=== PATIENT | female | born 1970 | race Caucasian/White ===

== ENCOUNTER 2022-10-06 16:50 | Emergency (ER) | payer SELFPAY ==
[2022-10-06 16:50] VITALS: BP 122/83; PULSE 100; RESP 18; TEMP 36.6; O2SAT 98
[2022-10-06 17:49] LABS: Basophils Absolute Auto 0.2 K/mm3 (0.0-0.1); Basophils Percent Auto 1.4 % (0.2-1.2); Eosinophils Absolute Auto 0.1 K/mm3 (0-0.3); Eosinophils Percent Auto 0.8 % (0-4.4); Hematocrit 47.9 % (37.0-47.0); Hemoglobin 15.9 g/dL (12.0-15.0); Immature Granulocyte Absolute 0.05 K/mm3 (0.00-0.031); Immature Granulocyte Percent A 0.5 % (0-0.5); Lymphocytes Absolute Auto 2.29 K/mm3 (0.9-3.2); Lymphocytes Percent Auto 21.4 % (18.3-44.2); Mean Corpuscular HGB Conc 33.2 g/dl (32-36); Mean Corpuscular Hemoglobin 29.2 pg (26-34); Mean Corpuscular Volume 88.1 fl (80-100); Mean Platelet Volume 9.3 fl (7.4-10.4); Monocytes Absolute Auto 0.7 K/mm3 (0.1-0.6); Monocytes Percent Auto 6.4 % (2.6-8.5); Neutrophils Absolute Auto 7.4 K/mm3 (1.3-6.7); Neutrophils Percent Auto 69.5 % (45.5-73.1); Platelet Count Result 503 k/mm3 (150-375); Red Blood Count 5.44 M/mm3 (4.2-5.4); White Blood Count 10.7 K/mm3 (4.5-10.0)
[2022-10-06 17:54] LABS: Alanine Aminotransferase 81 U/L (6-35); Albumin Level 4.6 g/dL (3.5-5.1); Alkaline Phosphatase 89 U/L (38-126); Anion Gap 10 mmol/L (8-16); Aspartate Amino Transferase 63 U/L (14-36); Bilirubin,Total 0.6 mg/dL (0.2-1.3); Blood Urea Nitrogen 24 mg/dL (7-17); Calcium 9.7 mg/dL (8.4-10.2); Carbon Dioxide 23 mmol/L (22-30); Chloride 105 mmol/L (98-107); Estimated CRCL calculation 67 ml/min; Estimated Glomerular Filt Rate 58; Glucose 107 mg/dL (65-110); Lipase 36 U/L (23-300); Potassium 4.3 mmol/L (3.4-5.0); Sodium 138 mmol/L (137-145)
[2022-10-06 18:14] LABS: Add Urine Microscopic? NO; Appearance Urine Clear (Clear); Bilirubin Urine Negative (Negative); Blood Urine Negative (Negative); Color Urine Light Yellow (Yellow); Glucose Urine UA Negative (Negative); Ketones Urine Negative (Negative); Leukocyte Esterase Ur Negative LEU/UL (Negative); Nitrate Urine Negative (Negative); Protein Urine Negative (Negative); Urobilinogen Urine 0.2 mg/dL (<2.0)
--- NOTE | 2022-10-06 19:46 | PC.NURSE ---
194-family states they will take pt to another hospital due to extended wait. LWBS-Triaged
== END 2022-10-06 19:46 | disposition left against medical advice (07) ==
PROVIDERS: Emergency Provider Emergency Medicine; PCP Family Medicine
DX: R63.0 Anorexia (principal)
CPT/HCPCS: 36415; 80053; 81003; 83690; 85025; 99199

== ENCOUNTER 2023-09-16 09:22 | Emergency (ER) | payer OTHER, MEDICARE, MEDICAID, SELFPAY ==
[2023-09-16 09:25] VITALS: BP 184/107; PULSE 91; RESP 12; TEMP 36.2; O2SAT 99
--- NOTE | 2023-09-16 09:49 | ED.WOUNDLAC ---
HPI - Wound/Laceration General Chief Complaint: Wound/Laceration <Tuyet Zamora PA-C - Last Filed: 09/16/23 14:36> Stated Complaint: Wounds, Derm Sent Patient to ED <MARIA G Phillips Last Filed: 09/16/23 14:36> Time Seen by Provider: 09/16/23 09:25 <MARIA G Phillips Last Filed: 09/16/23 14:36> Source: patient <MARIA G Phillips Last Filed: 09/16/23 14:36> Mode of arrival: ambulatory <MARIA G Phillips Last Filed: 09/16/23 14:36> Limitations: no limitations <MARIA G Phillips Last Filed: 09/16/23 14:36> History of Present Illness HPI narrative: This is a 52 year old female that presents to the ER for a rash present over the last several months. Reports she has been seeing a blade sharpener for this. Reports she had a biopsy a week ago. She was told to come to the ER today because she was experiencing some systemic symptoms. Reports the rash is itchy and painful. On her feet, groin and head. Denies fevers, erythema, edema, or abnormal drainage. <Tuyet Zamora PA-C - Last Filed: 09/16/23 14:36> Related Data Home Medications: Home Medications Medication Instructions Recorded Confirmed albuterol 90 mcg/actuation aerosol mcg inhalation 09/16/23 inhaler amlodipine 5 mg tablet 5 mg PO DAILY 09/16/23 budesonide-formoterol HFA 160 1 inh inhalation ONCE 09/16/23 mcg-4.5 mcg/actuation aerosol inhaler (Symbicort) fluoxetine 20 mg capsule 20 mg PO DAILY 09/16/23 losartan 100 1 tablet PO DAILY 09/16/23 mg-hydrochlorothiazide 25 mg tablet <MARIA G Phillips Last Filed: 09/16/23 14:36> Allergies/Adverse Reactions: Allergies Allergy/AdvReac Type Severity Reaction Status Date / Time adhesive Allergy Unknown Unknown Verified 09/16/23 09:51 latex Allergy Unknown Rash Verified 09/16/23 09:51 acetaminophen [From Tylenol] Allergy Hives Verified 09/16/23 10:07 adhesive tape AdvReac Mild RASH Verified 09/16/23 09:51 <Tuyet Zamora PA-C - Last Filed: 09/16/23 14:36> Review of Systems Review of Systems: CONSTITUTIONAL: Denies fever SKIN: Reports rash and itching. <Tuyet Zamora PA-C - Last Filed: 09/16/23 14:36> All systems reviewed & are unremarkable except as noted in HPI and below <Tuyet Zamora PA-C - Last Filed: 09/16/23 14:36> PMFSH Past Medical History Medical History: Medical History (Updated 09/16/23 @ 14:32 by Tuyet Zamora PA-C) Anemia Anxiety Arthritis Bronchitis COPD (chronic obstructive pulmonary disease) Crohn disease Depression Emphysema of lung GERD (gastroesophageal reflux disease) IBS (irritable bowel syndrome) Liver disease Neurofibromatosis 2 Peripheral neuropathy Pneumonia Skull fracture Sleep apnea <Tuyet Zamora PA-C - Last Filed: 09/16/23 14:36> Surgical History Surgical History: Surgical History (Updated 10/30/19 @ 14:50 by Tarik Nolasco) H/O bilateral cataract extraction H/O gastric bypass H/O: hysterectomy Hx of appendectomy Hx of cholecystectomy Hx of tonsillectomy <Tuyet Zamora PA-C - Last Filed: 09/16/23 14:36> Family History Family History: Family History (Updated 01/18/19 @ 11:23 by DOCTOR UNKNOWN) Grandparent Family history of lung cancer Other Family history of malignant neoplasm <Tuyet Zamora PA-C - Last Filed: 09/16/23 14:36> Social History Social History: Social History Smoking status: Never smoker Smoking end date: 10/17/11 Alcohol intake: current Gender identity (if verbalized by the patient): Female <Tuyet Zamora PA-C - Last Filed: 09/16/23 14:36> Exam Narrative: GENERAL: Well-appearing, well-nourished, and in no acute distress. HEAD: Normocephalic, atraumatic. EYES: EOMI. ENT: Nares clear, no rhinorrhea or epistaxis. Mucous membranes moist. Oropharynx without tonsillar hypertrophy exudate or other lesions. Bilateral TMs pearly
[2023-09-16 09:52] LABS: Basophils Absolute Auto 0.1 K/mm3 (0.0-0.1); Basophils Percent Auto 1.7 % (0.2-1.2); Eosinophils Absolute Auto 0.4 K/mm3 (0-0.3); Eosinophils Percent Auto 5.1 % (0-4.4); Hematocrit 44.2 % (37.0-47.0); Hemoglobin 14.4 g/dL (12.0-15.0); Immature Granulocyte Absolute 0.03 K/mm3 (0.00-0.031); Immature Granulocyte Percent A 0.4 % (0-0.5); Lymphocytes Absolute Auto 2.17 K/mm3 (0.9-3.2); Mean Corpuscular HGB Conc 32.6 g/dl (32-36); Mean Corpuscular Hemoglobin 30.2 pg (26-34); Mean Corpuscular Volume 92.7 fl (80-100); Mean Platelet Volume 9.5 fl (7.4-10.4); Monocytes Absolute Auto 0.7 K/mm3 (0.1-0.6); Monocytes Percent Auto 8.5 % (2.6-8.5); Neutrophils Absolute Auto 4.9 K/mm3 (1.3-6.7); Neutrophils Percent Auto 58.3 % (45.5-73.1); Platelet Count Result 392 k/mm3 (150-375); Red Blood Count 4.77 M/mm3 (4.2-5.4); Red Cell Distribution Width 13.7 % (11.5-14.5); White Blood Count 8.4 K/mm3 (4.5-10.0)
[2023-09-16] MEDS: ONDANSETRON INJ 4 MG/2 ML VIAL IV PUSH (10:02)
[2023-09-16] MEDS: SODIUM CHLORIDE 0.9% IV 500 ML 999 ML IV CONT (10:02)
[2023-09-16 10:03] LABS: Lactic Acid Reflex 2.4 mmol/L (0.7-2.0)
[2023-09-16 10:04] LABS: Alanine Aminotransferase 95 U/L (6-35); Albumin Level 4.2 g/dL (3.5-5.1); Alkaline Phosphatase 95 U/L (38-126); Anion Gap 9 mmol/L (8-16); Aspartate Amino Transferase 81 U/L (14-36); Bilirubin,Total 0.7 mg/dL (0.2-1.3); Blood Urea Nitrogen 12 mg/dL (7-17); CRP 0.7 mg/dL (<1.0); Calcium 9.2 mg/dL (8.4-10.2); Carbon Dioxide 23 mmol/L (22-30); Chloride 105 mmol/L (98-107); Estimated Glomerular Filt Rate > 60; Glucose 206 mg/dL (65-110); Potassium 3.8 mmol/L (3.4-5.0); Sodium 137 mmol/L (137-145)
[2023-09-16 10:33] LABS: Erythrocyte Sedimentation Rate 25 mm/hr (0-20)
[2023-09-16] MEDS: SODIUM CHLORIDE 0.9% IV 1,000 ML 999 ML IV CONT (10:55)
[2023-09-16 11:05] LABS: Influenza A QL RT-PCR Negative (Negative); Influenza B QL RT-PCR Negative (Negative); SARS-CoV-2 RNA PCR Negative (Negative)
[2023-09-16 12:49] LABS: Lactic Acid Reflex 1.1 mmol/L (0.7-2.0)
[2023-09-16 12:50] LABS: Reflex Lactic Acid Yes or No Add Lactic
[2023-09-16 15:04] VITALS: BP 130/76; PULSE 88; RESP 16; O2SAT 98
== END 2023-09-16 15:05 | disposition home or self-care (01) ==
PROVIDERS: Emergency Provider Physician Assistant; PCP Family Medicine
DX: B35.9 Dermatophytosis, unspecified (principal); Z20.822 Contact with and (suspected) exposure to COVID-19; J43.9 Emphysema, unspecified; K50.90 Crohn's disease, unspecified, without complications; K21.9 Gastro-esophageal reflux disease without esophagitis; K76.9 Liver disease, unspecified; G62.9 Polyneuropathy, unspecified; G47.30 Sleep apnea, unspecified; Q85.02 Neurofibromatosis, type 2; Z98.84 Bariatric surgery status; Z86.2 Personal history of diseases of the blood and blood-forming organs and certain disorders involving the immune mechanism; Z87.891 Personal history of nicotine dependence; Z98.42 Cataract extraction status, left eye; Z98.41 Cataract extraction status, right eye; Z90.710 Acquired absence of both cervix and uterus; Z90.49 Acquired absence of other specified parts of digestive tract
CPT/HCPCS: 36415; 80053; 83605; 85025; 85652; 86140; 87636; 96361; 96374; 99284; J2405; J7030; J7040

== ENCOUNTER 2024-03-30 15:46 | Inpatient (IN) | payer MEDICARE, OTHER, MEDICAID, SELFPAY ==
[2024-03-30] VITALS (9 sets, daily range): BP systolic 115–162; BP diastolic 87–102; PULSE 98–109; RESP 16–27; TEMP 36.4; O2SAT 91–99
--- NOTE | ~2024-03-30 | XR_ITS ---
EXAMINATION: XR chest 2V 03/30/2024 16:13 INDICATION: Chest pain and shortness of breath PROCEDURE: 2 view chest COMPARISON: No prior studies for comparison. FINDINGS: The lungs are clear. There are calcified granulomas of the left midlung. The cardiomediasti nal silhouette is within normal limits. There are no pleural effusions. There is no pneumothorax rey spected. IMPRESSION: 1: NO ACUTE CARDIOPULMONARY DISEASE. Reviewed, dictated and finalized at location B.
--- NOTE | ~2024-03-30 | XR_ITS ---
EXAMINATION: XR chest 2V DATE: 04/06/2024 09:24 INDICATION: Hypoxia. TECHNIQUE: PA and lateral views of the chest were obtained. COMPARISON: Chest radiograph and CT dated 03/30/2024 FINDINGS: Calcified nodules in the left midlung zone consistent with old granulomatous disease. New opacities a t the posterior left lower lung zone which include a small pleural effusion with blunting of the post erior sulcus. The subtle opacities in the right upper lung zone have resolved. The cardiomediastinal silhouette is normal. Post cystectomy clips noted right upper quadrant. IMPRESSION: 1. Small left pleural effusion with new opacities in the posterior left lower lobe which could repres ent pneumonia or atelectasis. Reviewed, dictated and finalized at location A. IMPRESSION: 1. Small left pleural effusion with new opacities in the posterior left lower l obe which could represent pneumonia or atelectasis.
--- NOTE | ~2024-03-30 | CT_ITS ---
CTA chest PE protocol Ordering provider: Danette Jalloh MD History: 53 years Female with . pe . Comparison: None. Technique: CT angiogram chest was performed following timed intravenous injection of contrast. Thin s lice axial images and reformatted coronal images were obtained. Three dimensional reformatted images of the chest were also obtained using a [employer] workstation. Radiation reduction technique utilized. DLP 1450.4mGy0. Findings: PULMONARY ARTERIES: No pulmonary embolus. VISUALIZED THORACIC INLET: Normal. MEDIASTINUM: Aorta/coronary arteries: Normal aorta.. Heart/other: The heart is not enlarged. Lymph nodes: No mediastinal or hilar adenopathy. LUNGS: Multiple groundglass appearing areas involving the right upper and middle lobe and left lower lobe an d lingula. No pulmonary nodules or masses. No infiltrates or effusions. No pneumothorax. VISUALIZED UPPER ABDOMEN: the visualized upper abdomen is normal. MUSCULOSKELETAL: Soft tissues: The superficial soft tissues are normal. Bones: Normal spine except for Small sclerotic lesions in T10 and T11. IMPRESSION: 1. No definite pulmonary embolism. 2. Multiple patchy groundglass appearing areas suggestive of pneumonia. Atypical viral infection pierce uld be considered. Reviewed, dictated and finalized at location A. IMPRESSION: 1. No definite pulmonary embolism. 2. Multiple patchy groundglass appearing areas suggestive of pneumonia. Atypic al viral infection should be considered.
--- NOTE | 2024-03-30 15:47 | ECG_ITS ---
Test Date: 2024-03-30 15:50:10 Measurements Intervals [place] Rate: 107 P: 63 [place]: 129 QRS: 51 QRSD: 91 T: 56 QT: 346 QTc: 463 Interpretive Statements SINUS TACHYCARDIA ABNORMAL RHYTHM ECG No previous ECG available for comparison Electronically Signed On 03-31-2024 15:53:28 CDT by Miguel A Martinez M.D.
[2024-03-30 16:21] LABS: Hematocrit 45.9 % (37.0-47.0); Hemoglobin 15.6 g/dL (12.0-15.0); Immature Platelet Fraction Pct 2.2 % (0.9-11.2); Mean Corpuscular Hemoglobin 30.6 pg (26-34); Mean Corpuscular Volume 90.2 fl (80-100); Mean Platelet Volume 9.6 fl (7.4-10.4); Platelet Count Result 426 k/mm3 (150-375); Red Blood Count 5.09 M/mm3 (4.2-5.4); Red Cell Distribution Width 13.8 % (11.5-14.5); White Blood Count 11.7 K/mm3 (4.5-10.0)
[2024-03-30 16:28] LABS: INR 1.2; Partial Thromboplastin Time 28.7 Seconds (22.3-36.8); Prothrombin Time 15.2 Seconds (11.1-14.7)
[2024-03-30 16:37] LABS: Troponin I < 0.012 ng/mL (0.000-0.034)
[2024-03-30 16:47] LABS: Band Neutrophils Percent 1 % (0-6); Eosinophils Absolute Manual 0.58 K/mm3 (0.02-0.50); Eosinophils Percent Manual 5 % (0-4); Lymphocytes Absolute Manual 2.34 K/mm3 (1.1-4.5); Monocytes Absolute Manual 0.46 K/mm3 (0.1-0.90); Monocytes Percent Manual 4 % (3-9); Neutrophils Percent Manual 70 % (46-73); Total Cells Counted 100
[2024-03-30 16:48] LABS: Platelet Estimate Increased (Adequate); Schistocytes None Seen
--- NOTE | 2024-03-30 17:11 | ED.SOB ---
HPI - SOB/Dyspnea General Chief Complaint: Shortness of Breath/Dyspnea Stated Complaint: shortness of breath, cp Time Seen by Provider: 03/30/24 16:53 History of Present Illness HPI Narrative: Patient is a 53-year-old female with history of asthma, HTN here with multiple symptoms including shortness of breath, diffuse body aches, lower back pain, subjective fever, sore throat. She notes that symptoms have been present and progressively worsening over the last 3 weeks. She has had an increased use of her inhaler, stating that she uses 1 inhaler a week over the last 3 weeks. She notes that her primary care doctor so she does not currently follow with any primary care doctor. She notes that she was a mid to [facility] about 3 months ago for acute hypoxic respiratory failure. She does not use any home oxygen. She does not have any sick contacts. She denies any prior cardiac history. She has tried multiple [id number] medications without any relief of her symptoms. Related Data Home Medications Medication Instructions Recorded Confirmed albuterol 90 mcg/actuation aerosol mcg inhalation 09/16/23 inhaler amlodipine 5 mg tablet 5 mg PO DAILY 09/16/23 budesonide-formoterol HFA 160 1 inh inhalation ONCE 09/16/23 mcg-4.5 mcg/actuation aerosol inhaler (Symbicort) fluoxetine 20 mg capsule 20 mg PO DAILY 09/16/23 losartan 100 1 tablet PO DAILY 09/16/23 mg-hydrochlorothiazide 25 mg tablet Allergies Allergy/AdvReac Type Severity Reaction Status Date / Time adhesive Allergy Unknown Unknown Verified 09/16/23 09:51 latex Allergy Unknown Rash Verified 09/16/23 09:51 acetaminophen [From Tylenol] Allergy Hives Verified 09/16/23 10:07 adhesive tape AdvReac Mild RASH Verified 09/16/23 09:51 Review of Systems Review of Systems: All systems reviewed & are unremarkable except as noted in HPI and below PMFSH Past Medical History Medical History (Updated 03/30/24 @ 21:53 by Danette Jalloh MD) Anemia Anxiety Arthritis Bronchitis COPD (chronic obstructive pulmonary disease) Crohn disease Depression Emphysema of lung GERD (gastroesophageal reflux disease) IBS (irritable bowel syndrome) Liver disease Neurofibromatosis 2 Peripheral neuropathy Pneumonia Skull fracture Sleep apnea Surgical History Surgical History (Updated 10/30/19 @ 14:50 by Tarik Nolasco) H/O bilateral cataract extraction H/O gastric bypass H/O: hysterectomy Hx of appendectomy Hx of cholecystectomy Hx of tonsillectomy Family History Family History (Updated 01/18/19 @ 11:23 by DOCTOR UNKNOWN) Grandparent Family history of lung cancer Other Family history of malignant neoplasm Social History Social History Smoking status: Never smoker Smoking end date: 10/17/11 Alcohol intake: current Gender identity (if verbalized by the patient): Female Exam Narrative: GENERAL: Well-appearing, well-nourished, and in no acute distress. HEAD: Normocephalic, atraumatic. EYES: PERRLA and EOMI. ENT: Nares clear. Mucous membranes moist. NECK: Supple. CHEST: Loud diffuse inspiratory and expiratory wheeze present HEART: Tachycardic. Normal peripheral pulses. ABDOMEN: Soft, epigastric abdominal tenderness without rebound or guarding, nondistended. EXTREMITIES: Normal range of motion. No edema. SKIN: Warm, dry, no rash. NEURO: No focal deficits. Alert and oriented x3. PSYCH: Normal mood and affect. Course Course Emergency Course: Chart review performed, patient here for shortness of breath x3 weeks, triage nursing note states she was recently diagnosed with bronchitis and respiratory heart failure. She is tachycardic, tachypneic, afebrile, not hypoxic. Last ED visit was in September of 2023 for laceration. Given patient's tachycardia, PERC criteria applied cannot rule out PE/DVT. Will do screening D-dimer. BNP also added to triage protocol. Chest x-ray negative i
[2024-03-30 18:12] LABS: D Dimer 1.07 ug/mL (<0.48)
[2024-03-30] MEDS: IPRATROPIUM BR 0.02% INH SOLN 0.5 MG/2.5 ML VIAL 1.5 MG INHALATION (18:26)
[2024-03-30] MEDS: ALBUTEROL SULFATE NEB 2.5 MG/3 ML INH 15 MG INHALATION (18:26)
[2024-03-30] MEDS: methylPREDNISolone SOD SUCC 125 MG VIAL IV PUSH (18:29)
[2024-03-30 18:58] LABS: Monoscreen Negative (Negative); Negative Monotest Control Negative (Negative); Positive Monotest Control Positive (Positive)
[2024-03-30] MEDS: MORPHINE SULFATE (*CRX) 4 MG/ML INJ IV PUSH ×2 (19:09→21:46)
[2024-03-30] MEDS: ONDANSETRON INJ 4 MG/2 ML VIAL IV PUSH (19:09)
[2024-03-30 19:11] LABS: NT Pro B Type Natriuretic Pept 95 pg/mL (19.9-100)
[2024-03-30 19:14] LABS: Strep Group A RT-PCR NOT DETECTED (Negative)
[2024-03-30 19:26] LABS: Influenza A QL RT-PCR Negative (Negative); Influenza B QL RT-PCR Negative (Negative); RSV RNA, RT-PCR Negative (Negative); SARS-CoV-2 RNA PCR Negative (Negative)
[2024-03-30 20:00] LABS: Alanine Aminotransferase 31 U/L (6-35); Albumin Level 4.4 g/dL (3.5-5.1); Alkaline Phosphatase 87 U/L (38-126); Anion Gap 9 mmol/L (4-12); Aspartate Amino Transferase 42 U/L (14-36); Bilirubin,Total 1.1 mg/dL (0.2-1.3); Blood Urea Nitrogen 11 mg/dL (7-17); Calcium 9.9 mg/dL (8.4-10.2); Carbon Dioxide 22 mmol/L (22-30); Chloride 106 mmol/L (98-107); Estimated CRCL calculation 102 ml/min; Estimated Glomerular Filt Rate > 60; Glucose 121 mg/dL (65-110); Lipase 33 U/L (23-300); Potassium 4.5 mmol/L (3.4-5.0); Sodium 137 mmol/L (137-145)
[2024-03-30 20:27] LABS: Appearance Urine Clear (Clear); Bacteria Urine 1+ /hpf; Bilirubin Urine 1+ (Negative); Blood Urine Negative (Negative); Color Urine Dark Yellow (Yellow); Glucose Urine UA Negative (Negative); Ketones Urine 1+ mg/dL (Negative); Leukocyte Esterase Ur Trace LEU/UL (Negative); Nitrate Urine Negative (Negative); Non Pathogenic Casts 0-2; Protein Urine Trace mg/dL (Negative); Specific Grav Ur 1.027 (1.001-1.035); Squamous Epithelial Cell Urine Few /hpf (Few); pH Urine 6.5 (5.0-9.0)
[2024-03-30 20:32] LABS: Add Urine Microscopic? YES
--- NOTE | 2024-03-30 20:45 | PC.NURSE ---
Pt placed on nasal canula in CT due to low o2 saturations.
[2024-03-30] MEDS: AZITHROMYCIN 500 MG/NS 250 ML 500 MG/250 ML BAG 250 MG IVPB (22:55)
--- NOTE | 2024-03-30 23:51 | PM.IMHP ---
H&P: HPI History of Present Illness Date/Time: 03/30/24 21:30 Chief Complaint: Shortness of breath. Narrative: This is a pleasant 53-year-old female with asthma, chronic rhinosinusitis, common variable immunodeficiency, hypertension, sleep apnea, neurofibromatosis 2, Crohn's disease, and history of hemolytic anemia who presented to the emergency department for evaluation of shortness of breath. The patient provides the following history. The patient her went to [place] a couple of weeks ago and returned home last Tuesday. While there it sounds as though they picked up an upper respiratory infection. The patient reports chills, sweats, fever up to 102? F, cough productive of thick brown/green/yellow mucus, progressive dyspnea on lesser and lesser exertion, and post-tussive emesis. It is to the point where she can barely walk 15 ft without her oxygen dropping into the 70s or 80s. She has been using her nebulizer treatments every 2 hours without longstanding benefit. She was given a 5 day course of prednisone 20 mg by her primary care provider and she finished those a couple of days ago and her wheezing seems to be getting worse. She is also been taking ibuprofen, cough suppressants, and cold and flu medication without much benefit. She has some chest tightness with the shortness of breath. No syncope, near syncope, hemoptysis, palpitations, abdominal pain, diarrhea, or calf pain. In the ED: She was afebrile on arrival. SpO2 has been in the lower 90s on 2 L nasal cannula. Labs were significant for WBC count of 11.7 with 5% eosinophiles, hemoglobin 15.6, D-dimer 1.07, proBNP 95, troponin less than 0.012. She tested negative for influenza, RSV, COVID, strep, and mono. Chest CTA was negative for PE but did note multifocal patchy ground-glass opacities suggestive of pneumonia. She received an hour long nebulizer treatment, 125 mg methylprednisolone, 500 mg azithromycin, and 1 g ceftriaxone and she is being admitted in this setting for further treatment. Review of Systems Review of Systems: 12 systems were reviewed and are negative except for as per HPI. [facility] Past Medical History Medical History (Updated 03/31/24 @ 00:46 by Christal Romero PA-C) Anemia Anxiety Arthritis Asthma Common variable immunodeficiency Crohn disease Depression Emphysema of lung Former smoker Gastroesophageal reflux disease Hemolytic anemia Hypertension Irritable bowel syndrome MRSA colonization Neurofibromatosis 2 Obstructive sleep apnea Does not use CPAP. Peripheral neuropathy Pneumonia Surgical History Surgical History (Updated 03/31/24 @ 00:36 by Christal Romero PA-C) History of appendectomy History of cholecystectomy History of hysterectomy History of laparoscopic adjustable gastric banding History of sinus surgery History of tonsillectomy Family History Family History Grandparent Family history of lung cancer Other Family history of malignant neoplasm Social History Social History (Updated 03/31/24 @ 00:37 by Christal Romero PA-C) Social History: Surrogate medical decision maker: Orlando Dimas, spouse. Code status: Full code. Smoking packs per day: 1 Smoking cigarettes per day: 20.0 Years smoked: 20 Smoking pack-years: 20.00 Smoking status: Former smoker Tobacco type: cigarettes Smoking end date: 10/17/11 Alcohol intake: current Alcohol use details: Social alcohol use in moderation. Substance use: never Do You Feel Safe in your Home?: Yes Lack of Transportation: No Lack of Food: Never True Current Housing: I Have Housing Concerned About Future Housing: No Difficulty Paying Gas/Electric Bills: No Difficulty Paying for Meds: No Currently Unemployed: No Education: High School Diploma/GED Difficulty w/ Childcare or Family Care: No Additional living arrangements comments: Lives with spouse in [place]. Ge
[2024-03-30] MEDS: guaiFENesin 12 HR 600 MG TABCR 1200 MG PO (23:57)
[2024-03-31] VITALS (19 sets, daily range): BP systolic 115–142; BP diastolic 61–83; PULSE 73–101; RESP 16–24; TEMP 36.4–36.7; O2SAT 92–100
[2024-03-31 00:52] LABS: Troponin I < 0.012 ng/mL (0.000-0.034)
[2024-03-31] MEDS: ALPRAZolam (*CRX) 0.5 MG TABLET PO ×3 (02:15→20:37)
[2024-03-31] MEDS: diphenhydrAMINE HCl CAP 25 MG CAPSULE 100 MG PO ×3 (02:15→20:37)
[2024-03-31] MEDS: IPRATROPIUM 0.5 MG/ALBUTEROL SULFATE 2.5 MG AMPUL.NEB 3 ML INHALATION ×5 (04:16→20:52)
[2024-03-31] MEDS: methylPREDNISolone SOD SUCC 125 MG VIAL 60 MG IV PUSH ×3 (05:19→17:37)
[2024-03-31 06:56] LABS: Hematocrit 45.4 % (37.0-47.0); Hemoglobin 14.4 g/dL (12.0-15.0); Mean Corpuscular HGB Conc 31.7 g/dl (32-36); Mean Corpuscular Hemoglobin 30.1 pg (26-34); Mean Corpuscular Volume 94.8 fl (80-100); Mean Platelet Volume 9.9 fl (7.4-10.4); Platelet Count Result 408 k/mm3 (150-375); Red Blood Count 4.79 M/mm3 (4.2-5.4); Red Cell Distribution Width 13.8 % (11.5-14.5); White Blood Count 8.2 K/mm3 (4.5-10.0)
[2024-03-31 07:05] LABS: Anion Gap 6 mmol/L (4-12); Blood Urea Nitrogen 16 mg/dL (7-17); Calcium 9.2 mg/dL (8.4-10.2); Carbon Dioxide 27 mmol/L (22-30); Chloride 105 mmol/L (98-107); Estimated CRCL calculation 78 ml/min; Estimated Glomerular Filt Rate > 60; Glucose 166 mg/dL (65-110); Magnesium 2.3 mg/dL (1.6-2.3); Potassium 4.5 mmol/L (3.4-5.0); Sodium 138 mmol/L (137-145)
[2024-03-31] MEDS: FLUTICASONE/SALMETEROL 115-21 MCG INHALER 1 PUFF 2 PUFF INHALATION ×2 (08:10→20:52)
[2024-03-31] MEDS: amLODIPine BESYLATE 5 MG TABLET PO (08:45)
[2024-03-31] MEDS: LOSARTAN POTASSIUM 100 MG TABLET PO (08:45)
[2024-03-31] MEDS: hydroCHLOROthiazide 25 MG TABLET PO (08:45)
[2024-03-31] MEDS: FLUoxetine HCL 20 MG CAPSULE PO (08:46)
[2024-03-31] MEDS: DOCUSATE SODIUM 100 MG CAPSULE PO ×2 (08:46→17:38)
[2024-03-31] MEDS: ENOXAPARIN 40 MG/0.4 ML SYRINGE SUB-Q (08:46)
[2024-03-31] MEDS: guaiFENesin 12 HR 600 MG TABCR 1200 MG PO ×2 (08:46→20:37)
[2024-03-31 10:17] LABS: MRSA (PCR) DETECTED (NOT DETECTE)
[2024-03-31] MEDS: DOXYCYCLINE HYCLATE 100 MG TABLET PO ×2 (10:42→20:37)
[2024-03-31] MEDS: IBUPROFEN 600 MG TABLET PO (10:42)
--- NOTE | 2024-03-31 13:18 | PM.IMPN ---
Progress Note: A&P Assessment and Plan (1) Acute hypoxic respiratory failure: Code(s): J96.01 - Acute respiratory failure with hypoxia Status: Acute Assessment and Plan: Chest x-ray was negative Chest CTA was negative for PE but did show multiple patchy areas of ground-glass opacities. Patient started on Rocephin and azithromycin She is MRSA positive and was also started on doxycycline Respiratory panel was negative for influenza a and B, RSV, COVID, mono screen, strep Urine strep and urine Legionella are pending Blood and urine cultures were obtained and are pending Continue DuoNebs Continue Solu-Medrol Will get pulmonology on board considering she does not follow with a honing machine operator production and she is re-establishing a PCP. (2) Multifocal pneumonia: Code(s): J18.9 - Pneumonia, unspecified organism Status: Acute Assessment and Plan: See above (3) Asthma exacerbation: Qualifiers: Asthma persistence: unspecified Asthma severity: unspecified severity Qualified Code(s): J45.901 - Unspecified asthma with (acute) exacerbation Code(s): J45.901 - Unspecified asthma with (acute) exacerbation Status: Acute Assessment and Plan: See above (4) Hypertension: Code(s): I10 - Essential (primary) hypertension Status: Acute Assessment and Plan: Pressure ranging 138/82 148/92 Continue amlodipine and hydrochlorothiazide (5) Anxiety: Code(s): F41.9 - Anxiety disorder, unspecified Status: Acute Assessment and Plan: Continue Xanax Time Spent With Patient Time with patient: Greater than 35 minutes Subjective Date/time seen: 03/31/24 13:18 Interval history: This is a 53 year old female who presented to the hospital on 03/30/2024 with complaints of shortness of breath. Workup in the hospital included chest x-ray which was negative. Chest CTA was negative for PE, showed multiple patchy ground-glass appearing pneumonia. Labs today showed a white blood cell count 11.7, INR 1.2, D-dimer 1.07, troponin negative x2, AST 42. UA was obtained which shown 1+ urine ketones, 1+ urine bili, trace leukocytes, 3-5 urine RBCs, 6-10 urine wbc's, 1+ urine bacteria. Respiratory panel was negative for influenza a and B, RSV, COVID. Acute phase strep was negative. Sabine screen was negative. Urine strep and urine Legionella are pending. Blood and urine cultures obtained and are pending. Patient was given 125 mg of IV push Solu-Medrol, DuoNeb, pain med, Zofran, and started on Rocephin and azithromycin while in the ED. On examination today patient is alert and oriented x3, lying in bed. Patient denies any fever, chills, nausea, vomiting, diarrhea, abdominal pain, chest pain. Patient endorses shortness of breath, cough, and wheezing. Labs today showed white blood cell count of 8.2 otherwise unremarkable. She is MRSA positive. She was started doxycycline as well. Patient states that she does not have a honing machine operator production currently and her PCP had recently and is trying to get re-established with a primary care doctor. Review of Systems Review of Systems: 12 systems were reviewed and are negative except for as per HPI. Constitutional: Constitutional: Reports as per HPI and Reports no additional constitutional complaints Eyes: Eyes: Reports as per HPI and Reports no additional eye complaints ENT: Reports system reviewed and no additional complaints, except as documented and Reports as per HPI Cardiovascular: Cardiovascular: Reports as per HPI and Reports no additional cardiovascular complaints Respiratory: Respiratory: Reports as per HPI and Reports no additional respiratory complaints Gastrointestinal: Gastrointestinal: Reports as per HPI and Reports no additional gastrointestinal complaints Genitourinary: Genitourinary: Reports no additional female genitourinary complaints and Reports as per HPI Musculoskeletal: Musculoskeletal:
[2024-03-31] MEDS: AZITHROMYCIN 500 MG/NS 250 ML 500 MG/250 ML BAG 250 MG IVPB (20:37)
[2024-03-31] MEDS: INSULIN ASPART (*BKC) 100 UNITS/ML 6 UNITS SUB-Q (22:05)
[2024-03-31 22:13] LABS: Glucose Point of Care 375 mg/dl (65-105)
[2024-04-01] VITALS (18 sets, daily range): BP systolic 112–119; BP diastolic 60–68; PULSE 78–95; RESP 16–18; TEMP 36.3–36.6; O2SAT 94–100
[2024-04-01] MEDS: IPRATROPIUM 0.5 MG/ALBUTEROL SULFATE 2.5 MG AMPUL.NEB 3 ML INHALATION ×6 (00:29→21:35)
[2024-04-01] MEDS: methylPREDNISolone SOD SUCC 125 MG VIAL 60 MG IV PUSH ×4 (00:59→17:06)
[2024-04-01] MEDS: diphenhydrAMINE HCl CAP 25 MG CAPSULE 100 MG PO ×2 (05:52→13:09)
[2024-04-01] MEDS: ALPRAZolam (*CRX) 0.5 MG TABLET PO ×3 (05:53→21:20)
[2024-04-01] MEDS: FLUTICASONE/SALMETEROL 115-21 MCG INHALER 1 PUFF 2 PUFF INHALATION ×2 (07:19→21:35)
[2024-04-01] MEDS: INSULIN ASPART (*BKC) 100 UNITS/ML SUB-Q ×3 (08:27→21:28)
[2024-04-01] MEDS: FLUoxetine HCL 20 MG CAPSULE PO (08:28)
[2024-04-01] MEDS: DOCUSATE SODIUM 100 MG CAPSULE PO ×2 (08:29→17:06)
[2024-04-01] MEDS: DOXYCYCLINE HYCLATE 100 MG TABLET PO ×2 (08:29→21:20)
[2024-04-01] MEDS: hydroCHLOROthiazide 25 MG TABLET PO (08:29)
[2024-04-01] MEDS: LOSARTAN POTASSIUM 100 MG TABLET PO (08:29)
[2024-04-01] MEDS: IBUPROFEN 600 MG TABLET PO (08:29)
[2024-04-01] MEDS: guaiFENesin 12 HR 600 MG TABCR 1200 MG PO ×2 (08:29→21:20)
[2024-04-01] MEDS: amLODIPine BESYLATE 5 MG TABLET PO (08:30)
[2024-04-01] MEDS: ENOXAPARIN 40 MG/0.4 ML SYRINGE SUB-Q (08:33)
[2024-04-01 09:35] LABS: Glucose Point of Care 271 mg/dl (65-105)
--- NOTE | 2024-04-01 10:55 | P.PNIM_ITS ---
Progress Note: A&P Assessment and Plan (1) Acute hypoxic respiratory failure: Code(s): J96.01 - Acute respiratory failure with hypoxia Status: Acute Assessment and Plan: 03/31/24: * Chest x-ray was negative * Chest CTA was negative for PE but did show multiple patchy areas of ground- glass opacities. * Patient started on Rocephin and azithromycin * She is MRSA positive and was also started on doxycycline * Respiratory panel was negative for influenza a and B, RSV, COVID, mono screen, strep * Urine strep and urine Legionella are pending * Blood and urine cultures were obtained and are pending * Continue DuoNebs * Continue Solu-Medrol * Will get pulmonology on board considering she does not follow with a senior systems engineer and she is re-establishing a PCP. 04/01/24: * Urine culture was negative * Blood culture showing no growth today on preliminary read * Sputum culture obtained * Pulmonology to see patient today * Urine strep, urine Legionella, mycoplasma all pending * Will start Flonase, singular and Claritin today. * Continue Guaifenesin (2) Multifocal pneumonia: Code(s): J18.9 - Pneumonia, unspecified organism Status: Acute Assessment and Plan: * See above (3) Asthma exacerbation: Qualifiers: Asthma persistence: unspecified Asthma severity: unspecified severity Qualified Code(s): J45.901 - Unspecified asthma with (acute) exacerbation Code(s): J45.901 - Unspecified asthma with (acute) exacerbation Status: Acute Assessment and Plan: * See above (4) Hypertension: Code(s): I10 - Essential (primary) hypertension Status: Acute Assessment and Plan: 03/31/24: * Pressure ranging 138/82 148/92 * Continue amlodipine and hydrochlorothiazide 04/01/24: * Continue with current treatment plan (5) Anxiety: Code(s): F41.9 - Anxiety disorder, unspecified Status: Acute Assessment and Plan: 03/31/24: * Continue Xanax 04/01/24: * Continue with current treatment plan Time Spent With Patient Time with patient: 25 - 35 minutes Subjective Date/time seen: 04/01/24 10:55 Interval history: 03/31/24: This is a 53 year old female who presented to the hospital on 03/30/2024 with complaints of shortness of breath. Workup in the hospital included chest x-ray which was negative. Chest CTA was negative for PE, showed multiple patchy ground-glass appearing pneumonia. Labs today showed a white blood cell count 11.7, INR 1.2, D-dimer 1.07, troponin negative x2, AST 42. UA was obtained which shown 1+ urine ketones, 1+ urine bili, trace leukocytes, 3-5 urine RBCs, 6-10 urine wbc's, 1+ urine bacteria. Respiratory panel was negative for influenza a and B, RSV, COVID. Acute phase strep was negative. [place] screen was negative. Urine strep and urine Legionella are pending. Blood and urine cultures obtained and are pending. Patient was given 125 mg of IV push Solu- Medrol, DuoNeb, pain med, Zofran, and started on Rocephin and azithromycin while in the ED. On examination today patient is alert and oriented x3, lying in bed. Patient denies any fever, chills, nausea, vomiting, diarrhea, abdominal pain, chest pain. Patient endorses shortness of breath, cough, and wheezing. Labs today showed white blood cell count of 8.2 otherwise unremarkable. She is MRSA positive. She was started doxycycline as well. Patient states that she does not have a senior systems engineer currently and her PCP had recently and is trying to get re-established with a primary care doctor. 04/01/24: Patient remains on
--- NOTE | 2024-04-01 10:55 | PM.IMPN ---
Progress Note: A&P Assessment and Plan (1) Acute hypoxic respiratory failure: Code(s): J96.01 - Acute respiratory failure with hypoxia Status: Acute Assessment and Plan: 03/31/24: Chest x-ray was negative Chest CTA was negative for PE but did show multiple patchy areas of ground-glass opacities. Patient started on Rocephin and azithromycin She is MRSA positive and was also started on doxycycline Respiratory panel was negative for influenza a and B, RSV, COVID, mono screen, strep Urine strep and urine Legionella are pending Blood and urine cultures were obtained and are pending Continue DuoNebs Continue Solu-Medrol Will get pulmonology on board considering she does not follow with a manager of financial reporting and she is re-establishing a PCP. 04/01/24: Urine culture was negative Blood culture showing no growth today on preliminary read Sputum culture obtained Pulmonology to see patient today Urine strep, urine Legionella, mycoplasma all pending Will start Flonase, singular and Claritin today. Continue Guaifenesin (2) Multifocal pneumonia: Code(s): J18.9 - Pneumonia, unspecified organism Status: Acute Assessment and Plan: See above (3) Asthma exacerbation: Qualifiers: Asthma persistence: unspecified Asthma severity: unspecified severity Qualified Code(s): J45.901 - Unspecified asthma with (acute) exacerbation Code(s): J45.901 - Unspecified asthma with (acute) exacerbation Status: Acute Assessment and Plan: See above (4) Hypertension: Code(s): I10 - Essential (primary) hypertension Status: Acute Assessment and Plan: 03/31/24: Pressure ranging 138/82 148/92 Continue amlodipine and hydrochlorothiazide 04/01/24: Continue with current treatment plan (5) Anxiety: Code(s): F41.9 - Anxiety disorder, unspecified Status: Acute Assessment and Plan: 03/31/24: Continue Xanax 04/01/24: Continue with current treatment plan Time Spent With Patient Time with patient: 25 - 35 minutes Subjective Date/time seen: 04/01/24 10:55 Interval history: 03/31/24: This is a 53 year old female who presented to the hospital on 03/30/2024 with complaints of shortness of breath. Workup in the hospital included chest x-ray which was negative. Chest CTA was negative for PE, showed multiple patchy ground-glass appearing pneumonia. Labs today showed a white blood cell count 11.7, INR 1.2, D-dimer 1.07, troponin negative x2, AST 42. UA was obtained which shown 1+ urine ketones, 1+ urine bili, trace leukocytes, 3-5 urine RBCs, 6-10 urine wbc's, 1+ urine bacteria. Respiratory panel was negative for influenza a and B, RSV, COVID. Acute phase strep was negative. [place] screen was negative. Urine strep and urine Legionella are pending. Blood and urine cultures obtained and are pending. Patient was given 125 mg of IV push Solu-Medrol, DuoNeb, pain med, Zofran, and started on Rocephin and azithromycin while in the ED. On examination today patient is alert and oriented x3, lying in bed. Patient denies any fever, chills, nausea, vomiting, diarrhea, abdominal pain, chest pain. Patient endorses shortness of breath, cough, and wheezing. Labs today showed white blood cell count of 8.2 otherwise unremarkable. She is MRSA positive. She was started doxycycline as well. Patient states that she does not have a manager of financial reporting currently and her PCP had recently and is trying to get re-established with a primary care doctor. 04/01/24: Patient remains on 2L NC and reports that she is still wheezing and chest still feeling tight. Labs today reveal white blood cell count 19.4, blood glucose 310-313. Will check a hemoglobin A1c. Pulmonology consulted and will see today. Patient states that she takes Benadryl for her allergies??? I told her that she needs to be on an allergy regimen and that benadryl is not for seasonal allergies. She then stated that
[2024-04-01 11:21] LABS: Basophils Percent Auto 0.1 % (0.2-1.2); Hematocrit 41.4 % (37.0-47.0); Hemoglobin 13.5 g/dL (12.0-15.0); Immature Granulocyte Absolute 0.17 K/mm3 (0.00-0.031); Immature Granulocyte Percent A 0.9 % (0-0.5); Lymphocytes Absolute Auto 1.15 K/mm3 (0.9-3.2); Lymphocytes Percent Auto 5.9 % (18.3-44.2); Mean Corpuscular HGB Conc 32.6 g/dl (32-36); Mean Corpuscular Hemoglobin 30.5 pg (26-34); Mean Corpuscular Volume 93.5 fl (80-100); Mean Platelet Volume 9.6 fl (7.4-10.4); Monocytes Absolute Auto 1.1 K/mm3 (0.1-0.6); Monocytes Percent Auto 5.6 % (2.6-8.5); Neutrophils Percent Auto 87.5 % (45.5-73.1); Platelet Count Result 399 k/mm3 (150-375); Red Blood Count 4.43 M/mm3 (4.2-5.4); Red Cell Distribution Width 13.8 % (11.5-14.5); White Blood Count 19.4 K/mm3 (4.5-10.0)
[2024-04-01 11:32] LABS: Alanine Aminotransferase 32 U/L (6-35); Albumin Level 3.7 g/dL (3.5-5.1); Alkaline Phosphatase 134 U/L (38-126); Anion Gap 6 mmol/L (4-12); Aspartate Amino Transferase 21 U/L (14-36); Bilirubin,Total 0.4 mg/dL (0.2-1.3); Blood Urea Nitrogen 19 mg/dL (7-17); Calcium 9.4 mg/dL (8.4-10.2); Carbon Dioxide 26 mmol/L (22-30); Chloride 105 mmol/L (98-107); Estimated CRCL calculation 89 ml/min; Estimated Glomerular Filt Rate > 60; Glucose 313 mg/dL (65-110); Potassium 4.1 mmol/L (3.4-5.0); Sodium 137 mmol/L (137-145)
[2024-04-01 11:43] LABS: Glucose Point of Care 310 mg/dl (65-105)
--- NOTE | 2024-04-01 15:32 | PM.CNPUL ---
Assessment and Plan Assessment and plan (1) Asthma exacerbation: Qualifiers: Asthma persistence: unspecified Asthma severity: unspecified severity Qualified Code(s): J45.901 - Unspecified asthma with (acute) exacerbation Code(s): J45.901 - Unspecified asthma with (acute) exacerbation Status: Acute Assessment and Plan: She has a hx of eosinophilic asthma for decades, complicated by rhinitis and sinus involvement, on immunotherapy; has been having increased symptoms for 3 weeks, She has ground-glass opacities on chest CT suggestive of pneumonia She had an elevated white count of 11.7 with 5% eosinophils, total of 580 eosinophils, now on immunotherapy but no treatment ofr hte last 3 months due to being sick; was at [facility] 3 months ago with the same presentation. She sees an ENT-stunt performer, so her options have been explored. Will check peak flows, adjust medications; for now continue IV Solu-Medrol, empiric antibiotics oxygen and DVT prophylaxis. (2) Acute hypoxic respiratory failure: Code(s): J96.01 - Acute respiratory failure with hypoxia Status: Acute Assessment and Plan: Does not use O2 at home; not common to have asthma causing hypoxemia so I suspect there is underlying COPD as well. Saturation is now 94% to 96% on 2 L so oxygen can be weaned. She was a smoker although she quit 20 years ago. Needs PFTs, 6 Minute Walk. She has not seen a top closer in years, can follow up in the office here for asthma management along with her ENT-stunt performer at [facility]. She may have a pneumonia driving her asthma symptoms. She is now on coverage for atypical infections with urine antigens and serum antibodies for Mycoplasma pending. (3) Rhinitis: Qualifiers: Rhinitis type: unspecified Qualified Code(s): J31.0 - Chronic rhinitis Code(s): J31.0 - Chronic rhinitis Status: Acute Assessment and Plan: Agree with plan including Flonase, Singulair, Claritin. Avoid Benadryl at home which is not a good medication for her allergies, rhinitis, asthma. She has not told her stunt performer that she uses this 2 pills TID. (4) Multifocal pneumonia: Code(s): J18.9 - Pneumonia, unspecified organism Status: Acute Assessment and Plan: CTA shows multifocal ground glass opacities which may represent pneumonia. She is on ceftriaxone and doxycycline. Urine antigens pending. History of Present Illness History of Present Illness Consult date: 04/01/24 Requesting physician: Lluvia Delgadillo APRN Chief complaint: asthma exacerbation, pneumonia Narrative: referred by Lesvia Delgadillo APRN, pt was seen April 01 @ 16:45 Room 310 NEW: Jeniffer Dimas is a 53-year-old female with a history of asthma and COPD, recurrent rhinosinusitis, IgG deficiency, obstructive sleep apnea not on treatment. 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 She was managed by top closer Dr. Leti Ellis over 15 years ago, then mainly by her primary care doctor, Dr Kelly, who recently . The patient has had 3 weeks of increasing cold symptoms including nasal congestion, drainage, increasing shortness of breath. Her had symptoms initially. They went to [place] about 3 weeks ago, she returned a week ago with no relief, deteriorated, presented to ER with complaints of diffuse body aches, lower back pain, subjective fever, and a sore throat. She has used her rescue inhaler more often, went through an inhaler a week over the last 3 weeks. She was treated at [facility] about 3 months ago for acute hypoxic respiratory failure. CXR was negative, CTA showed areas of ground-glass opacities, her MRSA nasal swab is positive. Her swabs for influenza
[2024-04-01 16:52] LABS: Glucose Point of Care 452 mg/dl (65-105)
[2024-04-01] MEDS: INSULIN ASPART (*BKC) 100 UNITS/ML 16 UNITS SUB-Q (17:09)
[2024-04-01 19:17] LABS: Hemoglobin A1C 5.9 % (<5.7)
[2024-04-01] MEDS: MONTELUKAST SODIUM 10 MG TABLET PO (21:20)
[2024-04-01] MEDS: AZITHROMYCIN 500 MG/NS 250 ML 500 MG/250 ML BAG 250 MG IVPB (21:21)
[2024-04-01] MEDS: INSULIN GLARGINE (*BKC) 100 UNITS/ML 12 UNITS SUB-Q (21:25)
[2024-04-01 21:31] LABS: Glucose Point of Care 328 mg/dl (65-105)
[2024-04-02] VITALS (18 sets, daily range): BP systolic 111–116; BP diastolic 72–76; PULSE 66–96; RESP 16–18; TEMP 36.4–36.7; O2SAT 95–99
[2024-04-02] MEDS: IPRATROPIUM 0.5 MG/ALBUTEROL SULFATE 2.5 MG AMPUL.NEB 3 ML INHALATION ×6 (00:10→23:10)
[2024-04-02] MEDS: methylPREDNISolone SOD SUCC 125 MG VIAL 60 MG IV PUSH ×4 (00:49→17:29)
[2024-04-02] MEDS: ALPRAZolam (*CRX) 0.5 MG TABLET PO ×3 (05:44→21:15)
[2024-04-02 06:17] LABS: Basophils Percent Auto 0.1 % (0.2-1.2); Hematocrit 42.8 % (37.0-47.0); Hemoglobin 13.6 g/dL (12.0-15.0); Immature Granulocyte Absolute 0.21 K/mm3 (0.00-0.031); Immature Granulocyte Percent A 1.1 % (0-0.5); Lymphocytes Absolute Auto 1.19 K/mm3 (0.9-3.2); Lymphocytes Percent Auto 6.3 % (18.3-44.2); Mean Corpuscular HGB Conc 31.8 g/dl (32-36); Mean Corpuscular Hemoglobin 30.4 pg (26-34); Mean Corpuscular Volume 95.7 fl (80-100); Mean Platelet Volume 9.6 fl (7.4-10.4); Monocytes Absolute Auto 0.8 K/mm3 (0.1-0.6); Neutrophils Absolute Auto 16.6 K/mm3 (1.3-6.7); Neutrophils Percent Auto 88.5 % (45.5-73.1); Platelet Count Result 428 k/mm3 (150-375); Red Blood Count 4.47 M/mm3 (4.2-5.4); Red Cell Distribution Width 13.9 % (11.5-14.5); White Blood Count 18.8 K/mm3 (4.5-10.0)
[2024-04-02 06:31] LABS: Alanine Aminotransferase 28 U/L (6-35); Albumin Level 3.8 g/dL (3.5-5.1); Alkaline Phosphatase 169 U/L (38-126); Anion Gap 10 mmol/L (4-12); Aspartate Amino Transferase 16 U/L (14-36); Bilirubin,Total 0.4 mg/dL (0.2-1.3); Blood Urea Nitrogen 16 mg/dL (7-17); Calcium 9.3 mg/dL (8.4-10.2); Carbon Dioxide 23 mmol/L (22-30); Chloride 103 mmol/L (98-107); Estimated CRCL calculation 89 ml/min; Estimated Glomerular Filt Rate > 60; Glucose 412 mg/dL (65-110); Sodium 136 mmol/L (137-145)
[2024-04-02] MEDS: FLUTICASONE/SALMETEROL 115-21 MCG INHALER 1 PUFF 2 PUFF INHALATION ×2 (07:22→19:39)
[2024-04-02 08:00] LABS: Glucose Point of Care 375 mg/dl (65-105)
[2024-04-02] MEDS: DOCUSATE SODIUM 100 MG CAPSULE PO ×2 (08:22→17:29)
[2024-04-02] MEDS: amLODIPine BESYLATE 5 MG TABLET PO (08:22)
[2024-04-02] MEDS: guaiFENesin 12 HR 600 MG TABCR 1200 MG PO ×2 (08:22→21:15)
[2024-04-02] MEDS: LOSARTAN POTASSIUM 100 MG TABLET PO (08:22)
[2024-04-02] MEDS: DOXYCYCLINE HYCLATE 100 MG TABLET PO ×2 (08:22→21:14)
[2024-04-02] MEDS: FLUoxetine HCL 20 MG CAPSULE PO (08:22)
[2024-04-02] MEDS: ENOXAPARIN 40 MG/0.4 ML SYRINGE SUB-Q (08:23)
[2024-04-02] MEDS: hydroCHLOROthiazide 25 MG TABLET PO (08:23)
[2024-04-02] MEDS: INSULIN ASPART (*BKC) 100 UNITS/ML SUB-Q ×2 (08:24→17:29)
--- NOTE | 2024-04-02 09:26 | PM.PNPUL ---
Progress Note: A&P Assessment and Plan (1) Asthma exacerbation: Qualifiers: Asthma persistence: unspecified Asthma severity: unspecified severity Qualified Code(s): J45.901 - Unspecified asthma with (acute) exacerbation Code(s): J45.901 - Unspecified asthma with (acute) exacerbation Status: Acute Assessment and Plan: This 53-year-old female has a history of asthma with frequent exacerbations necessitating hospitalizations and/or treatment with steroids over the past 20 years. A review of her previous medical records indicates elevated eosinophil levels and a history of chronic rhinosinusitis, which, combined with her rtqnboapp-lo-cajorqd asthma, suggests eosinophilic asthma. She also has an elevated IgE level and was previously considered for biological treatment. Currently, the patient is being treated with IV steroids and antibiotics for possible pneumonia, as well as short-acting bronchodilators. Her clinical status appears to be improving, although she continues to experience mostly expiratory wheezing. Plan: Continue the current regimen of IV Solu-Medrol, nebulized short-acting bronchodilators, antibiotics, and DVT prophylaxis. We will continue to monitor the patient closely. . (2) Multifocal pneumonia: Code(s): J18.9 - Pneumonia, unspecified organism Status: Acute (3) Acute hypoxic respiratory failure: Code(s): J96.01 - Acute respiratory failure with hypoxia Status: Acute (4) Obstructive sleep apnea: Code(s): G47.33 - Obstructive sleep apnea (adult) (pediatric) Status: Acute (5) Hypertension: Code(s): I10 - Essential (primary) hypertension Status: Acute (6) Anxiety: Code(s): F41.9 - Anxiety disorder, unspecified Status: Acute Subjective Date/time seen: 04/02/24 09:26 Interval history: This 53-year-old female, with a history of asthma spanning over 20 years and frequent exacerbations necessitating hospital admissions and steroid treatments, presented with increasing shortness of breath, cough, wheezing, and chest tightness. She has been diagnosed with an asthma exacerbation, most likely related to a recent viral infection, as chest CT revealed bilateral patchy ground-glass opacities. The patient is currently being treated with nebulized short-acting bronchodilators, IV steroids, and antibiotics. Over the past 24 hours, there has been some improvement in her shortness of breath. She continues to experience cough and chest congestion but has no fever, chills, or hemoptysis. 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 Exam Const: Other: GENERAL APPEARANCE: Well developed, well nourished, alert and cooperative, and appears to be in no acute distress while on supplemental oxygen SKIN: Inspection of the skin reveals no rashes, ulcerations or petechiae. HEENT: Sclerae anicteric and conjunctivae pink and moist. Extraocular movements were intact and pupils were equal, round, and reactive to light. The oral mucosa, hard and soft palate, tongue and posterior pharynx were normal. NECK: Supple. There was no thyroid enlargement, and no tenderness, or masses were felt. CHEST: Normal AP diameter and normal contour without any kyphoscoliosis. LUNGS: Scattered expiratory wheezing bilaterally CARDIAC: There was a regular rate and rhythm without any murmurs, gallops, rubs. ABDOMEN: Soft and nontender with normal bowel sounds. There was no organomegaly. LYMPH NODES: No lymphadenopathy was appreciated in the neck. EXTREMITIES: No cyanosis, clubbing or edema. NEUROLOGIC: Alert and oriented x 3. Normal affect. Objective Data Vital Signs Vital Signs: Vital Signs - 24 hr 04/01/24 12:44 04/01/24 14:00 04/01/24 12:51 Te
[2024-04-02 11:32] LABS: Glucose Point of Care 408 mg/dl (65-105)
[2024-04-02] MEDS: INSULIN ASPART (*BKC) 100 UNITS/ML 16 UNITS SUB-Q (12:20)
[2024-04-02] MEDS: LORATADINE/PSEUDOEPHEDRINE (*CRX) 10/240 MG TABLET ER 24 HR 1 TAB PO (12:24)
[2024-04-02] MEDS: INSULIN HUMAN NPH (*BKC) 100 UNITS/ML 10 UNITS SUB-Q (13:10)
--- NOTE | 2024-04-02 15:19 | P.PNIM_ITS ---
Progress Note: A&P Assessment and Plan (1) Acute hypoxic respiratory failure: Code(s): J96.01 - Acute respiratory failure with hypoxia Status: Acute Assessment and Plan: 03/31/24: * Chest x-ray was negative * Chest CTA was negative for PE but did show multiple patchy areas of ground- glass opacities. * Patient started on Rocephin and azithromycin * She is MRSA positive and was also started on doxycycline * Respiratory panel was negative for influenza a and B, RSV, COVID, mono screen, strep * Urine strep and urine Legionella are pending * Blood and urine cultures were obtained and are pending * Continue DuoNebs * Continue Solu-Medrol * Will get pulmonology on board considering she does not follow with a associate professor of theatre and she is re-establishing a PCP. 04/01/24: * Urine culture was negative * Blood culture showing no growth today on preliminary read * Sputum culture obtained * Pulmonology to see patient today * Urine strep, urine Legionella, mycoplasma all pending * Will start Flonase, singular and Claritin today. * Continue Guaifenesin 04/02/24: * Blood culture still showing no growth * Sputum culture was rejected * Pulmonology on board * Continue with current treatment plan (2) Multifocal pneumonia: Code(s): J18.9 - Pneumonia, unspecified organism Status: Acute Assessment and Plan: * See above (3) Asthma exacerbation: Qualifiers: Asthma persistence: unspecified Asthma severity: unspecified severity Qualified Code(s): J45.901 - Unspecified asthma with (acute) exacerbation Code(s): J45.901 - Unspecified asthma with (acute) exacerbation Status: Acute Assessment and Plan: * See above (4) Hypertension: Code(s): I10 - Essential (primary) hypertension Status: Acute Assessment and Plan: 03/31/24: * Pressure ranging 138/82 148/92 * Continue amlodipine and hydrochlorothiazide 04/01/24: * Continue with current treatment plan (5) Anxiety: Code(s): F41.9 - Anxiety disorder, unspecified Status: Acute Assessment and Plan: 03/31/24: * Continue Xanax 04/01/24: * Continue with current treatment plan (6) Hyperglycemia: Code(s): R73.9 - Hyperglycemia, unspecified Status: Acute Assessment and Plan: 04/02/24: * Hyperglycemia likely due to IV steroid use * Blood glucose 408-412 * Hemoglobin A1c was 5.9 * Patient not on any home medication and falls in the prediabetic phase * Gave one time dose of 16 units SSI * NPH 10 units x1 dose * Lantus increased to 25 units today Time Spent With Patient Time with patient: Greater than 35 minutes Subjective Date/time seen: 04/02/24 15:19 Interval history: 03/31/24: This is a 53 year old female who presented to the hospital on 03/30/2024 with complaints of shortness of breath. Workup in the hospital included chest x-ray which was negative. Chest CTA was negative for PE, showed multiple patchy ground-glass appearing pneumonia. Labs today showed a white blood cell count 11.7, INR 1.2, D-dimer 1.07, troponin negative x2, AST 42. UA was obtained which shown 1+ urine ketones, 1+ urine bili, trace leukocytes, 3-5 urine RBCs, 6-10 urine wbc's, 1+ urine bacteria. Respiratory panel was negative for influenza a and B, RSV, COVID. Acute phase strep was negative. [place] screen was negative. Urine strep and urine Legionella are pending. Blood and urine cultures obtained and are pending. Patient was given 125 mg of IV push Solu- Medrol, DuoNeb, pain med, Zofran, and started on Rocephin
--- NOTE | 2024-04-02 15:19 | PM.IMPN ---
Progress Note: A&P Assessment and Plan (1) Acute hypoxic respiratory failure: Code(s): J96.01 - Acute respiratory failure with hypoxia Status: Acute Assessment and Plan: 03/31/24: Chest x-ray was negative Chest CTA was negative for PE but did show multiple patchy areas of ground-glass opacities. Patient started on Rocephin and azithromycin She is MRSA positive and was also started on doxycycline Respiratory panel was negative for influenza a and B, RSV, COVID, mono screen, strep Urine strep and urine Legionella are pending Blood and urine cultures were obtained and are pending Continue DuoNebs Continue Solu-Medrol Will get pulmonology on board considering she does not follow with a quartz mounter and she is re-establishing a PCP. 04/01/24: Urine culture was negative Blood culture showing no growth today on preliminary read Sputum culture obtained Pulmonology to see patient today Urine strep, urine Legionella, mycoplasma all pending Will start Flonase, singular and Claritin today. Continue Guaifenesin 04/02/24: Blood culture still showing no growth Sputum culture was rejected Pulmonology on board Continue with current treatment plan (2) Multifocal pneumonia: Code(s): J18.9 - Pneumonia, unspecified organism Status: Acute Assessment and Plan: See above (3) Asthma exacerbation: Qualifiers: Asthma persistence: unspecified Asthma severity: unspecified severity Qualified Code(s): J45.901 - Unspecified asthma with (acute) exacerbation Code(s): J45.901 - Unspecified asthma with (acute) exacerbation Status: Acute Assessment and Plan: See above (4) Hypertension: Code(s): I10 - Essential (primary) hypertension Status: Acute Assessment and Plan: 03/31/24: Pressure ranging 138/82 148/92 Continue amlodipine and hydrochlorothiazide 04/01/24: Continue with current treatment plan (5) Anxiety: Code(s): F41.9 - Anxiety disorder, unspecified Status: Acute Assessment and Plan: 03/31/24: Continue Xanax 04/01/24: Continue with current treatment plan (6) Hyperglycemia: Code(s): R73.9 - Hyperglycemia, unspecified Status: Acute Assessment and Plan: 04/02/24: Hyperglycemia likely due to IV steroid use Blood glucose 408-412 Hemoglobin A1c was 5.9 Patient not on any home medication and falls in the prediabetic phase Gave one time dose of 16 units SSI NPH 10 units x1 dose Lantus increased to 25 units today Time Spent With Patient Time with patient: Greater than 35 minutes Subjective Date/time seen: 04/02/24 15:19 Interval history: 03/31/24: This is a 53 year old female who presented to the hospital on 03/30/2024 with complaints of shortness of breath. Workup in the hospital included chest x-ray which was negative. Chest CTA was negative for PE, showed multiple patchy ground-glass appearing pneumonia. Labs today showed a white blood cell count 11.7, INR 1.2, D-dimer 1.07, troponin negative x2, AST 42. UA was obtained which shown 1+ urine ketones, 1+ urine bili, trace leukocytes, 3-5 urine RBCs, 6-10 urine wbc's, 1+ urine bacteria. Respiratory panel was negative for influenza a and B, RSV, COVID. Acute phase strep was negative. [place] screen was negative. Urine strep and urine Legionella are pending. Blood and urine cultures obtained and are pending. Patient was given 125 mg of IV push Solu-Medrol, DuoNeb, pain med, Zofran, and started on Rocephin and azithromycin while in the ED. On examination today patient is alert and oriented x3, lying in bed. Patient denies any fever, chills, nausea, vomiting, diarrhea, abdominal pain, chest pain. Patient endorses shortness of breath, cough, and wheezing. Labs today showed white blood cell count of 8.2 otherwise unremarkable. She is MRSA positive. She was started doxycycline as well. Patient states that she does not have a quartz mounter c
[2024-04-02 16:19] LABS: Glucose Point of Care 276 mg/dl (65-105)
[2024-04-02 20:27] LABS: Glucose Point of Care 463 mg/dl (65-105)
[2024-04-02] MEDS: INSULIN GLARGINE (*BKC) 100 UNITS/ML 25 UNITS SUB-Q (21:13)
[2024-04-02] MEDS: MONTELUKAST SODIUM 10 MG TABLET PO (21:15)
[2024-04-02] MEDS: INSULIN ASPART (*BKC) 100 UNITS/ML 12 UNITS SUB-Q (21:15)
[2024-04-02] MEDS: AZITHROMYCIN 500 MG/NS 250 ML 500 MG/250 ML BAG 250 MG IVPB (21:16)
[2024-04-02 23:05] LABS: Glucose Point of Care 479 mg/dl (65-105)
[2024-04-03] VITALS (15 sets, daily range): BP systolic 118–136; BP diastolic 64–75; PULSE 68–90; RESP 16–20; TEMP 35.8–36.4; O2SAT 93–98
[2024-04-03] MEDS: INSULIN ASPART (*BKC) 100 UNITS/ML 10 UNITS SUB-Q (00:34)
[2024-04-03 02:10] LABS: Glucose Point of Care 283 mg/dl (65-105)
[2024-04-03] MEDS: IPRATROPIUM 0.5 MG/ALBUTEROL SULFATE 2.5 MG AMPUL.NEB 3 ML INHALATION ×5 (03:30→20:32)
[2024-04-03] MEDS: methylPREDNISolone SOD SUCC 125 MG VIAL 60 MG IV PUSH ×2 (05:20→17:16)
[2024-04-03] MEDS: ALPRAZolam (*CRX) 0.5 MG TABLET PO ×3 (05:20→21:22)
[2024-04-03 06:38] LABS: Basophils Percent Auto 0.1 % (0.2-1.2); Hematocrit 42.5 % (37.0-47.0); Hemoglobin 13.8 g/dL (12.0-15.0); Immature Granulocyte Absolute 0.19 K/mm3 (0.00-0.031); Lymphocytes Absolute Auto 3.45 K/mm3 (0.9-3.2); Lymphocytes Percent Auto 18.3 % (18.3-44.2); Mean Corpuscular HGB Conc 32.5 g/dl (32-36); Mean Corpuscular Hemoglobin 30.3 pg (26-34); Mean Corpuscular Volume 93.4 fl (80-100); Mean Platelet Volume 9.4 fl (7.4-10.4); Monocytes Absolute Auto 2.1 K/mm3 (0.1-0.6); Neutrophils Absolute Auto 13.2 K/mm3 (1.3-6.7); Neutrophils Percent Auto 69.6 % (45.5-73.1); Platelet Count Result 463 k/mm3 (150-375); Red Blood Count 4.55 M/mm3 (4.2-5.4); Red Cell Distribution Width 13.9 % (11.5-14.5); White Blood Count 18.9 K/mm3 (4.5-10.0)
[2024-04-03 06:57] LABS: Alanine Aminotransferase 26 U/L (6-35); Albumin Level 3.6 g/dL (3.5-5.1); Alkaline Phosphatase 123 U/L (38-126); Anion Gap 5 mmol/L (4-12); Aspartate Amino Transferase 19 U/L (14-36); Bilirubin,Total 0.4 mg/dL (0.2-1.3); Blood Urea Nitrogen 22 mg/dL (7-17); Calcium 9.2 mg/dL (8.4-10.2); Carbon Dioxide 31 mmol/L (22-30); Chloride 101 mmol/L (98-107); Estimated CRCL calculation 89 ml/min; Estimated Glomerular Filt Rate > 60; Glucose 156 mg/dL (65-110); Potassium 3.6 mmol/L (3.4-5.0); Sodium 137 mmol/L (137-145)
[2024-04-03] MEDS: FLUTICASONE/SALMETEROL 115-21 MCG INHALER 1 PUFF 2 PUFF INHALATION ×2 (07:10→20:32)
[2024-04-03 07:52] LABS: Glucose Point of Care 219 mg/dl (65-105)
[2024-04-03] MEDS: DOCUSATE SODIUM 100 MG CAPSULE PO ×2 (08:34→17:17)
[2024-04-03] MEDS: DOXYCYCLINE HYCLATE 100 MG TABLET PO ×2 (08:34→20:33)
[2024-04-03] MEDS: ENOXAPARIN 40 MG/0.4 ML SYRINGE SUB-Q (08:34)
[2024-04-03] MEDS: amLODIPine BESYLATE 5 MG TABLET PO (08:35)
[2024-04-03] MEDS: guaiFENesin 12 HR 600 MG TABCR 1200 MG PO ×2 (08:35→20:33)
[2024-04-03] MEDS: LORATADINE/PSEUDOEPHEDRINE (*CRX) 10/240 MG TABLET ER 24 HR 1 TAB PO (08:35)
[2024-04-03] MEDS: hydroCHLOROthiazide 25 MG TABLET PO (08:35)
[2024-04-03] MEDS: FLUoxetine HCL 20 MG CAPSULE PO (08:35)
[2024-04-03] MEDS: LOSARTAN POTASSIUM 100 MG TABLET PO (08:35)
[2024-04-03] MEDS: INSULIN ASPART (*BKC) 100 UNITS/ML SUB-Q ×4 (08:36→21:21)
--- NOTE | 2024-04-03 08:47 | PM.PNPUL ---
Progress Note: A&P Assessment and Plan (1) Asthma exacerbation: Qualifiers: Asthma persistence: unspecified Asthma severity: unspecified severity Qualified Code(s): J45.901 - Unspecified asthma with (acute) exacerbation Code(s): J45.901 - Unspecified asthma with (acute) exacerbation Status: Acute Assessment and Plan: This 53-year-old female has a history of asthma with frequent exacerbations necessitating hospitalizations and/or treatment with steroids over the past 20 years. A review of her previous medical records indicates elevated eosinophil levels and a history of chronic rhinosinusitis, which, combined with her ayqhutlut-zn-xtzxviq asthma, suggests eosinophilic asthma. She also has an elevated IgE level and was previously considered for biological treatment. Currently, the patient is being treated with IV steroids and antibiotics for possible pneumonia, as well as short-acting bronchodilators. She had multiple ground-glass opacities in both lungs on chest CT Her clinical status appears to be improving, although she continues to experience mostly expiratory wheezing. On physical exam today the expiratory wheezing is slightly less than before probably related to endobronchial secretion retention. She has no expiratory wheezing. Plan: IV steroids were decreased to Solu-Medrol 60 mg twice daily. Continue with remaining antibiotics and short-acting bronchodilators and DVT prophylaxis. Out of bed to chair. 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 She continues to have some chest tightness cough with sputum production. She is afebrile. Patient stated that she had for surgeries for sinus problems. She is followed by ear nose and throat services at [facility]. Review of Systems Review of Systems: All systems reviewed & are unremarkable except as noted in HPI and below (HPI and below) Exam Const: Other: GENERAL APPEARANCE: Well developed, well nourished, alert and cooperative, and appears to be in no acute distress while on supplemental oxygen SKIN: Inspection of the skin reveals no rashes, ulcerations or petechiae. HEENT: Sclerae anicteric and conjunctivae pink and moist. Extraocular movements were intact and pupils were equal, round, and reactive to light. The oral mucosa, hard and soft palate, tongue and posterior pharynx were normal. NECK: Supple. There was no thyroid enlargement, and no tenderness, or masses were felt. CHEST: Normal AP diameter and normal contour without any kyphoscoliosis. LUNGS: Scattered expiratory wheezing bilaterally as before CARDIAC: There was a regular rate and rhythm without any murmurs, gallops, rubs. ABDOMEN: Soft and nontender with normal bowel sounds. There was no organomegaly. LYMPH NODES: No lymphadenopathy was appreciated in the neck. EXTREMITIES: No cyanosis, clubbing or edema. NEUROLOGIC: Alert and oriented x 3. Normal affect. Objective Data Vital Signs Vital Signs: Vital Signs - 24 hr 04/02/24 12:14 04/02/24 12:09 04/02/24 15:22 Temperature Pulse Rate 92 89 67 Respiratory Rate 16 16 Blood Pressure Pulse Oximetry Oxygen Delivery Oxygen Flow Rate Fraction of Inspired Oxygen 04/02/24 15:27 04/02/24 19:39 04/02/24 19:41 Temperature Pulse Rate 66 74 Respiratory Rate Blood Pressure Pulse Oximetry 96 Oxygen Delivery
[2024-04-03 11:28] LABS: Glucose Point of Care 290 mg/dl (65-105)
--- NOTE | 2024-04-03 14:56 | P.PNIM_ITS ---
Progress Note: A&P Assessment and Plan (1) Acute hypoxic respiratory failure: Code(s): J96.01 - Acute respiratory failure with hypoxia Status: Acute Assessment and Plan: 03/31/24: * Chest x-ray was negative * Chest CTA was negative for PE but did show multiple patchy areas of ground- glass opacities. * Patient started on Rocephin and azithromycin * She is MRSA positive and was also started on doxycycline * Respiratory panel was negative for influenza a and B, RSV, COVID, mono screen, strep * Urine strep and urine Legionella are pending * Blood and urine cultures were obtained and are pending * Continue DuoNebs * Continue Solu-Medrol * Will get pulmonology on board considering she does not follow with a net lead developer and she is re-establishing a PCP. 04/01/24: * Urine culture was negative * Blood culture showing no growth today on preliminary read * Sputum culture obtained * Pulmonology to see patient today * Urine strep, urine Legionella, mycoplasma all pending * Will start Flonase, singular and Claritin today. * Continue Guaifenesin 04/02/24: * Blood culture still showing no growth * Sputum culture was rejected * Pulmonology on board * Continue with current treatment plan 04/03/24: * blood cultures are still showing no growth on preliminary read * pulmonology following and has started to deescalate the Solu-Medrol * patient has less wheezing and SOB today. * continue DuoNebs * continue Flonase, Singulair, Claritin, guaifenesin * Started oral antibiotics Doxycycline and Augmentin (2) Multifocal pneumonia: Code(s): J18.9 - Pneumonia, unspecified organism Status: Acute Assessment and Plan: * See above (3) Asthma exacerbation: Qualifiers: Asthma persistence: unspecified Asthma severity: unspecified severity Qualified Code(s): J45.901 - Unspecified asthma with (acute) exacerbation Code(s): J45.901 - Unspecified asthma with (acute) exacerbation Status: Acute Assessment and Plan: * See above (4) Hypertension: Code(s): I10 - Essential (primary) hypertension Status: Acute Assessment and Plan: 03/31/24: * Pressure ranging 138/82 148/92 * Continue amlodipine and hydrochlorothiazide 04/01/24: * Continue with current treatment plan (5) Anxiety: Code(s): F41.9 - Anxiety disorder, unspecified Status: Acute Assessment and Plan: 03/31/24: * Continue Xanax 04/01/24: * Continue with current treatment plan (6) Hyperglycemia: Code(s): R73.9 - Hyperglycemia, unspecified Status: Acute Assessment and Plan: 04/02/24: * Hyperglycemia likely due to IV steroid use * Blood glucose 408-412 * Hemoglobin A1c was 5.9 * Patient not on any home medication and falls in the prediabetic phase * Gave one time dose of 16 units SSI * NPH 10 units x1 dose * Lantus increased to 25 units today 04/03/24: * blood sugar ranging 156-290 * now that her Solu-Medrol is being decreased we will go ahead and decrease her Lantus to 15 units tonight and switch to a low-dose sliding scale * continue to trend Time Spent With Patient Time with patient: 15 - 25 minutes Subjective Date/time seen: 04/03/24 14:56 Interval history: 03/31/24: This is a 53 year old female who presented to the hospital on 03/30/2024 with complaints of shortness of breath. Workup in the hospital included chest x-ray which was negative. Chest CTA was negative for PE, showed multiple patchy ground-glass appearing pneumonia.
--- NOTE | 2024-04-03 14:56 | PM.IMPN ---
Progress Note: A&P Assessment and Plan (1) Acute hypoxic respiratory failure: Code(s): J96.01 - Acute respiratory failure with hypoxia Status: Acute Assessment and Plan: 03/31/24: Chest x-ray was negative Chest CTA was negative for PE but did show multiple patchy areas of ground-glass opacities. 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 04/01/24: Urine culture was negative Blood culture showing no growth today on preliminary read Sputum culture obtained Pulmonology to see patient today Urine strep, urine Legionella, mycoplasma all pending Will start Flonase, singular and Claritin today. Continue Guaifenesin 04/02/24: Blood culture still showing no growth Sputum culture was rejected Pulmonology on board Continue with current treatment plan 04/03/24: blood cultures are still showing no growth on preliminary read pulmonology following and has started to deescalate the Solu-Medrol patient has less wheezing and SOB today. continue DuoNebs continue Flonase, Singulair, Claritin, guaifenesin Started oral antibiotics Doxycycline and Augmentin (2) Multifocal pneumonia: Code(s): J18.9 - Pneumonia, unspecified organism Status: Acute Assessment and Plan: See above (3) Asthma exacerbation: Qualifiers: Asthma persistence: unspecified Asthma severity: unspecified severity Qualified Code(s): J45.901 - Unspecified asthma with (acute) exacerbation Code(s): J45.901 - Unspecified asthma with (acute) exacerbation Status: Acute Assessment and Plan: See above (4) Hypertension: Code(s): I10 - Essential (primary) hypertension Status: Acute Assessment and Plan: 03/31/24: Pressure ranging 138/82 148/92 Continue amlodipine and hydrochlorothiazide 04/01/24: Continue with current treatment plan (5) Anxiety: Code(s): F41.9 - Anxiety disorder, unspecified Status: Acute Assessment and Plan: 03/31/24: Continue Xanax 04/01/24: Continue with current treatment plan (6) Hyperglycemia: Code(s): R73.9 - Hyperglycemia, unspecified Status: Acute Assessment and Plan: 04/02/24: Hyperglycemia likely due to IV steroid use Blood glucose 408-412 Hemoglobin A1c was 5.9 Patient not on any home medication and falls in the prediabetic phase Gave one time dose of 16 units SSI NPH 10 units x1 dose Lantus increased to 25 units today 04/03/24: blood sugar ranging 156-290 now that her Solu-Medrol is being decreased we will go ahead and decrease her Lantus to 15 units tonight and switch to a low-dose sliding scale continue to trend Time Spent With Patient Time with patient: 15 - 25 minutes Subjective Date/time seen: 04/03/24 14:56 Interval history: 03/31/24: This is a 53 year old female who presented to the hospital on 03/30/2024 with complaints of shortness of breath. Workup in the hospital included chest x-ray which was negative. Chest CTA was negative for PE, showed multiple patchy ground-glass appearing pneumonia. Labs today showed a white blood cell count 11.7, INR 1.2, D-dimer 1.07, troponin negative x2, AST 42. UA was obtained which shown 1+ urine ketones, 1+ urine bili, trace leukocytes, 3-5 urine RBCs, 6-10 urine wbc's, 1+ urine bacteria. Respiratory panel was negative for influenza a and B, RSV, COVID. Acute phase strep was negative. [place] screen was negative. Urine strep and urine Legionella are pending. Blood and urine cultures obtained and are pending. Patient was given 125 mg
[2024-04-03 16:25] LABS: Glucose Point of Care 218 mg/dl (65-105)
[2024-04-03] MEDS: oxyCODONE HCL (*CRX) 5 MG TAB IR PO ×2 (17:20→23:00)
[2024-04-03 19:28] LABS: Pneumococcal Antigen Urine NOT DETECTED
[2024-04-03] MEDS: IBUPROFEN 600 MG TABLET PO (20:32)
[2024-04-03] MEDS: AMOXICILLIN/CLAVULANATE K 875-125 MG TAB 1 TABLET PO (20:33)
[2024-04-03] MEDS: MONTELUKAST SODIUM 10 MG TABLET PO (20:33)
[2024-04-03 20:59] LABS: Glucose Point of Care 420 mg/dl (65-105)
[2024-04-03] MEDS: INSULIN GLARGINE (*BKC) 100 UNITS/ML 15 UNITS SUB-Q (21:22)
[2024-04-03] MEDS: INSULIN ASPART (*BKC) 100 UNITS/ML 8 UNITS SUB-Q (22:25)
[2024-04-04] VITALS (21 sets, daily range): BP systolic 101–119; BP diastolic 51–70; PULSE 75–103; RESP 16–20; TEMP 35.7–36.7; O2SAT 91–97
--- NOTE | 2024-04-04 | ECHO_ITS ---
Patient Info Name: Jeniffer Dimas Age: 53 years : 1970 Gender: Female Ht: 66 in Wt: 213 lbs BSA: 2.16 m2 HR: 91 bpm BP: 117 / 70 mmHg Heart Rhythm: Sinus Rhythm Technical Quality: Poor Exam Date: 04/04/2024 3:39 PM Exam Location: Echo Lab Patient Status: Inpatient Admit Date: 03/30/2024 Staff Ordering Physician: Michael Turner APRN Pulling Machine Operator: Farhat Cooper RDCS Attending Provider: Lluvia Delgadillo APRN Referring Physician: Johnny ESQUEDA; Exam Type: CA echo doppler color flow Study Info Indications R06.00 - Dyspnea, unspecified Complete two-dimensional, color flow and Doppler transthoracic echocardiogram is performed. Reason for Poor Study: poor patient cooperation Summary 1. Complete two-dimensional, color flow and Doppler transthoracic echocardiogram is performed. 2. Left ventricular chamber dimension is normal. 3. Left ventricular systolic function is normal, estimated at 60-65%. 4. There is mildly increased left ventricular wall thickness. 5. The left ventricular diastolic function is grade I diastolic dysfunction. 6. Left atrial chamber dimension is mildly enlarged. 7. There is mild mitral valve regurgitation. 8. There is mild tricuspid valve regurgitation. 9. No pulmonary hypertension, estimated pulmonary arterial systolic pressure is 24 mmHg. Left Ventricle Left ventricular chamber dimension is normal. Left ventricular systolic function is normal, estimated at 60-65%. There is mildly increased left ventricular wall thickness. The left ventricular diastolic function is grade I diastolic dysfunction. Right Ventricle Right ventricular chamber dimension is normal. Right ventricular systolic function is normal. Left Atria Left atrial chamber dimension is mildly enlarged. Right Atria Right atrial chamber dimension is normal. Atrial Septum Intact interatrial septum visualized by color flow imaging. Aortic Valve The aortic valve is trileaflet. There is mild aortic valve sclerosis. There is no aortic valve stenosis. There is trace aortic valve regurgitation. Pulmonic Valve The pulmonic valve is normal. There is no pulmonic valve stenosis. There is trace pulmonic regurgitation. Mitral Valve The mitral valve has normal leaflets. There is no mitral valve stenosis. There is mild mitral valve regurgitation. Tricuspid Valve The tricuspid valve leaflets are normal. There is no significant tricuspid valve stenosis. There is mild tricuspid valve regurgitation. No pulmonary hypertension, estimated pulmonary arterial systolic pressure is 24 mmHg. Pericardium/Pleural The pericardium appears normal. There is no pericardial effusion. Inferior Vena Cava Normal inferior vena cava with >50% collapse upon inspiration consistent with normal right atrial pressure, 10 mmHg. Aorta The aortic root size at the sinus of Valsalva is normal. Left Ventricular Outflow Tract Name Value Normal LVOT 2D LVOT Diameter 1.9 cm LVOT Doppler LVOT Peak Gradient 5 mmHg LVOT Mean Gradient 2 mmHg LVOT VTI 18 cm LVOT VTI/AV VTI Ratio 0.8 LVOT S
[2024-04-04] MEDS: IPRATROPIUM 0.5 MG/ALBUTEROL SULFATE 2.5 MG AMPUL.NEB 3 ML INHALATION ×6 (00:05→23:02)
[2024-04-04] MEDS: oxyCODONE HCL (*CRX) 5 MG TAB IR PO ×5 (03:05→21:25)
[2024-04-04 05:37] LABS: Glucose Point of Care 212 mg/dl (65-105)
[2024-04-04 06:19] LABS: Basophils Absolute Auto 0.1 K/mm3 (0.0-0.1); Basophils Percent Auto 0.3 % (0.2-1.2); Eosinophils Percent Auto 0.1 % (0-4.4); Hematocrit 45.7 % (37.0-47.0); Hemoglobin 14.9 g/dL (12.0-15.0); Immature Granulocyte Absolute 0.17 K/mm3 (0.00-0.031); Immature Granulocyte Percent A 1.1 % (0-0.5); Lymphocytes Absolute Auto 2.41 K/mm3 (0.9-3.2); Lymphocytes Percent Auto 15.8 % (18.3-44.2); Mean Corpuscular HGB Conc 32.6 g/dl (32-36); Mean Corpuscular Hemoglobin 30.4 pg (26-34); Mean Corpuscular Volume 93.3 fl (80-100); Mean Platelet Volume 9.2 fl (7.4-10.4); Monocytes Absolute Auto 1.3 K/mm3 (0.1-0.6); Monocytes Percent Auto 8.8 % (2.6-8.5); Neutrophils Absolute Auto 11.2 K/mm3 (1.3-6.7); Neutrophils Percent Auto 73.9 % (45.5-73.1); Platelet Count Result 475 k/mm3 (150-375); Red Cell Distribution Width 13.7 % (11.5-14.5); White Blood Count 15.2 K/mm3 (4.5-10.0)
[2024-04-04] MEDS: methylPREDNISolone SOD SUCC 125 MG VIAL 60 MG IV PUSH ×2 (06:24→16:59)
[2024-04-04] MEDS: ALPRAZolam (*CRX) 0.5 MG TABLET PO ×3 (06:24→21:09)
[2024-04-04 06:29] LABS: Alanine Aminotransferase 30 U/L (6-35); Albumin Level 3.7 g/dL (3.5-5.1); Alkaline Phosphatase 120 U/L (38-126); Anion Gap 4 mmol/L (4-12); Aspartate Amino Transferase 20 U/L (14-36); Bilirubin,Total 0.3 mg/dL (0.2-1.3); Blood Urea Nitrogen 24 mg/dL (7-17); Calcium 9.2 mg/dL (8.4-10.2); Carbon Dioxide 32 mmol/L (22-30); Chloride 99 mmol/L (98-107); Estimated CRCL calculation 78 ml/min; Estimated Glomerular Filt Rate > 60; Glucose 226 mg/dL (65-110); Sodium 135 mmol/L (137-145)
[2024-04-04] MEDS: FLUTICASONE/SALMETEROL 115-21 MCG INHALER 1 PUFF 2 PUFF INHALATION ×2 (07:11→20:10)
[2024-04-04 08:04] LABS: Glucose Point of Care 226 mg/dl (65-105)
--- NOTE | 2024-04-04 08:24 | PM.PNPUL ---
Progress Note: A&P Assessment and Plan (1) Asthma exacerbation: Qualifiers: Asthma persistence: unspecified Asthma severity: unspecified severity Qualified Code(s): J45.901 - Unspecified asthma with (acute) exacerbation Code(s): J45.901 - Unspecified asthma with (acute) exacerbation Status: Acute Assessment and Plan: This 53-year-old female has a history of asthma with frequent exacerbations necessitating hospitalizations and/or treatment with steroids over the past 20 years. A review of her previous medical records indicates elevated eosinophil levels and a history of chronic rhinosinusitis, which, combined with her [id number] asthma, suggests eosinophilic asthma. She also has an elevated IgE level and was previously considered for biological treatment. Currently, the patient is being treated with IV steroids and antibiotics for possible pneumonia, as well as short-acting bronchodilators. She had multiple ground-glass opacities in both lungs on chest CT Her clinical status appears to be improving, although she continues to experience mostly expiratory wheezing. On physical exam today the expiratory wheezing is slightly less than before probably related to endobronchial secretion retention. She has no inspiratory wheezing. Plan: Continue with current Solu-Medrol dose; anticipate discharge home in 1-2 days. Encourage ambulation in room. 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 She still has a cough and chest congestion. Less shortness of breath less chest tightness. No new respiratory symptoms. she still on supplemental oxygen at 1 liter/minute Exam Const: Other: GENERAL APPEARANCE: Well developed, well nourished, alert and cooperative, and appears to be in no acute distress while on supplemental oxygen SKIN: Inspection of the skin reveals no rashes, ulcerations or petechiae. HEENT: Sclerae anicteric and conjunctivae pink and moist. Extraocular movements were intact and pupils were equal, round, and reactive to light. The oral mucosa, hard and soft palate, tongue and posterior pharynx were normal. NECK: Supple. There was no thyroid enlargement, and no tenderness, or masses were felt. CHEST: Normal AP diameter and normal contour without any kyphoscoliosis. LUNGS: Scattered expiratory wheezing bilaterally as before CARDIAC: There was a regular rate and rhythm without any murmurs, gallops, rubs. ABDOMEN: Soft and nontender with normal bowel sounds. There was no organomegaly. LYMPH NODES: No lymphadenopathy was appreciated in the neck. EXTREMITIES: No cyanosis, clubbing or edema. NEUROLOGIC: Alert and oriented x 3. Normal affect. Objective Data Vital Signs Vital Signs: Vital Signs - 24 hr 04/03/24 11:21 04/03/24 11:29 04/03/24 11:54 Temperature 35.8 C L Pulse Rate 79 81 84 Respiratory Rate 20 20 18 Blood Pressure 118/72 Pulse Oximetry 96 Oxygen Delivery Oxygen Flow Rate 04/03/24 15:56 04/03/24 16:08 04/03/24 20:32 Temperature Pulse Rate 80 82 87 Respiratory Rate 20 20 20 Blood Pressure Pulse Oximetry Oxygen Delivery Oxygen Flow Rate 04/03/24 20:35 04/03/24 20:41 04/03/24 21:00 Temperature 35.9 C L Pulse Rate 87 83 90 Respiratory Rate 20 18 Blood Pressure 136/75 Pulse Oximetry 93 93 Oxygen Delivery Nasal Cannula Oxygen Flow Rate
[2024-04-04] MEDS: INSULIN ASPART (*BKC) 100 UNITS/ML SUB-Q ×4 (09:07→21:14)
[2024-04-04] MEDS: hydroCHLOROthiazide 25 MG TABLET PO (09:09)
[2024-04-04] MEDS: guaiFENesin 12 HR 600 MG TABCR 1200 MG PO ×2 (09:10→21:09)
[2024-04-04] MEDS: FLUoxetine HCL 20 MG CAPSULE PO (09:10)
[2024-04-04] MEDS: AMOXICILLIN/CLAVULANATE K 875-125 MG TAB 1 TABLET PO ×2 (09:10→21:09)
[2024-04-04] MEDS: LORATADINE/PSEUDOEPHEDRINE (*CRX) 10/240 MG TABLET ER 24 HR 1 TAB PO (09:10)
[2024-04-04] MEDS: DOCUSATE SODIUM 100 MG CAPSULE PO ×2 (09:10→16:55)
[2024-04-04] MEDS: LOSARTAN POTASSIUM 100 MG TABLET PO (09:10)
[2024-04-04] MEDS: amLODIPine BESYLATE 5 MG TABLET PO (09:11)
[2024-04-04] MEDS: ENOXAPARIN 40 MG/0.4 ML SYRINGE SUB-Q (09:11)
[2024-04-04] MEDS: DOXYCYCLINE HYCLATE 100 MG TABLET PO ×2 (09:11→21:09)
[2024-04-04 11:42] LABS: Glucose Point of Care 387 mg/dl (65-105)
--- NOTE | 2024-04-04 14:08 | P.PNIM_ITS ---
Progress Note: A&P Assessment and Plan (1) Acute hypoxic respiratory failure: Code(s): J96.01 - Acute respiratory failure with hypoxia Status: Acute Assessment and Plan: 03/31/24: * Chest x-ray was negative * Chest CTA was negative for PE but did show multiple patchy areas of ground- glass opacities. * Patient started on Rocephin and azithromycin * She is MRSA positive and was also started on doxycycline * Respiratory panel was negative for influenza a and B, RSV, COVID, mono screen, strep * Urine strep and urine Legionella are pending * Blood and urine cultures were obtained and are pending * Continue DuoNebs * Continue Solu-Medrol * Will get pulmonology on board considering she does not follow with a mold tooler and she is re-establishing a PCP. 04/01/24: * Urine culture was negative * Blood culture showing no growth today on preliminary read * Sputum culture obtained * Pulmonology to see patient today * Urine strep, urine Legionella, mycoplasma all pending * Will start Flonase, singular and Claritin today. * Continue Guaifenesin 04/02/24: * Blood culture still showing no growth * Sputum culture was rejected * Pulmonology on board * Continue with current treatment plan 04/03/24: * blood cultures are still showing no growth on preliminary read * pulmonology following and has started to deescalate the Solu-Medrol * patient has less wheezing and SOB today. * continue DuoNebs * continue Flonase, Singulair, Claritin, guaifenesin * Started oral antibiotics Doxycycline and Augmentin 04/04/24: Wheezing worse after weaning to room air and walk to bathroom/back Return of chest tightness as well Last Echocardiogram 2018, ordered echo Continue oral meds as above IV Magnesium ordered x1 ApneaLink ordered for nocturnal oxygen needs eval 6 min walk test on day of anticipated discharge (04/06?) (2) Multifocal pneumonia: Code(s): J18.9 - Pneumonia, unspecified organism Status: Acute Assessment and Plan: * See above (3) Asthma exacerbation: Qualifiers: Asthma persistence: unspecified Asthma severity: unspecified severity Qualified Code(s): J45.901 - Unspecified asthma with (acute) exacerbation Code(s): J45.901 - Unspecified asthma with (acute) exacerbation Status: Acute Assessment and Plan: * See above (4) Hypertension: Code(s): I10 - Essential (primary) hypertension Status: Acute Assessment and Plan: 03/31/24: * Pressure ranging 138/82 148/92 * Continue amlodipine and hydrochlorothiazide 04/01/24: * Continue with current treatment plan (5) Anxiety: Code(s): F41.9 - Anxiety disorder, unspecified Status: Acute Assessment and Plan: 03/31/24: * Continue Xanax 04/01/24: * Continue with current treatment plan (6) Hyperglycemia: Code(s): R73.9 - Hyperglycemia, unspecified Status: Acute Assessment and Plan: 04/02/24: * Hyperglycemia likely due to IV steroid use * Blood glucose 408-412 * Hemoglobin A1c was 5.9 * Patient not on any home medication and falls in the prediabetic phase * Gave one time dose of 16 units SSI * NPH 10 units x1 dose * Lantus increased to 25 units today 04/03/24: * blood sugar ranging 156-290 * now that her Solu-Medrol is being decreased we will go ahead and decrease her Lantus to 15 units tonight and switch to a low-dose sliding scale * continue to trend 04/04/24: Blood sugar elevated with steroid use Time Sp
--- NOTE | 2024-04-04 14:08 | PM.IMPN ---
Progress Note: A&P Assessment and Plan (1) Acute hypoxic respiratory failure: Code(s): J96.01 - Acute respiratory failure with hypoxia Status: Acute Assessment and Plan: 03/31/24: Chest x-ray was negative Chest CTA was negative for PE but did show multiple patchy areas of ground-glass opacities. Patient started on Rocephin and azithromycin She is MRSA positive and was also started on doxycycline Respiratory panel was negative for influenza a and B, RSV, COVID, mono screen, strep Urine strep and urine Legionella are pending Blood and urine cultures were obtained and are pending Continue DuoNebs Continue Solu-Medrol Will get pulmonology on board considering she does not follow with a technical sales support manager and she is re-establishing a PCP. 04/01/24: Urine culture was negative Blood culture showing no growth today on preliminary read Sputum culture obtained Pulmonology to see patient today Urine strep, urine Legionella, mycoplasma all pending Will start Flonase, singular and Claritin today. Continue Guaifenesin 04/02/24: Blood culture still showing no growth Sputum culture was rejected Pulmonology on board Continue with current treatment plan 04/03/24: blood cultures are still showing no growth on preliminary read pulmonology following and has started to deescalate the Solu-Medrol patient has less wheezing and SOB today. continue DuoNebs continue Flonase, Singulair, Claritin, guaifenesin Started oral antibiotics Doxycycline and Augmentin 04/04/24: Wheezing worse after weaning to room air and walk to bathroom/back Return of chest tightness as well Last Echocardiogram 2018, ordered echo Continue oral meds as above IV Magnesium ordered x1 ApneaLink ordered for nocturnal oxygen needs eval 6 min walk test on day of anticipated discharge (04/06?) (2) Multifocal pneumonia: Code(s): J18.9 - Pneumonia, unspecified organism Status: Acute Assessment and Plan: See above (3) Asthma exacerbation: Qualifiers: Asthma persistence: unspecified Asthma severity: unspecified severity Qualified Code(s): J45.901 - Unspecified asthma with (acute) exacerbation Code(s): J45.901 - Unspecified asthma with (acute) exacerbation Status: Acute Assessment and Plan: See above (4) Hypertension: Code(s): I10 - Essential (primary) hypertension Status: Acute Assessment and Plan: 03/31/24: Pressure ranging 138/82 148/92 Continue amlodipine and hydrochlorothiazide 04/01/24: Continue with current treatment plan (5) Anxiety: Code(s): F41.9 - Anxiety disorder, unspecified Status: Acute Assessment and Plan: 03/31/24: Continue Xanax 04/01/24: Continue with current treatment plan (6) Hyperglycemia: Code(s): R73.9 - Hyperglycemia, unspecified Status: Acute Assessment and Plan: 04/02/24: Hyperglycemia likely due to IV steroid use Blood glucose 408-412 Hemoglobin A1c was 5.9 Patient not on any home medication and falls in the prediabetic phase Gave one time dose of 16 units SSI NPH 10 units x1 dose Lantus increased to 25 units today 04/03/24: blood sugar ranging 156-290 now that her Solu-Medrol is being decreased we will go ahead and decrease her Lantus to 15 units tonight and switch to a low-dose sliding scale continue to trend 04/04/24: Blood sugar elevated with steroid use Time Spent With Patient Time with patient: Greater than 35 minutes Subjective Date/time seen: 04/04/24 14:08 Interval history: Patient reports that earlier she was feeling better but when she was weaned to room air walked to the bathroom and came back to her bed she had return of chest tightness and difficulty breathing. Patient was beginning to feel better after re-application by nasal cannula. Patient reports that at home a she had previously measured her oxygen level as low as 78% on room air and f
[2024-04-04] MEDS: MAGNESIUM SULF 2 GM/WATER 50ML 2 GM/50 ML BAG IVPB (15:28)
[2024-04-04 16:43] LABS: Glucose Point of Care 212 mg/dl (65-105)
[2024-04-04 20:00] LABS: Glucose Point of Care 424 mg/dl (65-105)
[2024-04-04 20:23] LABS: Legionella pneumophila Ag Ur NOT DETECTED
[2024-04-04] MEDS: MONTELUKAST SODIUM 10 MG TABLET PO (21:09)
[2024-04-04] MEDS: INSULIN GLARGINE (*BKC) 100 UNITS/ML 15 UNITS SUB-Q (21:10)
[2024-04-04] MEDS: traZODone HCL 50 MG TABLET 100 MG PO (21:25)
[2024-04-04 23:14] LABS: Glucose Point of Care 429 mg/dl (65-105)
[2024-04-05] VITALS (20 sets, daily range): BP systolic 105–118; BP diastolic 52–66; PULSE 75–114; RESP 16–22; TEMP 36.1–36.7; O2SAT 87–96
[2024-04-05] MEDS: IPRATROPIUM 0.5 MG/ALBUTEROL SULFATE 2.5 MG AMPUL.NEB 3 ML INHALATION ×5 (04:36→19:47)
[2024-04-05] MEDS: ALPRAZolam (*CRX) 0.5 MG TABLET PO ×3 (05:44→23:36)
[2024-04-05] MEDS: methylPREDNISolone SOD SUCC 125 MG VIAL 60 MG IV PUSH (05:45)
[2024-04-05 07:13] LABS: Basophils Absolute Auto 0.1 K/mm3 (0.0-0.1); Basophils Percent Auto 0.3 % (0.2-1.2); Eosinophils Percent Auto 0.2 % (0-4.4); Hematocrit 45.4 % (37.0-47.0); Hemoglobin 14.6 g/dL (12.0-15.0); Immature Granulocyte Absolute 0.24 K/mm3 (0.00-0.031); Immature Granulocyte Percent A 1.3 % (0-0.5); Lymphocytes Absolute Auto 4.14 K/mm3 (0.9-3.2); Lymphocytes Percent Auto 22.2 % (18.3-44.2); Mean Corpuscular HGB Conc 32.2 g/dl (32-36); Mean Corpuscular Hemoglobin 30.1 pg (26-34); Mean Corpuscular Volume 93.6 fl (80-100); Mean Platelet Volume 9.2 fl (7.4-10.4); Monocytes Absolute Auto 1.3 K/mm3 (0.1-0.6); Monocytes Percent Auto 6.9 % (2.6-8.5); Neutrophils Absolute Auto 12.9 K/mm3 (1.3-6.7); Neutrophils Percent Auto 69.1 % (45.5-73.1); Platelet Count Result 483 k/mm3 (150-375); Red Blood Count 4.85 M/mm3 (4.2-5.4); Red Cell Distribution Width 13.6 % (11.5-14.5); White Blood Count 18.6 K/mm3 (4.5-10.0)
[2024-04-05] MEDS: FLUTICASONE/SALMETEROL 115-21 MCG INHALER 1 PUFF 2 PUFF INHALATION ×2 (07:26→17:59)
[2024-04-05 07:36] LABS: Alanine Aminotransferase 26 U/L (6-35); Albumin Level 3.7 g/dL (3.5-5.1); Alkaline Phosphatase 119 U/L (38-126); Anion Gap 6 mmol/L (4-12); Aspartate Amino Transferase 18 U/L (14-36); Bilirubin,Total 0.4 mg/dL (0.2-1.3); Blood Urea Nitrogen 26 mg/dL (7-17); Calcium 8.8 mg/dL (8.4-10.2); Carbon Dioxide 29 mmol/L (22-30); Chloride 98 mmol/L (98-107); Estimated CRCL calculation 84 ml/min; Estimated Glomerular Filt Rate > 60; Glucose 212 mg/dL (65-110); Potassium 4.1 mmol/L (3.4-5.0); Sodium 133 mmol/L (137-145)
[2024-04-05 07:39] LABS: Glucose Point of Care 270 mg/dl (65-105)
--- NOTE | 2024-04-05 08:01 | PM.PNPUL ---
Progress Note: A&P Assessment and Plan (1) Asthma exacerbation: Qualifiers: Asthma persistence: unspecified Asthma severity: unspecified severity Qualified Code(s): J45.901 - Unspecified asthma with (acute) exacerbation Code(s): J45.901 - Unspecified asthma with (acute) exacerbation Status: Acute Assessment and Plan: This 53-year-old female has a history of asthma with frequent exacerbations necessitating hospitalizations and/or treatment with steroids over the past 20 years. A review of her previous medical records indicates elevated eosinophil levels and a history of chronic rhinosinusitis, which, combined with her fpnttbrql-lt-swgfuec asthma, suggests eosinophilic asthma. She also has an elevated IgE level and was previously considered for biological treatment. Currently, the patient is being treated with IV steroids and antibiotics for possible pneumonia, as well as short-acting bronchodilators. She had multiple ground-glass opacities in both lungs on chest CT Her clinical status appears to be improving, although she continues to experience mostly expiratory wheezing. On physical exam today the expiratory wheezing is slightly less than before probably related to endobronchial secretion retention. She has no inspiratory wheezing. Plan: Switch patient to oral steroids. Home likely in a.m. 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 Less cough and chest congestion. Review of Systems Review of Systems: All systems reviewed & are unremarkable except as noted in HPI and below Exam Const: Other: GENERAL APPEARANCE: Well developed, well nourished, alert and cooperative, and appears to be in no acute distress while on supplemental oxygen SKIN: Inspection of the skin reveals no rashes, ulcerations or petechiae. HEENT: Sclerae anicteric and conjunctivae pink and moist. Extraocular movements were intact and pupils were equal, round, and reactive to light. The oral mucosa, hard and soft palate, tongue and posterior pharynx were normal. NECK: Supple. There was no thyroid enlargement, and no tenderness, or masses were felt. CHEST: Normal AP diameter and normal contour without any kyphoscoliosis. LUNGS: Scattered expiratory wheezing bilaterally as before CARDIAC: There was a regular rate and rhythm without any murmurs, gallops, rubs. ABDOMEN: Soft and nontender with normal bowel sounds. There was no organomegaly. LYMPH NODES: No lymphadenopathy was appreciated in the neck. EXTREMITIES: No cyanosis, clubbing or edema. NEUROLOGIC: Alert and oriented x 3. Normal affect. Objective Data Vital Signs Vital Signs: Vital Signs - 24 hr 04/04/24 12:00 04/04/24 12:41 04/04/24 12:53 Temperature 36.7 C Pulse Rate 96 94 94 Respiratory Rate 16 20 20 Blood Pressure 117/70 Pulse Oximetry 92 Oxygen Delivery Oxygen Flow Rate 04/04/24 13:00 04/04/24 15:15 04/04/24 15:24 Temperature Pulse Rate 100 89 92 Respiratory Rate 20 20 Blood Pressure Pulse Oximetry 94 Oxygen Delivery Nasal Cannula Oxygen Flow Rate 1 04/04/24 16:00 04/04/24 20:00 04/04/24 20:11 Temperature 36.2 C L 36.2 C L Pulse Rate 88 93 98 Respiratory Rate 16 20 20 Blood Pressure 101/53 L 119/60 Pulse Oximetry 95 95 Oxygen Delivery Oxygen Flow Rate 04/04/24 20:14 04/04/24 20:20 04/04/24 23:03 Temperature
--- NOTE | 2024-04-05 08:22 | P.PNIM_ITS ---
Progress Note: A&P Assessment and Plan (1) Acute hypoxic respiratory failure: Code(s): J96.01 - Acute respiratory failure with hypoxia Status: Acute Assessment and Plan: 03/31/24: * Chest x-ray was negative * Chest CTA was negative for PE but did show multiple patchy areas of ground- glass opacities. * Patient started on Rocephin and azithromycin * She is MRSA positive and was also started on doxycycline * Respiratory panel was negative for influenza a and B, RSV, COVID, mono screen, strep * Urine strep and urine Legionella are pending * Blood and urine cultures were obtained and are pending * Continue DuoNebs * Continue Solu-Medrol * Will get pulmonology on board considering she does not follow with a colon and rectal surgeon and she is re-establishing a PCP. 04/01/24: * Urine culture was negative * Blood culture showing no growth today on preliminary read * Sputum culture obtained * Pulmonology to see patient today * Urine strep, urine Legionella, mycoplasma all pending * Will start Flonase, singular and Claritin today. * Continue Guaifenesin 04/02/24: * Blood culture still showing no growth * Sputum culture was rejected * Pulmonology on board * Continue with current treatment plan 04/03/24: * blood cultures are still showing no growth on preliminary read * pulmonology following and has started to deescalate the Solu-Medrol * patient has less wheezing and SOB today. * continue DuoNebs * continue Flonase, Singulair, Claritin, guaifenesin * Started oral antibiotics Doxycycline and Augmentin 04/04/24: Wheezing worse after weaning to room air and walk to bathroom/back Return of chest tightness as well Last Echocardiogram 2018, ordered echo Continue oral meds as above IV Magnesium ordered x1 ApneaLink ordered for nocturnal oxygen needs eval 6 min walk test on day of anticipated discharge (04/06?) 04/05/24: apnea link done on room air last night no need for supplemental oxygen at rest /sleep wheezing resolved after IV magnesium yesterday steroids transitioned to oral and will start tapering will plan to discharge tomorrow (2) Multifocal pneumonia: Code(s): J18.9 - Pneumonia, unspecified organism Status: Acute Assessment and Plan: * See above 04/05: wheezing resolved, pneumococcal antigen negative, Legionella negative, MRSA nares positive x-ray distribution atypical, continue doxycycline and stop Augmentin (3) Asthma exacerbation: Qualifiers: Asthma persistence: unspecified Asthma severity: unspecified severity Qualified Code(s): J45.901 - Unspecified asthma with (acute) exacerbation Code(s): J45.901 - Unspecified asthma with (acute) exacerbation Status: Acute Assessment and Plan: * See above 04/05: IV magnesium made the most improvement in her wheezing (4) Hypertension: Code(s): I10 - Essential (primary) hypertension Status: Acute Assessment and Plan: 03/31/24: * Pressure ranging 138/82 148/92 * Continue amlodipine and hydrochlorothiazide 04/01/24: * Continue with current treatment plan (5) Anxiety: Code(s): F41.9 - Anxiety disorder, unspecified Status: Acute Assessment and Plan: 03/31/24: * Continue Xanax 04/01/24: * Continue with current treatment plan (6) Hyperglycemia: Code(s): R73.9 - Hyperglycemia, unspecified Status: Acute Assessment and Plan: 04/02/24: * Hyperglycemia likely due to IV steroid use * Blood glucose [phone] *
--- NOTE | 2024-04-05 08:22 | PM.IMPN ---
Progress Note: A&P Assessment and Plan (1) Acute hypoxic respiratory failure: Code(s): J96.01 - Acute respiratory failure with hypoxia Status: Acute Assessment and Plan: 03/31/24: Chest x-ray was negative Chest CTA was negative for PE but did show multiple patchy areas of ground-glass opacities. Patient started on Rocephin and azithromycin She is MRSA positive and was also started on doxycycline Respiratory panel was negative for influenza a and B, RSV, COVID, mono screen, strep Urine strep and urine Legionella are pending Blood and urine cultures were obtained and are pending Continue DuoNebs Continue Solu-Medrol Will get pulmonology on board considering she does not follow with a household appliances service technician and she is re-establishing a PCP. 04/01/24: Urine culture was negative Blood culture showing no growth today on preliminary read Sputum culture obtained Pulmonology to see patient today Urine strep, urine Legionella, mycoplasma all pending Will start Flonase, singular and Claritin today. Continue Guaifenesin 04/02/24: Blood culture still showing no growth Sputum culture was rejected Pulmonology on board Continue with current treatment plan 04/03/24: blood cultures are still showing no growth on preliminary read pulmonology following and has started to deescalate the Solu-Medrol patient has less wheezing and SOB today. continue DuoNebs continue Flonase, Singulair, Claritin, guaifenesin Started oral antibiotics Doxycycline and Augmentin 04/04/24: Wheezing worse after weaning to room air and walk to bathroom/back Return of chest tightness as well Last Echocardiogram 2018, ordered echo Continue oral meds as above IV Magnesium ordered x1 ApneaLink ordered for nocturnal oxygen needs eval 6 min walk test on day of anticipated discharge (04/06?) 04/05/24: apnea link done on room air last night no need for supplemental oxygen at rest /sleep wheezing resolved after IV magnesium yesterday steroids transitioned to oral and will start tapering will plan to discharge tomorrow (2) Multifocal pneumonia: Code(s): J18.9 - Pneumonia, unspecified organism Status: Acute Assessment and Plan: See above 04/05: wheezing resolved, pneumococcal antigen negative, Legionella negative, MRSA nares positive x-ray distribution atypical, continue doxycycline and stop Augmentin (3) Asthma exacerbation: Qualifiers: Asthma persistence: unspecified Asthma severity: unspecified severity Qualified Code(s): J45.901 - Unspecified asthma with (acute) exacerbation Code(s): J45.901 - Unspecified asthma with (acute) exacerbation Status: Acute Assessment and Plan: See above 04/05: IV magnesium made the most improvement in her wheezing (4) Hypertension: Code(s): I10 - Essential (primary) hypertension Status: Acute Assessment and Plan: 03/31/24: Pressure ranging 138/82 148/92 Continue amlodipine and hydrochlorothiazide 04/01/24: Continue with current treatment plan (5) Anxiety: Code(s): F41.9 - Anxiety disorder, unspecified Status: Acute Assessment and Plan: 03/31/24: Continue Xanax 04/01/24: Continue with current treatment plan (6) Hyperglycemia: Code(s): R73.9 - Hyperglycemia, unspecified Status: Acute Assessment and Plan: 04/02/24: Hyperglycemia likely due to IV steroid use Blood glucose [phone] Hemoglobin A1c was 5.9 Patient not on any home medication and falls in the prediabetic phase Gave one time dose of 16 units SSI NPH 10 units x1 dose Lantus increased to 25 units today 04/03/24: blood sugar ranging 156-290 now that her Solu-Medrol is being decreased we will go ahead and decrease her Lantus to 15 units tonight and switch to a low-dose sliding scale continue to trend 04/04/24: Blood sugar elevated with steroid use 04/05/24: Steroids being deescalated Time Sp
[2024-04-05] MEDS: INSULIN ASPART (*BKC) 100 UNITS/ML SUB-Q ×4 (08:59→20:38)
[2024-04-05] MEDS: ENOXAPARIN 40 MG/0.4 ML SYRINGE SUB-Q (09:01)
[2024-04-05] MEDS: DOXYCYCLINE HYCLATE 100 MG TABLET PO ×2 (09:03→20:36)
[2024-04-05] MEDS: predniSONE 20 MG TABLET 60 MG PO (09:03)
[2024-04-05] MEDS: FLUoxetine HCL 20 MG CAPSULE PO (09:03)
[2024-04-05] MEDS: guaiFENesin 12 HR 600 MG TABCR 1200 MG PO ×2 (09:03→20:36)
[2024-04-05] MEDS: hydroCHLOROthiazide 25 MG TABLET PO (09:03)
[2024-04-05] MEDS: LORATADINE/PSEUDOEPHEDRINE (*CRX) 10/240 MG TABLET ER 24 HR 1 TAB PO (09:04)
[2024-04-05] MEDS: LOSARTAN POTASSIUM 100 MG TABLET PO (09:04)
[2024-04-05] MEDS: AMOXICILLIN/CLAVULANATE K 875-125 MG TAB 1 TABLET PO (09:04)
[2024-04-05] MEDS: DOCUSATE SODIUM 100 MG CAPSULE PO ×2 (09:04→17:18)
[2024-04-05] MEDS: amLODIPine BESYLATE 5 MG TABLET PO (09:04)
[2024-04-05] MEDS: oxyCODONE HCL (*CRX) 5 MG TAB IR PO (11:55)
[2024-04-05 11:56] LABS: Glucose Point of Care 391 mg/dl (65-105)
--- NOTE | 2024-04-05 15:35 | HOMEO2EVAL ---
Evaluation was performed at [facility] Home Oxygen Evaluation RC: Home Oxygen (O2) Evaluation Start: 04/05/24 14:18 Freq: ONCE Status: Active Protocol: RPE Activity Type Activity Date Activity User E-sign Co-sign Detail Recorded Client Recorded Date Recorded By Document 04/05/24 15:00 JARAD [email or web address] 04/05/24 15:35 JARAD Document 04/05/24 15:05 JARAD [email or web address] 04/05/24 15:35 JARAD Document 04/05/24 15:06 JARAD [email or web address] 04/05/24 15:35 JARAD Document 04/05/24 15:07 JARAD [email or web address] 04/05/24 15:35 JARAD Document 04/05/24 15:15 JARAD [email or web address] 04/05/24 15:35 JARAD 04/05/24 04/05/24 04/05/24 15:00 15:05 15:06 Home O2 Evaluation [Oxygen] -Test Phase Resting Exercise Exercise -Oxygen Delivery Room Air Room Air Nasal Cannula -Oxygen Flow Rate (L/min) 1 [Pulse Oximetry] -Pulse Oximetry (90-100 %) 93 87 L 87 L [Pulse Rate] -Pulse Rate (60-100 beats/min) 98 110 H 110 H [Comments] -Home Oxygen Evaluation Comments [Charges] -Evaluation Charges O2 Evaluation by Pulmonary 04/05/24 04/05/24 15:07 15:15 Home O2 Evaluation [Oxygen] -Test Phase Exercise Resting -Oxygen Delivery Nasal Cannula Room Air -Oxygen Flow Rate (L/min) 2 [Pulse Oximetry] -Pulse Oximetry (90-100 %) 92 94 [Pulse Rate] -Pulse Rate (60-100 beats/min) 113 H 99 [Comments] -Home Oxygen Evaluation Comments Pt requires 2 liters home O2 with activity [Charges] -Evaluation Charges
--- NOTE | 2024-04-05 16:05 | PCRCNOTE ---
Home O2 eval done, 2l with activity, [facility] is DME, tank in room for transport home. RN aware.
[2024-04-05 16:33] LABS: Glucose Point of Care 388 mg/dl (65-105)
[2024-04-05] MEDS: MONTELUKAST SODIUM 10 MG TABLET PO (20:36)
[2024-04-05] MEDS: INSULIN GLARGINE (*BKC) 100 UNITS/ML 15 UNITS SUB-Q (20:37)
[2024-04-05 23:30] LABS: Glucose Point of Care 392 mg/dl (65-105)
[2024-04-06] MEDS: IPRATROPIUM 0.5 MG/ALBUTEROL SULFATE 2.5 MG AMPUL.NEB 3 ML INHALATION ×2 (00:31→07:46)
[2024-04-06 00:32] VITALS: PULSE 96; RESP 18
[2024-04-06 00:40] VITALS: PULSE 100; RESP 18
[2024-04-06] MEDS: ALPRAZolam (*CRX) 0.5 MG TABLET PO (05:37)
[2024-04-06 06:25] VITALS: BP 113/70; PULSE 84; RESP 18; TEMP 36.6; O2SAT 97
[2024-04-06 06:33] LABS: Basophils Absolute Auto 0.1 K/mm3 (0.0-0.1); Basophils Percent Auto 0.3 % (0.2-1.2); Eosinophils Absolute Auto 0.1 K/mm3 (0-0.3); Eosinophils Percent Auto 0.4 % (0-4.4); Hematocrit 43.2 % (37.0-47.0); Hemoglobin 14.3 g/dL (12.0-15.0); Immature Granulocyte Absolute 0.39 K/mm3 (0.00-0.031); Immature Granulocyte Percent A 1.9 % (0-0.5); Lymphocytes Absolute Auto 5.71 K/mm3 (0.9-3.2); Mean Corpuscular HGB Conc 33.1 g/dl (32-36); Mean Corpuscular Hemoglobin 30.4 pg (26-34); Mean Corpuscular Volume 91.7 fl (80-100); Mean Platelet Volume 9.2 fl (7.4-10.4); Monocytes Absolute Auto 1.6 K/mm3 (0.1-0.6); Neutrophils Absolute Auto 12.5 K/mm3 (1.3-6.7); Neutrophils Percent Auto 61.4 % (45.5-73.1); Platelet Count Result 438 k/mm3 (150-375); Red Blood Count 4.71 M/mm3 (4.2-5.4); Red Cell Distribution Width 13.5 % (11.5-14.5); White Blood Count 20.4 K/mm3 (4.5-10.0)
[2024-04-06 06:39] LABS: Alanine Aminotransferase 26 U/L (6-35); Albumin Level 3.4 g/dL (3.5-5.1); Alkaline Phosphatase 103 U/L (38-126); Anion Gap 4 mmol/L (4-12); Aspartate Amino Transferase 21 U/L (14-36); Bilirubin,Total 0.5 mg/dL (0.2-1.3); Blood Urea Nitrogen 28 mg/dL (7-17); Calcium 8.9 mg/dL (8.4-10.2); Carbon Dioxide 30 mmol/L (22-30); Chloride 100 mmol/L (98-107); Estimated CRCL calculation 96 ml/min; Estimated Glomerular Filt Rate > 60; Glucose 138 mg/dL (65-110); Potassium 3.6 mmol/L (3.4-5.0); Sodium 134 mmol/L (137-145)
[2024-04-06 07:27] LABS: Glucose Point of Care 203 mg/dl (65-105)
[2024-04-06 07:46] VITALS: PULSE 85; RESP 16; O2SAT 96
[2024-04-06] MEDS: FLUTICASONE/SALMETEROL 115-21 MCG INHALER 1 PUFF 2 PUFF INHALATION (07:46)
[2024-04-06 07:56] VITALS: PULSE 81; RESP 16
--- NOTE | 2024-04-06 08:20 | PM.PNPUL ---
Progress Note: A&P Assessment and Plan (1) Asthma exacerbation: Qualifiers: Asthma persistence: unspecified Asthma severity: unspecified severity Qualified Code(s): J45.901 - Unspecified asthma with (acute) exacerbation Code(s): J45.901 - Unspecified asthma with (acute) exacerbation Status: Acute Assessment and Plan: This 53-year-old female has a long-standing history of asthma with frequent exacerbations requiring hospitalizations and/or steroid treatments over the past 20 years. A review of her medical records reveals elevated eosinophil levels and chronic rhinosinusitis, which, along with her wxmcatavg-hh-mxviydx asthma, suggest a diagnosis of eosinophilic asthma. She also had elevated IgE levels and was previously considered for biological treatment. The patient has completed treatment with IV steroids, nebulized bronchodilators, and other medications for an asthma exacerbation. Additionally, she was treated with doxycycline for atypical pneumonia, as her chest CT showed bilateral ground-glass opacities. Her respiratory status has improved significantly; she no longer exhibits wheezing on physical exam and is currently on room air. Plan: Discharge the patient home. Optimize her regimen for dnctfekqc-cg-aweldys asthma: Continue Symbicort inhaler. Continue rescue albuterol inhaler and nebulized albuterol for p.r.n. use. Discharge on an oral prednisone taper: 40 mg daily for 4 days, 30 mg daily for 4 days, 20 mg daily for 4 days, 15 mg daily for 4 days, 10 mg daily for 4 days, 5 mg daily for 4 days, then stop. Add Singulair 10 mg q.h.s. Add Spiriva 1.25 inhaler, 2 puffs daily. Continue with doxycycline 100 mg twice daily for another 3-4 days. The patient has been seen at the [facility] at [facility] for several years. She will contact the clinic to schedule an appointment in approximately 3-4 weeks. Given her llxleasff-df-noygcfz asthma, she remains a candidate for biological treatment. Please contact me with any questions. 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 No cough or wheezing. Currently on room air. Willing to go home Exam Const: Other: GENERAL APPEARANCE: Well developed, well nourished, alert and cooperative, and appears to be in no acute distress while on supplemental oxygen SKIN: Inspection of the skin reveals no rashes, ulcerations or petechiae. HEENT: Sclerae anicteric and conjunctivae pink and moist. Extraocular movements were intact and pupils were equal, round, and reactive to light. The oral mucosa, hard and soft palate, tongue and posterior pharynx were normal. NECK: Supple. There was no thyroid enlargement, and no tenderness, or masses were felt. CHEST: Normal AP diameter and normal contour without any kyphoscoliosis. LUNGS: Clear lungs no wheezing today CARDIAC: There was a regular rate and rhythm without any murmurs, gallops, rubs. ABDOMEN: Soft and nontender with normal bowel sounds. There was no organomegaly. LYMPH NODES: No lymphadenopathy was appreciated in the neck. EXTREMITIES: No cyanosis, clubbing or edema. NEUROLOGIC: Alert and oriented x 3. Normal affect. Objective Data Vital Signs Vital Signs: Vital Signs - 24 hr 04/05/24 12:00 04/05/24 12:08 04/05/24 12:14 Temperature 36.6 C Pulse Rate 92 80 81 Respiratory Rate 16 18 18 Blood Pressure 118/60 P
[2024-04-06] MEDS: INSULIN ASPART (*BKC) 100 UNITS/ML SUB-Q (08:38)
[2024-04-06] MEDS: hydroCHLOROthiazide 25 MG TABLET PO (08:39)
[2024-04-06] MEDS: FLUoxetine HCL 20 MG CAPSULE PO (08:39)
[2024-04-06] MEDS: amLODIPine BESYLATE 5 MG TABLET PO (08:39)
[2024-04-06] MEDS: predniSONE 20 MG TABLET 40 MG PO (08:39)
[2024-04-06] MEDS: LOSARTAN POTASSIUM 100 MG TABLET PO (08:39)
[2024-04-06] MEDS: DOXYCYCLINE HYCLATE 100 MG TABLET PO (08:39)
[2024-04-06] MEDS: guaiFENesin 12 HR 600 MG TABCR 1200 MG PO (08:39)
[2024-04-06] MEDS: DOCUSATE SODIUM 100 MG CAPSULE PO (08:39)
[2024-04-06] MEDS: LORATADINE/PSEUDOEPHEDRINE (*CRX) 10/240 MG TABLET ER 24 HR 1 TAB PO (08:39)
[2024-04-06] MEDS: ENOXAPARIN 40 MG/0.4 ML SYRINGE SUB-Q (08:40)
--- NOTE | 2024-04-06 08:45 | PM.DS ---
DS: Admitting Diagnosis Discharge Date 04/06/2024 Admitting Diagnosis acute hypoxic respiratory failure, asthma exacerbation, multifocal pneumonia, HTN, anxiety DS: Discharge Diagnosis Discharge Diagnosis (1) Acute hypoxic respiratory failure: Code(s): J96.01 - Acute respiratory failure with hypoxia Status: Acute (2) Multifocal pneumonia: Code(s): J18.9 - Pneumonia, unspecified organism Status: Acute (3) Asthma exacerbation: Qualifiers: Asthma persistence: unspecified Asthma severity: unspecified severity Qualified Code(s): J45.901 - Unspecified asthma with (acute) exacerbation Code(s): J45.901 - Unspecified asthma with (acute) exacerbation Status: Acute (4) Hypertension: Code(s): I10 - Essential (primary) hypertension Status: Acute (5) Anxiety: Code(s): F41.9 - Anxiety disorder, unspecified Status: Acute (6) Hyperglycemia: Code(s): R73.9 - Hyperglycemia, unspecified Status: Acute (7) MRSA nasal colonization: Code(s): Z22.322 - Carrier or suspected carrier of Methicillin resistant Staphylococcus aureus Status: Acute (8) Common variable immunodeficiency: Code(s): D83.9 - Common variable immunodeficiency, unspecified Status: Acute (9) Rhinitis: Qualifiers: Rhinitis type: unspecified Qualified Code(s): J31.0 - Chronic rhinitis Code(s): J31.0 - Chronic rhinitis Status: Acute (10) Pulmonary edema: Code(s): J81.1 - Chronic pulmonary edema Status: Acute (11) Diastolic dysfunction: Code(s): I51.89 - Other ill-defined heart diseases Status: Acute DS: Summary Hospital Course Hospital Course: This is a 53 year old female patient with history of severe asthma who presents with hypoxia requiring oxygen, wheezing despite steroids and nebs, concern for recurrent pneumonia with positive MRSA nares swab. Patient treated but not improving. Pulmonology consulted but patient still wheezing/hypoxic. Negative for PE by CTA, ground-glass infiltrates present. Patient treated for typical and atypical pneumonia. Blood sugars highly elevated due to high dose steroid use. Treated with insulin and patient will continue long steroid taper at home so insulin and testing supplies prescribed. Patient finally received relief after IV magnesium was given. One dose and her wheezing was gone. She remained hypoxic with activity and Pulmonology believes there is underlying COPD. Echocardiogram completed which indicated diastolic dysfunction so Lasix was also started. Patient underwent ApneaLink which showed minimal desaturation at night time and essentially no snoring or apnea events. Six minute walk test completed and patient needs 2 liters/minute with activity. Home oxygen arranged. Follow up with Pulmonology and initiation of care with new PCP are set up upon discharge. Medications prescribed as recommended by Pulmonology including prolonged steroid taper. Time spent discussing smoking cessation with patient: 3 to 10 minutes Status at Discharge Cognitive/behavioral status at discharge: awake, alert, oriented and pleasant Functional status at discharge: independent ambulation Overall status at discharge: patient is progressing back to baseline Time Spent with Patient Time attestation: Total time spent providing and/or coordinating discharge services: 60 minutes Time spent: Greater than 30 minutes Exam Narrative: GENERAL: Awake alert oriented, uncomfortable appearing HEAD: Normocephalic, atraumatic. ENT:? Mucous membranes moist. CHEST: Lungs mostly clear to auscultation with periodic scattered crackle that clears with cough, no wheezes HEART: Regular rate and rhythm. ? Normal peripheral pulses. ABDOMEN: Soft, nontender, nondistended. EXTREMITIES: Normal range of motion. No peripheral edema. SKIN: Warm dry normal color NEURO: Alert and oriented x3. PSYCH: Normal mo
[2024-04-06 11:29] LABS: Glucose Point of Care 200 mg/dl (65-105)
[2024-04-06] MEDS: FUROSEMIDE 20 MG TABLET PO (11:58)
[2024-04-08 22:43] LABS: Mycoplasma IgM Antibody Titer 474 U/mL
== END 2024-04-06 12:15 | disposition home or self-care (01) | DRG 193 ==
LOC: ANHED 21:53 → ANH3MEDSUR 22:52
PROVIDERS: Emergency Medicine; Nurse Practitioner Acute Care; Physician Assistant; Admitting Provider Internal Medicine; Emergency Provider Student in an Organized Health Care Education/Training Program; Visit Provider Nurse Practitioner
DX: J18.9 Pneumonia, unspecified organism (principal); J96.01 Acute respiratory failure with hypoxia; K50.90 Crohn's disease, unspecified, without complications; D83.9 Common variable immunodeficiency, unspecified; D58.9 Hereditary hemolytic anemia, unspecified; J45.901 Unspecified asthma with (acute) exacerbation; I10 Essential (primary) hypertension; J31.0 Chronic rhinitis; K21.9 Gastro-esophageal reflux disease without esophagitis; R73.9 Hyperglycemia, unspecified; Q85.02 Neurofibromatosis, type 2; G62.9 Polyneuropathy, unspecified; G47.30 Sleep apnea, unspecified; F41.9 Anxiety disorder, unspecified; Z20.822 Contact with and (suspected) exposure to COVID-19; F32.A Depression, unspecified; Z98.84 Bariatric surgery status; Z22.322 Carrier or suspected carrier of Methicillin resistant Staphylococcus aureus
CPT/HCPCS: 36415; 71046; 71275; 80048; 80053; 81001; 82948; 83036; 83690; 83735; 83880; 84484; 85025; 85027; 85055; 85380; 85610; 85730; 86308; 86738; 87040; 87070; 87086; 87088; 87205; 87449; 87637; 87641; 87651; 87899; 93005; 93306; 94618; 94640; 94762; 96374; 96375; 96376; 99285; A9270; J0456; J0696; J1650; J1815; J2270; J2405; J2919; J3475; J7512; Q9967

== ENCOUNTER 2024-10-08 17:03 | Emergency (ER) | payer OTHER, MEDICAID, SELFPAY ==
[2024-10-08] VITALS (7 sets, daily range): BP systolic 121–138; BP diastolic 74–92; PULSE 74–100; RESP 16–20; TEMP 36.2–36.6; O2SAT 96–99
--- NOTE | ~2024-10-08 | XR_ITS ---
EXAMINATION: XR chest 2V Exam Date/Time: 10/08/2024 18:05 JAILER/TRAINING OFFICER HISTORY: CP Comparison: 04/06/2024. RESULT: Lines, tubes, and devices: Cholecystectomy clips. Lungs and pleura: Clear. Left midlung calcified granulomas. Cardiomediastinal silhouette: Stable. Other: No acute osseous or upper abdominal finding. IMPRESSION: No acute cardiopulmonary process. Reviewed, dictated and finalized at location K. ER/TRAINING OFFICER
--- NOTE | ~2024-10-08 | XR_ITS ---
EXAM: XR elbow LT min 3V DATE: 10/08/2024 18:23 HISTORY: L elbow pain, possible injury . COMPARISON: None available. FINDINGS: Normal mineralization. No fracture or dislocation. No lytic or blastic lesion. Mild degene rative change. No erosion or periosteal change. Soft tissues within normal limits. IMPRESSION: No acute osseous finding in the left elbow. Reviewed, dictated and finalized at location K. OPERER
--- NOTE | ~2024-10-08 | US_ITS ---
EXAMINATION: US venous doppler [facility] DATE: 10/08/2024 18:15 INDICATION: painful, swollen LLE . TECHNIQUE: Grayscale images without and with compression and Doppler images of the left lower extremi ty veins were obtained. COMPARISON: None FINDINGS: The left common femoral vein, profunda (deep) femoral vein, femoral vein, popliteal vein, peroneal v ein, posterior tibial veins, gastrocnemius vein, and greater saphenous vein are patent. IMPRESSION: Patent left lower extremity veins. No evidence of deep venous thrombosis. Reviewed, dictated and finalized at location K. PLUGGER
--- NOTE | 2024-10-08 17:09 | ECG_ITS ---
Test Date: 2024-10-08 17:20:38 Measurements Intervals [place] Rate: 99 P: 59 MS: 116 QRS: 46 QRSD: 102 T: 76 QT: 355 QTc: 456 Interpretive Statements SINUS RHYTHM WITH SHORT MS INTERVAL Compared to ECG 03/30/2024 15:50:10 Short MS interval now present Sinus tachycardia no longer present Electronically Signed On 10-09-2024 15:01:41 [employer] by Margarette Robertson M.D.
--- NOTE | 2024-10-08 17:15 | ED.CHESTPAIN ---
HPI - Chest Pain General Chief Complaint: Chest Pain <Michellealok Vo ICT BUSINESS DEVELOPMENT MANAGER - Last Filed: 10/08/24 17:18> Stated Complaint: CP <Michellealok Vo ICT BUSINESS DEVELOPMENT MANAGER - Last Filed: 10/08/24 17:18> Time Seen by Provider: 10/08/24 17:10 <Michellealok Vo ICT BUSINESS DEVELOPMENT MANAGER - Last Filed: 10/08/24 17:18> Focused HPI: Patient is a 53-year-old female who presents to the ER with complaints of chest pain this started 2-3 days ago. She also endorses shortness of breath. Patient rates her chest pain is 10 of 10. She reports pain radiates to her shoulder. Patient endorses history of CHF and COPD. She denies any recent fevers. Patient also endorses left lower extremity pain and she is unsure what precipitated it. She endorses redness and swelling to that left lower extremity. Patient also endorses left elbow deformity and pain. She is unsure when the symptoms started or what caused the symptoms. Patient denies any recent fevers, abdominal pain, back pain, one-sided weakness/tingling/numbness. GENERAL: Well-appearing, well-nourished, and in no acute distress. HEAD: Normocephalic, atraumatic. CHEST: Clear to auscultation. ?No respiratory distress. HEART: Regular rate and rhythm.? NEURO: ?Alert and oriented x3. Patient screened in triage and initial orders placed.? ?Additional care and disposition to be based upon?diagnostic testing and treatment. <Michelle Vo ICT BUSINESS DEVELOPMENT MANAGER - Last Filed: 10/08/24 17:18> Focused HPI: Patient is a 53-year-old female who presents to the ER with complaints of chest pain this started 2-3 days ago. She also endorses shortness of breath. Patient rates her chest pain is 10 of 10. She reports pain radiates to her shoulder. Patient endorses history of CHF and COPD. She denies any recent fevers. Patient also endorses left lower extremity pain and she is unsure what precipitated it. She endorses redness and swelling to that left lower extremity. Patient also endorses left elbow deformity and pain. She is unsure when the symptoms started or what caused the symptoms. Patient denies any recent fevers, abdominal pain, back pain, one-sided weakness/tingling/numbness. GENERAL: Well-appearing, well-nourished, and in no acute distress. HEAD: Normocephalic, atraumatic. CHEST: Clear to auscultation. ?No respiratory distress. HEART: Regular rate and rhythm.? NEURO: ?Alert and oriented x3. Patient screened in triage and initial orders placed.? ?Additional care and disposition to be based upon?diagnostic testing and treatment. Agree with triage assessment. <Crsy Manzanares MD - Last Filed: 10/08/24 22:26> Related Data Home Medications: Home Medications ?Medication ?Instructions ?Recorded ?Confirmed ?Last Taken ?Type amlodipine 5 mg tablet 5 mg PO DAILY 09/16/23 03/31/24 Unknown History fluoxetine 20 mg capsule 20 mg PO DAILY 09/16/23 03/31/24 Unknown History alprazolam 0.5 mg tablet (Xanax) 0.5 mg PO Q8H 03/31/24 03/31/24 Unknown History docusate sodium 100 mg capsule 100 mg PO BID 03/31/24 03/31/24 Unknown History (Colace) semaglutide 2 mg/dose (8 mg/3 mL) 2 mg subcut WEEKLY 03/31/24 03/31/24 Unknown History subcutaneous pen injector (Ozempic) <Michelle Vo, ICT BUSINESS DEVELOPMENT MANAGER - Last Filed: 10/08/24 17:18> Allergies/Adverse Reactions: Allergies Allergy/AdvReac Type Severity Reaction Status Date / Time adhesive Allergy Unknown Unknown Verified 10/08/24 17:13 latex Allergy Unknown Rash Verified 10/08/24 17:13 acetaminophen (From Tylenol) Allergy Hives Verified 10/08/24 17:13 morphine AdvReac Intermediate hives Verified 10/08/24 17:13 adhesive tape AdvReac Mild RASH Verified 10/08/24 17:13 <Michelle Vo, ICT BUSINESS DEVELOPMENT MANAGER - Last Filed: 10/08/24 17:18> Review of Systems Review of Systems: All systems are reviewed and are negative unless stated otherwise in the HPI. 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 Asthma Anemia Anxiety Depression Arthritis Crohn disease Pneumonia Emphysema of lung Peripheral neuropathy Neurofibromatosis 2 <Michelle Vo ICT BUSINESS DEVELOPMENT MANAGER - Last Filed: 10/08/24 17:18> Surgical History Surgical History: Surgical History History of laparoscopic adjustable gastric banding History of sinus surgery History of hysterectomy History of cholecystectomy History of appendectomy History of tonsillectomy <Michelle Vo APRN - Last Filed: 10/08/24 17:18> Family History Family History: Family History Grandparent Family history of lung cancer Other Family history of malignant neoplasm <Michelle Vo ICT BUSINESS DEVELOPMENT MANAGER - Last Filed: 10/08/24 17:18> Social History Social History: Social History Social History: Surrogate medical decision maker: Orlando Dimas, spouse. Code status: Full code. Smoking packs per day: 1 Smoking cigarettes per day: 20.0 Years smoked: 20 Smoking pack-years: 20.00 Smoking status: Former smoker Tobacco type: cigarettes Smoking end date: 10/17/11 Alcohol intake: current Alcohol use details: Social alcohol use in moderation. Substance use: never Do You Feel Safe in your Home?: Yes Lack of Transportation: No Lack of Food: Never True Current Housing: I Have Housing Concerned About Future Housing: No Difficulty Paying Gas/Electric Bills: No Difficulty Paying for Meds: No Currently Unemployed: No Education: High School Diploma/GED Difficulty w/ Childcare or Family Care: No Additional living arrangements comments: Lives with spouse in [place]. Gender identity (if verbalized by the patient): Female Spiritual care concerns: No <Michelle Vo APRN - Last Filed: 10/08/24 17:18> Exam Narrative: General: Alert, awake, afebrile, in no acute distress. HEENT: PERRL, no rhinorrhea, no post nasal drip, oropharynx clear. Neck: Trachea midline, no JVD, no lymphadenopathy. Cardiovascular: Regular rate and rhythm, no murmurs, rubs or gallops, no peripheral edema. Respiratory:Diffuse bilateral wheezing, no tachypnea, no respiratory distress. Abdomen: Soft, nontender, nondistended, no rebound, no guarding, no peritoneal signs. Musculoskeletal: No joint swelling or deformity, normal muscle tone. Skin: No rashes or petechia, no signs of infection. Psychiatric: Alert and oriented, normal behavior and judgment for situation. Neurological: Alert and oriented to person, place, and time. Follows all commands. No focal deficits, speech is clear and fluent. <Crys Manzanares MD - Last Filed: 10/08/24 22:26> Course Vital Signs Vital signs: Vital Signs Temperature 97.2 F L 10/08/24 17:04 Pulse Rate 100 10/08/24 17:04 Respiratory Rate 20 10/08/24 17:04 Blood Pressure 121/92 H 10/08/24 17:04 Pulse Oximetry 96 10/08/24 17:04 Oxygen Delivery Room Air 10/08/24 17:04 Temperature 97.6 F 10/08/24 19:32 Pulse Rate 79 10/08/24 21:01 Respiratory Rate 19 10/08/24 21:01 Blood Pressure 138/88 10/08/24 19:32 Pulse Oximetry 96 10/08/24 19:32 Oxygen Delivery Room Air 10/08/24 17:04 <Michelle Vo APRN - Last Filed: 10/08/24 17:18> Vital Signs Temperature 97.2 F L 10/08/24 17:04 Pulse Rate 100 10/08/24 17:04 Respiratory Rate 20 10/08/24 17:04 Blood Pressure 121/92 H 10/08/24 17:04 Pulse Oximetry 96 10/08/24 17:04 Oxygen Delivery Room Air 10/08/24 17:04 Temperature 97.6 F 10/08/24 19:32 Pulse Rate 79 10/08/24 21:01 Respiratory Rate 19 10/08/24 21:01 Blood Pressure 138/88 10/08/24 19:32 Pulse Oximetry 96 10/08/24 19:32 Oxygen Delivery Room Air 10/08/24 17:04 <Crys Manzanares MD - Last Filed: 10/08/24 22:26> MDM - Chest Pain MDM Narrative Medical decision making narrative: The patient was evaluated by myself in the emergency department. History is obtained from patient who is an independent historian and physical exam was performed. External medical records were reviewed at this time. IV was established and pertinent tests were ordered. Patient was administered a DuoNeb breathing treatment and 125 mg of IM Solu-Medrol. EKG was obtained which revealed sinus rhythm at a rate of 99 beats per minute. No ST changes, T wave inversions or evidence of acute ischemia. EKG was independently interpreted by me and is currently pending official cardiology read. Laboratory results obtained revealing no acute process. Two sets of troponins were obtained and noted to be negative. Viral swabs negative for COVID/RSV/influenza. Imaging studies obtained included left elbow x-ray, chest x-ray and venous Doppler of the left lower extremity which was independently interpreted by me revealing no acute process, which is pending final radiology interpretation. Differential diagnosis considerations include acute viral syndrome, infectious process such as pneumonia, asthma exacerbation, dehydration, electrolyte derangements, and acute coronary syndrome. Patient has low heart score of 2. Comorbidities impacting this visit include history of asthma. I have evaluated and discussed social determinants of health with the patient that could potentially impact subsequent diagnosis and treatment plans. On repeat assessment of the patient, reevaluation revealed that the patient is doing well and is in no acute distress. Repeat auscultation revealed improvement of the patient's bilateral wheezing after 1 hour breathing treatment. Patient symptoms have improved since she arrived to our emergency department. Repeat vital signs were all reviewed and noted to be stable. Differential diagnosis and treatment plan were discussed with the patient at bedside. Patient agrees with discussion and after shared medical decision making agrees with discharge. All questions were answered to the patient's satisfaction. Patient will follow up with her PCP in 3-5 days. She was provided a script for Medrol Dosepak and instructed to take as prescribed. Patient was provided with strict return precautions and instructed to return to the emergency department if any new or worsening symptoms develop. The patient was discharged in stable condition. <Crys Manzanares MD - Last Filed: 10/08/24 22:26> Lab Data Result diagrams: 10/08/24 17:28 10/08/24 17:28 <Michelle Katherin Vo, ICT BUSINESS DEVELOPMENT MANAGER - Last Filed: 10/08/24 17:18> Labs: Lab Results 10/08/24 10/08/24 10/08/24 Range/Units 17:28 17:28 20:27 WBC 8.4 (4.5-10.0) K/mm3 RBC 5.42 H (4.2-5.4) M/mm3 Hgb 16.8 H (12.0-15.0) g/dL Hct 48.9 H (37.0-47.0) % MCV 90.2 (80-100) fl MCH 31.0 (26-34) pg MCHC 34.4 (32-36) g/dl RDW 12.7 (11.5-14.5) % Plt Count 381 H (150-375) k/mm3 MPV 9.6 (7.4-10.4) fl Immature Gran % (Auto) 0.2 (0-0.5) % Neut % (Auto) 48.4 (45.5-73.1) % Lymph % (Auto) 32.6 (18.3-44.2) % Noble % (Auto) 8.4 (2.6-8.5) % Eos % (Auto) 8.6 H (0-4.4) % Baso % (Auto) 1.8 H (0.2-1.2) % Lymph # (Auto) 2.74 (0.9-3.2) K/mm3 Noble # (Auto) 0.7 H (0.1-0.6) K/mm3 Eos # (Auto) 0.7 H (0-0.3) K/mm3 Baso # (Auto) 0.2 H (0.0-0.1) K/mm3 Abs Immat Gran (auto) 0.02 (0.00-0.031) K/mm3 Absolute Neuts (auto) 4.1 (1.3-6.7) K/mm3 Absolute Nucleated RBC 0.000 (0.0-0.012) K/mm3 Nucleated RBC % 0.0 (0.0-0.2) % PT 14.0 (11.1-14.7) Seconds INR 1.1 APTT 37.1 H (22.3-36.8) Seconds Sodium 137 (137-145) mmol/L Potassium 3.8 (3.4-5.0) mmol/L Chloride 107 (98-107) mmol/L Carbon Dioxide 24 (22-30) mmol/L Anion Gap 6 (4-12) mmol/L BUN 12 D (7-17) mg/dL Creatinine 0.70 (0.7-1.0) mg/dL Estim Creat Clear Calc 91 ml/min Estimated GFR > 60 (59 - ) Glucose 167 H (65-110) mg/dL Calcium 9.6 (8.4-10.2) mg/dL Magnesium 1.8 (1.6-2.3) mg/dL Total Bilirubin 0.5 (0.2-1.3) mg/dL AST 26 (14-36) U/L ALT 27 (6-35) U/L Alkaline Phosphatase 71 (38-126) U/L Troponin I < 0.012 < 0.012 < 0.012 (0.000-0.034) ng/mL Total Protein 8.0 (6.3-8.2) g/dL Albumin 4.2 (3.5-5.1) g/dL Lipase 86 (23-300) U/L Influenza A (RT-PCR) Negative (Negative) Influenza B (RT-PCR) Negative (Negative) RSV (RT-PCR) Negative (Negative) SARS-CoV-2 RNA (RT-PCR) Negative (Negative) <Michelle Vo, ICT BUSINESS DEVELOPMENT MANAGER - Last Filed: 10/08/24 17:18> Lab Results 10/08/24 10/08/24 10/08/24 Range/Units 17:28 17:28 20:27 WBC 8.4 (4.5-10.0) K/mm3 RBC 5.42 H (4.2-5.4) M/mm3 Hgb 16.8 H (12.0-15.0) g/dL Hct 48.9 H (37.0-47.0) % MCV 90.2 (80-100) fl MCH 31.0 (26-34) pg MCHC 34.4 (32-36) g/dl RDW 12.7 (11.5-14.5) % Plt Count 381 H (150-375) k/mm3 MPV 9.6 (7.4-10.4) fl Immature Gran % (Auto) 0.2 (0-0.5) % Neut % (Auto) 48.4 (45.5-73.1) % Lymph % (Auto) 32.6 (18.3-44.2) % Noble % (Auto) 8.4 (2.6-8.5) % Eos % (Auto) 8.6 H (0-4.4) % Baso % (Auto) 1.8 H (0.2-1.2) % Lymph # (Auto) 2.74 (0.9-3.2) K/mm3 Noble # (Auto) 0.7 H (0.1-0.6) K/mm3 Eos # (Auto) 0.7 H (0-0.3) K/mm3 Baso # (Auto) 0.2 H (0.0-0.1) K/mm3 Abs Immat Gran (auto) 0.02 (0.00-0.031) K/mm3 Absolute Neuts (auto) 4.1 (1.3-6.7) K/mm3 Absolute Nucleated RBC 0.000 (0.0-0.012) K/mm3 Nucleated RBC % 0.0 (0.0-0.2) % PT 14.0 (11.1-14.7) Seconds INR 1.1 APTT 37.1 H (22.3-36.8) Seconds Sodium 137 (137-145) mmol/L Potassium 3.8 (3.4-5.0) mmol/L Chloride 107 (98-107) mmol/L Carbon Dioxide 24 (22-30) mmol/L Anion Gap 6 (4-12) mmol/L BUN 12 D (7-17) mg/dL Creatinine 0.70 (0.7-1.0) mg/dL Estim Creat Clear Calc 91 ml/min Estimated GFR > 60 (59 - ) Glucose 167 H (65-110) mg/dL Calcium 9.6 (8.4-10.2) mg/dL Magnesium 1.8 (1.6-2.3) mg/dL Total Bilirubin 0.5 (0.2-1.3) mg/dL AST 26 (14-36) U/L ALT 27 (6-35) U/L Alkaline Phosphatase 71 (38-126) U/L Troponin I < 0.012 < 0.012 < 0.012 (0.000-0.034) ng/mL Total Protein 8.0 (6.3-8.2) g/dL Albumin 4.2 (3.5-5.1) g/dL Lipase 86 (23-300) U/L Influenza A (RT-PCR) Negative (Negative) Influenza B (RT-PCR) Negative (Negative) RSV (RT-PCR) Negative (Negative) SARS-CoV-2 RNA (RT-PCR) Negative (Negative) <Crys Manzanares MD - Last Filed: 10/08/24 22:26> Discharge Plan Discharge Clinical Impression: Chest pain, Shortness of breath Asthma exacerbation Qualifiers: Asthma severity: unspecified severity Asthma persistence: unspecified Qualified Code(s): J45.901 - Unspecified asthma with (acute) exacerbation <Michelle Vo APRN - Last Filed: 10/08/24 17:18> Patient Disposition: Home, Self-Care <Michlele Vo APRN - Last Filed: 10/08/24 17:18> Condition: Improved <Michelle Vo APRN - Last Filed: 10/08/24 17:18> Instructions: Antibiotic Form, Chest Pain (ED), Bronchospasm (ED) <Michelle Vo APRN - Last Filed: 10/08/24 17:18> Additional Instructions: Please follow-up with the primary care provider that was provided to you today within the next 3-5 days. Take the prescribed steroids as instructed and return to the ED if any new or worsening symptoms develop. <Michelle Vo APRN - Last Filed: 10/08/24 17:18> Patient Language: Malay <Michelle Vo APRN - Last Filed: 10/08/24 17:18> Prescriptions: New methylprednisolone [Medrol (Merlin)] 4 mg tablets,dose pack See Rx Instructions .ROUTE .COMPLEX Qty: 21 0RF Rx Instructions: for 6 days No Action amlodipine 5 mg Tablet 5 mg PO DAILY fluoxetine 20 mg Capsule 20 mg PO DAILY alprazolam [Xanax] 0.5 mg Tablet 0.5 mg PO Q8H docusate sodium [Colace] 100 mg Capsule 100 mg PO BID Ozempic 2 mg/dose (8 mg/3 mL) Pen Injector 2 mg SUBCUT WEEKLY Rx Instructions: TAKES EVERY TUESDAY EVENING Claritin-D 24 Hour 10-240 mg Tablet Extended Release 24 Hr 1 tablet PO QAM Qty: 30 0RF montelukast [Singulair] 10 mg Tablet 10 mg PO HS Qty: 30 0RF guaifenesin [Mucus Relief ER] 600 mg Tablet Extended Release 12hr 1,200 mg PO Q12HR Qty: 60 0RF ipratropium-albuterol 0.5 mg-3 mg(2.5 mg base)/3 mL Solution For Nebulization 3 ml inhalation Q4HRT Qty: 120 0RF trazodone 50 mg Tablet 50 mg PO HS PRN (Reason: Insomnia) Qty: 30 0RF Spiriva Respimat 1.25 mcg/actuation mist 2 puff inhalation DAILY Qty: 4 2RF albuterol sulfate 90 mcg/actuation HFA aerosol inhaler 3 inh inhalation Q4H PRN (Reason: shortness of breath or wheezing) Qty: 6.7 2RF Rx Instructions: until breathing returns to target peak flow/parameters doxycycline hyclate 100 mg capsule 100 mg PO Q12H Qty: 10 0RF prednisone 10 mg tablet See Taper PO DIRECTED Qty: 44 0RF Taper: Prednisone Taper from 60 mg;12 days 40 mg DAILY for 3 Days and 0 Hour 30 mg DAILY for 4 Days and 0 Hour 20 mg DAILY for 4 Days and 0 Hour 15 mg DAILY for 4 Days and 0 Hour 10 mg DAILY for 4 Days and 0 Hour 5 mg DAILY for 4 Days and 0 Hour Rx Instructions: see taper instructions budesonide-formoterol [Symbicort] 160-4.5 mcg/actuation Hfa Aerosol Inhaler 2 inh INHALATION BID Qty: 10.2 2RF (DME) blood-glucose meter [OneTouch Verio Flex meter] Misc Qty: 1 0RF Rx Instructions: May substitute to in-stock meter and/or covered by insurance. Use As Directed (DME) OneTouch Verio test strips Strip Qty: 1 0RF Rx Instructions: May substitute to in-stock and/or covered by insurance strips. Use As Directed (DME) pen needle, diabetic [BD Ultra-Fine Candice Pen Needle] 32 gauge x 5/32 needle Qty: 1 0RF Rx Instructions: May substitute to meet patient needs. Use As Directed (DME) lancets [OneTouch Delica Plus Lancet] 30 gauge misc Qty: 1 0RF Rx Instructions: May substitute to in-stock and/or covered by insurance lancets. Use As Directed insulin glargine [Lantus Solostar U-100 Insulin] 100 unit/mL (3 mL) insulin pen 15 unit subcut QAM Qty: 3 0RF insulin aspart U-100 [Novolog FlexPen U-100 Insulin] 100 unit/mL (3 mL) insulin pen 1 sliding scale dose subcut USEASDIRECTD Qty: 15 0RF Rx Instructions: 200-250=4units 251-300=5units 301-350=6units 351-400=8units >400=10units and call MD No correction dose at Bedtime losartan 100 mg Tablet 100 mg PO DAILY Qty: 0 0RF furosemide 40 mg tablet 40 mg PO DAILY Qty: 30 0RF potassium chloride 20 mEq tablet,ER particles/crystals 20 meq PO DAILY Qty: 30 0RF <Michelle Vo APRN - Last Filed: 10/08/24 17:18> Follow-up/Referrals: Derrick Moffett DO [Physician] - 3 Days UNKNOWN,DOCTOR [Primary Care Provider] - <Michelle Vo APRN - Last Filed: 10/08/24 17:18> Time of Disposition: 22:17 <Michelle Vo APRN - Last Filed: 10/08/24 17:18> 22:17 <Crys Manzanares MD - Last Filed: 10/08/24 22:26>
[2024-10-08 17:41] LABS: Basophils Absolute Auto 0.2 K/mm3 (0.0-0.1); Basophils Percent Auto 1.8 % (0.2-1.2); Eosinophils Absolute Auto 0.7 K/mm3 (0-0.3); Eosinophils Percent Auto 8.6 % (0-4.4); Hematocrit 48.9 % (37.0-47.0); Hemoglobin 16.8 g/dL (12.0-15.0); Immature Granulocyte Absolute 0.02 K/mm3 (0.00-0.031); Immature Granulocyte Percent A 0.2 % (0-0.5); Lymphocytes Absolute Auto 2.74 K/mm3 (0.9-3.2); Lymphocytes Percent Auto 32.6 % (18.3-44.2); Mean Corpuscular HGB Conc 34.4 g/dl (32-36); Mean Corpuscular Volume 90.2 fl (80-100); Mean Platelet Volume 9.6 fl (7.4-10.4); Monocytes Absolute Auto 0.7 K/mm3 (0.1-0.6); Monocytes Percent Auto 8.4 % (2.6-8.5); Neutrophils Absolute Auto 4.1 K/mm3 (1.3-6.7); Neutrophils Percent Auto 48.4 % (45.5-73.1); Platelet Count Result 381 k/mm3 (150-375); Red Blood Count 5.42 M/mm3 (4.2-5.4); Red Cell Distribution Width 12.7 % (11.5-14.5); White Blood Count 8.4 K/mm3 (4.5-10.0)
[2024-10-08 17:59] LABS: Alanine Aminotransferase 27 U/L (6-35); Albumin Level 4.2 g/dL (3.5-5.1); Alkaline Phosphatase 71 U/L (38-126); Anion Gap 6 mmol/L (4-12); Aspartate Amino Transferase 26 U/L (14-36); Bilirubin,Total 0.5 mg/dL (0.2-1.3); Blood Urea Nitrogen 12 mg/dL (7-17); Calcium 9.6 mg/dL (8.4-10.2); Carbon Dioxide 24 mmol/L (22-30); Chloride 107 mmol/L (98-107); Estimated CRCL calculation 91 ml/min; Estimated Glomerular Filt Rate > 60; Glucose 167 mg/dL (65-110); Lipase 86 U/L (23-300); Potassium 3.8 mmol/L (3.4-5.0); Sodium 137 mmol/L (137-145)
[2024-10-08 18:01] LABS: Magnesium 1.8 mg/dL (1.6-2.3)
[2024-10-08 18:08] LABS: INR 1.1
[2024-10-08 18:09] LABS: Partial Thromboplastin Time 37.1 Seconds (22.3-36.8)
[2024-10-08 18:10] LABS: Troponin I < 0.012 ng/mL (0.000-0.034)
[2024-10-08 18:14] LABS: Troponin I < 0.012 ng/mL (0.000-0.034)
[2024-10-08] MEDS: IPRATROPIUM 0.5 MG/ALBUTEROL SULFATE 2.5 MG AMPUL.NEB 3 ML INHALATION (18:26)
[2024-10-08 18:57] LABS: Influenza A QL RT-PCR Negative (Negative); Influenza B QL RT-PCR Negative (Negative); RSV RNA, RT-PCR Negative (Negative); SARS-CoV-2 RNA PCR Negative (Negative)
[2024-10-08] MEDS: ASPIRIN 81 MG CHEWABLE TABLET 324 MG PO (20:50)
[2024-10-08] MEDS: predniSONE 20 MG TABLET 60 MG PO (20:50)
[2024-10-08] MEDS: methylPREDNISolone SOD SUCC 125 MG VIAL IM (20:54)
[2024-10-08 20:55] LABS: Troponin I < 0.012 ng/mL (0.000-0.034)
[2024-10-08] MEDS: ALBUTEROL SULFATE NEB 2.5 MG/3 ML INH 10 MG INHALATION (21:00)
[2024-10-08] MEDS: IPRATROPIUM BR 0.02% INH SOLN 0.5 MG/2.5 ML VIAL 1.5 MG INHALATION (21:01)
[2024-10-08] MEDS: KETOROLAC 15 MG/ML VIAL (*BKC) IM (22:27)
== END 2024-10-08 23:13 | disposition home or self-care (01) ==
PROVIDERS: Registered Nurse; Emergency Provider Emergency Medicine
DX: R07.9 Chest pain, unspecified (principal); R06.02 Shortness of breath; I10 Essential (primary) hypertension; G47.33 Obstructive sleep apnea (adult) (pediatric); K21.9 Gastro-esophageal reflux disease without esophagitis; F41.8 Other specified anxiety disorders; K50.90 Crohn's disease, unspecified, without complications; Z87.891 Personal history of nicotine dependence; Z20.822 Contact with and (suspected) exposure to COVID-19
CPT/HCPCS: 36415; 71046; 73080; 80053; 83690; 83735; 84484; 85025; 85610; 85730; 87637; 93005; 93971; 94640; 96372; 99284; A9270; J1885; J2919; J7512

== ENCOUNTER 2024-11-25 17:01 | Emergency (ER) | payer MEDICARE, OTHER, MEDICAID, SELFPAY ==
[2024-11-25] VITALS (7 sets, daily range): BP systolic 166; BP diastolic 103; PULSE 100–113; RESP 18–26; TEMP 36.2; O2SAT 90–99
--- NOTE | ~2024-11-25 | CT_ITS ---
CLINICAL INDICATION: Urinary frequency and pain x1 week. Epigastric abdominal pain and urinary retent ion COMPARISON: . TECHNIQUE: Multiple contiguous axial images of the abdomen and pelvis were performed following the ad ministration of with 100 mL Omnipaque-350 intravenous contrast The dose-length product (DLP) was 1179.45 mGy-cm. Automated exposure control and iterative reconstruction technique were employed. FINDINGS/OBSERVATIONS: Visualized lower thorax: The bilateral lung bases are clear. The heart is of normal size, without pericardial effusion. Liver: The liver enhances homogeneously without enlargement measuring 17 cm in longitudinal dimension. Gallbladder and biliary system: The gallbladder is surgically absent. Pancreas: The pancreas enhances homogeneously without ductal dilatation. Spleen: The spleen enhances homogeneously and is not enlarged measuring 8 cm in longitudinal dimension. Kidneys: The bilateral kidneys enhance symmetrically without hydronephrosis or renal calculi. Adrenal glands: Unremarkable. Gastrointestinal tract: Trace fecal stasis. Appendix: Surgically absent. Vasculature: Unremarkable. No aneurysmal dilatation or significant stenosis. Lymph nodes: Prominent pericardial lymph node. Multiple enlarged lymph nodes within the joshua hepatis. No pathologically enlarged or morphologically suspicious lymph nodes within the retroperitoneum or at the root of the mesentery. Pelvic structures: The bladder is decompressed, and demonstrates thickened kimball with trace surrounding inflammatory nelson nge. The uterus is surgically absent. Body wall and musculoskeletal: Small fat-containing umbilical and infraumbilical hernia. No significant degenerative disease within the lower thoracic or lumbosacral spine. Small bone islands at the level of T10 and T11. IMPRESSION: No acute intra-abdominal pathology, as detailed above. Reviewed, dictated and finalized at location A. ORK OPERATIONS ANALYST
--- NOTE | ~2024-11-25 | XR_ITS ---
CHEST RADIOGRAPH CLINICAL HISTORY: sob, HX OF ASTHMA . COMPARISON: None available TECHNIQUE: Single portable view of the chest. FINDINGS The cardiomediastinal silhouette is unremarkable. Significant peribronchial thickening is identified, consistent with patient's history. The lungs are otherwise clear. IMPRESSION: Peribronchial thickening without focal infiltrate or effusion. Reviewed, dictated and finalized at location A. AL FUND SALES AGENT
--- OUTSIDE RECORDS SUMMARY | 2024-11-25 17:03 | XMS_ITS | CONTINUITY OF CARE DOCUMENT ---
Author Name douglas cole Address Unknown Organization [facility] Address [address] [place] [address] Phone [phone] Care Team Providers Care Lieutenant Governor Name Role Phone Xiomara LAGUERRE, Ru Unavailable [phone] Ru Solano MD Unavailable [phone] PROBLEMS Condition Status Date Provider Notes Cardiology examination active Ru Solano MD C O P D active Ru Solano MD Hyperlipidemia active Ru Solano MD Hypertension active Ru Solano MD Chest pain-type to be determined active Pa Solano MD CHF, acute, systolic active Ru Eason ENCOUNTERS Date Type Provider Location Encounter Diag nosis 4 - 5 In-person encounter Office Visit Ru Solano MD [facility] [facility] Cardiology examinationC O P DHyperlipidemiaHypertensionChest pain-type to be determinedCHF, acute, systolic VITAL SIGNS Date Observation Value Provider Body Mass Index (Ratio) 33.83 kg/m2 Ming Solano MD blood pressure, diastolic 110 mm[Hg] Carmel nkLogic blood pressure, systolic 151 mm[Hg] Elizabeth kLogic blood pressure, cuff size regular Ja rret blood pressure, diastolic 110 mm[Hg] Ja rret blood pressure, systolic 151 mm[Hg] Jar ret pulse rate 90 /min Monty y oxygen saturation, oximetry 95 % [facility] height E&M 67 [in_i] [facility] y respiratory rate E&M 16 /min [facility] weight E&M 216 [lb_av] Monty y ALLERGIES Allergy Name Onset Date Reaction Criticality Status LATEX Low Criticality active HISTORY OF MEDICATION USE Medication Status Instructions Dates Provider Indications Com ments losartan 100 mg tablet active TAKE 1 TABLET BY MOUTH EVERY DAY 4 Ru Solano MD albuterol sulfate 90 mcg/actuation HFA aerosol inhaler active INHALE 2 PUFFS BY MOUTH EVERY 6 HOURS NEEDED DIRECTED FOR SHORTNESS OF BREATH [facility] alprazolam 1 mg tablet active Take as needed [facility] amlodipine 5 mg tablet completed TAKE 1 TABLET BY MOUTH EVERY DAY - 4 Ru Solano MD fluoxetine 20 mg capsule active Take 1 capsule by mouth once a day Monty nifedipine 30 mg tablet extended release 24hr active TAKE 1 TABLET BY MOUTH EVERY DAY [facility] prednisone 20 mg tablet active Take 1 tablet by mouth once a day Symbicort 160-4.5 mcg/actuation HFA aerosol inhaler active Inhale 2 puff using inhaler twice a day Ozempic 0.25 mg or 0.5 mg (2 mg/3 mL) pen injector active INJECT 0.25MG UNDER THE SKIN EVERY WEEK FOR 4 WEEKS, THEN INCREASE TO 0.5MG UNDER THE SKIN EVERY WEEK Monty SOCIAL HISTORY Date Observation Value Provider Surgical History of - Tonsillectomy Surgical History of - Tonsillectomy Ru Solano MD cigarette use yes Monty ay smoking status Current some day smoker Blair hernandez INSURANCE PROVIDERS Payer name Policy type / Coverage type [place] [employer] PPO HMO [id number] ADVANCE DIRECTIVES Name Date DISCUSSED - NO DECISION MADE TREATMENT PLAN Date Name Performer Cardiology:PFTs Ru Solano MD Cardiology:Recently in hospital with respiratory failure. N eeds stress, can't walk on treadmill so will schedule regadenoson. Ru Solano MD Date Name DLCO - 04060 FRC - 63046 FVC - 18614 Stress Regadenoson Complete Echo HISTORY OF PROCEDURES Procedure Date Procedure Name Provider Procedure Notes S tatus EKG Ru Solano MD complete d
--- NOTE | 2024-11-25 17:04 | ECG_ITS ---
Test Date: 2024-11-25 17:08:52 Measurements Intervals [place] Rate: 112 P: 57 NC: 120 QRS: 29 QRSD: 88 T: 52 QT: 322 QTc: 440 Interpretive Statements SINUS TACHYCARDIA POSSIBLE LEFT ATRIAL ENLARGEMENT BASELINE ARTIFACT- II, III, AVL, AVF, V1-V3 ABNORMAL ECG Compared to ECG 10/08/2024 17:20:38 HEART RATE HAS INCREASED Electronically Signed On 11-25-2024 19:55:14 [employer] FI[employer] CASER by Tip Batista D.O.
--- OUTSIDE RECORDS SUMMARY | 2024-11-25 17:04 | XMS_ITS | Patient Health Summary ---
Author Organization [facility] Address [address] [place] [address] Care Team Providers Care Manufacturing Software Engineer Name Role Phone Navid Kelly MD Primary Care Provider [phone] [facility],non-owned Affiliates and Associated Physician Practices is amultiple site organization consisting of ambulatory clinics and hospital sitesin [place], [place], [place] and [place]. This disclosure is being madepursuant to the Care Everywhere program and may not contain all information available regarding this patient. Last updated 18.[facility] [employer] Allergies * Adhesive Sensitivity(Rash) -Medium Criticality * Latex(Itching) * Pollen Extract(Shortness of Breath) -High Criticality * Acetaminophen(Dizziness),Inactive Medications * Be aware that medications may not be up to date on this document. Alwaysverify current medications with the patient. * VENTOLIN HFA 108 (90 BASE) MCG/ACT inhaler(Started 12/06/2017) Inhale 2 (two) puffs by mouth as needed * diphenhydrAMINE (BENADRYL) 25 MG tablet Take 2 (two) tablets by mouth 2 times daily * albuterol (PROVENTIL;VENTOLIN) (2.5 MG/3ML) 0.083% nebulizer solution(Started 04/10/2018) Inhale 2.5 (two and one-half) mg by mouth as needed * albuterol-ipratropium (DUO-NEB) 0.5-2.5 (3) MG/3ML nebulizer solution(Started 11/10/2018) 3 mL as needed * SYMBICORT 160-4.5 MCG/ACT inhaler(Started 12/28/2018) INL 2 PFS PO Q 12 H * metFORMIN (GLUCOPHAGE) 500 MG tablet Take 1 (one) tablet by mouth 2 times daily with morning and evening meal * ibuprofen (Motrin) 400 MG tablet(Started 05/31/2022) Take 1 (one) tablet by mouth every 6 hours as needed for Pain 1 refill by 05/31/2023 * losartan-hydroCHLOROthiazide (Hyzaar) 100-12.5 MG tablet(Started 05/02/2022) Take 1 (one) tablet by mouth once daily * allergy injection Per [facility] Otolaryngology protocol * prazosin (Minipress) 2 MG capsule Take 1 (one) capsule by mouth once daily * FLUoxetine (PROzac) 20 MG capsule Take 1 (one) capsule by mouth once daily * SYRINGE-NEEDLE, DISP, 3 ML 25G X 5/8 3 ML MISC(Started 09/29/2022) Dispense 30 syringes for 1 month supply 2 refills by 09/29/2023 * ALPRAZolam (Xanax) 1 MG tablet(Started 10/13/2022) Take 1 (one) tablet by mouth 3 times daily as needed * clomiPRAMINE (Anafranil) 25 MG capsule(Started 09/15/2022) Take 1 (one) capsule by mouth 2 times daily * pantoprazole EC (Protonix) 40 MG tablet(Started 10/30/2022) Take 1 (one) tablet by mouth as directed * BD Eclipse Syringe 25G X 1 3 ML MISC(Started 10/01/2022) Use 1 (one) Each as directed * SYRINGE/NEEDLE, DISP, 1 ML (BD Eclipse Syringe) 25G X 5/8 1 ML MISC Use 1 Each as directed * amLODIPine (Norvasc) 5 MG tablet(Started 01/31/2023) Take 1 (one) tablet by mouth once daily * benzonatate (Tessalon) 200 MG capsule(Started 01/02/2023) Take 1 (one) capsule by mouth 3 times daily as needed * nystatin (Mycostatin) 347718 UNIT/ML suspension(Started 01/02/2023) Take 5 mL by mouth 4 times daily * predniSONE (Deltasone) 20 MG tablet(Started 03/07/2023) Take 2 (two) tablets by mouth as needed * EPINEPHrine (Epipen) 0.3 MG/0.3ML auto-injector pen(Started 05/31/2024) Inject 0.3 mL into muscle as needed for Anaphylaxis Active Problems Problem Noted Date Diagnosed Date Bronchospasm 07/13/2019 Hemolytic anemia 07/13/2019 Non-seasonal allergic rhinitis due to pollen Gastroesophageal reflux disease 09/21/2017 Mild intermittent asthma without complication Adaptive colitis 02/02/2017 Airway hyperreactivity 02/02/2017 Anxiety 02/02/2017 Arthritis 02/02/2017 HCV (hepatitis C virus) 02/02/2017 Morbid obesity 09/15/2016 Chronic pansinusitis 12/03/2015 Nasal polyps 12/03/2015 Schwannoma of spinal cord Conductive hearing loss of r ight ear with unrestricted hearing of left ear Bilateral low back pain with sciatica Resolved Problems Problem Noted Date Diagnosed Date Resolved Date Colitis 07/13/2019 07/28/2022 Disease of liver 07/13/2019 07/28/2022 History of colonic polyps 07/13/2019 Post-op pain 07/05/2017 07/28/2022 Post-operative nausea and vomiting 07/05/2017 07/28/2022 Immunizations * INFLUENZA VACCINE, TRIV. (AFLURIA, FLUZONE TRIVALENT; 6MO+) (IIV3)(Given 07/30/2015) * FLU VACCINE QUAD IIV4 SPLIT 0.25 ML IM(Given 08/31/2016) * INFLUENZA VACCINE(Given 08/03/2018, 10/10/2015, 07/30/2015, 10/31/2013) Social History Tobacco Use Types Packs/Day Years Used Date Smoking Tobacco: Some Days Cigarettes 0.3 39.1 Started: 1985 Smokeless Tobacco: Never Tobacco Cessation:Ready to Q uit: Not Asked; Counseling Given: Not Answered Comments:1 pack cigarettes per week (05/19/22) Alcohol Use Standard Drinks/Week Comments Yes 0 (1 standard drink = 0.6 oz pur e alcohol) Rare Sex and Gender Information Value Date Recorded Sex Assigned at Not on file Gender Identity Not on file Sexual Orientation Not on file Last Filed Vital Signs Vital Sign Reading Time Taken Comments Blood Pressure 146/122 11/30/2023 2:29 PM PLATFORM BEATER Pulse 96 11/30/2023 2:29 PM PLATFORM BEATER Temperature 37 C (98.6 F) 05/31/2022 3:39 PM CDT Respiratory Rate 10 06/09/2022 2:35 PM CDT Oxygen Saturation 95% 05/31/2022 4:00 PM CDT Inhaled Oxygen Concentration 21% 05/31/2022 2 :55 PM CDT Weight 103.9 kg (229 lb) 11/30/2023 2:29 PM PLATFORM BEATER Height 167.6 cm (5' 6 ) 11/30/2023 2:29 PM PLATFORM BEATER Body Mass Index 36.96 11/30/2023 2:29 PM PLATFORM BEATER Procedures * LA NASAL ENDOSCOPY,DX(Performed 11/30/2023) Performed for Nasal polyps, Chronic pansinusitis * LA REMOVE CERUMEN IMPACTED W INSTR RT EAR(Performed 11/03/2022) Performed for Acute foreign body of right ear, initial encounter * LA NASAL ENDOSCOPY,DX(Performed 11/03/2022) Performed for Chronic pansinusitis, Nasal polyps * LA NASAL ENDOSCOPY,DX(Performed 07/28/2022) Performed for Non-seasonal allergic rhinitis due to pollen, Nasal polyps, Chronic pansinusitis * LA ENDO NASAL SINUS BX POLYP DEBRID DEBRA(Performed 06/09/2022) Performed for Nasal polyps, Chronic pansinusitis * PATHOLOGY TISSUE(Performed 05/31/2022) Performed for Chronic pansinusitis, Nasal polyps * CULTURE FUNGUS OTHER+FUNGUS SMEAR(Performed 05/31/2022) Performed for Chronic pansinusitis * CULTURE ANAEROBE(Performed 05/31/2022) Performed for Chronic pansinusitis * CULTURE WOUND+GRAM STAIN(Performed 05/31/2022) Performed for Chronic pansinusitis * ENDOSCOPIC SINUS WITH NAVIGATION(Performed 05/31/2022) Performed for Chronic pansinusitis, Nasal polyps * ENDOTRACHEAL TUBE NOTE(Performed 05/31/2022) * GLUCOSE - POINT OF CARE(Performed 05/31/2022) * HCG URINE QUAL POCT NOTIFICATION(Performed 05/31/2022) Performed for Pre-op evaluation * BASIC METABOLIC PANEL (CALCIUM TOTAL)(Performed 05/19/2022) Performed for Pre-op evaluation * CT SINUS WO CONTRAST(Performed 04/14/2022) Performed for Chronic pansinusitis * LA ENDO NASAL SINUS BX POLYP DEBRID DEBRA(Performed 01/13/2022) Performed for Other chronic sinusitis, Nasal crusting * CULTURE RESPIRATORY+GRAM STAIN (STL)(Performed 01/13/2022) Performed for Other chronic sinusitis * MRI IAC WWO CONTRAST(Performed 07/13/2019) Performed for Schwannoma * CREATININE BLOOD - POCT (IP) [facility](Performed 07/13/2019) Performed for Schwannoma * MRI IAC WWO CONTRAST(Performed 04/28/2018) Performed for Anxiety, Schwannoma of spinal cord (HCC) * CREATININE BLOOD - POCT (IP) [facility](Performed 04/28/2018) Performed for Schwannoma of spinal cord (HCC) * CT TEMPORAL BONES WO CONTRAST(Performed 04/28/2018) Performed for Schwannoma of spinal cord (HCC) * MRI BRAIN WWO CONTRAST(Performed 02/14/2018) Performed for Schwannoma of spinal cord (HCC), Conductive hearing loss of right ear with unrestricted hearing of left ear, Bilateral low back pain with left- sided sciatica, unspecified chronicity * AUDIOLOGY/TYMPANOMETRY ORDER(Performed 02/14/2018) * LAB MISC TEST(Performed 02/01/2018) Performed for Schwannoma of spinal cord (HCC) * CULTURE AEROBIC(Performed 12/14/2017) * IMAGING/RADIOLOGY/XRAY RESULTS ORDER(Performed 11/24/2017) * IMAGING/RADIOLOGY/XRAY RESULTS ORDER(Performed 10/13/2017) * PATHOLOGY/GENETICS HISTORICAL-ONBASE(Performed 12/25/2015) * XR CHEST 2VW PNEUMONIA PROTCL(Performed 12/01/2015) * CYTOLOGY PAP PASSENGER REPRESENTATIVE(Performed 03/29/1996) Results * LA NASAL ENDOSCOPY,DX (11/30/2023 3:12 PM PLATFORM BEATER) Narrative Harrison Phelan MD - 11/30/2023 3:12 PM PLATFORM BEATER Harrison Phelan MD 11/30/2023 3:12 PM Procedure: Rigid Nasal Endoscopy Anesthesia: Bilateral Nasal Cavities sprayed with lidocaine and Neosynephrine Detail: Rigid nasal endoscopy performed bilaterally. Septum was essentially midline. On the right she has 1 small crust at the inferior middle meatus. Maxillary sinus is widely open with good appearance. Ethmoid has a good overall appearance with only some mild superior edema. No blu polyposis. On the left there is only a crust on the head of the middle turbinate. Middle meatus is widely open and has some very mild superior ethmoid/frontal sinus outflow tract edema but otherwise looks very good. Patient tolerated well. Harrison Phelan MD PROCEDURE/MINOR ALMA GICAL ORDERABLES * LA REMOVE CERUMEN IMPACTED W INSTR RT EAR (11/03/2022 2:54 PM PLATFORM BEATER) Harrison Ba MD - 11/03/2022 2:54 PM PLATFORM BEATER Harrison Phelan MD 11/03/2022 2:55 PM Procedure: Microscopic Ear Exam Details: Informed consent was obtained. The patient was placed in the supine position. The operative microscope used to visualize right ear canal. Hair removed from TM. A normaltympanic membrane was then appreciated. The patient tolerated the procedure without complication. Harrison Phelan MD PROCEDURE/MINOR ALMA GICAL ORDERABLES * LA NASAL ENDOSCOPY,DX (11/03/2022 2:49 PM PLATFORM BEATER) Harrison Ba MD - 11/03/2022 2:49 PM PLATFORM BEATER Harrison Phelan MD 11/03/2022 2:50 PM Procedure: Rigid Nasal Endoscopy Anesthesia: Bilateral Nasal Cavities sprayed with lidocaine and Neosynephrine Detail: Rigid nasal endoscopy performed bilaterally. Septum was essentially midline. On the right there is a moderate amount of crusting in the middle meatus and I removed it. Overall all her sinuses are open there is not significant edema. On the left the maxillary and ethmoid sinuses have excellent appearance. 1 small crust on the middle turbinate. The frontal outflow tract was open on the left. Harrison Phelan MD PROCEDURE/MINOR ALMA GICAL ORDERABLES * LA NASAL ENDOSCOPY,DX (07/28/2022 1:49 PM CDT) Harrison Ba MD - 07/28/2022 1:49 PM CDT Harrison Phelan MD 07/28/2022 1:50 PM Procedure: Rigid Nasal Endoscopy Anesthesia: Bilateral Nasal Cavities sprayed with lidocaine and Neosynephrine Detail: Rigid nasal endoscopy performed bilaterally. Septum was essentially midline. On the right there is a small amount of crusting on the posterior wall of the maxillary sinus but overall all her sinuses are opening there is not significant edema. On the left the maxillary and ethmoid sinuses have excellent appearance. 1 small crust at the anterior aspect of the maxillary opening. There are some scar bands and narrowing around the frontal outflow tract but I was easily able to pass a suction into this area. Harrison Phelan MD PROCEDURE/MINOR ALMA GICAL ORDERABLES * LA ENDO NASAL SINUS BX POLYP DEBRID DEBRA (06/09/2022 3:48 PM CDT) Narrative Harrison Phelan MD - 06/09/2022 3:48 PM CDT Harrison Phelan MD 06/09/2022 3:49 PM Procedure: Nasal Endoscopy With Debridement Anesthesia: Bilateral Nasal Cavity sprayed with Lidocaine and Phenylephrine Detail: Rigid nasal endoscopy was performed in bilateral nasal cavity. Removed crusting and thick secretions with suctions, both curved and straight. On both sides there was a large crust filling the anterior aspect of the middle meatus and I used a curved suction to remove this. I was then able to visualize into the maxillary and ethmoid sinuses. Dissection was continued posteriorly and I passed suctions into her bilateral frontal sinuses as well as cleaned out her sphenoid. Patient tolerated reasonably well. Harrison Phelan MD PROCEDURE/MINOR ALMA GICAL ORDERABLES * PATHOLOGY TISSUE (05/31/2022 2:16 PM CDT) Case Report Surgical Pathology Report Case: [id number] Authorizing Provider: Harrison Phelan MD Collected: 05/31/2022 02:16 PM Ordering Location: [facility] OP Received: 05/31/2022 02:59 PM Pathologist: Diane Miner MD Specimen: Sinus, sinus contents 06/02/2022 4:50 PM CDT [facility] Final Diagnosis Paranasal sinus, contents, excision (A): - Chronic sinusitis 06/02/2022 4:50 PM CDT [facility] Microscopic Description and Comment The sinus mucosa has abundant plasma cells and lymphocytes, with occasional neutrophils and with 11 eosinophils per high power field. Basement membrane is thickened. 06/02/2022 4:50 PM CDT [facility] Clinical History 06/02/2022 4:50 PM CDT [facility] PATHOLOGY LAB Gross Description The requisition and specimen label(s) are identified with the patient's name, Jeniffer Dimas. Received in formalin, specimen A , is 5.1 x 3.9 x 0.9 cm aggregate of red-venegas soft tissue with blood clot. Fashion Show Director specimen is submitted in cassette A1. AU. 06/02/2022 4:50 PM CDT [facility] PATHOLOGY LAB Disclaimer The performance characteristics of all immunohistochemical and indirect immunofluorescence stains (if any) cited in this report were determined by the Histopathology Laboratory of [facility]. Some of these tests were developed by our own laboratory and have not been cleared or approved by the US Food and Drug Administration. The FDA does not require this test to go through premarket FDA review. These tests are used for clinical purposes. They should not be regarded as investigational or for research. This laboratory is certified under the Clinical Laboratory Improvement Amendments (CLIA) as qualified to perform high complexity clinical laboratory testing. This case has been personally reviewed and interpreted by the attending (teaching) pathologist. 06/02/2022 4:50 PM CDT [facility] PATHOLOGY LAB Embedded Images 06/02/2022 4:50 PM CDT [facility] PATHOLOGY LAB Resection without Tumor SINUS / Unknown 05/31/2022 2:16 PM CDT 05/31/2022 2:59 PM CDT Comment:Pre-op diagnosis: CHRONIC PANSINUSITIS NASAL POLYPS Harrison Phelan MD LAB - PATHOLOGY/CYT OLOGY ORDERABLES [facility] PATHOLOGY LAB [address] [phone] * CULTURE FUNGUS OTHER+FUNGUS SMEAR (05/31/2022 1:48 PM CDT) Culture No fungus isolated YISSEL 06/28/2022 8:58 AM CDT [facility]CRO[facility] Fungus Stain No yeast or hyphae seen 06/28/2022 8:58 AM CDT [facility] Microbiology SPECIMEN FROM WOUND / Unknown Collection / Unknown 05/31/2022 1:48 PM CDT 05/31/2022 1:52 PM CDT Harrison Phelan MD LAB - MICROBIOLOGY ORDERABLES [facility] [address] [place] [address], [facility] [phone] * (ABNORMAL) CULTURE WOUND+GRAM STAIN (05/31/2022 1:48 PM CDT) Culture Heavy Staphylococcus aureus(A) YISSEL 06/02/2022 9:36 PM CDT [facility] Comment:Staphylococcus aureu s methicillin-susceptible (MSSA) detected by penicillin binding protein immunoassay. Gram Stain Heavy Gram-positive cocci 06/02/2022 9:36 PM CDT [facility] Gram Stain Moderate Polymorphonuclear cells 06/02/2022 9:36 PM CDT [facility] Microbiology SPECIMEN FROM WOUND / Unknown Collection / Unknown 05/31/2022 1:48 PM CDT 05/31/2022 1:52 PM CDT Narrative Organism Antibiotic Method Susceptibility Staphylococcus aureus Clindamycin YISSEL 0.25 ug/mL: Resistant Staphylococcus aureus Doxycycline YISSEL <=0.5 ug/mL: Susceptible Staphylococcus aureus Gentamicin YISSEL <=0.5 ug/mL: Susceptible Staphylococcus aureus Inducible Clindamy torrey Resistance YISSEL POS ug/mL: Pos Staphylococcus aureus Linezolid YISSEL 2 ug/mL: Susceptible Staphylococcus aureus Oxacillin YISSEL 0.5 ug/mL: Susceptible Staphylococcus aureus Tetracycline YISSEL <=1 ug/mL: Susceptible Staphylococcus aureus Trimethoprim-sulfa methoxa zole YISSEL <=10 ug/mL: Susceptible Staphylococcus aureus Vancomycin YISSEL <=0.5 ug/mL: Susceptible Comment: This isolate is presumed to be resistant to clindamycin on the basis of detection of inducible clindamycin resistance. Staphylococcus sensitivity to oxacillin predicts susceptibility for nafcillin, ampicillin/sulbactam, amoxicillin/clavulanate, piperacillin/tazobactam, all cephalosporins (except ceftazidime, ceftazidime/avibactam, ceftolozane/tazobactam), and all carbapenems. Harrison Phelan MD LAB - MICROBIOLOGY ORDERABLES [facility] [address] [place] [address], [facility] [phone] * CULTURE ANAEROBE (05/31/2022 1:48 PM CDT) Culture No anaerobic organisms isolated YISSEL 06/06/2022 11:23 AM CDT [facility] Microbiology SPECIMEN FROM WOUND / Unknown Collection / Unknown 05/31/2022 1:48 PM CDT 05/31/2022 1:52 PM CDT Harrison Phelan MD LAB - MICROBIOLOGY ORDERABLES [facility] [address] [place] [address], [facility] [phone] * ETT LINE PERFORMABLE (05/31/2022 1:02 PM CDT) Narrative Joan Orr Anes Asst - 05/31/2022 1:02 PM CDT Joan Orr Anes Asst 05/31/2022 1:04 PM Endotracheal Tube Placement: Patient Location: OR. Intubation Event Date/Time: 05/31/2022 12:59 PM Procedure: intubation ([id number]). Procedure Section: Sedation: under general anesthesia. Indications for Airway Management: anesthesia Procedure pretreatments used? No Induction: standard IV Patient Position: sniffing Mask Ventilation: easy. Blade Type: Video Blade Size: 3 Laryngoscopy View: grade 1 (full cords) Intubation Adjuncts: stylet Tube: endotracheal tube Placement: oral Tube type: cuff - inflated Tube Size (MM): 7 Depth of Insertion (CM): 23 Measured From: lips Cuff Inflated With: air Number of Attempts: 1. Placement Verified By: direct visualization, bilateral breath sounds, chest auscultation and CO2 monitor Tube secured with: adhesive tape. Dentition unchanged? Yes Difficult Airway? No. Procedure Start Time: 05/31/2022 12:59 PM. Staff Section Anesthesia Provider: Joan Orr Anes Asst, Performed the procedure Teresa Temple MD GENERAL ANESTHESIA O RDERABLES * (ABNORMAL) GLUCOSE - POINT OF CARE (05/31/2022 11:45 AM CDT) Glucose WB/POC 135(H) 70 - 115 mg/dL 05/31/2022 11:50 AM CDT [facility] Specimen Type Cap Fingerstick 2021 11:50 AM CDT [facility] Blood BLOOD SPECIMEN / Unknown 05/31/2022 11:45 AM CDT 05/31/2022 11:50 AM CDT Harrison Phelan MD LAB - POINT OF CARE ORDERABLES Performing Organization Address City/[facility]/ZIP Co de Phone Number [address] [address], [facility] [phone] * HCG URINE QUAL POCT NOTIFICATION (05/31/2022 11:09 AM CDT) Comment Notification Label Only - See Separate Report 05/31/2022 12:32 PM CDT [facility] Urine URINE / Unknown 05/31/2022 1 1:09 AM CDT 05/31/2022 11:09 AM CDT Alice Garcia APRN-COLLEGE SPORTS ASSISTANT LAB - URI NALYSIS ORDERABLES [address] [address], [facility] [phone] * (ABNORMAL) BASIC METABOLIC PANEL (CALCIUM TOTAL) (05/19/2022 9:58 AM CDT) BUN 11 7 - 26 mg/dL 05/19/2022 10:37 AM [facility] Creatinine 0.85 0.56 - 0.96 mg/dL 05/19/2022 10:37 AM [facility] Sodium 136 136 - 145 mmol/L 05/19/2022 10:37 AM [facility] Potassium 3.9 3.5 - 4.5 mmol/L 05/19/2022 10:37 AM [facility] Chloride 99 98 - 107 mmol/L 05/19/2022 10:37 AM [facility] CO2 27 22 - 29 mmol/L 05/19/2022 10:37 AM [facility] Glucose 129(H) 70 - 115 mg/dL 05/19/2022 10:37 AM [facility] Calcium 10.5(H) 8.4 - 10.2 mg/dL 05/19/2022 10:37 AM CDT [facility] Anion Gap 14 8 - 18 05/19/2022 10:37 AM CDT [facility] BUN/Creatinine Ratio 13 7 - 23 05/19/2022 10:37 AM CDT [facility] Osmolality Calculated 283 270 - 300 mOsm/kg 05/19/2022 10:37 AM CDT [facility] eGFR by CKD-EPI 83(L) >=90 mL/min/1.7 3 m2 05/19/2022 10:37 AM CDT [facility] Blood BLOOD SPECIMEN / Unknown Lab Venipuncture / Unknown 05/19/2022 9:58 AM CDT 05/19/2022 10:13 AM CDT Alice Loyd Radha PARI MUTUAL TICKET CHECKER-COLLEGE SPORTS ASSISTANT LAB - [place] ORDERABLES Performing Organization Address City/State/[place] Co de Phone Number [facility] [address] [place] [id number], [facility] [phone] * CT SINUS WO CONTRAST (04/14/2022 12:09 PM CDT) Anatomical Region Laterality Modality Head Computed Tomogra phy 04/15/2022 5:48 AM CDT Impressions 04/15/2022 6:03 AM CDT IMPRESSION: 1. Chronic postoperative and inflammatory sinonasal changes as detailed above. This report was electronically signed by MENDEZ SUNG on 04/15/2022 6:03 AM . Narrative 04/15/2022 6:[address] SINUS WO CONTRAST DATE: 04/14/2022 12:09 PM EXAMINATION: Computed tomography (CT) of the maxillofacial bones, orbits, and paranasal sinuses without contrast HISTORY: J32.4: Chronic pansinusitis. Chronic rhinosinusitis, nasal polyposis, and allergic rhinitis: s/p FESS on 12/2015. TECHNIQUE: CT of the maxillofacial bones, orbits, and paranasal sinuses was performed without contrast according to standard protocol. COMPARISON: No prior study is available for comparison at the time of this dictation. Correlation with the CT of the temporal bones from 07/13/2019 FINDINGS: Post-Surgical Findings: There are postoperative findings of bilateral maxillary antrostomies, ethmoidectomies, frontal sinusotomies, sphenoid sinusotomies, and likely reduction turbinectomies. Sinus Chambers: Significant mucosal thickening in the maxillary sinuses. Mild mucosal thickening in the frontal sinuses superiorly with partial opacification inferiorly, left more than right. Near complete opacification of the left sphenoid sinus. Moderate mucosal thickening of the right sphenoid sinus. Partial opacification of the remaining ethmoid air cells. Periosteal thickening of the kimball of the paranasal sinuses compatible with chronicity. Nasal Cavities: Visualized nasal cavities are patent. Minimal mucosal thickening surrounding the inferior nasal turbinates. Developmental Anomalies: Opacified left Simba cell is noted. Ostiomeatal Complex: N/A. Status sinonasal surgery. Other: Other than right cataract extraction, the orbits appear normal. The visualized portions of the temporomandibular joints appear grossly unremarkable. No acute facial bone fractures are identified. The visualized mastoid air cells are grossly clear. No soft tissue abnormality is identified. Procedure Note Mendez Sung MD - 04/15/2022 CT SINUS WO CONTRAST DATE: 04/14/2022 12:09 PM EXAMINATION: Computed tomography (CT) of the maxillofacial bones,orbits, and paranasal sinuses without contrast HISTORY: J32.4: Chronic pansinusitis. Chronic rhinosinusitis, nasal polyposis, and allergic rhinitis: s/p FESS on 12/2015. TECHNIQUE: CT of the maxillofacial bones, orbits, and paranasal sinuses was performed without contrast according to standard protocol. COMPARISON: No prior study is available for comparison at the time ofthis dictation. Correlation with the CT of the temporal bones from 07/13/2019 FINDINGS: Post-Surgical Findings: There are postoperative findings of bilateral maxillary antrostomies, ethmoidectomies, frontal sinusotomies, sphenoid sinusotomies, and likely reduction turbinectomies. Sinus Chambers: Significant mucosal thickening in the maxillarysinuses. Mild mucosal thickening in the frontal sinuses superiorly with partial opacification inferiorly, left more than right. Near complete opacification of the left sphenoid sinus. Moderate mucosal thickening of the right sphenoid sinus. Partial opacification of the remaining ethmoid air cells. Periosteal thickening of the kimball of the paranasal sinuses compatible with chronicity. Nasal Cavities: Visualized nasal cavities are patent. Minimal mucosal thickening surrounding the inferior nasal turbinates. Developmental Anomalies: Opacified left Simba cell is noted. Ostiomeatal Complex: N/A. Status sinonasal surgery. Other: Other than right cataract extraction, the orbits appear normal. The visualized portions of the temporomandibular joints appear grossly unremarkable. No acute facial bone fractures are identified. The visualized mastoid air cells are grossly clear. No soft tissueabnormality is identified. IMPRESSION: 1. Chronic postoperative and inflammatory sinonasal changes as detailed above. This report was electronically signed by MENDEZ SUNG on04/15/2022 6:03 AM . Harrison Phelan MD CT ORDERABLES * LA ENDO NASAL SINUS BX POLYP DEBRID DEBRA (01/13/2022 5:24 PM CDT) Narrative Harrison Phelan MD - 01/13/2022 5:24 PM CDT Libra Szymanski MD 01/14/2022 10:37 AM Procedure: Rigid Nasal Endoscopy with Debridement Anesthesia: Bilateral Nasal Cavities sprayed with lidocaine and Neosynephrine Detail: Rigid nasal endoscopy performed bilaterally. Bilateral nasal cavity showed significant crusting, which was partially removed with suction today, and mucopurulent drainage. Culture obtained. Dr. Phelan was present for the entire procedure. Harrison Phelan MD PROCEDURE/MINOR ALMA GICAL ORDERABLES * (ABNORMAL) CULTURE RESPIRATORY+GRAM STAIN (STL) (01/13/2022 2:04 PM CDT) Culture Heavy Staphylococcus aureus methicillin-resista nt (MRSA)(A) YISSEL 01/15/2022 9:07 AM CDT [facility]CROBIOLOG[facility] Comment:Staphylococcus aureu s methicillin-resistant (MRSA) detected by penicillin binding protein immunoassay. Contact precautions required. Conventional antibiotic susceptibility testing to follow. Gram Stain No polymorphonuclear cells 01/15/2022 9:[address] [facility]CRO[facility] Gram Stain Light Gram-positive cocci 01/15/2022 9:07 AM T [facility]CROBIOLOG[facility] Microbiology SINUS / Unknown Collection / Unknown 01/13/2022 2:04 PM CDT 01/13/2022 4:51 PM CDT Narrative [facility]CRO[facility] - 01/15/2022 9:07 AM CDT Methicillin-resistant Staphylococci (MRSA) are resistant to all currently available beta-lactam antibiotics with the exception of the newer cephalosporins with anti-MRSA activity. Contact precautions required. Organism Antibiotic Method Susceptibility Staphylococcus aureus methicillin-resistant (MRSA) Clindamycin YISSEL 0.25 ug/mL: Susceptible Staphylococcus aureus methicillin-resistant (MRSA) Doxycycline YISSEL <=0.5 ug/mL: Susceptible Staphylococcus aureus methicillin-resistant (MRSA) Gentamicin YISSEL <=0.5 ug/mL: Susceptible Staphylococcus aureus methicillin-resistant (MRSA) Inducible Clindamycin Resistance YISSEL NEG ug/mL: Neg Staphylococcus aureus methicillin-resistant (MRSA) Linezolid YISSEL 2 ug/mL: Susceptible Staphylococcus aureus methicillin-resistant (MRSA) Oxacillin YISSEL >=4 ug/mL: Resistant Staphylococcus aureus methicillin-resistant (MRSA) Tetracycline YISSEL <=1 ug/mL: Susceptible Staphylococcus aureus methicillin-resistant (MRSA) Trimethoprim-sulfamethoxa zole YISSEL <=10 ug/mL: Susceptible Staphylococcus aureus methicillin-resistant (MRSA) Vancomycin YISSEL 1 ug/mL: Susceptible Harrison Phelan MD LAB - MICROBIOLOGY ORDERABLES [facility] [address] [place] [address], [facility] [phone] * MRI IAC WWO CONTRAST (07/13/2019 1:51 PM CDT) Only the most recent of2 resultswithin the time period is included. Anatomical Region Laterality Modality Head Magnetic Resonan ce 07/13/2019 2:38 PM CDT Impressions 07/13/2019 2:47 PM CDT IMPRESSION: No enhancing lesion in the internal auditory canals or cerebellopontine angles bilaterally. No significant change since the prior study. This report was electronically signed by MEHNAZ SETHI on 07/13/2019 2:47 PM . 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 This included detailed coronal and axial imaging through the intracranial course of cranial nerves five through eight. COMPARISON: Multiple prior studies, most recent MRI brain with IAC protocol from 04/28/2018. FINDINGS: The cerebellopontine angles and internal auditory canals appear normal. No enhancing lesions are identified along the course of the cranial nerve 7/8 complexes. The signal within the bony labyrinth appears normal on both sides. The left mastoid air cells appear clear. Trace patchy opacification is seen in the right mastoid air cells. Mild generalized paranasal sinus disease is partially imaged. There are mild chronic microvascular ischemic changes in the included supratentorial brain parenchyma. Procedure Note Mehnaz Sethi MD - 07/13/2019 EXAMINATION: Magnetic resonance imaging (MRI) of the brain without and with contrast HISTORY: Nf2 vs Schwannomatosis TECHNIQUE: MRI of the brain was performed prior to and following the uneventful administration of 10 ml Gadavist intravenous gadolinium contrast according to a dedicated internal auditory canal (IAC)protocol. This included detailed coronal and axial imaging through theintracranial course of cranial nerves five through eight. COMPARISON: Multiple prior studies, most recent MRI brain with IAC protocol from 04/28/2018. FINDINGS: The cerebellopontine angles and internal auditory canals appear normal.No enhancing lesions are identified along the course of the cranial nerve7/8 complexes. The signal within the bony labyrinth appears normal on both sides. The left mastoid air cells appear clear. Trace patchyopacification is seen in the right mastoid air cells. Mild generalized paranasal sinus disease is partially imaged. There are mild chronic microvascular ischemic changes in the included supratentorial brain parenchyma. IMPRESSION: No enhancing lesion in the internal auditory canals or cerebellopontine angles bilaterally. No significant change since the prior study. This report was electronically signed by MEHNAZ SETHI on 07/13/2019 2:47PM . Paras Jacome MD MR ORDERABLES * CREATININE BLOOD - POCT () [facility] (07/13/2019 1:05 PM CDT) Only the most recent of2 resultswithin the time period is included. Creatinine POCT 0.76 0.3 - 1.3 mg/dL [facility] POCT TESTING eGFR POCT 60 60 ml/min [facility] POCT TESTING Blood BLOOD SPECIMEN / Unknown 07/13/2019 1:05 PM CDT Paras Jacome MD LAB - POINT OF MO RE ORDERABLES [facility] POCT TESTING [address] [phone] * CT TEMPORAL BONES WO CONTRAST (04/28/2018 11:53 AM CDT) Anatomical Region Laterality Modality Head Computed Tomogra phy 04/28/2018 12:3 9 PM CDT Impressions 04/28/2018 12:57 PM CDT IMPRESSION: 1. No definite abnormality seen in both temporal bones. 2. Pansinusitis with postoperative changes as described above. This report was electronically signed by ROMMEL LONGORIA on 04/28/2018 12:57 PM . Narrative 04/28/2018 12:57 PM CDT EXAMINATION: CT temporal bones without contrast HISTORY: TECHNIQUE: CT temporal bones was performed according to the standard protocol . FINDINGS: No prior study is available for comparison. Mucosal thickening is seen in the right maxillary sinus. Post surgical changes seen in the medial wall of both maxillary sinuses. Minimal mucosal thickening seen in the left maxillary sinus. Complete opacification of the left sphenoid sinus with mucosal thickening of the right is noted. bilateral ethmoidectomies are noted. The cerebellopontine angles are normal, without evidence of extra-axial masses or bony erosions. The external auditory canals are also normal. The ossicles are normal bilaterally. No fluid seen in the middle ear bilaterally or in the mastoid air cells. The inner ear structures appear normal bilaterally with normal facial nerves. The visualized portions of the orbits appear normal. Procedure Note Rommel Webster MD - 04/28/2018 EXAMINATION: CT temporal bones without contrast HISTORY: TECHNIQUE: CT temporal bones was performed according to the standard protocol . FINDINGS: No prior study is available for comparison. Mucosal thickening is seen in the right maxillary sinus. Post surgical changes seen in the medial wall of both maxillary sinuses. Minimalmucosal thickening seen in the left maxillary sinus. Complete opacification ofthe left sphenoid sinus with mucosal thickening of the right is noted. bilateral ethmoidectomies are noted. The cerebellopontine angles are normal, without evidence of extra-axial masses or bony erosions. The external auditory canals are also normal.The ossicles are normal bilaterally. No fluid seen in the middle ear bilaterally or in the mastoid air cells. The inner ear structures appear normal bilaterally with normal facial nerves. The visualized portions of the orbits appear normal. IMPRESSION: 1. No definite abnormality seen in both temporal bones. 2. Pansinusitis with postoperative changes as described above. This report was electronically signed by ROMMEL LONGORIA on04/28/2018 12:57 PM . Paras Jacome MD CT ORDERABLES * MRI BRAIN WWO CONTRAST (02/14/2018 7:30 PM CDT) Anatomical Region Laterality Modality Head Magnetic Resonan ce 02/15/2018 10:3 5 AM CDT Impressions 02/15/2018 3:36 PM CDT IMPRESSION: 1. No acute intracranial process or mass lesion identified. This report was approved by Adrián Delarosa M.D. on 02/15/2018 11:36 AM . IDr. ROMMEL have personally reviewed and interpreted this examination/study. This report was electronically signed by ROMMEL LONGORIA on 02/15/2018 3:36 PM . Narrative 02/15/2018 3:36 PM CDT EXAMINATION: Magnetic resonance imaging (MRI) of the brain without and with contrast HISTORY: History of schwannoma of the spinal cord presenting with hearing loss bilaterally. 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 TECHNIQUE: MRI of the brain was performed prior to and following the uneventful administration of 19 mm of MultiHance intravenous gadolinium contrast according to a tumor protocol. FINDINGS: Comparison is made with a MR brain from 01/29/2004. No evidence of acute or chronic hemorrhage is identified. No evidence of acute cerebral infarction is seen. The ventricles are of normal size, shape, and morphology. No mass effect or midline shift is seen. Periventricular white matter FLAIR hyperintensities likely represent sequelae of chronic small vessel ischemic disease. No enhancing lesions are identified. The corpus callosum and sella appear normal. The posterior fossa, brainstem, and craniocervical junction appear normal. There is diffuse paranasal sinus mucosal thickening with opacification of the left sphenoid sinus. Otherwise, the visualized portions of the orbits, paranasal sinuses, and mastoids appear normal. Normal flow voids are demonstrated in the carotid arteries and basilar artery. The calvarium and visualized cervical spine appear normal. Procedure Note Rommel Webster MD - 02/15/2018 EXAMINATION: Magnetic resonance imaging (MRI) of the brain without and with contrast HISTORY: History of schwannoma of the spinal cord presenting withhearing loss bilaterally. 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 TECHNIQUE: MRI of the brain was performed prior to and following the uneventful administration of 19 mm of MultiHance intravenous gadolinium contrast according to a tumor protocol. FINDINGS: Comparison is made with a MR brain from 01/29/2004. No evidence of acute or chronic hemorrhage is identified. No evidence of acute cerebral infarction is seen. The ventricles are of normal size, shape, and morphology. No mass effect or midline shift is seen. Periventricular white matter FLAIR hyperintensities likely represent sequelae of chronic small vessel ischemic disease. No enhancing lesions are identified. The corpus callosum and sella appear normal. Theposterior fossa, brainstem, and craniocervical junction appear normal. There is diffuse paranasal sinus mucosal thickening with opacificationof the left sphenoid sinus. Otherwise, the visualized portions of theorbits, paranasal sinuses, and mastoids appear normal. Normal flow voids are demonstrated in the carotid arteries and basilar artery. The calvariumand visualized cervical spine appear normal. IMPRESSION: 1. No acute intracranial process or mass lesion identified. This report was approved by Adrián Delarosa M.D. on 02/15/2018 11:36 AM . IDr. ROMMEL have personally reviewed and interpreted this examination/study. This report was electronically signed by ROMMEL LONGORIA on 02/15/2018 3:36 PM . Michael Recinos MD MR ORDERABLES * AUDIOLOGY/TYMPANOMETRY ORDER (02/14/2018 1:42 PM CDT) Narrative 02/14/2018 1:42 PM CDT Ordered by an unspecified provider. Scanned Document AUDIOLOGY SERVICES O RDERABLES * LAB MISC TEST (02/01/2018 12:03 PM CDT) Test Name NF2/Schwanno matosis testing to [facility] 02/16/2018 7:33 PM CDT [facility] Test Result See Scanned Report 02/16/2018 7:33 PM CDT [facility] Blood BLOOD SPECIMEN / Unknown Lab Venipuncture / Unknown 02/01/2018 12:03 PM CDT 02/01/2018 12:18 PM CDT Dianna Angel MD LAB SEND OUT Performing Organization Address City/State/[place] Co de Phone Number [facility] [place] [address] * (ABNORMAL) CULTURE AEROBIC (12/14/2017 1:08 PM PLATFORM BEATER) Culture Aerobic STREPTOCOCCUS PNEUMONIAE(A) [facility] Comment:Moderate Growth Stre ptococcus Pneumoniae Culture Aerobic PSEUDOMONAS AERUGINOSA(A) [facility] Comment:Moderate Growth Pseu domonas Aeruginosa Culture Aerobic STAPHYLOCOCCUS EPIDERMIDIS() [facility] Comment:Light Growth Staphyl ococcus Epidermidis Gram Stain Moderate Gram Positive cocci [facility] Comment:Only 1 swab Fluid specimen (specimen) 12/14/2017 1:08 PM PLATFORM BEATER 12/15/2017 1:30 PM PLATFORM BEATER Narrative [facility] - 12/17/2017 8:41 AM PLATFORM BEATER Right nasal cavity Specimen Type->Body Fluid Resulting Lab: [facility] MICROBIOLOG[facility] [address] [place] [address] PH: [phone] Organism Antibiotic Method Susceptibility Streptococcus pneumoniae Penicillin-meningitis SUSCEPT IBILITY 1: Resistant Streptococcus pneumoniae Penicillin SUSCEPTIBILITY 1: Sensitive Streptococcus pneumoniae Ceftriaxone-meningitis SUSCEP TIBILITY 0.5: Sensitive Streptococcus pneumoniae Ceftriaxone-nonmeningitis THOMAS CEPTIBILITY 0.5: Sensitive Streptococcus pneumoniae Erythromycin SUSCEPTIBILITY 4: Resistant Streptococcus pneumoniae Levofloxacin SUSCEPTIBILITY 0.5: Sensitive Streptococcus pneumoniae Trimethoprim-rey lfamethoxa zole SUSCEPTIBILITY 160: Resistant Streptococcus pneumoniae Vancomycin SUSCEPTIBILITY 0.5: Sensitive Pseudomonas aeruginosa Amikacin SUSCEPTIBILITY 4: Sensitive Pseudomonas aeruginosa Cefepime SUSCEPTIBILITY 2: Sensitive Pseudomonas aeruginosa Ceftazidime SUSCEPTIBILITY 4: Sensitive Pseudomonas aeruginosa Ciprofloxacin SUSCEPTIBILITY <=0.25: Sensitive Pseudomonas aeruginosa Gentamicin SUSCEPTIBILITY <=1: Sensitive Pseudomonas aeruginosa Imipenem SUSCEPTIBILITY 2: Sensitive Pseudomonas aeruginosa Piperacillin-tazobactam SUSCEPT IBILITY 8: Sensitive Pseudomonas aeruginosa Tobramycin SUSCEPTIBILITY <=1: Sensitive Harrison Phelan MD LAB - MICROBIOLOGY ORDERABLES Performing Organization Address [facility]/[place] Co de Phone Number [facility] [address] [phone] * IMAGING/RADIOLOGY/XRAY RESULTS ORDER (11/24/2017) Only the most recent of2 resultswithin the time period is included. Anatomical Region Laterality Modality Other Dev Strange Jr., MD IMAGING * PATHOLOGY/GENETICS HISTORICAL-ONBASE (12/25/2015) 12/25/2015 Narrative [facility] - 12/29/2015 3:51 PM CDT Historical Provider LAB - CHEMISTRY O RDERABLES Performing Organization Address [facility]/[place] Co de Phone Number [facility] [address] * XR CHEST 2VW PNEUMONIA PROTCL (12/01/2015 5:08 PM PLATFORM BEATER) Anatomical Region Laterality Modality Other Impressions 12/02/2015 9:03 AM PLATFORM BEATER Impression: No acute pulmonary process. Dictated by Joshua Yoo MD I, Dr. KLAUDIA TRAMMELL M.D. have personally reviewed and interpreted this examination/study. This report was electronically signed by KLAUDIA TRAMMELL M.D. on 12/02/2015 9:03 AM . Narrative 12/02/2015 9:03 AM PLATFORM BEATER Exam: XR CHEST PA AND LATERAL PNEU PROTOCOL Date: 12/01/2015 5:08 PM History: Productive cough with intermittent fevers Comparison: 02/14/2010 Findings: There is no consolidation, pleural effusion, or pneumothorax. A calcified granuloma is seen in the left midlung field. The cardiomediastinal silhouette is normal. The visible bony thorax is intact. Procedure Note Klaudia Trammell MD - 01/14/2018 Exam: XR CHEST PA AND LATERAL PNEU PROTOCOL Date: 12/01/2015 5:08 PM History: Productive cough with intermittent fevers Comparison: 02/14/2010 Findings: There is no consolidation, pleural effusion, or pneumothorax. A calcifiedgranuloma is seen in the left midlung field. The cardiomediastinalsilhouette is normal. The visible bony thorax is intact. IMPRESSION Impression: No acute pulmonary process. Dictated by Joshua Yoo MD I, Dr. KLAUDIA TRAMMELL M.D. have personally reviewed and interpreted thisexamination/study. This report was electronically signed by KLAUDIA TRAMMELL M.D. on 12/02/20159:03 AM . Justin Goodson MD DIAGNOSTIC IMAGING O RDERABLES * CYTOLOGY PAP PASSENGER REPRESENTATIVE (03/29/1996 9:50 AM CDT) Result CASE NUMBER [id number] Comment: ORDERING PHYSICIAN [facility]ARTINE[facility] SPECIMEN TYPE PAP Smear Date 04/02/1996 Physician Rico Procedure Pap Cervical/Endocervical Specimen Adequacy Satisfactory for Evaluation Categorization Epithelial Cell Abnormality Atypical sq. cells of undetermined significance (ASCUS) Pathologist Kai Vanegas M.D. MISCELLANEOUS SAMPLES / Unknown 03/29/1996 9:50 AM CDT 03/30/1996 9:51 AM CDT Historical Provider LAB - PATHOLOGY/C YTOLOGY ORDERABLES Care Teams Manufacturing Software Engineer Relationship Specialty Start Date End Date Navid Kelly MD [address] [place] [address] [address] [place] [id number] PCP - General Family Medicine 12/07/17
--- OUTSIDE RECORDS SUMMARY | 2024-11-25 17:04 | XMS_ITS | Encounter Summary ---
Author Organization [facility] Address [address] [place] [address] Care Team Providers Care Cull Grader Name Role Phone Navid Kelly MD Primary Care Provider [phone] Encounter Details Date Type Department Care Team (Late st Contact Info) Description 07/20/2000 Outpatient Historical HIS [facility] Best Olivas MD [address] [place] [address] [phone] Social History Tobacco Use Types Packs/Day Years Used Date Smoking Tobacco: Never Assessed Comments Unknown Sex and Gender Information Value Date Recorded Sex Assigned at Not on file Legal Sex Female 5:41 AM MANAGER DEVELOPMENTAL Gender Identity Not on file Sexual Orientation Not on file documented as of this encounter Plan of Treatment Not on file documented as of this encounter Visit Diagnoses Not on filedocumented in this encounter Care Teams Cull Grader Relationship Specialty Start Date End Date Navid Kelly MD PCP - General Family Practice 06/30/17 documented as of this encounter
--- OUTSIDE RECORDS SUMMARY | 2024-11-25 17:04 | XMS_ITS | Encounter Summary ---
Author Organization [employer] Address [address] [place] [address] Care Team Providers Care Oil Dispenser Name Role Phone Navid Kelly MD Primary Care Provider [phone] Encounter Details Date Type Department Care Team (Late st Contact Info) Description 07/19/2000 Outpatient Historical HIS [facility] Best Olivas MD [address] [place] [address] [phone] Social History Tobacco Use Types Packs/Day Years Used Date Smoking Tobacco: Never Assessed Comments Unknown Sex and Gender Information Value Date Recorded Sex Assigned at Not on file Legal Sex Female 5:41 AM CORE SHAPER TOP Gender Identity Not on file Sexual Orientation Not on file documented as of this encounter Plan of Treatment Not on file documented as of this encounter Visit Diagnoses Not on filedocumented in this encounter Care Teams Oil Dispenser Relationship Specialty Start Date End Date Navid Kelly MD PCP - General Family Practice 06/30/17 documented as of this encounter
--- OUTSIDE RECORDS SUMMARY | 2024-11-25 17:04 | XMS_ITS | Encounter Summary ---
Author Organization [facility] Address [address] [place] [address] Care Team Providers Care Doggy Daycare Activities Director Name Role Phone Navid Kelly MD Primary Care Provider [phone] Encounter Details Date Type Department Care Team (Late st Contact Info) Description 11/26/2008 Outpatient Historical HIS [facility], Authorized P NO ADDRESS ON FILE Jasper Garza MD [address] [place] [id number] Social History Tobacco Use Types Packs/Day Years Used Date Smoking Tobacco: Never Assessed Comments Unknown Sex and Gender Information Value Date Recorded Sex Assigned at Not on file Legal Sex Female 5:41 AM CIRCUIT BREAKER SUPERVISOR Gender Identity Not on file Sexual Orientation Not on file documented as of this encounter Plan of Treatment Not on file documented as of this encounter Visit Diagnoses Not on filedocumented in this encounter Care Teams Doggy Daycare Activities Director Relationship Specialty Start Date End Date Navid Kelly MD PCP - General Family Practice 06/30/17 documented as of this encounter
--- OUTSIDE RECORDS SUMMARY | 2024-11-25 17:04 | XMS_ITS | Encounter Summary ---
Author Organization [facility] Address [address] [place] [address] Care Team Providers Care Batter Scaler Name Role Phone None, Provider Primary Care Provider Unavaila ble Encounter Details Date Type Department Care Team (Latest Contact Info) Description 11/25/2024 Travel Social History Tobacco Use Types Packs/Day Years Used Date Smoking Tobacco: Some Days Cigarettes Smokeless Tobacco: Never Comments Unknown Sex and Gender Information Value Date Recorded Sex Assigned at Not on file Legal Sex Female 5:56 PM CDT Gender Identity Not on file Sexual Orientation Not on file documented as of this encounter Plan of Treatment Not on file documented as of this encounter Visit Diagnoses Not on filedocumented in this encounter Additional Health Concerns Infection Onset Date Last Indicated Resolved Time 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
--- OUTSIDE RECORDS SUMMARY | 2024-11-25 17:04 | XMS_ITS | Encounter Summary ---
Author Organization [facility] Address [address] [place] [address] Care Team Providers Care L Tacker Name Role Phone Navid Kelly MD Primary Care Provider [phone] Encounter Details Date Type Department Care Team (Late st Contact Info) Description 07/21/2000 Outpatient Historical [facility] Best Olivas MD [address] [place] [address] [phone] Social History Tobacco Use Types Packs/Day Years Used Date Smoking Tobacco: Never Assessed Comments Unknown Sex and Gender Information Value Date Recorded Sex Assigned at Not on file Legal Sex Female 5:41 AM MOTOR TEACHER Gender Identity Not on file Sexual Orientation Not on file documented as of this encounter Plan of Treatment Not on file documented as of this encounter Visit Diagnoses Not on filedocumented in this encounter Care Teams L Tacker Relationship Specialty Start Date End Date Navid Kelly MD PCP - General Family Practice 06/30/17 documented as of this encounter
--- OUTSIDE RECORDS SUMMARY | 2024-11-25 17:04 | XMS_ITS | Continuity of Care Document ---
Author Organization [facility]. If a dditional information is needed, contact Health Information Management at [phone] [place] [address] Phone Care Team Providers Care Human Resources Consultant Name Role Phone Unavailable Unavailable Unavailable Unavailable Unavailable Unavailable Unavailable Unavailable Unavailable Unavailable Unavailable Unavailable Unavailable Unavailable Unavailable Unavailable Unavailable Unavailable Unavailable Unavailable Unavailable Unavailable Unavailable Unavailable Unavailable Unavailable Unavailable Unavailable Unavailable Unavailable Unavailable Unavailable Unavailable Unavailable Unavailable Unavailable Unavailable Unavailable Unavailable Unavailable Unavailable Unavailable Unavailable Unavailable Unavailable Unavailable Unavailable Unavailable Unavailable Unavailable Unavailable Note Silvio Mercado MD-25-Sep-2024 [facility] [place] [place]ospital[place] Discharge SummaryREPORT#:[id number] REPORT STATUS: SignedDATE:09/25/24 TIME: 1728PATIENT: KALYN CALVO UNIT #: [id number]#: [id number] [address] 53 : 70 SEX: F ATTEND: Jess Anguiano MDADM AUTHOR: Jess Anguiano MDRep SRV REP SRV TM: 1728* ALL edits or amendments must be made on the electronic/computer document *General InformationDate of admission:Observation Start Date: 09/24/24Date of admission: 09/24/24Discharge date: 09/25/24Admission diagnosis:Chest painDischarge diagnosis:Chest pain /ME ruled outUTITobacco abuseAsthmaHospital course:Patient is a 53-year-old female with past medical history of congestive heartfailure, hypertension, type 2 diabetes who presents to the ED complaining ofchest pain intermittently over the past 3 weeks. Patient also states that sheis having bilateral flank pain with dysuria. States her urine is foul smelling. Denies fever, chills.Patient with 1st troponin which is elevated to 68. EKG shows no ischemicchanges. 2nd troponin did down trend however will admit patient due to heartscore of 5 with initial elevated troponin. Patient also with urinary tractinfection concerning for pyelo as she has bilateral CVA tenderness. Labsotherwise grossly normal. Will treat with antibiotics. Patient to be admittedto the hospitalist for observation. (ed note copied for continuity of care )Further hospital courseCardiac enzymes came back normal. Stress test has been ordered. Patient hasalso abnormal urinalysis suggesting urinary tract infection. Patient has acomplaining of flank pain and foul-smelling urine. White blood cell count cameback normal. Renal ultrasound did not show any evidence of pyelonephritis.Patient received IV Rocephin. Clinically patient is feeling better now. Stresstest came back normal. Patient now will be discharged to home with a oralantibiotics. Patient has been given reassurance and informed about normalstress test. Follow-up primary care provider in 1-2 weeks advised.Med RecMed RecDischarge meds:Stop taking the following medications:CEFPODOXIME (VANTIN) 200 MG TAB 200 MILLIGRAM Oral EVERY 12 HOURS Qty = 20Continue taking these medications:[IPRATR-ALBUTEROL 0.5-3 MG/3 ML] 3 MILLILITER NEBULIZATION EVERY 6 HOURS NEEDED as needed for DYSPNEA Days = 30ALBUTEROL (PROVENTIL HFA) 6.7 GM INHALER 1 PUFF INHALATION EVERY 6 HOURS NEEDED as needed for DYSPNEA Days = 30NAPROXEN (NAPROSYN) 500 MG TAB 500 MILLIGRAM Oral TWICE DAILY Qty = 20methocarbamoL (ROBAXIN) 750 MG TAB 750 MILLIGRAM Oral EVERY 4 HOURS Qty = 20Start taking the following new medications:ATORVASTATIN (LIPITOR) 10 MG TAB 10 MILLIGRAM Oral AT BEDTIME Qty = 30 Refills = 1ACETAMINOPHEN (TYLENOL) 325 MG TAB 650 MILLIGRAM Oral EVERY 6 HOURS NEEDED as needed for Pain Scale 1-3 (Use 1st) Qty = 30 No RefillsAMOXICILLIN/CLAV K (AUGMENTIN 875 MG/125 MG) 875 MG-125 MG TAB 875 MILLIGRAM Oral EVERY 12 HOURS Days = 10 Qty = 20 No RefillsObjectiveResultsFindings/Data:Laboratory Tests: 09/25 09/25 09/25 09/25 09/25 1604 1052 0621 7 7 Chemistry POC Glucose (70 - 110 MG/DL) 98 113 H 110 Magnesium (1.8 - 2.4 MG/DL) 2.0 Troponin I High Sens (5 - 54 ng/L) 42 TSH (0.44 - 4.47 uIU/mL) 4.46 09/256 2138 1749 Chemistry POC Glucose (70 - 110 MG/DL) 104 Troponin I High Sens (5 - 54 ng/L) 53 Coagulation PT (9.9 - 13.3 SECONDS) 12.4 INR (0.89 - 1.19) 1.10 APTT (26.2 - 37.2 SECONDS) 30.7Radiology data:Recent Impressions:COMPUTERIZED TOMOGRAPHY - CT ABDPEL W/O Cont 09/24 2009 Report Impression - Status: SIGNED Entered: 09/24/2024 2138Impression:No acute process within the abdomen or pelvis.ULTRASOUND - US Renal Jah 09/25 112 Report Impression - Status: SIGNED Entered: 09/25/2024 1235IMPRESSION:Normal sonographic appearance of the kidneys.Impression By: PERRY - CHACORTA TOBIAS MDFree Text Obj NotesFree Text Obj Notes:Physical ExamGeneral appearance:, alert, awake, oriented, not in respiratory distressHead/Eyes: atraumatic, clear cornea, normal conjunctiva/scleraNeck: full range of motion, non-tender, normal thyroidCardiovascular: normal capillary refill, normal heart sounds, regular raterhythmAbdomen: non-tender, normal bowel sounds, soft. Mild lower back tendernessExtremities: moves all, normal capillary refill, normal range of motionMusculoskeletal: normal inspection, painless range of motion, straight leg raisenegNeuro/FITNESS AND WELLNESS DIRECTOR: alert, oriented X 3, CNII-XII intactSkin: dry, intact, normal colorPsychiatry: normal affect, normal judgment/insight, normal moodDischarge InstructionsPCPDischarge to: Home/Self CareAdditional Discharge Routines: PCP Follow-Up, Add. instructionsDiet: CardiacActivity: As ToleratedNotify PCP of these S/S: Chest Pain, Increased redness, Moderate/large bleeding,Numbness, Shortness of breath, Temp. 101 or greaterAdditional instructions:please complete 10 days of oral antibiotic . Your stress test is normal . smoking cessation counselingFollow-up AppointmentsPCP follow-up: PCP: No Primary or Family Physician PCP follow up timeframe: In 1-2 weeks Special instructions:call pcp office for appointmentQuality: DischargeAdvanced Care Plan 65 or OlderDiscussed with: patient at 2346RPT #: [id number] OF REPORT Jerardo Callaway MD-24-Sep-2024 [facility] [place] [place] History PhysicalREPORT#:[id number] REPORT STATUS: SignedDATE:09/24/24 TIME: 1945PATIENT: KALYN CALVO UNIT #: [id number]#: [id number] [address] : 70 SEX: F ATTEND: Nilton Kurtz MDADM AUTHOR: Nilton Kurtz MDRep SRV REP SRV TM: 1945* ALL edits or amendments must be made on the electronic/computer document *History of Present IllnessHPIChief complaint:CHest painPCP:PCP: No Primary or Family PhysicianHPI:Kalyn Hargrove is a 53 year female presented with a several-day history ofepisodic left-sided chest pain without radiation or shortness of breath. Shealso denied fever, chills, cough, PND, orthopnea, nausea, vomiting, abdominalpain or hemoptysis.HistoryPast medical history:Reports: Asthma.Additional medical history:asthmaPast surgical history:Denies: Abdominal surgery, Appendectomy, Bariatric procedure, CABG, Carotidendarterectomy, Cholecystectomy, , Dialysis shunt/AV fistula, Heartvalve procedure, Hernia repair, Hysterectomy, Pacemaker, Spine surgery,Splenectomy, Tonsillectomy, Transplant recipient, Vascular procedure, , Amputation, Anesthesia complications, Bilateral tubal ligation,Bladder surgery, Breast biopsy/procedure, Carpal tunnel release, Cranialprocedure, D C, Eye surgery, Feeding tube, Hip procedure, ICD, Indwelling IVcatheter, Knee procedure, Lithotripsy, Lung surgery, Nephrectomy, PCI,Thyroidectomy, Tracheotomy, AIRPORT REPRESENTATIVE shunt.Family history:Reports: Heart disease, Hypertension.Alcohol use: Denies EtOH useDrug use: Denies recreational drugsSmoking status for patients 13 years old or older: Current every day smokerDate last smoked: 09/24/24Packs per day: 0.5Years smoked: 35Pack years: 18Other social history: Local residentMedication/Allergy-Vaccine HxMedications:Home Medications: Medication Dose/Rte/Freq Days Qty Entered Last Max Daily Dose Reviewed NAPROXEN (NAPROSYN) 500 MG PO BID 20 08/14/21 09/24/24 Strength: 500 MG TAB 0020 2312 methocarbamoL (ROBAXIN) 750 MG PO Q4HR 20 08/14/21 09/24/24 Strength: 750 MG TAB 0020 2312 CEFPODOXIME (VANTIN) 200 MG PO Q12HR 20 09/24/24 09/24/24 Strength: 200 MG TAB 1917 2312 [IPRATR-ALBUTEROL 0.5-3 3 ML NEB 30 06/26/14 09/24/24 MG/3 ML] Q6H PRN PRN 1051 2312 Strength: DYSPNEA ALBUTEROL 1 PUFF INH 30 06/26/14 09/24/24 (PROVENTIL HFA) Q6H PRN PRN 1051 2312 Strength: 6.7 GM INHALER DYSPNEACurrent Hospital Medications:Anti-Infective Agents Sig/Jonathan Start time Last Medication Dose Route Stop Time Status Admin Ceftriaxone Sodium 1 GM Q24H 09/25 1800 AC (ROCEPHIN) IV 10/01 175 Sodium Chloride 20 ML (Sodium Chloride) Ceftriaxone Sodium 1 GM DAILY 09/24 2013 CAN (ROCEPHIN) IV Ceftriaxone Sodium 1 GM X1ED ONE 09/24 190 DC 09/24 (ROCEPHIN) IV 09/24 1911 194 Sodium Chloride 20 ML (Sodium Chloride)Antihistamine Drugs Sig/Jonathan Start time Last Medication Dose Route Stop Time Status Admin Diphenhydramine HCl 25 MG X1ED ONE 09/24 185 DC 09/24 (diphenhydrAMINE HCL) IV 09/24 1853 1915Autonomic Drugs Sig/Jonathan Start time Last Medication Dose Route Stop Time Status Admin Methocarbamol 750 MG Q4HR 09/24 2200 AC 09/24 (methocarbamoL) PO 2158 Nicotine 14 MG DAILY 09/24 2013 AC (NICODERM) TransdermlBlood Formation,Coagulation Sig/Jonathan Start time Last Medication Dose Route Stop Time Status Admin Heparin Sodium 5,000 UNITS Q8HR 09/24 2200 AC 09/24 (Porcine) SUBQ 2158 (HEPARIN)Cardiovascular Drugs Sig/Jonathan Start time Last Medication Dose Route Stop Time Status Admin Atorvastatin Calcium 10 MG BEDTIME 09/24 2100 AC 09/24 (LIPITOR) PO 2157 Nitroglycerin 0.4 MG Q5M PRN PRN 09/24 1955 AC (NITROSTAT) SLCentral Nervous System Agents Sig/Jonathan Start time Last Medication Dose Route Stop Time Status Admin Naproxen 500 MG BID 09/24 2000 AC 09/24 (NAPROXEN) PO 2156 Acetaminophen 650 MG Q6H PRN PRN 09/24 1955 AC (TylenoL) PO Temazepam 15 MG BEDTIME PRN PRN 09/24 1955 AC (TEMAZEPAM) PO Hydromorphone HCl 1 MG X1ED ONE 09/24 1906 DC 09/24 (HYDROmorphone) IV 09/24 190 1940 Morphine Sulfate 4 MG X1ED ONE 09/24 181 DC 09/24 (MORPHINE SULFATE) IV 09/24 1816 1826 Ketorolac 15 MG X1ED ONE 09/24 1457 DC 09/24 Tromethamine IV 09/24 1458 1508 (TORADOL INJ 30MG/ML VIAL) Aspirin 324 MG X1ED ONE 09/24 1424 DC 09/24 (ASPIRIN) PO 09/24 1425 1456Diagnostic Agents Sig/Jonathan Start time Last Medication Dose Route Stop Time Status Admin Perflutren Lipid 1.1 MG PRN PRN 09/24 1957 AC Microsphere IV 09/25 1957 (Definity)Electrolytic, Caloric, And Sisi Sig/Jonathan Start time Last Medication Dose Route Stop Time Status Admin Dextrose 15 GRAM ASDIR PRN 09/24 1954 CKD (Glutose-15) PO Dextrose/Water 25 ML PRN PRN 09/24 1954 CKD (D-50-W JET 50 ML) IVGastrointestinal Drugs Sig/Jonathan Start time Last Medication Dose Route Stop Time Status Admin Ondansetron HCl 4 MG Q6H PRN PRN 09/24 1955 AC (ZOFRAN) IV Famotidine 20 MG X1ED ONE 09/24 1852 DC 09/24 (PEPCID) IV 09/24 1854 1914 Sodium Chloride 10 ML (SODIUM CHLORIDE 0.9%) Ondansetron HCl 4 MG X1ED ONE 09/24 1757 DC 09/24 (ZOFRAN) IV 09/24 1758 1802Hormones And Synthetic Substit Sig/Jonathan Start time Last Medication Dose Route Stop Time Status Admin Insulin Human Regular See Dose AC HS 09/24 2100 AC (Humulin R) Insts (1) SUBQ Glucagon 1 MG ASDIR PRN 09/24 1954 AC (GLUCAGON) IM Sterile Water 1 ML (WATER)Other Sig/Jonathan Start time Last Medication Dose Route Stop Time Status Admin Non-Formulary 1 EACH .[CEFPODOXIME (VA] 09/24 2100 CAN Medication MISC (Continue from Home (NF))Dose Instructions:(1)Insulin Human Regular (Humulin R): Glucose-100/30Allergies:Coded Allergies:morphine (Mild, RASH-RAISED 09/24/24)Ambulatory status: IndependentReview of SystemsConstitutional:Denies: chills, fatigue, fever, generalized weakness, lethargy, malaise, recentwt loss, other.Skin:Denies: abrasion, bruising, contusion, diaphoresis, ecchymosis, itching,laceration, rash, swelling, other.Allergy/Immun:Denies: allergic reaction, anaphylaxis, hives, itching, rhinorrhea, sneezing,other.Eyes:Denies: redness, discharge, visual loss/blurred, itching, diplopia, eye pain,photophobia, swelling, other.ENT:Denies: ear drainage, ear ringing, earache, hearing loss, mouth pain, nasalcongestion, nose bleeding, sinus problem, sore throat, throat pain, throatswelling, tongue pain, tongue swelling, toothache, voice change, other.Respiratory:Denies: JOHNSON (dyspnea on exertion), hemoptysis, non productive cough, paroxnocturnal dyspnea, pleurisy, pleuritic pain, pneumonia, productive cough (sputum), SOB, wheezing, other.Cardiovascular:chest pain. Denies: JOHNSON (dyspnea on exertion), edema, orthopnea, palpitations,parox nocturnal dyspnea, other.GI:Denies: abdominal pain, anorexia, constipation, diarrhea, dysphagia, GERD,hematemesis, hematochezia, hiatal hernia, melena, nausea, rectal pain, vomiting,other.:Denies: dysuria, flank pain, frequency, hematuria, nocturia, pelvic pain,, previous pregnancies, urgency, urinary retention, vaginal bleeding,vaginal discharge, other.Musculoskeletal:Denies: arthritis, extremity pain, extremity swelling, joint pain, jointswelling, lumbar pain, myalgias, neck pain, thoracic pain, other.Heme:Denies: adenopathy, bleeding, bruising, petechiae, other.Endocrine:Denies: cold intolerance, heat intolerance, polydipsia, polyphagia, polyuria,weight gain, weight loss, other.Neuro:Denies: bladder dysfunction, bowel dysfunction, change in LOC, confusion,dizziness, focal weakness, gait problem, headache, lightheaded, numbness,seizure, slurred speech, spinning sensation, syncope, unable to speak, visionchange, weakness, other.ObjectiveGeneralVS/I O:Vital Signs: Date Time Temp Pulse Resp B/P B/P Pulse O2 O2 Flow FiO2 Mean Ox Delivery Rate 09/24 2255 98.8 96 17 140/107 118.0 92 Room air 09/24 1946 98.2 09/24 1930 84 33 143/92 111 95 09/24 1801 86 20 126/70 93 95 09/24 1757 86 09/24 1753 20 09/24 1750 99 09/24 1748 130/84 103 09/24 1443 97.9 102 121/77 92.1 94 09/24 1443 97.9 102 121/77 92.1 94 09/24 1415 1824 hour I O ending at 0700: 09/25 0700 09/24 1900 Intake Total Output Total Balance Patient 100 kg Weight Weight Stated/Reported Measurement MethodPATIENT WEIGHT:Weight (lb):Weight (oz):Weight (kg): 100.000Temperature maximum: 98Medications:Active Meds + DC'd Last 24 HrsCeftriaxone Sodium (ROCEPHIN) 1 GM Q24H IV Sodium Chloride (Sodium Chloride) 20 MLHeparin Sodium (Porcine) (HEPARIN) 5,000 UNITS Q8HR SUBQMethocarbamol (methocarbamoL) 750 MG Q4HR POAtorvastatin Calcium (LIPITOR) 10 MG BEDTIME POInsulin Human Regular (Humulin R) Glucose-100/30 AC HS SUBQNon-Formulary Medication (Continue from Home (NF)) 1 EACH .[CEFPODOXIME (VA] MISC (CAN)Ceftriaxone Sodium (ROCEPHIN) 1 GM DAILY IV (CAN)Nicotine (NICODERM) 14 MG DAILY TransdermlNaproxen (NAPROXEN) 500 MG BID POPerflutren Lipid Microsphere (Definity) 1.1 MG PRN PRN IVAcetaminophen (TylenoL) 650 MG Q6H PRN PRN PONitroglycerin (NITROSTAT) 0.4 MG Q5M PRN PRN SLOndansetron HCl (ZOFRAN) 4 MG Q6H PRN PRN IVTemazepam (TEMAZEPAM) 15 MG BEDTIME PRN PRN PODextrose (Glutose-15) 15 GRAM ASDIR PRN PO (CKD)Dextrose/Water (D-50-W JET 50 ML) 25 ML PRN PRN IV (CKD)Glucagon (GLUCAGON) 1 MG ASDIR PRN IM Sterile Water (WATER) 1 MLCeftriaxone Sodium (ROCEPHIN) 1 GM X1ED ONE IV (DC) Sodium Chloride (Sodium Chloride) 20 MLHydromorphone HCl (HYDROmorphone) 1 MG X1ED ONE IV (DC)Diphenhydramine HCl (diphenhydrAMINE HCL) 25 MG X1ED ONE IV (DC)Famotidine (PEPCID) 20 MG X1ED ONE IV (DC) Sodium Chloride (SODIUM CHLORIDE 0.9%) 10 MLMorphine Sulfate (MORPHINE SULFATE) 4 MG X1ED ONE IV (DC)Ondansetron HCl (ZOFRAN) 4 MG X1ED ONE IV (DC)Ketorolac Tromethamine (TORADOL INJ 30MG/ML VIAL) 15 MG X1ED ONE IV (DC)Aspirin (ASPIRIN) 324 MG X1ED ONE PO (DC)ResultsFindings/Data:Laboratory Tests 09/24 09/24 09/24 09/24 09/24 2138 1749 1511 1511 1511 Chemistry Sodium (136 - 145 MMOL/L) 139 Potassium (3.5 - 5.1 MMOL/L) 3.7 Chloride (98 - 107 MMOL/L) 111 H Carbon Dioxide (21 - 32 MMOL/L) 22 Anion Gap (9 - 18 MMOL/L) 10 BUN (7 - 22 MG/DL) 16 Creatinine (0.55 - 1.02 MG/DL) 0.94 Est GFR (CKD-EPI 2020) (>60) 73 BUN/Creatinine Ratio (11.0 - 18.0) 17.0 Glucose (70 - 110 MG/DL) 77 POC Glucose (70 - 110 MG/DL) 104 Calcium (8.2 - 10.1 MG/DL) 9.1 Corrected Calcium 9.42 Total Bilirubin (0.20 - 1.00 MG/DL) 0.5 AST (15 - 37 UNITS/L) 29 ALT (13 - 56 UNITS/L) 41 Alkaline Phosphatase (45 - 117 U/L) 67 Troponin I High Sens (5 - 54 ng/L) 53 68 CH B-Natriuretic Peptide (0 - 100 PG/ML) 93 Total Protein (6.4 - 8.2 GM/DL) 7.5 Albumin (3.4 - 5.0 GM/DL) 3.6 Globulin (1.5 - 3.8 GM/DL) 3.9 H Albumin/Globulin Ratio (1.0 - 2.2) 0.9 LLaboratory Tests 09/24 1511 Coagulation PT (9.9 - 13.3 SECONDS) 12.4 INR (0.89 - 1.19) 1.10 APTT (26.2 - 37.2 SECONDS) 32.7Laboratory Tests 09/24 1511 Hematology WBC (4.0 - 11.0 THOUS/uL) 9.70 RBC (3.80 - 5.30 MIL/uL) 5.70 H Hgb (11.5 - 15.3 GM/DL) 17.4 H Hct (34.0 - 45.0 %) 51.7 H MCV (80.0 - 98.0 FL) 90.7 MCH (27.0 - 34.0 PG) 30.5 MCHC (31.5 - 36.5 G/DL) 33.7 Plt Count (140 - 400 THOUS/uL) 441 H MPV (8.0 - 13.0 FL) 9.1 Immature Gran % (Auto) (0.0 - 2.0 %) 0.2 Neut % (Auto) (39.4 - 72.5 %) 47.6 Lymph % (Auto) (17.6 - 49.6 %) 33.6 Ellis % (Auto) (4.1 - 12.4 %) 12.2 Eos % (Auto) (0.0 - 6.0 %) 4.8 Baso % (Auto) (0.0 - 2.0 %) 1.6 Neut # (Auto) (1.56 - 6.13 THOUS/uL) 4.61 Lymph # (Auto) (1.18 - 3.74 THOUS/uL) 3.26 Ellis # (Auto) (0.24 - 0.86 THOUS/uL) 1.18 H Eos # (Auto) (0.04 - 0.36 THOUS/uL) 0.47 H Baso # (Auto) (0.01 - 0.08 THOUS/uL) 0.16 H Immature Gran # (Auto) (THOUS/ul) 0.02 Nucleated RBC % (0.0 - 0.2 /100WBC) 0.0 Nucleated RBCs # (0 - 0.012 THOUS/uL) 0.00Laboratory Tests 09/24 1513 Urines Urine Color (YELLOW) Yellow Urine Appearance (CLEAR) Cloudy Urine pH (5.0 - 8.0) 6.0 Ur Specific Kent (1.005 - 1.025) 1.029 H Urine Protein (NEGATIVE mg/dL) 30 (1+) * Urine Ketones (NEGATIVE mg/dL) Negative Urine Blood (NEGATIVE mg/dL) TRACE Urine Nitrite (NEGATIVE mg/dL) 2+ Urine Bilirubin (NEGATIVE mg/dL) Negative Urine Urobilinogen (NEGATIVE mg/dL) Normal Ur Leukocyte Esterase (NEGATIVE Ely/uL) 500 * Urine RBC (NEGATIVE /HPF) 16-25 * Urine WBC (NEGATIVE /HPF) >100 * Ur Squamous Epith Cells (NEGATIVE /HPF) 7 Urine Bacteria (NEGATIVE /HPF) 4+ * Urine Mucus (NEGATIVE /LPF) 4+ Urine Glucose (NEGATIVE mg/dL) NegativeRadiology data:Recent Impressions:RADIOLOGY - Chest AP Port 09/24 1542 Report Impression - Status: SIGNED Entered: 09/24/2024 1609Impression:1. No acute cardiopulmonary processImpression By: DR.BAUJO Clifford JON,[facility] – TULSAOMPUTERIZED TOMOGRAPHY - CT ABDPEL W/O Cont 09/24 2009 Report Impression - Status: SIGNED Entered: 09/24/20242137Impression:No acute process within the abdomen or pelvis.All CT scans at [facility] are performed using one or more ofthe following dose reduction techniques:Automated exposure controlAdjustment of mA or kV according to patient size and ageUse of iterative reconstruction techniqueImpression By: ABIMBOLA ORTIZ,MDResults: labs reviewed, vital signs reviewed, vital signs stable, CT resultsreviewed, EKG personally reviewed, rhythm personally rev'd, x-ray personallyreviewed, current med profile rev'dFree Text Obj NotesFree Text Obj Notes:Physical ExaminationGeneral appearance: Alert, awake, oriented to person, place, time and situation,mental status normalHead/Eyes: atraumatic, clear cornea, EOMI, normal conjunctiva/sclera, normaleyelids/periorbital areas., normocephalic, PERRLAENT: moist mucosal membranes, normal dentition, normal ear left, normal earright, normal nose, normal pharynx, normal sinusNeck: supple/no meningismus, no bruit/normal carotids, no JVDCardiovascular: Regular rhythm, normal heart sounds, no ectopy, no gallopRespiratory: Lungs clear to auscultation and percussionAbdomen: Non-tender, normal bowel sounds, soft, no distention, no guarding, nohernia, no mass/organomegaly, no reboundGenitourinary: no bladder distention, no flank pain, no foleyRectal: not indicatedExtremities: normal range of motion, no calf tenderness, no clubbing, nocyanosisMusculoskeletal: straight leg raise neg, no CVA tenderness, no midline vertebraltend, no muscle spasmNeuro/FITNESS AND WELLNESS DIRECTOR: alert, oriented X 3, CNII-XII intact, normal speech, reflexes equalbilat, no motor deficits, no sensory deficits Considered stroke alert: noSkin: dry, intact, no rashLymphatics: no lymphadenopathyDiagnosis, Assessment PlanProblem List/A P: 1. Elevated troponin 2. UTI (urinary tract infection) 3. Chest painPlan discussed with: patientTime spent: Time spent on patient care (minutes): 51Code Status/Resusc. DiscussionCode status: full codeFree Text DxA P NotesFree Text DxA P Notes:History of Present IllnessMarjoriludmila Hargrove is a 53 year female presented with a several-day history ofepisodic left-sided chest pain without radiation or shortness of breath. Shealso denied fever, chills, cough, PND, orthopnea, nausea, vomiting, abdominalpain or hemoptysis.Diagnosis/Assessment PlanElevated troponinChest painPlan* Admit CDU telemetry* Full codeUrinary tract infectionPlan* Rocephin 1 gram IV daily* Follow-up urine cultureNicotine addictionPlan* Nicotine patch 14mg daily* Smoking cessation counseling at 0147RPT #: [id number] OF REPORT Freeman May PA-C-9- [address] [place] [address])EMERGENCY PROVIDER REPORTREPORT#:[id number] REPORT STATUS: SignedDATE:09/24/24 TIME: 185ATIENT: KALYN CALVO UNIT #: [id number]#: [id number] ROOM/BED:: 70 AGE: 53 SEX: F PCP PHYS: No Primary or Family PhysicianSERVICE AUTHOR: Shanel MillardCRERavinder SRV REP SRV TM: 1853* ALL edits or amendments must be made on the electronic/computer document *SHANEL MILLARD 09/24/24 1853:HPI-Chest Pain 40 and OverGeneralConfirmed Patient YesInitial Greet Date/Time 09/24/24 1422Provider in TriageHPI Chief Complaint Patient to the ED for lbp for one week and cp for 2 days, feels like my kidneys are shutting down PresentationChief Complaint Chest painHx Obtained From PatientSudden in Onset? No)( Migration/Movement chest to left neckFree Text HPI NotesFree Text HPI NotesPatient is a 53-year-old female with past medical history of congestive heartfailure, hypertension, type 2 diabetes who presents to the ED complaining ofchest pain intermittently over the past 3 weeks. Patient also states that sheis having bilateral flank pain with dysuria. States her urine is foul smelling. Denies fever, chills.Risk-Chest Pain 40 and OverRisk Stratification)( Coronary Artery Disease Risk factors reviewed)( Thoracic Aortic Dissection Risk factors reviewed)( Pulmonary Embolism Risk factors reviewed)( HEART for MACE )( HEART for MACE Response Value History Mod index of suspicion 1 ECG Interpretation Normal ECG 0 Age Age 45 - 65 1 Risk Factors for CAD 3+ CAD risk factors 2 Troponin 1 to 3x NL troponin 1 Total 5Review of SystemsFree Text ROS NotesFree Text ROS NotesNegative except per HPIPast Medical History - AdultStated Complaint CHEST PAIN X2 DAYSAllergiesCoded Allergies:morphine (Mild, RASH-RAISED 09/24/24)Home MedicationsActive ScriptsLIDOCAINE 5% (LIDODERM 5%) 1 PATCH TRANSDERM DAILY LIDOCAINE 5% (LIDODERM 5%) 1 PATCH TRANSDERM DAILY #14 PATCH Prov: 08/14/21NAPROXEN (NAPROSYN) 500 MG PO BID NAPROXEN (NAPROSYN) 500 MG PO BID #20 TAB Prov: 08/14/21methocarbamoL (ROBAXIN) 750 MG PO Q4HR methocarbamoL (ROBAXIN) 750 MG PO Q4HR #20 TAB Prov: 08/14/21AMOXICILLIN/CLAV K (AUGMENTIN 875 MG/125 MG) 1 EACH PO BID AMOXICILLIN/CLAV K (AUGMENTIN 875 MG/125 MG) 1 EACH PO BID #14 TAB Prov: 03/19/22[IPRATR-ALBUTEROL 0.5-3 MG/3 ML] 3 ML NEB Q6H PRN PRN DYSPNEAALBUTEROL (PROVENTIL HFA) 1 PUFF INH Q6H PRN PRN DYSPNEApredniSONE 10 MG (STERAPRED DS) 1 PACKET PO ASDIR predniSONE 10 MG (STERAPRED DS) 1 PACKET PO ASDIR #1 PACKET Prov: 06/26/14alculated Suicide Risk (nurs) No riskReview of Nursing Notes Unavailable at this timeAdditional Medical HistoryasthmaSmoking status for patients 13 years old or older: Current every day smokerPhysical ExamVital SignsVital SignsFirst Documented: Result Date Time Resp 18 09/24 1415 Pulse Ox 94 09/24 144 B/P 121/77 09/24 1443 B/P Mean 92.1 09/24 1443 Temp 36.6 09/24 1443 Pulse 102 09/24 1443Last Documented: Result Date Time Temp 36.8 09/24 1946 Pulse Ox 95 09/24 1930 B/P 143/92 09/24 1930 B/P Mean 111 09/24 1930 Pulse 84 09/24 1930 Resp 33 09/24 1930Review of Vital Signs ReviewedFocused PEGeneral/Const General/Const Awake, AlertEyes Eyes PERRLMS Neck Neck Supple, Full range of motion, No swelling, Non-tender, No masses, No JVDResp/Chest Respiratory/Chest Breath sounds NL, Breath sounds = bilat, No respiratorydistress, No rales, No rhonchi, No wheezing, No chest tendernessCardiovascular Cardiovascular Heart rate NL, Regular rhythm, Heart sounds NL, No murmurs,Peripheral circulation NL, Pulses = bilaterally, No gross BP differentialAbdomen/GI Abdomen/GI Soft, No guarding, No rebound Tenderness/Guarding/Rebound Tender flank R, Tender flank L.MS Back Back Inspection NL, Non-tender, No CVA tendernessMS Lower Extrem Lower Ext/Pelvis/MS Inspection NL, No swelling, Non-tender, No erythema, Nodeformity, Neurologic intact, Vascular intact, No edemaSkin Skin Color NL, Warm, Dry, Turgor NLNeurologic Neurologic Oriented X3, Speech NL, No motor deficits, No sensory deficitsPsychiatric Psychiatric Affect NL, Mood NL, Thought content NLInterpretation DiagnosticsLab Results InterpretationResultsLaboratory Tests09/24/24 1511:[Embedded Image Not Available]Laboratory Tests: 09/24 09/24 09/24 09/24 09/24 1749 1513 1511 1511 1511Chemistry Sodium (136 - 145 MMOL/L) 139 Potassium (3.5 - 5.1 MMOL/L) 3.7 Chloride (98 - 107 MMOL/L) 111 H Carbon Dioxide (21 - 32 MMOL/L) 22 Anion Gap (9 - 18 MMOL/L) 10 BUN (7 - 22 MG/DL) 16 Creatinine (0.55 - 1.02 MG/DL) 0.94 Est GFR (CKD-EPI 2020) (>60) 73 BUN/Creatinine Ratio (11.0 - 18.0) 17.0 Glucose (70 - 110 MG/DL) 77 Calcium (8.2 - 10.1 MG/DL) 9.1 Corrected Calcium 9.42 Total Bilirubin (0.20 - 1.00 MG/DL) 0.5 AST (15 - 37 UNITS/L) 29 ALT (13 - 56 UNITS/L) 41 Alkaline Phosphatase (45 - 117 U/L) 67 Troponin I High Sens (5 - 54 ng/L) 53 68 CH B-Natriuretic Peptide (0 - 100 93PG/ML) Total Protein (6.4 - 8.2 GM/DL) 7.5 Albumin (3.4 - 5.0 GM/DL) 3.6 Globulin (1.5 - 3.8 GM/DL) 3.9 H Albumin/Globulin Ratio (1.0 - 2.2) 0.9 LCoagulation PT (9.9 - 13.3 SECONDS) 12.4 INR (0.89 - 1.19) 1.10 APTT (26.2 - 37.2 SECONDS) 32.7Hematology WBC (4.0 - 11.0 THOUS/uL) 9.70 RBC (3.80 - 5.30 MIL/uL) 5.70 H Hgb (11.5 - 15.3 GM/DL) 17.4 H Hct (34.0 - 45.0 %) 51.7 H MCV (80.0 - 98.0 FL) 90.7 MCH (27.0 - 34.0 PG) 30.5 MCHC (31.5 - 36.5 G/DL) 33.7 Plt Count (140 - 400 THOUS/uL) 441 H MPV (8.0 - 13.0 FL) 9.1 Immature Gran % (Auto) (0.0 - 2.0 %) 0.2 Neut % (Auto) (39.4 - 72.5 %) 47.6 Lymph % (Auto) (17.6 - 49.6 %) 33.6 Ellis % (Auto) (4.1 - 12.4 %) 12.2 Eos % (Auto) (0.0 - 6.0 %) 4.8 Baso % (Auto) (0.0 - 2.0 %) 1.6 Neut # (Auto) (1.56 - 6.13 THOUS/uL) 4.61 Lymph # (Auto) (1.18 - 3.74 3.26THOUS/uL) Ellis # (Auto) (0.24 - 0.86 THOUS/uL) 1.18 H Eos # (Auto) (0.04 - 0.36 THOUS/uL) 0.47 H Baso # (Auto) (0.01 - 0.08 THOUS/uL) 0.16 H Immature Gran # (Auto) (THOUS/ul) 0.02 Nucleated RBC % (0.0 - 0.2 /100WBC) 0.0 Nucleated RBCs # (0 - 0.012 0.00THOUS/uL)Urines Urine Color (YELLOW) Yellow Urine Appearance (CLEAR) Cloudy A Urine pH (5.0 - 8.0) 6.0 Ur Specific Kent (1.005 - 1.025) 1.029 H Urine Protein (NEGATIVE mg/dL) 30 (1+) H Urine Ketones (NEGATIVE mg/dL) Negative Urine Blood (NEGATIVE mg/dL) TRACE Urine Nitrite (NEGATIVE mg/dL) 2+ A Urine Bilirubin (NEGATIVE mg/dL) Negative Urine Urobilinogen (NEGATIVE mg/dL) Normal Ur Leukocyte Esterase (NEGATIVE 500 HLeu/uL) Urine RBC (NEGATIVE /HPF) 16-25 H Urine WBC (NEGATIVE /HPF) >100 H Ur Squamous Epith Cells (NEGATIVE 7/HPF) Urine Bacteria (NEGATIVE /HPF) 4+ H Urine Mucus (NEGATIVE /LPF) 4+ Urine Glucose (NEGATIVE mg/dL) NegativeRecent Impressions:RADIOLOGY - Chest AP Port 09/24 1542 Report Impression - Status: SIGNED Entered: 09/24/2024 1609Impression:1. No acute cardiopulmonary processImpression By: DR.BAUJO Clifford JON MD Lab Imaging StatementLaboratory radiographic studies reviewed and considered in the medicaldecision-making.ECG #1 InterpretationInterpreted by ED physician, ED physician emergency room physician assistant, CardiologistNL ECG Interpretation Normal sinus rhythm, No acute ischemic changes, No STEMI,Normal QRS, Normal ST waves, Normal T waves, Normal axisRhythm TachycardiaRe-Evaluation MDMFree Text MDM NotesFree Text MDM NotesPatient is a 53-year-old female with past medical history of congestive heartfailure, hypertension, type 2 diabetes who presents to the ED complaining ofchest pain intermittently over the past 3 weeks. Patient also states that sheis having bilateral flank pain with dysuria. States her urine is foul smelling. Denies fever, chills.Patient with 1st troponin which is elevated to 68. EKG shows no ischemicchanges. 2nd troponin did down trend however will admit patient due to heartscore of 5 with initial elevated troponin. Patient also with urinary tractinfection concerning for pyelo as she has bilateral CVA tenderness. Labsotherwise grossly normal. Will treat with antibiotics. Patient to be admittedto the hospitalist for observation.ED CourseMedication(s) OrderedMedication(s) Ordered:Anti-Infective Agents Sig/Jonathan Start time Last Medication Dose Route Stop Time Status Admin Ceftriaxone Sodium 1 GM Q24H 09/25 1800 AC Sodium Chloride 20 ML IV 10/01 1759 Ceftriaxone Sodium 1 GM DAILY 09/24 2013 CAN IV Ceftriaxone Sodium 1 GM X1ED ONE 09/24 1906 DC 09/24 Sodium Chloride 20 ML IV 09/24 1911 1941Antihistamine Drugs Sig/Jonathan Start time Last Medication Dose Route Stop Time Status Admin Diphenhydramine HCl 25 MG X1ED ONE 09/24 1852 DC 09/24 IV 09/24 1853 1915Autonomic Drugs Sig/Jonathan Start time Last Medication Dose Route Stop Time Status Admin Methocarbamol 750 MG Q4HR 09/24 2200 AC PO Nicotine 14 MG DAILY 09/24 2013 AC TransdermlBlood Formation,Coagulation Sig/Jonathan Start time Last Medication Dose Route Stop Time Status Admin Heparin Sodium 5,000 UNITS Q8HR 09/24 2200 AC (Porcine) SUBQCardiovascular Drugs Sig/Jonathan Start time Last Medication Dose Route Stop Time Status Admin Atorvastatin Calcium 10 MG BEDTIME 09/24 2100 AC PO Nitroglycerin 0.4 MG Q5M PRN PRN 09/24 1955 AC SLCentral Nervous System Agents Sig/Jonathan Start time Last Medication Dose Route Stop Time Status Admin Naproxen 500 MG BID 09/24 2000 AC PO Acetaminophen 650 MG Q6H PRN PRN 09/24 1955 AC PO Temazepam 15 MG BEDTIME PRN PRN 09/24 1955 AC PO Hydromorphone HCl 1 MG X1ED ONE 09/24 1906 DC 09/24 IV 09/24 190 1940 Morphine Sulfate 4 MG X1ED ONE 09/24 1815 DC 09/24 IV 09/24 1816 1826 Ketorolac 15 MG X1ED ONE 09/24 1457 DC 09/24 Tromethamine IV 09/24 1458 1508 Aspirin 324 MG X1ED ONE 09/24 1424 DC 09/24 PO 09/24 1425 1456Diagnostic Agents Sig/Jonathan Start time Last Medication Dose Route Stop Time Status Admin Perflutren Lipid 1.1 MG PRN PRN 09/24 1957 AC Microsphere IV 09/25 1957Electrolytic, Caloric, And Sisi Sig/Jonathan Start time Last Medication Dose Route Stop Time Status Admin Dextrose 15 GRAM ASDIR PRN 09/24 1954 CKD PO Dextrose/Water 25 ML PRN PRN 09/24 1954 CKD IVGastrointestinal Drugs Sig/Jonathan Start time Last Medication Dose Route Stop Time Status Admin Ondansetron HCl 4 MG Q6H PRN PRN 09/24 1955 AC IV Famotidine 20 MG X1ED ONE 09/24 1852 DC 09/24 Sodium Chloride 10 ML IV 09/24 185 1914 Ondansetron HCl 4 MG X1ED ONE 09/24 175 DC 09/24 IV 09/24 175 180Hormones And Synthetic Substit Sig/Jonathan Start time Last Medication Dose Route Stop Time Status Admin Insulin Human Regular See Dose AC HS 09/24 2100 AC Insts (1) SUBQ Glucagon 1 MG ASDIR PRN 09/24 1954 AC Sterile Water 1 ML IMOther Sig/Jonathan Start time Last Medication Dose Route Stop Time Status Admin Non-Formulary 1 EACH .[CEFPODOXIME (VA] 09/24 2100 CAN Medication MISCDose Instructions:(1)Insulin Human Regular: Glucose-100/30Differential Diagnosis)( Differential Diagnosis Acute coronary syndrome, Anxiety disorder, Asthmaexacerbation, Bronchitis, Chest pain, Cholelithiasis, Congestive heart failure,Esophagitis, Gastritis, GERD, Musculoskeletal pain, Peptic ulcer disease,PneumoniaPatient Discharge DepartureVital Signs/ConditionVital SignsFirst Documented: Result Date Time Resp 18 09/24 1415 Pulse Ox 94 09/24 1443 B/P 121/77 09/24 1443 B/P Mean 92.1 09/24 1443 Temp 36.6 09/24 1443 Pulse 102 09/24 1443Last Documented: Result Date Time Temp 36.8 09/24 1946 Pulse Ox 95 09/24 1930 B/P 143/92 09/24 1930 B/P Mean 111 09/24 1930 Pulse 84 09/24 1930 Resp 33 09/24 1930All vital signs available at the time of this entry have been reviewed.Condition StableClinical ImpressionClinical ImpressionPrimary Impression: Chest painSecondary Impressions: Elevated troponin, Lower back pain, Pyelonephritis, UTI (urinary tract infection)Disposition DecisionHospitalize Hosp Physician Name Nilton Kurtz MD Request Time 1933 Request Date 09/24/24 )( Accepts Hospitalization Yes )( Accepted Time 1955 )( Accepted Date 09/24/24Discharge/Care PlanCounseled Regarding Diagnosis, Lab results, Imaging studies(Auto) PrescriptionsCurrent Visit ScriptsCEFPODOXIME (VANTIN) 200 MG PO Q12HR CEFPODOXIME (VANTIN) 200 MG PO Q12HR #20 TABONDANSETRON ODT (ZOFRAN ODT) 4 MG PO Q8HR ONDANSETRON ODT (ZOFRAN ODT) 4 MG PO Q8HR #20 TABPatient Instructions ED Chest Pain, Uncertain Cause, ED UTIs Women Admit NoteI have spoken with the patient and/or caregivers. I have explained the patient'scondition, diagnoses and treatment plan based on the information available to meat this time. I have answered the patient's and/or caregiver's questions andaddressed any concerns. The patient and/or caregivers have as good anunderstanding of the patient's diagnosis, condition and treatment plan as can beexpected at this point. The patient has been stabilized within the capability ofthe emergency department. The patient will be transported for further care andmanagement or will be moved to an observation or inpatient service. I havecommunicated with the staff or medical practitioner taking over this patient'scare.Jasper Sierra 09/24/242104:Patient Discharge DepartureDischarge/Care PlanReferralsProvider Referral: No Primary or Family PhysicianProvider Referral: .[facility] PCP Address: [address] [place] [address] [place] [address]Ykjdbjnptgl Physician Note MidLv Saw Pt AloneI have reviewed the PA/RADAR OPERATOR's note and plan of care. I was available forconsultation as needed at all times during the patient's visit in the emergencydepartment. I agree with the clinical impression, plan and disposition. at 1959 at 2109RPT #: [id number] OF REPORT Robles Farley WG-1-Edd-2024 [facility] [place] [place]EMERGENCY PROVIDER REPORTREPORT#:[id number] REPORT STATUS: SignedDATE:09/24/24 TIME: 1422PATIENT: KALYN CALVO UNIT #: [id number]#: [id number] [address]VWQ: 70 AGE: 53 SEX: F PCP PHYS: No Primary or Family PhysicianSERVICE AUTHOR: Martine Arbolead NPREP SRV REP SRV TM: 1422* ALL edits or amendments must be made on the electronic/computer document *Provider in Triage - AdultProvider in TriageInitial Greet Date/Time 09/24/24 1422 Greabraham NoteI have greeted and performed a focused rapid initial assessment of this patient.A comprehensive ED assessment and evaluation of the patient, analysis of alltest results, and completion of the medical decision-making process will beconducted by additional ED providers.HPI Chief Complaint Patient to the ED for lbp for one week and cp for 2 days, feels like my kidneys are shutting down PMH-Provider in TriageStated Complaint CHEST PAIN X2 DAYSAllergiesCoded Allergies:morphine (Mild, RASH-RAISED 09/24/24)Home MedicationsActive ScriptsLIDOCAINE 5% (LIDODERM 5%) 1 PATCH TRANSDERM DAILY LIDOCAINE 5% (LIDODERM 5%) 1 PATCH TRANSDERM DAILY #14 PATCH Prov: 08/14/21NAPROXEN (NAPROSYN) 500 MG PO BID NAPROXEN (NAPROSYN) 500 MG PO BID #20 TAB Prov: 08/14/21methocarbamoL (ROBAXIN) 750 MG PO Q4HR methocarbamoL (ROBAXIN) 750 MG PO Q4HR #20 TAB Prov: 08/14/21AMOXICILLIN/CLAV K (AUGMENTIN 875 MG/125 MG) 1 EACH PO BID AMOXICILLIN/CLAV K (AUGMENTIN 875 MG/125 MG) 1 EACH PO BID #14 TAB Prov: 03/19/22[IPRATR-ALBUTEROL 0.5-3 MG/3 ML] 3 ML NEB Q6H PRN PRN DYSPNEAALBUTEROL (PROVENTIL HFA) 1 PUFF INH Q6H PRN PRN DYSPNEApredniSONE 10 MG (STERAPRED DS) 1 PACKET PO ASDIR predniSONE 10 MG (STERAPRED DS) 1 PACKET PO ASDIR #1 PACKET Prov: 06/26/14Additional Medical HistoryasthmaPatient HistoryMOTHER Condition: Family History: UnremarkableFATHER Condition: Family History: Cancer at 2259 at 1121RPT #: [id number] OF REPORT Problems Cardiomegaly Onset:03-Oct-2024 Comments:Onset Date: 20240925 Chronic ischemic heart disea se, unspecified(I25.9) Onset:02-Oct-2024 Comments:Onset Date: 20240930 Other specified diseases of pericardium(I31.8) Onset:30-Sep-2024 Comments:Onset Date: 20240926 Pyelonephritis Onset:24-Sep-2024 Freeman WILLSON-C Troponin measurement Onset:24-Sep-2024 Freeman WILLSON-C Urinary tract infectious disease Onset:24-Sep-2024 Freeman May PA-C Low back pain Onset:24-Sep-2024 Freeman WILLSON-C Chest pain Onset:24-Sep-2024 Freeman WILLSON-C Comments:Onset Date: 20240926 Sinusitis Onset:19-Mar-2022 Pieter Ybarra NP Backache Onset:14-Aug-2021 Freeman WILLSON-C Anxiety attack Onset:25-Jun-2014 Milagro Yu MD Bronchitis Onset:25-Jun-2014 Milagro Yu MD Allergic reaction Onset:25-Jun-2014 Milagro Yu MD Acute asthma Onset:25-Jun-2014 Milagro Yu MD Mental Status Cognitive function finding 24-Sep-2024 Cognitive function finding 09-Apr-2017 Functional Status Functional finding 09-Apr-2017 Allergies and Adverse Reactions morphine(Allergy) Onset: 24-Sep-2024 Reaction:RASH-RAISED No Known Allergies(Allergy) Onset: 08-Apr-2017 Medications aspirin 81 MG Delayed Release Oral Tablet;81 MILLIGRAM DAILY Quantity:1 Silvio Mercado MD Start:26-Sep-2024 Status:Discontinued Comments:[id number] Administration Instructions:Do not crush 20 ML sodium chloride 9 MG/ML Injection;Provider Administration Instructions:Slow IV push over 5-10 minutes Jerardo Callaway MD Start:37-Zos-9234Szz:2023 Status:Discontinued Comments:Provider Administration Instructions:Slow IV push over 5-10 minutes 20 ML sodium chloride 9 MG/ML Injection Silvio Mercado MD Start:09-Yhp-1922Igz:2023 Status:Discontinued 1 ML HYDROmorphone hydrochloride 1 MG/ML Prefilled Syringe;1 MILLIGRAM Q4H PRN Quantity:1 Silvio Mercado MD Start:72-Svn-0268Rhh:2023 Status:Discontinued Comments:[id number] sodium chloride 9 MG/ML Injectable Solution Silvio Mercado MD Start:28-Wim-2060Tto:2023 Status:Discontinued naproxen 250 MG Oral Tablet;500 MILLIGRAM Q12H PRN Quantity:2 Silvio Mercado MD Start:25-Sep-2024 Status:Discontinued Comments:[id number] 5 ML regadenoson 0.08 MG/ML Prefilled Syringe [Lexiscan] Quantity:1 Jerardo Callaway MD Start:25-Sep-2024 Status:Discontinued acetaminophen 325 MG Oral Tablet;650 MILLIGRAM PO Q6H PRN Start:25-Sep-2024 Comments:650 MG PO Q6H PRN As Needed for Pain Scale 1-3 (Use 1st) atorvastatin 10 MG Oral Tablet;10 MILLIGRAM PO BEDTIME Start:25-Sep-2024 Comments:10 MG PO BEDTIME amoxicillin 875 MG / clavulanate 125 MG Oral Tablet [Augmentin];875 MILLIGRAM PO Q12HR Start:25-Sep-2024 Comments:875 MG PO Q12HR methocarbamol 750 MG Oral Tablet;750 MILLIGRAM Q4HR Quantity:1 Jerardo Callaway MD Start:24-Sep-2024 Status:Discontinued Comments:[id number] Administration Instructions:Take with food or milk Heparin sodium 5000 UNT/ML Injectable Solution;5000 UNITS Q8HR Quantity:1 Jerardo Callaway MD Start:24-Sep-2024 Status:Discontinued Comments:[id number] Administration Instructions:SUBQ ADM SHOULD BE BY DEEP (INTRAFAT) INJ.ROTATE SITES TO AVOID DEVELOPMENT OF A HEMATOMA. atorvastatin 10 MG Oral Tablet [Lipitor];10 MILLIGRAM BEDTIME Quantity:1 Jerardo Callaway MD Start:24-Sep-2024 Status:Discontinued Comments:[id number] INSULIN REGULAR 10ML VIAL;[id number] Administration Instructions:Glucose-100/30D raw up at Pyxis Quantity:0 Jerardo Callaway MD Start:24-Sep-2024 Status:Discontinued Comments:[id number] Administration Instructions:Glucose-100/30Draw up at Pyxis 24 HR nicotine 0.583 MG/HR Transdermal System [Nicoderm C-Q];14 MILLIGRAM DAILY Quantity:1 Jerardo Callaway MD Start:24-Sep-2024 Status:Discontinued Comments:[id number] naproxen 250 MG Oral Tablet;500 MILLIGRAM BID Quantity:2 Jerardo Callaway MD Start:24-Sep-2024 Status:Discontinued Comments:[id number] perflutren;1.1 MILLIGRAM PRN Quantity:1 Jreardo Callaway MD Start:7-Xxx-0260Nrg: Status:Discontinued Comments:[id number] Administration Instructions:For ECHO use onlyGive 10 microliters/kg and flush with 10mL NS, may repeatin 30 minutes if needed acetaminophen 325 MG Oral Tablet;650 MILLIGRAM Q6H PRN Quantity:2 Jerardo Callaway MD Start:24-Sep-2024 Status:Discontinued Comments:[id number] Administration Instructions:Monitor Acetaminophen from all sourcesAdult Daily Max = 4,000mg ondansetron 2 MG/ML Injectable Solution [Zofran];4 MILLIGRAM Q6H PRN Quantity:1 Jerardo Callaway MD Start:24-Sep-2024 Status:Discontinued Comments:[id number] Administration Instructions:Slow IV push over 3-5 minutes nitroglycerin 0.4 MG Sublingual Tablet [Nitrostat];0.4 MILLIGRAM Q5M PRN Quantity:1 Jerardo Callaway MD Start:24-Sep-2024 Status:Discontinued Comments:[id number] Administration Instructions:HOLD IF SBP <90CALL IF CHEST PAIN NOT RELIEVED temazepam 15 MG Oral Capsule;15 MILLIGRAM BEDTIME PRN Quantity:1 Jerardo Callaway MD Start:24-Sep-2024 Status:Discontinued Comments:[id number] water 1000 MG/ML Injectable Solution;[id number] Administration Instructions:Mild Hypoglycemia - Patient alert, no IV accessNPO with glucose 70-80 WITH symptoms, or NPO with glucose< 70 WITH or WITHOUT symptoms: give 1mg IM; attempt toestablish IV access; may repeat in 15 min if glucose Jerardo Callaway MD Start:24-Sep-2024 Status:Discontinued Comments:[id number] Administration Instructions:Mild Hypoglycemia - Patient alert, no IV accessNPO with glucose 70-80 WITH symptoms, or NPO with glucose< 70 WITH or WITHOUT symptoms: give 1mg IM; attempt toestablish IV access; may repeat in 15 min if glucose 50 ML glucose 500 MG/ML Prefilled Syringe;25 MILLILITER PRN Quantity:1 Jerardo Callaway MD Start:24-Sep-2024 Status:Discontinued Comments:[id number] Administration Instructions:Mild Hypoglycemia - Patient alertNPO with glucose 70-80 WITH symptoms, or NPO with glucose< 70 WITH or WITHOUT symptoms: 1/2 amp D-50 as bolus; mayrepeat in 15 min if glucose remains < 70; kimberly LAGUERRE glucose 0.4 MG/MG Oral Gel [Glutose];15 GRAM ASDIR Quantity:1 Jerardo Callaway MD Start:24-Sep-2024 Status:Discontinued Comments:[id number] Administration Instructions:Mild Hypoglycemia - Patient alertGlucose < 70 WITH or WITHOUT symptoms: 15 grams glucosegel; may repeat in 15 min if glucose remain < 70Severe Hypoglycemia - Patient stuporous/unconcious/obtundedSee orders for D-50 IV and Glucagon IM 1 ML HYDROmorphone hydrochloride 1 MG/ML Prefilled Syringe;1 MILLIGRAM X1ED Quantity:1 Mariela Hutchinson MD Start:8-Wos-5644Xrq:24-Sep-20 Comments:[id number] 20 ML sodium chloride 9 MG/ML Injection;[id number] Administration Instructions:Slow IV push over 5-10 minutes Mariela Hutchinson MD Start:3-Fdc-5364Kbi:24-Sep-20 Comments:[id number] Administration Instructions:Slow IV push over 5-10 minutes diphenhydrAMINE hydrochloride 50 MG/ML Injectable Solution;25 MILLIGRAM X1ED Quantity:1 Mariela Hutchinson MD Start:0-Bal-8678Yfr:24-Sep-20 Comments:[id number] sodium chloride 9 MG/ML Injectable Solution;[id number] Administration Instructions:IV push over 3 minutes Mariela Hutchinson MD Start:7-Tbd-9478Nrv:24-Sep-20 Comments:[id number] Administration Instructions:IV push over 3 minutes 1 ML morphine sulfate 4 MG/ML Prefilled Syringe;4 MILLIGRAM X1ED Quantity:1 Mariela Hutchinson MD Start:3-Tfv-6677Aha:24-Sep-20 Comments:[id number] ondansetron 2 MG/ML Injectable Solution [Zofran];4 MILLIGRAM X1ED Quantity:1 Mariela Hutchinson MD Start:8-Llh-8772Flr:24-Sep-20 Comments:[id number] Administration Instructions:Slow IV push over 3-5 minutes ketorolac tromethamine 30 MG/ML Injectable Solution;15 MILLIGRAM X1ED Quantity:1 Post Maddi May MD Start:1-Zem-0138Yxj:24-Sep-20 Comments:[id number] aspirin 81 MG Chewable Tablet;324 MILLIGRAM X1ED Quantity:4 Post Maddi May MD Start:1-Bfd-7206Bzt:24-Sep-20 Comments:[id number] Administration Instructions:Dose must be chewed ondansetron 4 MG Disintegrating Oral Tablet;4 MILLIGRAM PO Q8HR Start:24-Sep-2024 Status:Discontinued Comments:4 MG PO Q8HR cefpodoxime 200 MG Oral Tablet;200 MILLIGRAM PO Q12HR Start:24-Sep-2024 Status:Discontinued Comments:200 MG PO Q12HR amoxicillin 875 MG / clavulanate 125 MG Oral Tablet [Augmentin];1 EACH PO BID Start:19-Mar-2022 Status:Discontinued Comments:1 EACH PO BID methocarbamol 750 MG Oral Tablet [Robaxin];750 MILLIGRAM PO Q4HR Start:14-Aug-2021 Comments:750 MG PO Q4HR naproxen 500 MG Oral Tablet [Naprosyn];500 MILLIGRAM PO BID Start:14-Aug-2021 Comments:500 MG PO BID lidocaine 0.05 MG/MG Medicated Patch [Lidoderm];1 PATCH TRANSDERMAL DAILY Start:14-Aug-2021 Status:Discontinued Comments:1 PATCH TRANSDERM DAILY acetaminophen 300 MG / HYDROcodone bitartrate 5 MG Oral Tablet;1 TABLET PO Q6H PRN Start:10-Apr-2017 Comments:1 TAB PO Q6H PRN As Needed for PAIN SCALE 4-6 MULTIVITAMIN;1 TABLET PO DAILY Start:08-Apr-2017 Status:Discontinued Comments:1 TAB PO DAILY {21 (predniSONE 10 MG Oral Tablet) } Pack;1 PACKET PO ASDIR Start:26-Jun-2014 Status:Discontinued Comments:1 PACKET PO ASDIR 200 ACTUAT albuterol 0.09 MG/ACTUAT Metered Dose Inhaler;1 PUFF INH Q6H PRN Start:26-Jun-2014 Comments:1 PUFF INH Q6H PRN As Needed for DYSPNEA Ipratr-Albuterol 0.5-3 Mg/3 Ml;3 MILLILITER NEBULIZATION Q6H PRN Start:26-Jun-2014 Comments:3 ML NEB Q6H PRN As Needed for DYSPNEA methylPREDNISolone 40 MG Injection;40 MILLIGRAM INTRAVENOUS Q8H Quantity:1 Kristin May MD Start:25-Jun-2014 diphenhydrAMINE hydrochloride 50 MG/ML Injectable Solution;25 MILLIGRAM INTRAVENOUS Q6H PRN Quantity:1 Milagro Yu MD Start:25-Jun-2014 Comments:[id number] 0.4 ML enoxaparin sodium 100 MG/ML Prefilled Syringe [Lovenox];40 MILLIGRAM SUBCUTANEOUS 0600_0600 Quantity:1 Milagro Yu MD Start:25-Jun-2014 Comments:Provider Administration Instructions:For CrCl > or = to 30 ml/minHOLD AT LEAST 6HRS POSTOPADM VIA DEEP SUBQ INJ. BY ALTERNATINGBETWEEN THE LEFT/RIGHT ANTEROLATERAL/POSTEROLATERAL ABDOMINAL WALL. Albuterol 0.83 MG/ML / Ipratropium [place] 0.17 MG/ML Inhalant Solution;3 MILLILITER NEBULIZATION RTQ4H_0000,0400,0800,1200,16 00,2000 Quantity:1 Milagro Yu MD Start:24-Jun-2014 Comments:[id number] 150 ML levoFLOXacin 5 MG/ML Injection;Provider Administration Instructions:LEVAQUIN 750MG/150ML, INFUSE OVER 90MINFormulary choice for fluoroquinolones Milagro Yu MD Start:24-Jun-2014 Comments:Provider Administration Instructions:LEVAQUIN 750MG/150ML, INFUSE OVER 90MINFormulary choice for fluoroquinolones 1 ML LORazepam 2 MG/ML Cartridge;1 MILLIGRAM INTRAVENOUS Q6H PRN Quantity:1 Milagro Yu MD Start:24-Jun-2014 Comments:[id number] acetaminophen 325 MG / oxyCODONE hydrochloride 5 MG Oral Tablet [Endocet];1 EACH ORAL Q4P Quantity:1 Milagro Yu MD Start:24-Jun-2014 Comments:[id number] Administration Instructions:OXYCODONE 5MG + TYLENOL 325MG PER TABLETMONITOR ACETAMINOPHEN FROM ALL SOURCESDO NOT EXCEED 3GM/24HR acetaminophen 325 MG Oral Tablet;650 MILLIGRAM ORAL Q6H PRN Quantity:2 Milagro Yu MD Start:24-Jun-2014 Comments:[id number] Administration Instructions:MONITOR ACETAMINOPHEN FROM ALL SOURCESADULT DAILY MAX = 3000MG 1 ML hydrALAZINE hydrochloride 20 MG/ML Injection;10 MILLIGRAM INTRAVENOUS Q4H PRN Quantity:1 Milagro Yu MD Start:24-Jun-2014 Comments:[id number] ondansetron 2 MG/ML Injectable Solution [Zofran];4 MILLIGRAM INTRAVENOUS Q6P Quantity:1 Milagro Yu MD Start:24-Jun-2014 Comments:[id number] Administration Instructions:*ZOFRAN INJECTION*CONC = 2MG/ML (4MG PER 2ML VIAL)SLOW IV PUSH OVER 3-5 MINPRN NAUSEA/VOMITING sodium chloride 9 MG/ML Injectable Solution Milagro Yu MD Start:24-Jun-2014 Albuterol 0.83 MG/ML / Ipratropium [place] 0.17 MG/ML Inhalant Solution;3 [facility] PRN Quantity:1 Milagro Yu MD Start:24-Jun-2014 Comments:[id number] Procedures US RENAL BILResult:DIAGNOSTIC IMAGING REPORT [address] [address] PHONE #: [phone] FAX #: [phone] Name: KALYN CALVO Loc: [id number] Radiology No: : 1970 Age: 53 Sex: F Status: ADM IN Unit No: [id number]: Jess Garcia MD Acct: [id number] For Exam: etails below ...? Exam Date: 09/25/2024 --------- EXAMS: Reason for Exam:: CPT CODE: [id number] US Renal Jah PN - Pyelonephritis 99052 HISTORY: Evaluate for pyelonephritis Comparison: None FINDINGS: Renal ultrasound was performed. The right kidney measures 12.8 cm in length and demonstrates normal parenchymal echogenicity without evidence of hydronephrosis. No perinephric fluid is seen. The left kidney measures 11.6 cm in length and demonstrates normal parenchymal echogenicity without evidence of hydronephrosis. No perinephric fluid is seen. The urinary bladder is only partially distended and therefore incompletely evaluated The proximal and midportions of the abdominal aorta are normal in caliber and the distal portion is not seen. IMPRESSION: Normal sonographic appearance of the kidneys. at 1231 Reported and signed by: CHACORTA TOBIAS MD CC: Nilton Kurtz MD; Jess Anguiano MD Technologist: JANIYA MANDUJANO Transcribed Date/Time: 09/25/2024 (8091)Volunteer Recruiter: 05 Printed Date/Time: 09/25/2024 (3456) BATCH NO: N/A PAGE 1 Signed Report Date:25-Sep-2024 Status:Completed CT ABDPEL W/O CONTResult:[place] [address] PHONE #: [phone] FAX #: [phone] PATIENT TYPE: REG ER LOC/RM: G.ER/ : 1970PATIENT NAME: KALNY CALVO SEX: F EXAM DATE: 09/24/2024OD PHYSICIAN: Jasper Sierra MD ADM: 09/24/2024 ORDERED: 09/24/2024MED RECORD #: [id number] AC#: [id number] BATCH #: N/A REASON: reat: CREAT 09/24/24 1511 0.94 MG/D RAD: bilateral flank ---- ADMISSION CLINICAL DATA: CHEST PAIN X2 DAYS EXAMS: Reason for Exam:: CPT CODE: [id number] CT ABDPEL W/O Cont bilateral flank pain 51450 HISTORY: Low back pain Technique: Multi contiguous unenhanced axial CT images of the abdomen pelvis were obtained. Findings: The lung bases are clear. The patient is status post cholecystectomy. No abnormality of the liver, spleen, pancreas, adrenal glands. Mild renal cortical scarring noted. No hydronephrosis. The ureters take an unobstructed course to the urinary bladder which is within normal limits. The patient is status post hysterectomy. The bowels unobstructed. No adenopathy. No free fluid or free air. No mesenteric edema. Patient is status post appendectomy. No acute osseous finding. Impression: No acute process within the abdomen or pelvis. All CT scans at [facility] are performed using one or more of the following dose reduction techniques: Automated exposure control Adjustment of mA or kV according to patient size and age Use of iterative reconstruction technique at 2134 Reported and signed by: DAVIS ORTIZ MD PAGE 1 Signed Report (CONTINUED) DIAGNOSTIC IMAGING [facility] - [address] [place] [address] PHONE #: [phone] FAX #: [phone] PATIENT TYPE: REG ER LOC/RM: NuSAROJ/ : 1970PATIENT NAME: KALYN CALVO SEX: F EXAM DATE: 09/24/2024OD PHYSICIAN: Jasper Sierra MD ADM: 09/24/2024 ORDERED: 09/24/2024MED RECORD #: [id number] AC#: [id number] BATCH #: N/A REASON: reat: CREAT 09/24/24 1511 0.94 MG/D RAD: bilateral flank ---- ADMISSION CLINICAL DATA: CHEST PAIN X2 DAYS EXAMS: Reason for Exam:: CPT CODE: [id number] CT ABDPEL W/O Cont bilateral flank pain 75019 <Continued>CC: Shanel Millard; Jasper Sierra MD DATE: 09/24/2024 (2133) BY: TECHNOLOGIST: NICOLE WARD PAGE 2 Signed Report Date:24-Sep-2024 Status:Completed CHEST AP PORTResult:[place] [address] PHONE #: [phone] FAX #: [phone] PATIENT TYPE: REG ER LOC/RM: G.ER/ : 1970PATIENT NAME: KALYN CALVO SEX: F EXAM DATE: 09/24/2024OD PHYSICIAN: Maddi Lu MD ADM: 09/24/2024 ORDERED: 09/24/2024MED RECORD #: [id number] AC#: [id number] BATCH #: N/A REASON: ? RAD: CP - Chest Pain --- ADMISSION CLINICAL DATA: CHEST PAIN X2 DAYS EXAMS: Reason for Exam:: CPT CODE: [id number] Chest AP Port CP - Chest Pain 05637 HISTORY: Chest pain Comparison is made to the study from March 19, 2022 demonstrating the heart normal in size, normal aorta. Lungs are well expanded with calcified granuloma within the superior segment of the left lower lobe. Impression: 1. No acute cardiopulmonary process at 1604 Reported and signed by: RADU JON MD CC: Martine Arboleda RADAR OPERATOR; Maddi Lu MD DATE: 09/24/2024 (2340) BY: TECHNOLOGIST: MARIZOL LALA PAGE 1 Signed Report Date:24-Sep-2024 Status:Completed Social History Smoking Status Occasional tobacco smoker Recorded: 24-Sep-2024 Never smoked tobacco Recorded: 19-Mar-2022 Never smoked tobacco Recorded: 13-Aug-2021 Never smoked tobacco Recorded: 09-Apr-2017 Results GLUCOSE BY MONITORING DEVICE Ordered On:25-Sep-2024 16:15 GLUCOSE BY MONITORIN G ULZWFZ00wj/dL(Normal) Range:70mg/dL-110mg/dL GLUCOSE BY MONITORING DEVICE Ordered On:25-Sep-2024 11:07 GLUCOSE BY MONITORIN G BIDMMB102ue/dL(High) Range:70mg/dL-110mg/dL GLUCOSE BY MONITORING DEVICE Ordered On:25-Sep-2024 06:26 GLUCOSE BY MONITORIN G WSSGHF197uf/dL(Normal) Range:70mg/dL-110mg/dL MAGNESIUM Ordered On:25-Sep-2024 04:15 MAGNESIUM2.0mg/dL(No rmal ) Range:1.8mg/dL-2.4mg/dL THYROID STIMULATING HORMONE Ordered On:25-Sep-2024 04:15 THYROID STIMULATING HORMONE4.46{UIU/ML}(Norm al) Range:0.44{UIU/ML}-4.47{UIU/ML} TROPONIN-I HIGH SENSITIVITY Ordered On:25-Sep-2024 03:27 TROPONIN-I HIGH NJIHOLWYHAI53fs/L(Normal ) Range:5ng/L-54ng/L Comments:NEW ASSAY FOR TROPONINNew High Sensitivity Assay for TroponinNew 99th sex-specific percentiles and criticalsUnit change from ng/mL to ng/L (3 decimal places to right) NEW REFERENCE RANGE AND UNITS OF MEASURE PROTHROMBIN TIME WITH INR Ordered On:25-Sep-2024 03:13 INTERNATIONAL NORMAL RATIO1.10(Normal) Range:0.89-1.19 PROTHROMBIN TIME XDNNSGD12.4s(Normal) Range:9.9s-13.3s PARTIAL THROMBOPLASTIN TIME Ordered On:25-Sep-2024 03:13 PTT MBXDAXK05.7s(Normal) Range :26.2s-37.2s Comments:Therapeutic Range for Unfractionated Heparin is 50.3-86.1seconds. GLUCOSE BY MONITORING DEVICE Ordered On:24-Sep-2024 21:40 GLUCOSE BY MONITORIN G MVNXVQ170ll/dL(Normal) Range:70mg/dL-110mg/dL TROPONIN-I HIGH SENSITIVITY Ordered On:24-Sep-2024 18:39 TROPONIN-I HIGH WUYQBNQIBFK98lz/L Range:5ng/L-54ng/L Comments:NEW ASSAY FOR TROPONINNew High Sensitivity Assay for TroponinNew 99th sex-specific percentiles and criticalsUnit change from ng/mL to ng/L (3 decimal places to right) NEW REFERENCE RANGE AND UNITS OF MEASURE URINALYSIS WITH MICROSCOPIC Ordered On:24-Sep-2024 15:40 UA APPEARANCECloudy(Abnorma l) Range:CLEAR UA BACTERIA4+/[HPF](Abnorma l) Range:NEGATIVE /HPF UA BILIRUBIN DIPSTICKNegativemg/dL Range:NEGATIVE mg/dL UA BLOOD DIPSTICKTRACEmg/dL Range:NEGATIVE mg/dL UA COLORYellow Range:YELLOW UA GLUCOSE DIPSTICKNegativemg/dL Range:NEGATIVE mg/dL UA KETONE DIPSTICKNegativemg/dL Range:NEGATIVE mg/dL UA LEUKOCYTE ESTERAS E IKZWGGNO021{Ely/uL}(Abno rmal) Range:NEGATIVE Ely/uL UA MUCUS4+/[LPF] Range:NEGATIVE /LPF UA NITRITE DIPSTICK2+mg/dL(Abnormal ) Range:NEGATIVE mg/dL UA PH DIPSTICK6.0(Normal) Range:5-8 UA PROTEIN DIPSTICK3 0 (1+)mg/dL(Abnormal) Range:NEGATIVE mg/dL RBC UA16-25/[HPF](Abnormal) Range:NEGATIVE /HPF UA SPECIFIC GRAVITY1.029(High) Range:1.005-1.025 UA UROBILINOGEN DIPSTICKNormalmg/dL Range:NEGATIVE mg/dL WBC UA>100/[HPF](Abnormal) Range:NEGATIVE /HPF UA SQUAMOUS CELLS7/[HPF] Range:N EGATIVE /HPF COMPLETE BLOOD COUNT AUTO DIFF Ordered On:24-Sep-2024 15:29 BASOPHIL #0.1610*3/uL(High) Range:0.0110*3/uL-0.0810*3/uL BASOPHIL %1.6%(Normal) Range:0%- 2% EOSINOPHIL #0.4710*3/uL(High) Range:0.0410*3/uL-0.3610*3/uL EOSINOPHIL %4.8%(Normal) Range:0 %-6% ZXNAAXTWDR47.7%(High) Range:34%- 45% WCXULLPNXK87.4g/dL(High) Range:1 1.5g/dL-15.3g/dL IMMATURE GRANULOCYTE #0.0210*3/uL IMMATURE GRANULOCYTE %0.2%(Normal) Range:0%-2% LYMPHOCYTE #3.2610*3/uL(Normal) Range:1.1810*3/uL-3.7410*3/uL LYMPHOCYTE %33.6%(Normal) Range:17.6%-49.6% MEAN CELL HGB30.5pg(Normal) Range:27pg-34pg MEAN CELL HGB KHKPRTLFAMLPV00.7g/dL(No rmal) Range:31.5g/dL-36.5g/dL MEAN CELL ETQLXU58.7fL(Normal) Range:80fL-98fL MONOCYTE #1.1810*3/uL(High) Range:0.2410*3/uL-0.8610*3/uL MONOCYTE %12.2%(Normal) Range:4. 1%-12.4% MEAN PLATELET VOLUME9.1fL(Normal) Range:8fL-13fL NEUTROPHIL #4.6110*3/uL(Normal) Range:1.5610*3/uL-6.1310*3/uL NEUTROPHIL %47.6%(Normal) Range:39.4%-72.5% NRBC #0.0010*3/uL(Normal) Range:010*3/uL-0.90449*3/uL NRBC %0.0{/100_WBCs}(Normal) Range:0{/100_WBCs}-0.2{/100_WBCs} PLATELET GSOIG15767*3/uL(High) Range:06246*3/uL-95398*3/uL RED BLOOD CELL5.70{MIL/uL}(High) Range:3.8{MIL/uL}-5.3{MIL/uL} RED CELL DISTRIBUTIO N WIDTH CV13.3%(Normal) Range:11%-16% RED CELL DISTRIBUTIO N WIDTH SD44.7fL(Normal) Range:37fL-51fL WHITE BLOOD CELL9.7010*3/uL(Normal) Range:410*3/uL-1110*3/uL PROTHROMBIN TIME WITH INR Ordered On:24-Sep-2024 15:30 INTERNATIONAL NORMAL RATIO1.10(Normal) Range:0.89-1.19 PROTHROMBIN TIME JQPRXAR92.4s(Normal) Range:9.9s-13.3s PARTIAL THROMBOPLASTIN TIME Ordered On:24-Sep-2024 15:30 PTT CESBTZT13.7s(Normal) Range: 26.2s-37.2s Comments:Therapeutic Range for Unfractionated Heparin is 50.3-86.1seconds. COMPREHENSIVE METABOLIC PROF Ordered On:24-Sep-2024 15:42 ALBUMIN/GLOBULIN RATIO0.9(Low) Range:1-2.2 ALBUMIN3.6g/dL(Normal) Range:3.4 g/dL-5g/dL ALKALINE SLIZWDCEPGA90M/L(Normal) Range:45U/L-117U/L ALT (SGPT)41U/L(Normal) Range:13 U/L-56U/L Comments:Venipuncture should occur prior to sulfasalazine and/orsulfapyridine administration due to the potential forfalsely depressed results. AST (SGOT)29U/L(Normal) Range:15 U/L-37U/L Comments:Venipuncture should occur prior to sulfasalazine and/orsulfapyridine administration due to the potential forfalsely depressed results. BILIRUBIN TOTAL0.5mg/dL(Normal) Range:0.2mg/dL-1mg/dL BUN/CREATININE RATIO17.0(Normal) Range:11-18 BLOOD UREA XBQZZWMR95yf/dL(Normal) Range:7mg/dL-22mg/dL CALCIUM9.1mg/dL(Normal) Range:8. 2mg/dL-10.1mg/dL CORRECTED CALCIUM9.42 Comments:C ALCIUM CORRECTED FOR ALBUMIN. LVIQCOFW085vaat/L(High) Range:98 mmol/L-107mmol/L CARBON XGTCLDR16gqrq/L(Normal) Range:21mmol/L-32mmol/L CREATININE0.94mg/dL( Norm al) Range:0.55mg/dL-1.02mg/dL Comments:Administration of N-Acetylcysteine (NAC) and Metamizole mayinterfere with the accuracy of results. ANION GVF68ujjk/L(Normal) Range:9mmol/L-18mmol/L GFR RACE VCVSDVHJXAP87 Range:60- 0 Comments:The eGFR is calculated using the 2020 CKD-EPI Cr equation,which includes serum Cr, age, and sex but does not include arace coefficient. The National Kidney Foundation recommendsthis formula for calculation eGFR in adults. GFR will notcalculate if sex is unknown or patient age is <18 years.Ref range: >/=60 mL/min/1.73 m2 GLOBULIN3.9g/dL(High) Range:1.5g /dL-3.8g/dL HZZVDZC69jy/dL(Normal) Range:70m g/dL-110mg/dL Comments:Venipuncture should occur prior to sulfasalazineadministration due to the potential for falsely depressedresults.Venipuncture should occur prior to sulfapyridineadministration due to the potential for falsely elevatedresults. POTASSIUM3.7mmol/L(N orma l) Range:3.5mmol/L-5.1mmol/L GOUODU942vphd/L(Normal) Range:13 6mmol/L-145mmol/L TOTAL PROTEIN7.5g/dL(Normal) Range:6.4g/dL-8.2g/dL TROPONIN-I HIGH SENSITIVITY Ordered On:24-Sep-2024 15:43 TROPONIN-I HIGH OVNNBSHAYGU61pf/L(Critic al High) Range:5ng/L-54ng/L Comments:Called to and read back by RN COLBYCalled by [id number] 09/24/24 [id number] ASSAY FOR TROPONINNew High Sensitivity Assay for TroponinNew 99th sex-specific percentiles and criticalsUnit change from ng/mL to ng/L (3 decimal places to right) NEW REFERENCE RANGE AND UNITS OF MEASURE BRAIN NATRIURETIC PEPTIDE Ordered On:24-Sep-2024 15:47 BRAIN NATRIURETIC EIZKEAR39so/mL(Normal) Range:0pg/mL-100pg/mL Vital Signs 25-Sep-2024 14:07 TEMP UEFGEAM43.8c Comments:36.8 Pulse86 Comments:86 Respiratory Rate18 Comments:18 O2 SAT92% Comments:92 BP Hifmdmpi534hy[Hg] Comments:11 1 BP Odxfbeymo84lp[Hg] Comments:73 25-Sep-2024 07:59 TEMP DNNUULI22.6c Comments:36.6 Pulse90 Comments:90 Respiratory Rate19 Comments:19 O2 SAT92% Comments:92 BP Jsnqkthj433ev[Hg] Comments:15 6 BP Mgtuxpffw33tt[Hg] Comments:89 24-Sep-2024 22:55 TEMP NSSDMUR59.1c Comments:37.1 Pulse96 Comments:96 Respiratory Rate17 Comments:17 O2 SAT92% Comments:92 BP Wotmhlrv085xj[Hg] Comments:14 0 BP Ausqrvukz831xa[Hg] Comments:1 07 24-Sep-2024 19:46 TEMP AGIBCPB79.8c Comments:36.8 24-Sep-2024 19:30 Pulse84 Comments:84 Respiratory Rate33 Comments:33 O2 SAT95% Comments:95 BP Azdjcfgr925ob[Hg] Comments:14 3 BP Rlglkvhcx56yt[Hg] Comments:92 24-Sep-2024 18:01 Pulse86 Comments:86 Respiratory Rate20 Comments:20 O2 SAT95% Comments:95 BP Uobvpteu385zb[Hg] Comments:12 6 BP Isacovjrd64gq[Hg] Comments:70 24-Sep-2024 17:57 Pulse86 Comments:86 24-Sep-2024 17:53 Respiratory Rate20 Comments:20 24-Sep-2024 17:50 O2 SAT99% Comments:99 24-Sep-2024 17:48 BP Rzrsiboc817rz[Hg] Comments:13 0 BP Mprznidag19zx[Hg] Comments:84 24-Sep-2024 14:43 TEMP IMBKDNZ79.6c Comments:36.6 Fpzrt637 Comments:102 O2 SAT94% Comments:94 BP Ltixqurl263dw[Hg] Comments:12 1 BP Nqywludps23ku[Hg] Comments:77 24-Sep-2024 14:43 TEMP KWEIKCV26.6c Comments:36.6 Vfqij608 Comments:102 O2 SAT94% Comments:94 BP Trscqdvd028on[Hg] Comments:12 1 BP Ihcivghbe93lq[Hg] Comments:77 24-Sep-2024 14:15 Respiratory Rate18 Comments:18 Height5.0846345[ft_us] Comments: 5 Sjxdqb533mo Comments:100.000 24-Sep-2024 14:15 BMI34.5kg/m2 Comments:34.5 Encounters Inpatient encounter Encounter Reason:CHEST PAIN, ELEVATED TROP, UTI Encounter Diagnosis:Urinary tract infection, site not specified,Nicotine dependence, cigarettes, uncomplicated,Unspecified asthma, uncomplicated,Hypertensive heart disease with heart failure,Heart failure, unspecified,Acute right-sided low back pain without sciatica,Type 2 diabetes mellitus without complications,Other specified abnormal findings of blood chemistry,Tobacco abuse counseling,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) Discharge Disposition:Discharged to home or self care (routine discharge) Silvio Mercado MD-25-Sep-2024 Activity: As Portia
--- OUTSIDE RECORDS SUMMARY | 2024-11-25 17:04 | XMS_ITS | Clinical Summary ---
Author Organization [facility] Address [facility] [place] [address] Care Team Providers Care Coach Wirer Name Role Phone None, Provider MD Primary Care Provider Unavaila ble Allergies Active Allergy Reactions Criticality Noted Date Comments Acetaminophen Rash Low 11/25/2024 Medications HYDROcodone-dominguez taminophen (NORCO) 5-325 MG tabletIndicatio ns:Acute Pain < 3 Day Supply Take 1 tablet by mouth every 6 (six) hours as needed for Pain. Indications: Acute Pain < 3 Day Supply 6 tablet 03/23/2023 Active cefdinir (OMNICEF) 300 MG Cap capsule Take 1 capsule (300 mg total) by mouth 2 (two) times daily for 5 days. 10 capsule 11/25/2024 Active fluconazole (DIFLUCAN) 150 MG tablet Take 1 tablet (150 mg total) by mouth once for 1 dose. 1 tablet 11/25/2024 Active Encounters Date Type Department Care Team Description 11/25/2024 7:53 AM [facility] - 11/25/2024 11:15 AM [facility] Emergency [facility] Emergency Room [address] [place] [address] Dev Askew DO Urinary Symptoms Discharge Disposition: Home or Self Care (Routine Discharge) 11/25/2024 Travel from Last 3 Months Social History Tobacco Use Types Packs/Day Years Used Date Smoking Tobacco: Some Days Cigarettes Smokeless Tobacco: Never Tobacco Cessation:Ready to Q uit: Not Asked; Counseling Given: Not Answered Comments Unknown Sex and Gender Information Value Date Recorded Sex Assigned at Not on file Legal Sex Female 5:56 PM CDT Gender Identity Not on file Sexual Orientation Not on file Last Filed Vital Signs Vital Sign Reading Time Taken Comments Blood Pressure 120/66 11/25/2024 11:15 AM CROSSING WATCHMAN Pulse 78 11/25/2024 11:15 AM [facility]ING WATCH[facility] Temperature 36.7 C (98 F) 11/25/2024 11:15 AM CROSSING WATCHMAN Respiratory Rate 18 11/25/2024 11:15 AM CROSSING WATCHMAN Oxygen Saturation 98% 11/25/2024 11:15 AM CR[facility]ING WATCHMAN Inhaled Oxygen Concentration - - Weight 91.2 kg (201 lb 1 oz) 11/25/2024 8:00 AM CROSSING WATCHMAN Height 165.1 cm (5' 5 ) 11/25/2024 8:00 AM CROSSING WATCHMAN Body Mass Index 33.46 11/25/2024 8:00 AM CROSSING WATCHMAN Plan of Treatment Health Maintenance Due Date Last Done Comments Colorectal Cancer Screening Colonoscopy (10 Years) 1970 Annual Physical 1973 Hepatitis C 1988 DTaP, Tdap and Td Vaccines (1 - Tdap) 1989 Hepatitis B Vaccines (1 of 3 - 19+ 3-dose series) 1989 Mammogram Screening 2010 Pneumococcal Vaccine: Pediatrics (0 to 5 Years) and At-Risk Patients (6 to 64 Years) (2 of 2 - PCV) 12/27/2015 12/26/2014, 03/30/2013 Zoster Vaccines (1 of 2) 2020 COVID-19 Vaccine (3 - 2023- season) 2024 04/23/2021, 03/21/2021 Influenza Adult (#1) 2024 08/03/2018, 10/17/2017, 08/31/2016, Additional history exists Meningococcal B Vaccine Aged Out No l onger eligible based on patient's age to complete this topic Meningococcal Vaccine Aged Out No jocelyne keisha eligible based on patient's age to complete this topic RSV Immunizations Under 20 Months Aged Out No longer eligible based on patient's age to complete this topic Procedures Procedure Name Priority Date/Time Associated Diagnosis Comments COMPREHENSIVE METABOLIC PANEL STAT 11/25/2024 8:25 AM [facility]OSSING WATCHMAN CBC W/DIFF AUTOMATED STAT 11/25/2024 8:25 AM [facility]ING WATCHMAN URINALYSIS, AUTO, COMPLETE STAT 11/25/2024 8:00 AM CROSSING WATCHMAN from Last 3 Months Results * (ABNORMAL) COMPREHENSIVE METABOLIC PANEL (11/25/2024 8:25 AM CROSSING WATCHMAN) GLUCOSE 156(H) 70 - 99 MG/DL 11/25/2024 8:49 AM [facility] BUN 10 7 - 18 MG/DL 11/25/2024 8:49 AM [facility] CREATININE S/P/B 0.79 0.55 - 1.02 MG/DL 11/25/2024 8:49 AM [facility] SODIUM S/P/B 137 136 - 145 MMOL/L 11/25/2024 8:49 AM [facility] POTASSIUM S/P/B 3.3(L) 3.5 - 5.1 MMOL/L 11/25/2024 8:49 AM [facility] CHLORIDE S/P/B 101 100 - 108 MMOL/L 11/25/2024 8:49 AM [facility] CO2 23.3 21 - 32 MMOL/L 11/25/2024 8:49 AM [facility] CALCIUM S/P/B 9.0 8.5 - 10.1 MG/DL 11/25/2024 8:49 AM [facility] BILIRUBIN TOTAL S/P/B 0.4 0.2 - 1.2 MG/DL 11/25/2024 8:49 AM [facility] TOTAL PROTEIN S/P/B 7.1 6.4 - 8.2 G/DL 11/25/2024 8:49 AM [facility] ALBUMIN S/P/B 3.3(L) 3.4 - 5.0 G/DL 11/25/2024 8:49 AM [facility] AST 51(H) 15 - 37 U/L 11/25/2024 8:49 AM [facility] ALT 54 14 - 55 U/L 11/25/2024 8:49 AM [facility] ALKALINE PHOSPHATASE S/P/B 82 50 - 136 U/L 11/25/2024 8:49 AM [facility] ANION GAP 12.7 5 - 15 MMOL/L 11/25/2024 8:49 AM [facility] BUN CREATININE RATIO 12.7 6 - 26 11/25/2024 8:49 AM [facility] A/G RATIO 0.9(L) 1.0 - 2.0 RATIO 11/25/2024 8:49 AM [facility] GFR ESTIMATE 89(L) >90 ML/MIN/1.7 3 M2 11/25/2024 8:49 AM [facility] Comment: NOTE: eGFR is not calculated for patients <18 years of age. This is an estimated GFR calculation using the new CKD EPI creatinine equation without race and so does not require a correction factor for race. This estimated GFR should not be used for calculating drug doses. 11/25/2024 8:25 AM CROSSING WATCHMAN Dev Askew DO LABORATORY Final Result [facility] [address] [place] [address], * (ABNORMAL) CBC W/DIFF AUTOMATED (11/25/2024 8:25 AM CROSSING WATCHMAN) WBC 4.53 4.4 - 11.0 x10'3/uL 11/25/2024 8:47 AM [facility] RBC 5.16(H) 4.50 - 5.10 x10'6/uL 11/25/2024 8:47 AM [facility] HGB 15.8(H) 12.3 - 15.3 G/DL 11/25/2024 8:47 AM [facility] HCT 46.0(H) 35.9 - 44.6 % 11/25/2024 8:47 AM [facility] MCV 89.1 80.0 - 96.0 FL 11/25/2024 8:47 AM [facility] MCH 30.6 25.3 - 30.9 PG 11/25/2024 8:47 AM [facility] MCHC 34.3(H) 31.0 - 34.1 G/DL 11/25/2024 8:47 AM [facility] RDW 13.5 12.4 - 15.1 % 11/25/2024 8:47 AM [facility] PLT 195 151 - 353 x10'3/uL 11/25/2024 8:47 AM [facility] MPV 9.8 9.6 - 12.0 FL 11/25/2024 8:47 AM [facility] SEG NEUTROPHILS 73(H) 42 - 72 % 8:48 AM [facility] LYMPHOCYTES 13(L) 15.8 - 45.0 % 11/25/2024 8:48 AM [facility] MONOCYTES 11 5.7 - 12.5 % 11/25/2024 8:48 AM [facility] ATYP. LYMPHS 3 % 11/25/2024 8:48 AM [facility] ABS. NEUTROPHILS 3.31 1.40 - 6.00 x10'3/uL 11/25/2024 8:48 AM [facility] ABS. LYMPHOCYTES 0.72(L) 0.80 - 4.70 x10'3/uL 11/25/2024 8:48 AM CROSSING WATCHMAN [facility] PLT MORPH. NORMAL 11/25/2024 8:48 AM [facility] RBC MORPHOLOGY NORMAL 11/25/2024 8:48 AM [facility] WBC MORPHOLOGY NORMAL 11/25/2024 8:48 AM [facility] 11/25/2024 8:25 AM CR[facility]ING WATCHMAN Dev Askew DO LABORATORY Final Result [facility] [address] [place] [address], [place] [phone] * (ABNORMAL) URINALYSIS, AUTO, COMPLETE (11/25/2024 8:00 AM CROSSING WATCHMAN) COLOR (U) DARK YELLOW 11/25/2024 10:07 AM [facility] TRANSPARENCY HAZY 11/25/2024 10:07 AM [facility] SPECIFIC GRAVITY (U) >1.030(H) 1.000 - 1.030 11/25/2024 10:07 AM [facility] U PH 6.0 5.0 - 9.0 11/25/2024 10:07 AM [facility] LEUKOCYTES (U) 1+(A) NEGATIVE 11/25/2024 10:07 AM [facility] NITRITES POSITIVE(A) NEGATIVE 11/25/2024 10:07 AM [facility] PROTEIN RANDOM (U) 2+(A) NEGATIVE 11/25/2024 10:07 AM [facility] GLUCOSE (U) NEGATIVE NEGATIVE 11/25/2024 10:07 AM [facility] KETONES MG/DL (U) TRACE(A) NEGATIVE 11/25/2024 10:07 AM [facility] BILIRUBIN (U) 1+(A) NEGATIVE 11/25/2024 10:07 AM [facility] BLOOD (U) 1+(A) NEGATIVE 11/25/2024 10:07 AM [facility] WBC/HPF 5-10 0 - 5 /HPF 11/25/2024 10:07 AM [facility] RBC/HPF 5-10 0 - 5 /HPF 11/25/2024 10:07 AM [facility] EPI/HPF FEW /HPF 11/25/2024 10:07 AM [facility] OTHER CASTS (U) FEW /LPF 10:07 AM [facility] Comment:HYALINE BACTERIA (U) FEW /HPF 11/25/2024 10:07 AM [facility] URINE ROMERO MODERATE 11/25/2024 10:07 AM [facility] Comment:MUCOUS URINE SPECIMEN OBTAINED BY CLEAN CATCH PROCEDURE / Unknown 11/25/2024 8:00 AM 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
--- OUTSIDE RECORDS SUMMARY | 2024-11-25 17:04 | XMS_ITS | Encounter Summary ---
Author Organization [facility] Address 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[employer] Gender Identity Not on file Sexual Orientation Not on file documented as of this encounter Plan of Treatment Not on file documented as of this encounter Procedures Procedure Name Priority Date/Time Associated Diagnosis Comments MRI TEMPROMANDIBULAR JOINTS Timed Study 12/16/2008 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 documented in this encounter Results * MRI TEMPROMANDIBULAR JOINTS (12/16/2008 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[employer]) Anatomical Region Laterality Modality Head Other 12/16/2008 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[employer] Narrative 12/16/2008 11:17 AM 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 Findings: Right temporomandibular joint: The right TMJ meniscus is in normal position with mouth closed. With mouth opening, there is good anterior translation of the right mandibular condylar head and the TMJs meniscus tracks normally. Right mandibular condylar head is noted to have a mild anterior spur. Left TMJ: There is some flattening of the left mandibular condylar head. There is anterior osteophyte formation more prominent than the right side. Left TMJ meniscus is in normal position with mouth closed. With mouth opening, there is good anterior translation of the left mandibular condylar head and the meniscus moves normally. 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 Normal position and tracking of temporomandibular joint menisci and normal anterior translation of mandibular condylar heads. . Dictated by: JANI DUNBAR 12/16/2008 08:01 Electronically signed by: JANI DUNBAR 12/16/2008 11:17 Transcribed: 12/16/2008 08:40 AMK Procedure Note Jani Dunbar MD - 12/16/2008 [facility] [address] [place], [place] [address] Admit Date: 12/16/2008 RUMA CALVO Sex: F Admit Prov: ELVIRA GERARD Date: 1970 Primary Care Prov: PCP, UNKNOWN CMRN: [id number] Room: [facility] SSN: [id number] IMAGING SERVICES Ordering Prov: N/A Interpretation MR IMAGING OF TEMPOROMANDIBULAR JOINTS 12/16/2008 History: Atypical face pain, right TMJ arthralgia for 6 months Scan protocol: Patient was scanned with 2 mm sagittal oblique T1, FSE T2 and [id number] images, gradient echo T2-weighted images with mouth in open andclosed position. Findings: Right temporomandibular joint: The right TMJ meniscus is in normal position with mouth closed. Withmouth opening, there is good anterior translation of the right mandibular condylar head and the TMJs meniscus tracks normally. Rightmandibular condylar head is noted to have a mild anterior spur. Left TMJ: There is some flattening of the left mandibular condylar head. Thereis anterior osteophyte formation more prominent than the right side.Left TMJ meniscus is in normal position with mouth closed. With mouth opening,there is good anterior translation of the left mandibular condylar head andthe meniscus moves normally. 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 Normal position and tracking of temporomandibular joint menisci andnormal anterior translation of mandibular condylar heads. . Dictated by: JANI DUNBAR 12/16/2008 08:01 Electronically signed by: JANI DUNBAR 12/16/2008 11:17 Transcribed: 12/16/2008 08:40 AMK us Elvira Gerard DDS MR ORDERABLES Final Result documented in this encounter Visit Diagnoses Diagnosis Atypical face pain documented in this encounter Care Teams Tile Machine Operator Relationship Specialty Start Date End Date Navid Kelly MD PCP - General Family Practice 06/30/17 documented as of this encounter
--- OUTSIDE RECORDS SUMMARY | 2024-11-25 17:04 | XMS_ITS | Data Portability ---
Author Organization [facility], Main Office Address [address] [place] [address] Care Team Providers Care Mortgage Loan Officer Name Role Phone EFE GOLDMAN Primary Care Provider [phone] EFE GOLDMAN Referring Provider [phone] Assessment No assessment recorded. Plan of Treatment Reminders Order Date Submit Date Provider Last Modified By Organization Details Last Modified Time Details Appointments None recorded. Lab None recorded. Referral None recorded. Procedures None recorded. Surgeries None recorded. Imaging US, doppler, venous - left leg , but do both *Please call pt to schedule* 2023 024 [email or web address] 256 [facility] (Radiology), [address] [place], [address], 4 09:28:32 US, doppler, venous - do both legs *Please call pt to schedule* 2023 024 [email or web address] 256 [facility] (Radiology), [address] [place], [address], 4 09:29:01 Medication Orders clobetasol 0.05 % topical cream [address] [facility] #[id number], [address] , [place], [place], [id number], 4 16:20:37 albuterol sulfate HFA 90 mcg/actuati on aerosol inhaler 2023 024 [place] [facility] #[id number], [address], [place], [place], [id number], 4 11:59:56 ipratropium 0.5 mg-albutero l 3 mg (2.5 mg base)/3 mL nebulizatio n soln 2023 [facility] #[id number], [address], [place], [place], [id number], 4 11:59:50 trazodone 50 mg tablet 2023 [facility] #[id number], [address], [place], [place], [id number], 4 12:02:54 clonazepam 0.5 mg tablet 2023 [facility] #[id number], [address], [place], [place], [id number], 12:04:26 Patient TargetsNo targets recorded. Patient Instructions Encounter Date Encounter Id Patient Instructions Last Modified By Organization Details Last Modified Time 04/16/2024 [id number] get records from admission and discharge. get sagar Headspace , write out thoughts, get book finding your strength , wrote this all down. recheck BP at home , she will let us know if still high . reviewed salty foods to avoid . [email or web address] Not available 04/20/2024 09:05:31 Reason for Referral None Reported. Results Created Date Observation Date Name Description Value Unit Range Abnormal Flag Note LastModifiedBy Organization Detail LastModifiedTime 08/10/20 22 XR, hand, 3 or more view No observ ation record ed. [id number] [address], [place], [address], 12/15/2022 01:02:32 09/24/20 22 09/23/2022 imagi ng/di agnos tic resul t No observ ation record ed. [id number] [facility] [address] [place], [address], 12/15/2022 01:02:32 09/28/20 23 09/28/2023 XR, chest No observ ation record ed. [email or web address] [facility] [address] [place], [address], 10/26/2023 12:53:31 09/28/20 23 09/28/2023 CT, abdom en + pelvi s, w/o contr ast No observ ation record ed. [facility] [address] [place], [address], 10/26/2023 12:53:32 03/30/20 24 03/30/2024 XR, chest No observ ation record ed. [place] [address], [place], [address], 04/02/2024 08:11:00 Result Notes None recorded. Problems Name Problem SNOMED Code Status Onset Date Resolution Date Notes Provider Name and Address Organization Details Recorded Time Irritable bowel syndrome 55760944 Active Not Available [facility] 3 00:53:19 Arthritis 0930785 Active Not Available [facility] 3 00:53:20 History of polyp of colon 979962531 Active Not Available [facility] 3 00:53:20 History of atopy 448062671 Active hx positive test for mold Not Available [facility] 00:53:20 Anxiety 59666476 Active Not Available [facility] 3 00:53:20 Viral hepatitis C 19023270 Active Not Available [facility] 3 00:53:20 Hemolytic anemia 53424651 Active 2005, treated with steroids, associated with hyperglyce neda Not Available [facility] 3 00:53:20 Chronic rhinitis 96442919 Active Not Available [facility] 3 00:53:20 Essential hypertens ion 66816877 Active 2023 Kaela Buchanan RN null, [place] [facility] 09:48:09 Notes:Albuterol HFA as neede d since 2011 Breyna 160/4.5 mcg 2 puffs BID since 2013 DuoNeb since 2013 Medical History: Anxiety Rhinitis Hypogammaglobulinemia Obesity Hypertension T2DM KEYSHAWN Hepatitis C Hepatomegaly Fatty liver IBS Hemolytic anemia Procedure History: Cholecystectomy Colonoscopy with polypectomy Problem Notes None recorded. Procedures Surgical History None recorded. Imaging Results Imaging Date Name Status LastModified by Organiz ation Details LastModified Time 09/23/2022 imaging/diagn ostic result completed [id number] [facility] [address] [place], [address], 12/15/2022 01:02:32 08/10/2022 XR, hand, 3 or more view completed [id number] [place] [address] [facility] [address], [place], [address], 12/15/2022 01:02:32 09/28/2023 XR, chest completed [email or web address] [facility] [address] [place], [address], 10/26/2023 12:53:31 09/28/2023 CT, abdomen + pelvis, w/o contrast completed [facility] [address] [place], [address], 10/26/2023 12:53:32 03/30/2024 XR, chest completed [email or web address] [place] [address] [address] [facility] [address], [place], [address], 04/02/2024 08:11:00 Procedure Notes None recorded. Medical Equipment None Reported. Allergies No known drug allergies Medications Name Sig Start Date Stop Date Status Note LastModified by Organization Details LastModified Time nifedipin e ER 30 mg tablet,ex tended release 24 hr TAKE 1 TABLET BY MOUTH DAILY active Not Available Not Available No t Available glycopyrr olate 1 mg tablet TAKE ONE TABLET BY MOUTH TWICE A DAY active Not Available Not Available No t Available amoxicill in 500 mg capsule 02/15 /2017 completed Not Available Not Available Not Available furosemid e 40 mg tablet TAKE 1 TABLET BY MOUTH DAILY active Not Available Not Available No t Available monteluka st 5 mg chewable tablet 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 07/18 completed Not Available Not Available Not Available albuterol sulfate 0.63 mg/3 mL solution for nebulizat ion Inhale 3 mL by inhalati on route q 4hrs while awake. active as needed Not Available Not Available Not Available nystatin 100,000 unit/mL oral suspensio n SHAKE LIQUID AND TAKE 5 ML BY MOUTH FOUR TIMES DAILY 04/08 completed Not Available Not Available Not Available prednison e 10 mg tablet TAPER PER OFFICE INSTRUCT IONS DIRECTED 04/08 completed Not Available Not Available Not Available gabapenti n 600 mg tablet 01/08 completed Not Available Not Available Not Available doxycycli ne hyclate 100 mg capsule TAKE 1 CAPSULE BY MOUTH EVERY 12 HOURS 04/08 completed Not Available Not Available Not Available cefuroxim e axetil 250 mg tablet active Not Available Not Available Not Available atorvasta tin 20 mg tablet active Not Available Not Available Not Available ipratropi um 0.5 mg-albute rol 3 mg (2.5 mg base)/3 mL nebulizat ion soln INHALE THE CONTENTS OF 1 VIAL USING NEBULIZE R FOUR TIMES DAILY NEEDED active Not Available Not Available No t Available clindamyc in HCl 300 mg capsule 07/19 completed Not Available Not Available Not Available albuterol sulfate 2.5 mg/3 mL (0.083 %) solution for nebulizat ion VVN Q 4 H PRF SOB active Not Available Not Available No t Available trazodone 50 mg tablet Take 1 tablet every day by oral route at bedtime for 30 days. active Not Available Not Available No t Available cetirizin e 10 mg tablet TK ONE T PO D 12/23 completed Not Available Not Available Not Available azithromy torrey 250 mg tablet TAKE 2 TABLETS BY MOUTH FOR 1 DAY THEN TAKE 1 TABLET BY MOUTH DAILY FOR 4 DAYS 04/08 completed Not Available Not Available Not Available lidocaine 5 % topical cream 1 applicat ion to area prior to joshua cath ascess 08/10 completed Not Available Not Available Not Available ibuprofen 800 mg tablet 12/23 completed Not Available Not Available Not Available alprazola m 1 mg tablet TAKE 1 TABLET BY MOUTH THREE TIMES DAILY NEEDED 07/01 completed Not Available Not Available Not Available fluconazo le 150 mg tablet TK 1 T PO TODAY. REPEAT DOSE IN 3 DAYS 12/23 completed Not Available Not Available Not Available benzonata te 200 mg capsule TAKE ONE CAPSULE BY MOUTH THREE TIMES DAILY NEEDED 04/08 completed Not Available Not Available Not Available hydrocodo ne 5 mg-acetam inophen 325 mg tablet TAKE 1 TABLET BY MOUTH EVERY 6 HOURS NEEDED FOR PAIN active not taking but would like to discuss Not Available Not Available Not Available ondansetr on HCl 8 mg tablet Take 1 tablet 3 times a day by oral route. 08/10 completed Not Available Not Available Not Available meloxicam 15 mg tablet TK 1 T PO ONCE A DAY 07/21 completed Not Available Not Available Not Available ondansetr on HCl 4 mg tablet TK 1 T PO Q 6 H PRN NV 07/21 completed Not Available Not Available Not Available famotidin e 40 mg tablet TK 1 T PO QD 07/21 completed Not Available Not Available Not Available prednison e 20 mg tablet TAKE 2 TABLETS BY MOUTH EVERY DAY FOR 5 DAYS 04/08 completed Not Available Not Available Not Available clonazepa m 0.5 mg tablet TAKE 1 TABLET BY MOUTH TWICE DAILY FOR 7 DAYS NEEDED FOR ANXIETY active Not Available Not Available No t Available sertralin e 100 mg tablet active Not Available Not Available Not Available moxifloxa torrey 400 mg tablet active Not Available Not Available No t Available clobetaso l 0.05 % topical cream APPLY A THIN LAYER TO THE AFFECTED AREA TWICE DAILY NEEDED 04/08 completed Not Available Not Available Not Available clindamyc in HCl 150 mg capsule active Not Available Not Available Not Available penicilli n V potassium 500 mg tablet active Not Available Not Available Not Available meclizine 12.5 mg tablet 12/23 completed Not Available Not Available Not Available phentermi ne 37.5 mg tablet TK 1 T PO QD active Not Available Not Available No t Available acetamino phen 300 mg-codein e 30 mg tablet active Not Available Not Available Not Available amlodipin e 5 mg tablet TAKE 1 TABLET BY MOUTH EVERY DAY active Not Available Not Available No t Available ciproflox acin 500 mg tablet TAKE 1 TABLET BY MOUTH TWICE DAILY 04/08 completed Not Available Not Available Not Available sulfameth oxazole 800 mg-trimet hoprim 160 mg tablet TAKE 1 TABLET BY MOUTH TWICE DAILY FOR 10 DAYS 04/08 completed Not Available Not Available Not Available hydrocodo ne 10 mg-acetam inophen 325 mg tablet TK 1 T PO Q 6 H PRN 07/21 completed Not Available Not Available Not Available peg-elect rolyte solution 420 gram oral solution 08/31 completed Not Available Not Available Not Available omeprazol e 40 mg capsule,d elayed release 01/08 completed Not Available Not Available Not Available tramadol 50 mg tablet TAKE 1 TABLET BY MOUTH THREE TIMES DAILY NEEDED active Not Available Not Available No t Available guaifenes in 200 mg tablet TAKE 1 TABLET BY MOUTH EVERY 6 HOURS 04/08 completed Not Available Not Available Not Available prednison e 10 mg tablets in a dose pack active Not Available Not Available Not Available nystatin- triamcino lone 100,000 unit/gram -0.1 % topical ointment 07/21 completed Not Available Not Available Not Available cefadroxi l 500 mg capsule active Not Available Not Available Not Available meloxicam 7.5 mg tablet 08/31 completed Not Available Not Available Not Available sodium chloride 0.9 % irrigatio n solution active Not Available Not Available Not Available oxycodone -acetamin ophen 5 mg-325 mg tablet TK 1 OR 2 TS PO Q 6 H PRN P active Not Available Not Available No t Available alprazola m 0.5 mg tablet Take 1 tablet every 8 hours by oral route. active Not Available Not Available No t Available Guaiatuss in AC 10 mg-100 mg/5 mL oral liquid active Not Available Not Available Not Available amoxicill in 875 mg tablet 11/01 completed Not Available Not Available Not Available alprazola m 0.25 mg tablet as needed active Not Available Not Available No t Available potassium chloride ER 20 mEq tablet,ex tended release(p art/cryst ) TAKE 1 TABLET BY MOUTH DAILY active Not Available Not Available No t Available prednisol one acetate 1 % eye drops,mohan pension 01/08 completed Not Available Not Available Not Available lorazepam 0.5 mg tablet active Not Available Not Available Not Available methocarb teresita 750 mg tablet 08/10 completed Not Available Not Available Not Available ropinirol e 0.25 mg tablet active Not Available Not Available Not Available dicyclomi ne 20 mg tablet TK 1 T PO Q 6 H PRF ABDOMINA L CRAMPING 07/21 completed Not Available Not Available Not Available baclofen 10 mg tablet TK 1 T PO TID. 07/21 completed Not Available Not Available Not Available benzonata te 100 mg capsule active Not Available Not Available Not Available hydrocodo ne 7.5 mg-acetam inophen 325 mg tablet TAKE 1 TABLET BY MOUTH EVERY 6 HOURS FOR 7 DAYS NEEDED FOR SEVERE PAIN active Not Available Not Available No t Available cephalexi n 500 mg capsule TAKE 1 CAPSULE BY MOUTH THREE TIMES DAILY FOR 7 DAYS 07/19 completed Not Available Not Available Not Available pantopraz ole 40 mg tablet,de layed release TAKE 1 TABLET BY MOUTH EVERY DAY active Not Available Not Available No t Available oseltamiv ir 75 mg capsule 07/21 completed Not Available Not Available Not Available prednison e 50 mg tablet active Not Available Not Available Not Available lidocaine 5 % topical patch UNW AND SAGAR 1 PA TO Q 07/21 completed Not Available Not Available Not Available promethaz ine 25 mg tablet 12/23 completed Not Available Not Available Not Available ibuprofen 400 mg tablet 08/10 completed Not Available Not Available Not Available orphenadr ine citrate ER 100 mg tablet,ex tended release 08/31 completed Not Available Not Available Not Available Advair Diskus 500 mcg-50 mcg/dose powder for inhalatio n Inhale 1 puff twice a day by inhalati on route. 2012 active Not Available Not Available Not Avai lable omeprazol e 20 mg capsule,d elayed release TK 1 C PO QD BEFORE A MEAL 07/21 completed Not Available Not Available Not Available budesonid e 0.5 mg/2 mL suspensio n for nebulizat ion 12/09 completed Not Available Not Available Not Available estradiol 2 mg tablet active Not Available Not Available Not Available monteluka st 10 mg tablet TAKE 1 TABLET BY MOUTH AT BEDTIME active Not Available Not Available No t Available morphine ER 15 mg tablet,ex tended release TK 1 T PO Q 12 H 07/21 completed Not Available Not Available Not Available hydrocodo ne 5 mg-acetam inophen 500 mg tablet active Not Available Not Available Not Available acetamino phen 300 mg-codein e 60 mg tablet active Not Available Not Available Not Available mupirocin 2 % topical ointment SAGAR 22 GRAMS EXT AA QID 12/01 completed Not Available Not Available Not Available fluvoxami ne 50 mg tablet 1 po daily 07/21 completed Not Available Not Available Not Available gabapenti n 100 mg capsule 07/21 completed Not Available Not Available Not Available epinephri ne 0.3 mg/0.3 mL injection , auto-inje ctor INJECT O.3ML INTO MUSCLE NEEDED FOR ANAPHLYA XIS active Not Available Not Available No t Available lisinopri l 10 mg-hydroc hlorothia zide 12.5 mg tablet active Not Available Not Available No t Available ibuprofen 600 mg tablet 07/21 completed Not Available Not Available Not Available cefuroxim e axetil 500 mg tablet active Not Available Not Available Not Available levofloxa torrey 500 mg tablet Take 1 tablet every 24 hours by oral route for 10 days. 07/19 completed Not Available Not Available Not Available oxycodone -acetamin ophen 7.5 mg-325 mg tablet Take 1-2 tablet(s ) EVERY 6 HOURS by oral route prn 12/01 completed Not Available Not Available Not Available levofloxa torrey 750 mg tablet 07/21 completed Not Available Not Available Not Available methylpre dnisolone 4 mg tablets in a dose pack FOLLOW PACKAGE DIRECTIO NS active Not Available Not Available No t Available albuterol sulfate HFA 90 mcg/actua tion aerosol inhaler INHALE 2 PUFFS BY MOUTH FOUR TIMES DAILY 2023 active Not Available Not Available Not Avai lable clomipram ine 25 mg capsule TAKE 1 CAPSULE BY MOUTH TWICE DAILY active Not Available Not Available No t Available ketoconaz ole 2 % topical cream APPLY TOPICALL Y TO THE AFFECTED AREA 1 TO 2 TIMES DAILY UNTIL GONE 04/08 completed Not Available Not Available Not Available morphine 15 mg immediate release tablet 07/21 completed Not Available Not Available Not Available ondansetr on 4 mg disintegr ating tablet DISSOLVE 1 TO 2 TABLETS IN MOUTH Q 6 H PRN FOR NAUSEA 07/21 completed Not Available Not Available Not Available cefdinir 300 mg capsule active Not Available Not Available Not Available losartan 100 mg tablet TAKE 1 TABLET BY MOUTH EVERY DAY active Not Available Not Available No t Available fluoxetin e 20 mg capsule TAKE 1 CAPSULE BY MOUTH EVERY DAY active Not Available Not Available No t Available fluticaso ne propionat e 50 mcg/actua tion nasal spray,mohan pension Inhale 1 spray every day by intranas al route. active Not Available Not Available No t Available metformin ER 500 mg tablet,ex tended release 24 hr TAKE 2 TABLETS BY MOUTH EVERY DAY 04/16 completed Not Available Not Available Not Available clotrimaz ole 1 % topical cream active Not Available Not Available Not Available sertralin e 50 mg tablet Take 1 tablet every day by oral route. 08/31 completed Not Available Not Available Not Available doxycycli ne hyclate 100 mg tablet TK 1 T PO Q 12 H 01/08 completed Not Available Not Available Not Available glycopyrr olate 2 mg tablet active Not Available Not Available No t Available loratadin e 10 mg tablet TAKE 1 TABLET BY MOUTH DAILY active Not Available Not Available No t Available prazosin 2 mg capsule TAKE 1 CAPSULE BY MOUTH AT BEDTIME active Not Available Not Available No t Available naproxen 500 mg tablet 04/08 completed Not Available Not Available Not Available diazepam 5 mg tablet 01/08 completed Not Available Not Available Not Available amoxicill in 875 mg-potass ium clavulana te 125 mg tablet TAKE 1 TABLET BY MOUTH EVERY 12 HOURS FOR 10 DAYS 06/08 completed Not Available Not Available Not Available Flexeril 10 mg tablet TK 1 T PO Q 8 HOURS PRN FOR SPASM 04/28 completed Not Available Not Available Not Available oxycodone 5 mg tablet 07/19 completed Not Available Not Available Not Available Laxative (bisacody l) 5 mg tablet TK ALL 6 TS PO AT 9AM ON 06/30 completed Not Available Not Available Not Available Novolog FlexPen U-100 Insulin aspart 100 unit/mL (3 mL) subcutane ous NEED MAX DAILY DOSE DIRECTED active Not Available Not Available No t Available Vigamox 0.5 % eye drops 07/21 completed Not Available Not Available Not Available potassium chloride ER 10 mEq tablet,ex tended release(p art/cryst ) 12/23 completed Not Available Not Available Not Available hydrocodo ne 7.5 mg-acetam inophen 325 mg/15 mL oral solution 08/31 completed Not Available Not Available Not Available Lunesta 3 mg tablet active Not Available Not Available No t Available losartan 100 mg-hydroc hlorothia zide 12.5 mg tablet TAKE 1 TABLET BY MOUTH EVERY DAY 04/08 completed Not Available Not Available Not Available calcipotr iene-beta methasone 0.005 %-0.064 % topical ointment 07/21 completed Not Available Not Available Not Available Advair HFA 115 mcg-21 mcg/actua tion aerosol inhaler active Not Available Not Available Not Available Symbicort 160 mcg-4.5 mcg/actua tion HFA aerosol inhaler INHALE 2 PUFFS BY MOUTH TWICE DAILY active Not Available Not Available No t Available Symbicort 80 mcg-4.5 mcg/actua tion HFA aerosol inhaler INHALE 2 PUFFS PO BID active Not Available Not Available No t Available carisopro dol 250 mg tablet TAKE 1 TABLET BY MOUTH AT BEDTIME active Not Available Not Available No t Available Nucynta 50 mg tablet Take 1-2 TABLET EVERY 4-6 HOURS by oral route prn. active Not Available Not Available No t Available Dulera 200 mcg-5 mcg/actua tion HFA aerosol inhaler 2 puffs twice daily active Not Available Not Available No t Available Vios Aerosol Delivery System active Not Available Not Available Not Available OneTouch Verio test strips TEST FOUR TIMES DAILY DIRECTED 07/01 completed Not Available Not Available Not Available Eclipse Syringe 3 mL 25 gauge x 1 USE DIRECTED 04/08 completed Not Available Not Available Not Available Vicodin 5 mg-300 mg tablet 07/18 completed Not Available Not Available Not Available Linzess 145 mcg capsule TK ONE C PO QD AC 07/21 completed Not Available Not Available Not Available Linzess 290 mcg capsule active Not Available Not Available Not Available Ilevro 0.3 % eye drops,mohan pension active Not Available Not Available Not Available Asmanex HFA 100 mcg/actua tion aerosol inhaler Inhale 2 puffs twice a day by inhalati on route. active Not Available Not Available No t Available Arnuity Ellipta 100 mcg/actua tion powder for inhalatio n active Not Available Not Available Not Available BD Candice 2nd Gen Pen Needle 32 gauge x /32 NEED FREQUENC Y DIRECTED 04/08 completed Not Available Not Available Not Available OneTouch Delica Plus Lancet 30 gauge TEST FOUR TIMES DAILY DIRECTED 04/08 completed Not Available Not Available Not Available OneTouch Verio Reflect Meter USE TO TEST BLOOD SUGARS 04/08 completed Not Available Not Available Not Available BinaxNOW COVID-19 Ag Self Test kit TEST DIRECTED TODAY 07/19 completed Not Available Not Available Not Available Ozempic 0.25 mg or 0.5 mg (2 mg/3 mL) subcutane ous pen injector INJECT 0.25 MG SUBCUTAN EOUSLY WEEKLY active Not Available Not Available No t Available Vitals Date Recorded Body mass index (BMI) Body mass index (BMI) Body mass index (BMI) Body height Body height Body height Oxygen saturation Oxygen saturation in Arterial blood by Pulse oximetry Oxygen saturation Oxygen saturation in Arterial blood by Pulse oximetry Pain severity - 0-10 verbal numeric rating [Score] - Reported Heart rate Heart rate Body temperature Body temperature Body weight Body weight Body weight Systolic blood pressure Diastolic blood pressure Systolic blood pressure Diastolic blood pressure Provider Name and Address Organization Details Last Updated DateTime 3 35.4 kg/m2 34.5 kg/m2 35.2 kg/m2 170.18 cm 170.18 cm 170.18 cm 98 % 98 % 98 % 98 % 7 101 /min 98 /min 97.2 [degF] 96.1 [degF] 282180. 88 g 04999.3 2 g 328527. 28 g 136 mm[Hg] 80 mm[Hg] 140 mm[Hg] 120 mm[Hg] Not Available [facility] 3 00:49:27 Date Recorded Body height Body mass index (BMI) Body weight Body temperature Heart rate Oxygen saturation Oxygen saturation in Arterial blood by Pulse oximetry Systolic blood pressure Diastolic blood pressure Provider Name and Address Organization Details Last Updated DateTime 3 170.18 cm 34.5 kg/m2 69397.3 2 g 96.4 [degF] 88 /min 98 % 98 % 118 mm[Hg] 74 mm[Hg] Elvira aparicio CMA [place] [facility] [employer] 3 12:37:01 Date Recorded Body height Body mass index (BMI) Body weight Body temperature Heart rate Oxygen saturation Oxygen saturation in Arterial blood by Pulse oximetry Respiratory rate Systolic blood pressure Diastolic blood pressure Provider Name and Address Organization Details Last Updated DateTime 4 170.18 cm 33.7 kg/m2 28119.3 6 g 98.1 [degF] 84 /min 96 % 96 % 16 /min 130 mm[Hg] 100 mm[Hg] Kaela Buchanan RN [facility] [employer] 4 11:40:27 Social History Question Answer Notes LastModified by Organizat ion Details LastModified Time Tobacco Smoking Status Current Every Day Smoker Not Available [facility] 12/15/2022 00:46:26 What Is Your Level Of Alcohol Consumption? 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 08/10/2022 [id number] Information not available 12/15/2022 How Much Tobacco Do You Smoke? 1 PPW [id number] Information not available 12/15/2022 How Many Years Have You Smoked Tobacco? 22 [id number] Information not available 12/15/2022 Sex: Unknown Functional Status None recorded. Mental Status None recorded. Family History Relationship Description Onset Age of this Age Resolved Age Notes LastModified by Organization Details LastModified Time Maternal Grandfather Malignant tumor of lung [id number] Not available 12/15/2022 00:47:58 Maternal Grandfather Asthma [id number] Not available 12/15/2022 00:47:58 Mother Asthma [id number] Not available 12/15/2022 00:47:59 Medical History Condition Response DIABETES, TYPE Y ANEMIA/BLOOD DISORDER Y Gynecological HistoryNo gynecological history recorded. Obstetrics History GPAL:G 0 P 0 0 0 0 Immunizations Vaccine Type Date Status Note Provider Nam e and Address Organization Details Recorded Time influenza, unspecified formulation 4 completed Not Available [facility] 10/03/2023 23:08:14 influenza, unspecified formulation 5 completed Not Available [facility] 10/03/2023 23:08:14 Influenza, split virus, quadrivalent, preservative 6 completed Not Available [facility] 10/03/2023 23:08:14 Past Encounters Encounter ID Performer Location Encounter Start Date Encounter Closed Date Diagnosis/Indication Diagnosis SNOMED-CT Code Diagnosis ICD10 Code Diagnosis Note [id number] [facility] [place] [address] [place] [address] 01/08/2021 00:00:00 01/09/2021 06:06:03 [id number] S_G [facility] [place] [address] [place] [address] 04/28/2021 00:00:00 04/28/2021 20:58:06 [id number] S_G General Surgery 4 [facility], [facility] [address] [place] [address] 06/02/2021 00:00:00 06/02/2021 14:09:23 [id number] S_G [facility] [place] [address] [place] [address] 11/03/2021 00:00:00 11/04/2021 08:27:40 [id number] [facility] [place] [address] [place] [address] 12/09/2021 00:00:00 12/09/2021 21:18:44 [id number] S_G [facility] [place] [address] [place] [address] 07/19/2022 00:00:00 07/19/2022 20:52:46 [id number] S_G [facility] [address] [place] [address] 08/10/2022 00:00:00 08/10/2022 16:49:40 [id number] S_GMG [facility] [place] [address] [place] [address] 11/04/2022 00:00:00 11/04/2022 21:39:26 [id number] Navid Kelly MD [facility] [place] [address] [place] [address] 06/14/2023 12:27:52 06/14/2023 13:10:03 Eczema 55351182 L30.9 Reassuranc e given not a parasite Asthma 856166434 J45.90 9 Use inhalers and steroids. [id number] DEMETRIS Reeder [facility] [place] [address] [place] [address] 04/16/2024 11:02:05 04/16/2024 12:08:34 Cramp of muscle of right lower limb 6736521462 2400075 R25.2 Acute asthma 961273587 J 45.901 Anxiety 89276976 F41.9 Asthma 176164955 J45.90 9 Insomnia 859051836 G47.0 0 Cramp of m uscle of left lower limb 5413395817 8501708 R25.2 Hemolytic anemia 5957143 9 D59.4 Irritable bowel syndrome 90831114 K58.9 Reactive a irway disease 9149633418 06 J45.909 Health Concerns Section Related Observation LastModified by Organization Detai ls LastModified Time None Recorded Concern Status LastModified by Organization Details LastModified Time None Recorded Advance Directives Directive None Recorded Payers Encounter Date Sequence Insurance Name Policy Number Policy Jasmine Covered Member ID Jasmine Member ID Guarantor Name 06/14/2023 1 [facility] (MEDICARE REPLACEMENT HMO) Jeniffer Garcia Wing [id number] Jeniffer Garcia Wing 06/14/2023 2 [employer] - [facility] - CHOICE PLUS (PPO) [id number] Raj Dimas [id number] Jeniffer E Wing 04/16/2024 1 [facility] (MEDICARE REPLACEMENT HMO) Jeniffer Garcia Wing [id number] Jeniffer E Wing 04/16/2024 2 [facility] [id number] Jeniffer [place]wood [id number] Jeniffer Dimas Notes Date Note Type Note Provider Name and Address Organization Details Recorded Time 06/14/2023 text/html Here today think ing she has a parasite. Has had rash. The rash is itching. She feels as if things are moving under her skin. Has discoloration of skin on left thigh and left ankle. Navid Kelly MD [address], [facility] [address], [place], [address], [employer] [facility] [employer] 06/14/2023 21:15:06 04/16/2024 text/html on a baby aspiri n . 27 y/o son is an addict and a drain .... DEMETRIS Reeder [address], [facility] [address], [place], [address], [employer] 04/24/2024 17:01:33 OBGyn Episode No OBEpisode recorded.
--- OUTSIDE RECORDS SUMMARY | 2024-11-25 17:04 | XMS_ITS | Encounter Summary ---
Author Organization [facility] Address [facility] [place] [address] Care Team Providers Care Sterile Instrument Technician Name Role Phone Joe Covarrubias MD Primary Care Provider Unavailable Navid [place] MD Primary Care Provider [phone] None, Provider Primary Care Provider Unavaila ble Encounter Details Date Type Department Care Team (Late st Contact Info) Description 12/28/2016 Abstract [facility] CONVERSION [address] [place] [address] Joe Covarrubias MD Social History Tobacco Use Types Packs/Day Years [...] documented as of this encounter Care Teams Sterile Instrument Technician Relationship Specialty Start Date End Date Joe Covarrubias MD PCP - General 03/06/15 Navid [place] MD [address] [address] PCP - General FAMILY PRACTICE 03/23/23 11/24/24 None, ProviderMD PCP - General UNKNOWN PHYSICIAN SPECIALTY 11/25/24 documented as of this encounter
--- OUTSIDE RECORDS SUMMARY | 2024-11-25 17:04 | XMS_ITS | Referral Summary ---
Author Organization [email or web address] Address [address] [facility] [place] [address] Care Team Providers Care Marine Pilot Name Role Phone Navid Kelly MD Primary Care Provider [phone] Source Comments [facility] [email or web address],non-owned Affiliates and Associated Physician Practices is amultiple site organization consisting of ambulatory clinics and hospital sitesin [place], [place], [place] and [place]. This disclosure is being madepursuant to the Care Everywhere program and may not contain all information available regarding this patient. Last updated 18.[email or web address] Allergies Active Allergy Reactions Criticality Noted Date Comments Adhesive Sensitivity Rash Medium 06/30/2016 Latex Itching 03/24/2022 Pollen Extract Shortness of Breath High 03/14/2018 Medications * Be aware that medications may not be up to date on this document. Alwaysverify current medications with the patient. Medication Sig Dispensed Refills Start Date End Date Status VENTOLIN HFA 108 (90 BASE) MCG/ACT inhaler Inhale 2 (two) puffs by mouth as needed 12/06/2017 Active diphenhydrAMINE (BENADRYL) 25 MG tablet Take 2 (two) tablets by mouth 2 times daily Active albuterol (PROVENTIL;VENTOL IN) (2.5 MG/3ML) 0.083% nebulizer solution Inhale 2.5 (two and one-half) mg by mouth as needed 04/10/2018 Active albuterol-ipratro pium (DUO-NEB) 0.5-2.5 (3) MG/3ML nebulizer solution 3 mL as needed 0 11/10/2018 Active SYMBICORT 160-4.5 MCG/ACT inhaler INL 2 PFS PO Q 12 H 0 12/28/2018 Active metFORMIN (GLUCOPHAGE) 500 MG tablet Take 1 (one) tablet by mouth 2 times daily with morning and evening meal Active ibuprofen (Motrin) 400 MG tablet Take 1 (one) tablet by mouth every 6 hours as needed for Pain 30 tablet 1 05/31/2022 Active losartan-hydroCHL OROthiazide (Hyzaar) 100-12.5 MG tablet Take 1 (one) tablet by mouth once daily 05/02/2022 Active allergy injection Per [facility] Otolaryngology protocol Active prazosin (Minipress) 2 MG capsule Take 1 (one) capsule by mouth once daily Active FLUoxetine (PROzac) 20 MG capsule Take 1 (one) capsule by mouth once daily Active SYRINGE-NEEDLE, DISP, 3 ML 25G X 5/8 3 ML MISC Dispense 30 syringes for 1 month supply 30 Each 2 09/29/2022 Active Additional Information Patient not taking.Reported on 11/30/2023 ALPRAZolam (Xanax) 1 MG tablet Take 1 (one) tablet by mouth 3 times daily as needed 10/13/2022 Active clomiPRAMINE (Anafranil) 25 MG capsule Take 1 (one) capsule by mouth 2 times daily 09/15/2022 Active pantoprazole EC (Protonix) 40 MG tablet Take 1 (one) tablet by mouth as directed 10/30/2022 Active BD Eclipse Syringe 25G X 1 3 ML MISC Use 1 (one) Each as directed 10/01/2022 Active SYRINGE/NEEDLE, DISP, 1 ML (BD Eclipse Syringe) 25G X 5/8 1 ML MISC Use 1 Each as directed Active amLODIPine (Norvasc) 5 MG tablet Take 1 (one) tablet by mouth once daily 01/31/2023 Active benzonatate (Tessalon) 200 MG capsule Take 1 (one) capsule by mouth 3 times daily as needed 01/02/2023 Active nystatin (Mycostatin) 190160 UNIT/ML suspension Take 5 mL by mouth 4 times daily 01/02/2023 Active predniSONE (Deltasone) 20 MG tablet Take 2 (two) tablets by mouth as needed 03/07/2023 Active EPINEPHrine (Epipen) 0.3 MG/0.3ML auto-injector pen Inject 0.3 mL into muscle as needed for Anaphylaxis 1 Each 05/31/2024 Active Active Problems Problem Noted Date Diagnosed Date [...] Post-operative nausea and vomiting 07/05/2017 07/28/2022 Immunizations Name Administration Dates Next Due INFLUENZA VACCINE, TRIV. (AF LURIA, FLUZONE TRIVALENT; 6MO+) (IIV3) 07/30/2015 FLU VACCINE QUAD IIV4 SPLIT 0.25 ML IM 08/31/2016 INFLUENZA VACCINE 08/03/2018, 5,07/30/2015, 014 Social History Tobacco Use Types Packs/Day Years [...] Comments Blood Pressure 146/122 11/30/2023 2:29 PM TITLE CURATOR Pulse 96 11/30/2023 2:29 PM TITLE CURATOR Temperature 37 C (98.6 F) 05/31/2022 3:39 PM CDT Respiratory Rate 10 06/09/2022 2:35 PM CDT Oxygen Saturation 95% 05/31/2022 4:00 PM CDT Inhaled Oxygen Concentration 21% 05/31/2022 2 :55 PM CDT Weight 103.9 kg (229 lb) 11/30/2023 2:29 PM TITLE CURATOR Height 167.6 cm (5' 6 ) 11/30/2023 2:29 PM TITLE CURATOR Body Mass Index 36.96 11/30/2023 2:29 PM TITLE CURATOR Functional Status Functional Status Response Date of Assess ment Is person deaf or have serious hearing difficult y? No 05/31/2022 Is person blind or have serious difficulty seein g? No 05/31/2022 Does person have serious dif ficulty walking/climbing stairs? No 05/31/2022 Does person have difficulty dressing/bathing? No 05/31/2022 Does person have difficulty doing errands alone? No 05/31/2022 Cognitive Status Response Date of Assessm ent Does person have difficulty concentrating/remembering/making decisions? No 05/31/2022 Plan of Treatment Upcoming Encounters Date Type Department Care Team (Late st Contact Info) Description 12/05/2024 2:00 PM TITLE CURATOR Office Visit [facility] - ENT [address] [place] [address] Harrison Phelan MD [address] [place] [address] [place] [address] Goals Goal Patient Goal Type Associated Problems Recent Progress Patient-Stated? Author Safety General On track( 018 3:45 PM CDT) No Lucinda Sands RN Note: Expected end date: Ongoing Interventions: Your nurse will assess your risk for falls/injury each visit Use appropriate and safe transfer methods Medication Management General On track( 018 3:45 PM CDT) Lucinda Contreras RN Note: Expected end date: Ongoing Interventions: Take all medications as prescribed Let your doctor know right away about any changes in your medications Procedures Procedure Name Priority Date/Time Associated Diagnosis Comments GLUCOSE - POINT OF CARE Routine 05/31/2022 11:45 AM CDT CYTOLOGY PAP LEATHER WORKER HERBERT 03/29/1996 9:50 AM CDT from Last 3 Months or Most Recently Relevant to Health Maintenance Results * (ABNORMAL) GLUCOSE - POINT OF CARE (05/31/2022 11:45 AM CDT) Glucose WB/POC 135(H) 70 - 115 mg/dL 05/31/2022 11:50 AM CDT [facility] Specimen Type Cap Fingerstick 2021 11:50 AM CDT [facility] Blood BLOOD SPECIMEN / Unknown 05/31/2022 11:45 AM CDT 05/31/2022 11:50 AM CDT Harrison Phelan MD LAB - POINT OF CARE ORDERABLES [facility] [address] [place] [address], [facility] [phone] * CYTOLOGY PAP LEATHER WORKER (03/29/1996 9:50 AM CDT) Result CASE NUMBER [id number] Comment: ORDERING PHYSICIAN MARTINZE [facility] SPECIMEN TYPE PAP Smear Date 04/02/1996 Physician Rico Procedure Pap Cervical/Endocervical Specimen Adequacy Satisfactory for Evaluation Categorization Epithelial Cell Abnormality Atypical sq. cells of undetermined significance (ASCUS) Pathologist Kai Vanegas M.D. 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
--- OUTSIDE RECORDS SUMMARY | 2024-11-25 17:04 | XMS_ITS | Clinical Summary ---
Author Organization [facility] Address [address] [place] [address] Care Team Providers Care Customer Records Division Supervisor Name Role Phone Navid Kelly MD Primary Care Provider [phone] Source Comments [facility],non-owned Affiliates and Associated Physician Practices is amultiple site organization consisting of ambulatory clinics and hospital sitesin [place], [place], [place] and [place]. This disclosure is being madepursuant to the Care Everywhere program and may not contain all information available regarding this patient. Last updated 18.[facility] Allergies Active Allergy Reactions Criticality Noted Date [...] once daily 05/02/2022 Active allergy injection Per [facility] Otolaryngology protocol Active prazosin (Minipress) 2 MG [...] daily as needed 01/02/2023 Active nystatin (Mycostatin) 127141 UNIT/ML suspension Take 5 mL by mouth [...] IM 08/31/2016 INFLUENZA VACCINE 08/03/2018, 5,07/30/2015, 014 Family History Medical History Relation Name Comments Other Father Hypertension Mother Other Mother Tension Headach es Other Paternal Grandfather Hypertension Sister Relation Name Status Comments Brother 1 Alive Brother 2 Alive Brother 3 Alive Father Mother Alive Paternal Grandfather Sister Alive Social History Tobacco Use Types Packs/Day Years [...] Comments Blood Pressure 146/122 11/30/2023 2:29 PM BIODIESEL PLANT OPERATIONS ENGINEER Pulse 96 11/30/2023 2:29 PM BIODIESEL PLANT OPERATIONS ENGINEER Temperature 37 C (98.6 F) 05/31/2022 3:39 PM CDT Respiratory Rate 10 06/09/2022 2:35 PM CDT Oxygen Saturation 95% 05/31/2022 4:00 PM CDT Inhaled Oxygen Concentration 21% 05/31/2022 2 :55 PM CDT Weight 103.9 kg (229 lb) 11/30/2023 2:29 PM BIODIESEL PLANT OPERATIONS ENGINEER Height 167.6 cm (5' 6 ) 11/30/2023 2:29 PM BIODIESEL PLANT OPERATIONS ENGINEER Body Mass Index 36.96 11/30/2023 2:29 PM BIODIESEL PLANT OPERATIONS ENGINEER Plan of Treatment Upcoming Encounters Date Type Department Care Team (Late st Contact Info) Description 12/05/2024 2:00 PM BIODIESEL PLANT OPERATIONS ENGINEER Office Visit [facility] - ENT [address] [place] [address], [place] [address] Harrison Phelan MD [address] [place] [address] [place] [address] Health Maintenance Due Date Last Done Comments COLOGUARD (AGES 45-75) - COLON CA SCREENING 1970 COLON MONITORING 1970 COLONOSCOPY - COLON CA SCREENING 1970 CT COLONOGRAPHY - COLON CA SCREENING 1970 Colorectal Cancer Screening 1970 FIT - COLON CA SCREENING 1970 FLEX SIG - COLON CA SCREENING 1970 LIPID TESTING 1970 MAMMOGRAM 1970 HIV SCREENING 1985 DTAP/TDAP/TD VACCINES (1 - Tdap) 1989 HEPATITIS B VACCINE (1 of 3 - 19+ 3-dose series) 1989 PNEUMOCOCCAL VACCINE 50+ (1 of 2 - PCV) 1989 PAP SMEAR 03/29/1999 03/29/1996 ZOSTER VACCINE (1 of 2) 2020 COVID-19 VACCINE (3 - season) 2024 04/23/2021, 03/21/2021 INFLUENZA VACCINE (#1) 2024 8, 10/17/2017, 08/31/2016, Additional history exists DEPRESSION SCREENING 10/17/2024 MEDICARE AWV CALENDAR YEAR 2024 SCREENING FOR DIABETES 05/31/2025 05/31/2022, 2021 HEPATITIS C SCREENING Completed 02/02/2017 HIB VACCINE Aged Out No longer eligi ble based on patient's age to complete this topic HPV VACCINE Aged Out No longer eligi ble based on patient's age to complete this topic MENINGOCOCCAL (Group B) VACCINE Aged Out No longer eligible based on patient's age to complete this topic MENINGOCOCCAL VACCINE Aged Out No jocelyne keisha eligible based on patient's age to complete this topic Goals Goal Patient Goal Type Associated Problems Recent Progress Patient-Stated? Author Safety General On track( 3:45 PM CDT) No Lucinda Sands, MARY ANNE Note: Expected end date: Ongoing Interventions: Your nurse will assess your risk for falls/injury each visit Use appropriate and safe transfer methods Medication Management General On track( 3:45 PM CDT) No Lucinda Sands RN Note: Expected end date: Ongoing Interventions: Take all medications as prescribed Let your doctor know right away about any changes in your medications Procedures Procedure Name Priority Date/Time Associated Diagnosis Comments GLUCOSE - POINT OF CARE Routine 05/31/2022 11:45 AM CDT CYTOLOGY PAP MACHINE TECHNICIAN HERBERT 03/29/1996 9:50 AM CDT from Last 3 Months or Most Recently Relevant to Health Maintenance Results * (ABNORMAL) GLUCOSE - POINT OF CARE (05/31/2022 11:45 AM CDT) Glucose WB/POC 135(H) 70 - 115 mg/dL 05/31/2022 11:50 AM CDT [facility] Specimen Type Cap Fingerstick 2021 11:50 AM CDT [facility] Blood BLOOD SPECIMEN / Unknown 05/31/2022 11:45 AM CDT 05/31/2022 11:50 AM CDT Harrison Phelan MD LAB - POINT OF CARE ORDERABLES [facility] [address] [place] [address], [facility] [phone] * CYTOLOGY PAP MACHINE TECHNICIAN (03/29/1996 9:50 AM CDT) Result CASE NUMBER [id number] Comment: ORDERING PHYSICIAN MARTINEZ [facility] SPECIMEN TYPE PAP Smear Date 04/02/1996 Physician [...] Last Indicated MRSA 01/13/2022 01/13/2022 Care Teams Customer Records Division Supervisor Relationship Specialty Start Date End Date Navid Kelly MD [facility] [place] [address] PCP - General Family Medicine 12/07/17
--- OUTSIDE RECORDS SUMMARY | 2024-11-25 17:04 | XMS_ITS | Encounter Summary ---
Author Organization [facility] Address [address] [place] [address] Care Team Providers Care Hostess Cashier Name Role Phone None, Provider MD Primary Care Provider Unavaila ble Reason for Visit * Reason Comments Urinary Symptoms Encounter Details Date Type Department Care Team (Late st Contact Info) Description 11/25/2024 7:53 AM GRADUATING MACHINE OPERATOR - 11/25/2024 11:15 AM GRADUATING MACHINE OPERATOR Emergency [facility] Emergency Room [id number] [place] [id number] Dev Askew DO [address] [place] [address] [id number] Urinary Symptoms Discharge Disposition: Home or Self Care (Routine Discharge) Social History Tobacco Use Types Packs/Day Years Used Date Smoking Tobacco: Some Days Cigarettes Smokeless Tobacco: Never Comments Unknown Sex and Gender Information Value Date Recorded Sex Assigned at Not on file Legal Sex Female 5:56 PM CDT Gender Identity Not on file Sexual Orientation Not on file documented as of this encounter Last Filed Vital Signs Vital Sign Reading Time Taken Comments Blood Pressure 120/66 11/25/2024 11:15 AM GRADUATING MACHINE OPERATOR Pulse 78 11/25/2024 11:15 AM GRADUATING MACHINE OPERATOR Temperature 36.7 C (98 F) 11/25/2024 11:15 AM GRADUATING MACHINE OPERATOR Respiratory Rate 18 11/25/2024 11:15 AM GRADUATING MACHINE OPERATOR Oxygen Saturation 98% 11/25/2024 11:15 AM GRADUATING MACHINE OPERATOR Inhaled Oxygen Concentration - - Weight 91.2 kg (201 lb 1 oz) 11/25/2024 8:00 AM GRADUATING MACHINE OPERATOR Height 165.1 cm (5' 5 ) 11/25/2024 8:00 AM GRADUATING MACHINE OPERATOR Body Mass Index 33.46 11/25/2024 8:00 AM GRADUATING MACHINE OPERATOR documented in this encounter Discharge Instructions * Attachments The following attachments cannot be sent through Care Everywhere. * Urinary Tract Infection, Adult ED ([place]) documented in this encounter Medications at Time of Discharge cefdinir (OMNICEF) 300 MG Cap capsule Take 1 capsule (300 mg total) by mouth 2 (two) times daily for 5 days. 10 capsule 11/25/2024 11/30/2024 fluconazole (DIFLUCAN) 150 MG tablet Take 1 tablet (150 mg total) by mouth once for 1 dose. 1 tablet 11/25/2024 11/25/2024 HYDROcodone-aceta minophen (NORCO) 5-325 MG tabletIndications :Acute Pain < 3 Day Supply Take 1 tablet by mouth every 6 (six) hours as needed for Pain. Indications: Acute Pain < 3 Day Supply 6 tablet 03/23/2023 documented as of this encounter ED Notes * Kae Kirby RN - 11/25/2024 8:02 AM CST Has low back pain urinary frequency and urgency and fever for 1 week UATING MACHINE OPERATOR documented in this encounter Plan of Treatment Scheduled Orders Name Type Priority Associated Diagnoses Orde r Schedule URINE BACTERIA CULTURE Microbiology Routine STAT for 1 Occur rences starting 11/25/2024 until 11/25/2024 documented as of this encounter Procedures Procedure Name Priority Date/Time Associated Diagnosis Comments COMPREHENSIVE METABOLIC PANEL STAT 11/25/2024 8:25 AM GRADUATING MACHINE OPERATOR CBC W/DIFF AUTOMATED STAT 11/25/2024 8:25 AM GRADUATING MACHINE OPERATOR URINALYSIS, AUTO, COMPLETE STAT 11/25/2024 8:00 AM GRADUATING MACHINE OPERATOR documented in this encounter Results * (ABNORMAL) COMPREHENSIVE METABOLIC PANEL (11/25/2024 8:25 AM GRADUATING MACHINE OPERATOR) GLUCOSE 156(H) 70 - 99 MG/DL 11/25/2024 8:49 AM GRADUATING MACHINE OPERATOR [facility] BUN 10 7 - 18 MG/DL 11/25/2024 8:49 AM [facility] CREATININE S/P/B 0.79 0.55 - 1.02 MG/DL 11/25/2024 8:49 AM [facility] SODIUM S/P/B 137 136 - 145 MMOL/L 11/25/2024 8:49 AM [facility] POTASSIUM S/P/B 3.3(L) 3.5 - 5.1 MMOL/L 11/25/2024 8:49 AM [facility] CHLORIDE S/P/B 101 100 - 108 MMOL/L 11/25/2024 8:49 AM [facility] CO2 23.3 21 - 32 MMOL/L 11/25/2024 8:49 AM [facility] CALCIUM S/P/B 9.0 8.5 - 10.1 MG/DL 11/25/2024 8:49 AM [facility] BILIRUBIN TOTAL S/P/B 0.4 0.2 - 1.2 MG/DL 11/25/2024 8:49 AM [facility] TOTAL PROTEIN S/P/B 7.1 6.4 - 8.2 G/DL 11/25/2024 8:49 AM [facility] ALBUMIN S/P/B 3.3(L) 3.4 - 5.0 G/DL 11/25/2024 8:49 AM [facility] AST 51(H) 15 - 37 U/L 11/25/2024 8:49 AM [facility] ALT 54 14 - 55 U/L 11/25/2024 8:49 AM [facility] ALKALINE PHOSPHATASE S/P/B 82 50 - 136 U/L 11/25/2024 8:49 AM [facility] ANION GAP 12.7 5 - 15 MMOL/L 11/25/2024 8:49 AM [facility] BUN CREATININE RATIO 12.7 6 - 26 11/25/2024 8:49 AM [facility] A/G RATIO 0.9(L) 1.0 - 2.0 RATIO 11/25/2024 8:49 AM [facility] GFR ESTIMATE 89(L) >90 ML/MIN/1.7 3 M2 11/25/2024 8:49 AM [facility] Comment: NOTE: eGFR is not calculated for patients <18 years of age. This is an estimated GFR calculation using the new CKD EPI creatinine equation without race and so does not require a correction factor for race. This estimated GFR should not be used for calculating drug doses. 11/25/2024 8:25 AM GRADUATING MACHINE OPERATOR Dev Askew DO LABORATORY Final Result [facility] [id number] [place] [address], * (ABNORMAL) CBC W/DIFF AUTOMATED (11/25/2024 8:25 AM RUST) WBC 4.53 4.4 - 11.0 x10'3/uL 11/25/2024 8:47 AM [facility] RBC 5.16(H) 4.50 - 5.10 x10'6/uL 11/25/2024 8:47 AM [facility] HGB 15.8(H) 12.3 - 15.3 G/DL 11/25/2024 8:47 AM [facility] HCT 46.0(H) 35.9 - 44.6 % 11/25/2024 8:47 AM [facility] MCV 89.1 80.0 - 96.0 FL 11/25/2024 8:47 AM [facility] MCH 30.6 25.3 - 30.9 PG 11/25/2024 8:47 AM [facility] MCHC 34.3(H) 31.0 - 34.1 G/DL 11/25/2024 8:47 AM [facility] RDW 13.5 12.4 - 15.1 % 11/25/2024 8:47 AM [facility] PLT 195 151 - 353 x10'3/uL 11/25/2024 8:47 AM [facility] MPV 9.8 9.6 - 12.0 FL 11/25/2024 8:47 AM [facility] SEG NEUTROPHILS 73(H) 42 - 72 % 8:48 AM [facility] LYMPHOCYTES 13(L) 15.8 - 45.0 % 11/25/2024 8:48 AM [facility] MONOCYTES 11 5.7 - 12.5 % 11/25/2024 8:48 AM [facility] ATYP. LYMPHS 3 % 11/25/2024 8:48 AM [facility] ABS. NEUTROPHILS 3.31 1.40 - 6.00 x10'3/uL 11/25/2024 8:48 AM [facility] ABS. LYMPHOCYTES 0.72(L) 0.80 - 4.70 x10'3/uL 11/25/2024 8:48 AM [facility] PLT MORPH. NORMAL 11/25/2024 8:48 AM [facility] RBC MORPHOLOGY NORMAL 11/25/2024 8:48 AM [facility] WBC MORPHOLOGY NORMAL 11/25/2024 8:48 AM [facility] 11/25/2024 8:25 AM GRADUATING MACHINE OPERATOR Dev Askew DO LABORATORY Final Result [facility] [address] [place] [address], [place] [phone] * (ABNORMAL) URINALYSIS, AUTO, COMPLETE (11/25/2024 8:00 AM GRADUATING MACHINE OPERATOR) COLOR (U) DARK YELLOW 11/25/2024 10:07 AM [facility] TRANSPARENCY HAZY 11/25/2024 10:07 AM [facility] SPECIFIC GRAVITY (U) >1.030(H) 1.000 - 1.030 11/25/2024 10:07 AM [facility] U PH 6.0 5.0 - 9.0 11/25/2024 10:07 AM [facility] LEUKOCYTES (U) 1+(A) NEGATIVE 11/25/2024 10:07 AM [facility] NITRITES POSITIVE(A) NEGATIVE 11/25/2024 10:07 AM [facility] PROTEIN RANDOM (U) 2+(A) NEGATIVE 11/25/2024 10:07 AM [facility] GLUCOSE (U) NEGATIVE NEGATIVE 11/25/2024 10:07 AM [facility] KETONES MG/DL (U) TRACE(A) NEGATIVE 11/25/2024 10:07 AM [facility] BILIRUBIN (U) 1+(A) NEGATIVE 11/25/2024 10:07 AM [facility] BLOOD (U) 1+(A) NEGATIVE 11/25/2024 10:07 AM [facility] WBC/HPF 5-10 0 - 5 /HPF 11/25/2024 10:07 AM [facility] RBC/HPF 5-10 0 - 5 /HPF 11/25/2024 10:07 AM [facility] EPI/HPF FEW /HPF 11/25/2024 10:07 AM [facility] OTHER CASTS (U) FEW /LPF 10:07 AM [facility] Comment:HYALINE BACTERIA (U) FEW /HPF 11/25/2024 10:07 AM [facility] URINE ROMERO MODERATE 11/25/2024 10:07 AM [facility] Comment:MUCOUS URINE SPECIMEN OBTAINED BY CLEAN CATCH PROCEDURE / Unknown 11/25/2024 8:00 AM GRADUATING MACHINE OPERATOR Dev Askew DO URINE ORDERABLES Final Result [facility] [address] [place] [address], documented in this encounter Visit Diagnoses Diagnosis UTI (urinary tract infection)- Primary Urinary tract infection, site not specified documented in this encounter Administered Medications Inactive Administered Medications - up to 3 most recent administrations Medication Order MAR Action Action Date Dose Rate Site ondansetron (ZOFRAN-ODT) disintegrating tablet 4 mg 4 mg, Oral, Once, 1 dose, On 11/25/24 at 0815 Given 11/25/2024 8:13 AM GRADUATING MACHINE OPERATOR 4 mg documented in this encounter Active and Recently Administered Medications Times are shown in GRADUATING MACHINE OPERATOR. Scheduled Medication Order 11/23/2024 11/24/2024 11/25/2024 acetaminophen (TYLENOL) tablet 650 mg 650 mg, Oral, Once, 1 dose, On 11/25/24 at 0815, Maximum dose of acetaminophen is 4000 mg from all sources in 24 hours. 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
--- OUTSIDE RECORDS SUMMARY | 2024-11-25 17:04 | XMS_ITS | Clinical Summary ---
Author Organization [facility] Address [address] [place] [address] Phone Care Team Providers Care Chemistry Quality Control Technician Name Role Phone Navid Kelly MD Primary Care Provider [phone] Allergies Active Allergy Reactions Criticality Noted Date Comments Adhesive Rash Low 06/30/2016 Medications budesonide-formot alek (SYMBICORT) 160-4.5 mcg/actuation HFA Aerosol Inhaler Take 2 Puffs by inhalation 2 times daily. Active albuterol (PROVENTIL,VENTOL IN) 0.63 mg/3 mL Solution for Nebulization Take 0.63 mg by inhalation every 6 hours as needed for Shortness of Breath. Active linaclotide (LINZESS) 145 mcg capsule Take 145 mcg by mouth daily before breakfast. Active ALPRAZolam (XANAX) 1 mg tablet Take 1 mg by mouth 3 times daily. Active HYDROcodone-aceta minophen (HYCET) 7.5-325 mg/15 mL Solution Take 15 mL by mouth every 6 hours as needed. Max Daily Amount: 60 mL 360 mL 07/05/2017 11:31 AM CDT 7 Active ondansetron (ZOFRAN ODT) 4 mg Tablet, Rapid DissolveIndicatio ns:nausea Place 1 Tablet (4 mg) under tongue every 6 hours as needed for Nausea/Emesis. 10 Tablet 07/05/2017 11:31 AM CDT 7 Active Active Problems Problem Noted Date Diagnosed Date Post-operative nausea and vomiting 07/05/2017 Post-op pain 07/05/2017 Mild intermittent asthma without complication Anxiety 07/04/2017 Immunizations Immunization Administration Dates Next Due Influenza Seasonal Unspecified Formulation IM Family History Medical History Relation Name Comments Healthy Mother Relation Name Status Comments Father doesn't know Mother Alive Social History Tobacco Use Types Packs/Day Years Used Date Smoking Tobacco: Former Cigarettes Smokeless Tobacco: Never Alcohol Use Standard Drinks/Week Comments Yes 0 (1 standard drink = 0.6 oz pur e alcohol) occasional Comments No Sex and Gender Information Value Date Recorded Sex Assigned at Not on file Legal Sex Female 5:41 AM COPPER ETCHER Gender Identity Not on file Sexual Orientation Not on file Last Filed Vital Signs Vital Sign Reading Time Taken Comments Blood Pressure 124/75 07/05/2017 11:30 AM CDT Pulse 96 07/05/2017 11:30 AM CDT Temperature 36.7 C (98.1 F) 07/05/2017 11:30 AM CDT Respiratory Rate 18 07/05/2017 11:30 AM CDT Oxygen Saturation 99% 07/05/2017 11:30 AM CDT Inhaled Oxygen Concentration - - Weight 93 kg (205 lb) 07/05/2017 6:00 AM CDT Height 170.2 cm (5' 7 ) 07/04/2017 2:30 PM CDT Body Mass Index 32.11 07/04/2017 2:30 PM CDT Plan of Treatment Health Maintenance Due Date Last Done Comments DTAP/TDAP/TD VACCINES (1 - Tdap) 1989 HEPATITIS B VACCINES (1 of 3 - 19+ 3-dose series) 02/1990 CERVICAL CANCER SCREENING 2000 BREAST CANCER SCREENING 2010 COLORECTAL SCREENING 2015 Colorectal Cancer Screening 2015 FIT-DNA Q 3 years 2015 FIT/FOBT Q 1 year 2015 Flex Sig/CT Colonography Q 5 years 2015 ZOSTER VACCINE (1 of 2) 2020 INFLUENZA VACCINE (#1) 2024 07/30/2015 Medical Devices Explanted Type Area Strike On Machine Operator Device Identifier Shelf Expiration Date Model / Serial / Lot Lap Band-08/31/2016 Implanted:2015 (Quantity not on file) Explanted:Qty: 1 on 07/04/2017 by Walker Bates MD at [facility] [employer] Express MEDICARE PART A AND B [facility] BLUE ACCESS CHOICE Advance Directives For more information, please contact: [phone] * Full Code (Latest Code Status on File) Date Activated Date Inactivated Comments 07/04/2017 2:01 PM 07/05/2017 3:02 PM * Full Code Date Activated Date Inactivated Comments 07/04/2017 10:04 AM 07/04/2017 2:01 PM * Full Code Date Activated Date Inactivated Comments 07/04/2017 9:23 AM 07/04/2017 10:04 AM * Full Code Date Activated Date Inactivated Comments 07/02/2016 5:38 AM 07/02/2016 10:39 AM Care Teams Chemistry Quality Control Technician Relationship Specialty Start Date End Date Navid Kelly MD PCP - General Family Practice 06/30/17
--- NOTE | 2024-11-25 17:14 | ED_ITS ---
HPI - Chest Pain General Chief Complaint: Chest Pain Stated Complaint: chest pain, fever Time Seen by Provider: 11/25/24 17:05 History of Present Illness HPI narrative: 54-year-old female with a history of persistent asthma and COPD. She has a history of hypertension diastolic heart dysfunction. She presents to the emergency department with shortness of breath for the last week. She has been having coughing, intermittent fevers and chest pain. She states she was at [facility] earlier today and received medications but did not have any kind of workup. She states that she is having some epigastric abdominal discomfort as well as urinary retention. On review of the EMR patient has been seen most recently 2 months prior for similar events and was treated for an asthma/COPD exacerbation and release with steroids. Patient denies any back pain, headache, vision changes, dysuria, chills. Related Data Home Medications ?Medication ?Instructions ?Recorded ?Confirmed ?Last Taken ?Type amlodipine 5 mg tablet 5 mg PO DAILY 09/16/23 03/31/24 Unknown History fluoxetine 20 mg capsule 20 mg PO DAILY 09/16/23 03/31/24 Unknown History alprazolam 0.5 mg tablet (Xanax) 0.5 mg PO Q8H 03/31/24 03/31/24 Unknown History docusate sodium 100 mg capsule 100 mg PO BID 03/31/24 03/31/24 Unknown History (Colace) semaglutide 2 mg/dose (8 mg/3 mL) 2 mg subcut WEEKLY 03/31/24 03/31/24 Unknown History subcutaneous pen injector (Ozempic) Allergies Allergy/AdvReac Type Severity Reaction Status Date / Time adhesive Allergy Unknown Unknown Verified 11/25/24 17:02 latex Allergy Unknown Rash Verified 11/25/24 17:02 acetaminophen (From Tylenol) Allergy Hives Verified 11/25/24 17:02 morphine AdvReac Intermediate hives Verified 11/25/24 17:02 adhesive tape AdvReac Mild RASH Verified 11/25/24 17:02 Review of Systems 2 Review of Systems: As reviewed above in HPI [facility] Past Medical History Medical History Rhinitis Hypertension Former smoker MRSA colonization Hemolytic anemia Common variable immunodeficiency Irritable bowel syndrome Gastroesophageal reflux disease Obstructive sleep apnea Does not use CPAP. Asthma Anemia Anxiety Depression Arthritis Crohn disease Pneumonia Emphysema of lung Peripheral neuropathy Neurofibromatosis 2 Surgical History Surgical History History of laparoscopic adjustable gastric banding History of sinus surgery History of hysterectomy History of cholecystectomy History of appendectomy History of tonsillectomy Family History Family History Grandparent Family history of lung cancer Other Family history of malignant neoplasm Social History Social History Social History: Surrogate medical decision maker: Orlando Dimas, spouse. Code status: Full code. Smoking packs per day: 1 Smoking cigarettes per day: 20.0 Years smoked: 20 Smoking pack-years: 20.00 Smoking status: Former smoker Tobacco type: cigarettes Smoking end date: 10/17/11 Alcohol intake: current Alcohol use details: Social alcohol use in moderation. Substance use: never Do You Feel Safe in your Home?: Yes Lack of Transportation: No Lack of Food: Never True Current Housing: I Have Housing Concerned About Future Housing: No Difficulty Paying Gas/Electric Bills: No Difficulty Paying for Meds: No Currently Unemployed: No Education: High School Diploma/GED Difficulty w/ Childcare or Family Care: No Additional living arrangements comments: Lives with spouse in [place]. Gender identity (if verbalized by the patient): Female Spiritual care concerns: No Exam 2 Narrative: GENERAL: Morbidly obese, uncomfortable appearing, dyspneic HEAD: [Normocephalic, atraumatic.] EYES: [PERRLA and EOMI.] ENT: Nares clear, no rhinorrhea or epistaxis. Mucous membranes moist. NECK: Supple. CHEST: Coarse breath sounds in the bilateral bases, wheezing throughout with prolonged expiratory phase. Tachypnea noted, mild-respiratory distress HEART: Tachycardic rate but regular rhythm. No murmur heard. [Normal peripheral pulses.] ABDOMEN: [Soft, nondistended], mildly tender to palpation in the epigastrium, [No rigidity or guarding] EXTREMITIES: Normal range of motion. [No edema.] SKIN: Warm, dry, no rash. NEURO: [No focal deficits]. Alert and oriented [x3.] PSYCH: [Normal mood and affect.] Course Vital Signs Vital signs: Vital Signs Temperature 36.2 C L 11/25/24 17:08 Pulse Rate 112 H 11/25/24 17:08 Respiratory Rate 18 11/25/24 17:08 Blood Pressure 166/103 H 11/25/24 17:08 Pulse Oximetry 90 11/25/24 17:08 Oxygen Delivery Room Air 11/25/24 17:08 Temperature 36.2 C L 11/25/24 17:08 Pulse Rate 100 11/25/24 19:00 Respiratory Rate 25 H 11/25/24 19:00 Blood Pressure 166/103 H 11/25/24 17:08 Pulse Oximetry 92 11/25/24 19:47 Oxygen Delivery Room Air 11/25/24 17:35 MDM - Chest Pain MDM Narrative Medical decision making narrative: 54-year-old female with significant past medical history including asthma, COPD, hypertension, diastolic heart dysfunction. She presents today with complaints of difficulty breathing, cough, congestion, chest and epigastric pain. She is uncomfortable appearing, mild to moderate respiratory distress with tachypnea and tachycardia. She is afebrile. wheezy on auscultation, prolonged expiratory phase. Differential includes asthma assess COPD exacerbation, pneumonia, less likely pneumothorax or ACS. Epigastric pain could be from recent steroid use and ulcer formation although less likely and could be a component of the pain from coughing. Workup was ordered this time including a CBC, CMP, lipase, serial troponins, EKG, chest x-ray, COVID flu and RSV swabs. She was given a dose of Pepcid, it is treated with Xopenex, ipratropium, magnesium, and 40 mg twice Solu-Medrol for her asthma exacerbation. Patient was re-evaluated after breathing treatments and felt significantly improved from a respiratory standpoint but was complaining of abdominal pain and difficulty urinating. A bladder scan showed no retention or urine. She is given a fluid bolus at this time a CT scan was obtained and she was treated with 0.5 mg of Dilaudid reassessed. Workup shows no leukocytosis or anemia. Normal platelet count. Repeat vital sign show improvement her tachycardia with a heart rate 95, saturating 94% on room air, coagulation studies are within normal limits, electrolyte profile largely unremarkable, normal renal function panel, normal glucose, LFTs mildly elevated, negative troponin, negative lipase. Tested positive for influenza A which likely explains patient's exacerbated symptoms from her baseline COPD. Chest x-ray shows some peribronchial thickening consistent with her asthma/COPD. No focal infiltrates or effusions. No indications for antibiotics at this time. The CT scan shows no acute intra-abdominal pathology which is reassuring. Patient's pain is improved. She is resting comfortably. Urinalysis is showing some dehydration, nitrates, 4+ bacteria and some white blood cells. This combined with patient's dysuria symptoms likely warrants being treated for UTI for which Bactrim was provided.. Given patient's symptomatic improvement, stable vital signs, unremarkable workup findings aside from influenza I believe she can be safely discharged home with outpatient follow-up. Medical Records Data Attestation: I reviewed the patient's medical records. Lab Data Attestation: I reviewed the patient's lab results. 11/25/24 17:22 11/25/24 17:22 Labs: Lab Results 11/25/24 11/25/24 Range/Units 17:22 19:47 WBC 7.0 (4.5-10.0) K/mm3 RBC 5.29 (4.2-5.4) M/mm3 Hgb 16.0 H (12.0-15.0) g/dL Hct 47.1 H (37.0-47.0) % MCV 89.0 (80-100) fl MCH 30.2 (26-34) pg MCHC 34.0 (32-36) g/dl RDW 13.5 (11.5-14.5) % Plt Count 206 (150-375) k/mm3 MPV 10.0 (7.4-10.4) fl Immature Gran % (Auto) 0.4 (0-0.5) % Neut % (Auto) 74.9 H (45.5-73.1) % Lymph % (Auto) 13.9 L (18.3-44.2) % [place] % (Auto) 10.3 H (2.6-8.5) % Eos % (Auto) 0.1 (0-4.4) % Baso % (Auto) 0.4 (0.2-1.2) % Lymph # (Auto) 0.97 (0.9-3.2) K/mm3 [place] # (Auto) 0.7 H (0.1-0.6) K/mm3 Eos # (Auto) 0.0 (0-0.3) K/mm3 Baso # (Auto) 0.0 (0.0-0.1) K/mm3 Abs Immat Gran (auto) 0.03 (0.00-0.031) K/mm3 Absolute Neuts (auto) 5.2 (1.3-6.7) K/mm3 Absolute Nucleated RBC 0.000 (0.0-0.012) K/mm3 Nucleated RBC % 0.0 (0.0-0.2) % PT 13.0 (11.1-14.7) Seconds INR 0.9 APTT 35.4 (22.3-36.8) Seconds Sodium 135 L (137-145) mmol/L Potassium 3.6 (3.4-5.0) mmol/L Chloride 103 (98-107) mmol/L Carbon Dioxide 21 L (22-30) mmol/L Anion Gap 11 (4-12) mmol/L BUN 9 (7-17) mg/dL Creatinine 0.66 L (0.7-1.0) mg/dL Estim Creat Clear Calc 97 ml/min Estimated GFR > 60 (59 - ) Glucose 94 (65-110) mg/dL Calcium 9.0 (8.4-10.2) mg/dL Total Bilirubin 0.6 (0.2-1.3) mg/dL AST 54 H (14-36) U/L ALT 54 H (6-35) U/L Alkaline Phosphatase 96 (38-126) U/L Troponin I < 0.012 (0.000-0.034) ng/mL Total Protein 7.0 (6.3-8.2) g/dL Albumin 3.9 (3.5-5.1) g/dL Lipase 58 (23-300) U/L Urine Color Yellow (Yellow) Urine Appearance Clear (Clear) Urine pH 5.5 (5.0-9.0) Ur Specific [place] > 1.045 H (1.001-1.035) Urine Protein Trace (Negative) mg/dL Urine Glucose (UA) Negative (Negative) mg/dL Urine Ketones Negative (Negative) mg/dL Ur Blood (Man) Negative (Negative) Urine Nitrate Positive H (Negative) Urine Bilirubin Negative (Negative) Urine Urobilinogen 1.0 (<2.0) mg/dL Add Ur Microanalysis Reviewed Leukocyte Esterase Rfl Negative (Negative) KYREE/UL Urine RBC 6-10 H (0-2) /hpf Urine WBC 6-10 H (0-3) /hpf Ur Squamous Epith Cells Few (Few) /hpf Urine Bacteria 4+ H /hpf Urine Casts 0-2 Influenza A (RT-PCR) Positive A (Negative) Influenza B (RT-PCR) Negative (Negative) RSV (RT-PCR) Negative (Negative) SARS-CoV-2 RNA (RT-PCR) Negative (Negative) Imaging Data Attestation: I personally reviewed and interpreted this imaging study as follows: My impression: Impressions Chest X-Ray 11/25/24 17:52 IMPRESSION: Peribronchial thickening without focal infiltrate or effusion. Abdomen/Pelvis CT 11/25/24 18:58 IMPRESSION: No acute intra-abdominal pathology, as detailed above. ECG Data EKG #1: Attestation: I personally reviewed and interpreted this ECG as follows: ECG completion date: 11/25/24 ECG completion time: 17:08 Prior ECG tracings: available for review Interpretation: Tachycardic rate but regular rhythm and axis. No ST segment elevations, depressions or inversions. P pulmonale noted indicative of left atrial enlargement, likely secondary from her respiratory disease. QTC 440, NV interval 1 or 20, QRS 88. Overall sinus tachycardia, no signs of acute ischemic change. Discharge Plan Discharge Clinical Impression: Influenza A, Asthma exacerbation, Abdominal pain, Dysuria, UTI (urinary tract infection) Patient Disposition: Home, Self-Care Condition: Stable Instructions: Antibiotic Form, Chest Pain (DC), Asthma (ED), Urinary Tract Infection in Women (DC), Influenza (DC), Dysuria (ED), Abdominal Pain (ED) Additional Instructions: Your workup shows that you tested positive for influenza and you have a mild UTI. Your CT scan shows no acute findings or concerns. Your cardiac workup was unremarkable, no signs of heart damage, normal liver and kidney test, normal heart enzyme. We will send you home with symptom controlling medications including steroids, Zofran as needed, Bentyl for abdominal pain. Follow-up with your regular doctors on outpatient basis and see your asp net c developer about your asthma. Return with any emergencies or concerns. Patient Language: Romanian Prescriptions: New dicyclomine 20 mg tablet 20 mg PO TID PRN (Reason: abdominal pain) Qty: 20 0RF prednisone 50 mg tablet 50 mg PO DAILY 5 Days Qty: 5 0RF ondansetron 4 mg tablet,disintegrating 4 mg PO Q8H PRN (Reason: nausea and vomiting) Qty: 10 0RF guaifenesin [Mucinex] 1,200 mg tablet extended release 12hr 1,200 mg PO Q12H Qty: 20 0RF sulfamethoxazole-trimethoprim [Bactrim DS] 800-160 mg tablet 1 tablet PO Q12H Qty: 14 0RF No Action amlodipine 5 mg Tablet 5 mg PO DAILY fluoxetine 20 mg Capsule 20 mg PO DAILY alprazolam [Xanax] 0.5 mg Tablet 0.5 mg PO Q8H docusate sodium [Colace] 100 mg Capsule 100 mg PO BID Ozempic 2 mg/dose (8 mg/3 mL) Pen Injector 2 mg SUBCUT WEEKLY Rx Instructions: TAKES EVERY TUESDAY EVENING Claritin-D 24 Hour 10-240 mg Tablet Extended Release 24 Hr 1 tablet PO QAM Qty: 30 0RF montelukast [Singulair] 10 mg Tablet 10 mg PO HS Qty: 30 0RF guaifenesin [Mucus Relief ER] 600 mg Tablet Extended Release 12hr 1,200 mg PO Q12HR Qty: 60 0RF ipratropium-albuterol 0.5 mg-3 mg(2.5 mg base)/3 mL Solution For Nebulization 3 ml inhalation Q4HRT Qty: 120 0RF trazodone 50 mg Tablet 50 mg PO HS PRN (Reason: Insomnia) Qty: 30 0RF Spiriva Respimat 1.25 mcg/actuation mist 2 puff inhalation DAILY Qty: 4 2RF albuterol sulfate 90 mcg/actuation HFA aerosol inhaler 3 inh inhalation Q4H PRN (Reason: shortness of breath or wheezing) Qty: 6.7 2RF Rx Instructions: until breathing returns to target peak flow/parameters doxycycline hyclate 100 mg capsule 100 mg PO Q12H Qty: 10 0RF prednisone 10 mg tablet See Taper PO DIRECTED Qty: 44 0RF Taper: Prednisone Taper from 60 mg;12 days 40 mg DAILY for 3 Days and 0 Hour 30 mg DAILY for 4 Days and 0 Hour 20 mg DAILY for 4 Days and 0 Hour 15 mg DAILY for 4 Days and 0 Hour 10 mg DAILY for 4 Days and 0 Hour 5 mg DAILY for 4 Days and 0 Hour Rx Instructions: see taper instructions budesonide-formoterol [Symbicort] 160-4.5 mcg/actuation Hfa Aerosol Inhaler 2 inh INHALATION BID Qty: 10.2 2RF (DME) blood-glucose meter [OneTouch Verio Flex meter] Misc Qty: 1 0RF Rx Instructions: May substitute to in-stock meter and/or covered by insurance. Use As Directed (DME) OneTouch Verio test strips Strip Qty: 1 0RF Rx Instructions: May substitute to in-stock and/or covered by insurance strips. Use As Directed (DME) pen needle, diabetic [BD Ultra-Fine Candice Pen Needle] 32 gauge x 5/32 needle Qty: 1 0RF Rx Instructions: May substitute to meet patient needs. Use As Directed (DME) lancets [Motorpaneeruch Delica Plus Lancet] 30 gauge misc Qty: 1 0RF Rx Instructions: May substitute to in-stock and/or covered by insurance lancets. Use As Directed insulin glargine [Lantus Solostar U-100 Insulin] 100 unit/mL (3 mL) insulin pen 15 unit subcut QAM Qty: 3 0RF insulin aspart U-100 [Novolog FlexPen U-100 Insulin] 100 unit/mL (3 mL) insulin pen 1 sliding scale dose subcut USEASDIRECTD Qty: 15 0RF Rx Instructions: 200-250=4units 251-300=5units 301-350=6units 351-400=8units >400=10units and call No correction dose at Bedtime losartan 100 mg Tablet 100 mg PO DAILY Qty: 0 0RF furosemide 40 mg tablet 40 mg PO DAILY Qty: 30 0RF potassium chloride 20 mEq tablet,ER particles/crystals 20 meq PO DAILY Qty: 30 0RF methylprednisolone [Medrol (Merlin)] 4 mg tablets,dose pack See Rx Instructions .ROUTE .COMPLEX Qty: 21 0RF Rx Instructions: for 6 days Follow-up/Referrals: UNKNOWN,DOCTOR [Non-Staff] - Time of Disposition: 20:43 Quality HEART score for chest pain patients History: slightly suspicious ECG: normal Age: > 45 and < 65 years Risk factors: 1 or 2 risk factors Troponin: < or = to 1x normal limit Heart score: 2
[2024-11-25] MEDS: IPRATROPIUM BR 0.02% INH SOLN 0.5 MG/2.5 ML VIAL 1 MG INHALATION (17:31)
[2024-11-25] MEDS: LEVALBUTEROL NEB 1.25 MG/3 ML 2.5 MG INHALATION (17:31)
--- NOTE | 2024-11-25 17:37 | PC.NURSE ---
Pt. states it is ok to use adhesive tape to tape her IV.
[2024-11-25 17:38] LABS: Basophils Percent Auto 0.4 % (0.2-1.2); Eosinophils Percent Auto 0.1 % (0-4.4); Hematocrit 47.1 % (37.0-47.0); Immature Granulocyte Absolute 0.03 K/mm3 (0.00-0.031); Immature Granulocyte Percent A 0.4 % (0-0.5); Lymphocytes Absolute Auto 0.97 K/mm3 (0.9-3.2); Lymphocytes Percent Auto 13.9 % (18.3-44.2); Mean Corpuscular Hemoglobin 30.2 pg (26-34); Monocytes Absolute Auto 0.7 K/mm3 (0.1-0.6); Monocytes Percent Auto 10.3 % (2.6-8.5); Neutrophils Absolute Auto 5.2 K/mm3 (1.3-6.7); Neutrophils Percent Auto 74.9 % (45.5-73.1); Platelet Count Result 206 k/mm3 (150-375); Red Blood Count 5.29 M/mm3 (4.2-5.4); Red Cell Distribution Width 13.5 % (11.5-14.5)
--- OUTSIDE RECORDS SUMMARY | 2024-11-25 17:40 | XMS_ITS | Encounter Summary ---
Author Organization [employer] Address 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 Gender Identity Not on file Sexual Orientation Not on file documented as of this encounter Plan of Treatment Not on file documented as of this encounter Procedures Procedure Name Priority Date/Time Associated Diagnosis Comments MRI TEMPROMANDIBULAR JOINTS Timed Study 12/16/2008 7:00 AM 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 N: [id number] IMAGING SERVICES Ordering Prov: N/A Accession Number: [id number] Interpretation MR IMAGING OF TEMPOROMANDIBULAR JOINTS 12/16/2008 [...] Procedure Note Jani Dunbar MD - 12/16/2008 [facility] [place] [address] [place], [place] [address] Admit Date: 12/16/2008 RUMA CALVO Sex: F Admit Prov: ELVIRA GERARD Date: 1970 Primary Care Prov: PCP, UNKNOWN CMRN: [id number] Room: [facility] SSN: [id number] IMAGING SERVICES Ordering Prov: N/A Interpretation MR IMAGING OF TEMPOROMANDIBULAR JOINTS 12/16/2008 History: Atypical face pain, right TMJ arthralgia for 6 months Scan protocol: Patient was scanned with 2 mm sagittal oblique T1, FSE T2 and G3yktpodro images, gradient echo T2-weighted images with mouth [...] pain documented in this encounter Care Teams Pet Resort Concierge Relationship Specialty Start Date End Date Navid Kelly MD PCP - General Family Practice 06/30/17 documented as of this encounter
--- OUTSIDE RECORDS SUMMARY | 2024-11-25 17:40 | XMS_ITS | Patient Health Summary ---
Author Organization [facility] Address [address] [place] [address] Care Team Providers Care Nursing Services Manager Name Role Phone Navid Kelly MD Primary Care Provider [phone] Note from [facility],non-owned Affiliates and Associated Physician Practices is amultiple site organization consisting of ambulatory clinics and hospital sitesin [place], [place], [place] and [place]. This disclosure is being madepursuant to the Care Everywhere program and may not contain all information available regarding this patient. Last updated 18.[facility] [employer] Allergies * Adhesive Sensitivity(Rash) -Medium Criticality * [...] mouth once daily * allergy injection Per [facility] Otolaryngology protocol * prazosin (Minipress) 2 MG [...] times daily as needed * nystatin (Mycostatin) 759661 UNIT/ML suspension(Started 01/02/2023) Take 5 mL by [...] Comments Blood Pressure 146/122 11/30/2023 2:29 PM KITCHEN RUNNER Pulse 96 11/30/2023 2:29 PM KITCHEN RUNNER Temperature 37 C (98.6 F) 05/31/2022 3:39 PM CDT Respiratory Rate 10 06/09/2022 2:35 PM CDT Oxygen Saturation 95% 05/31/2022 4:00 PM CDT Inhaled Oxygen Concentration 21% 05/31/2022 2 :55 PM CDT Weight 103.9 kg (229 lb) 11/30/2023 2:29 PM KITCHEN RUNNER Height 167.6 cm (5' 6 ) 11/30/2023 2:29 PM KITCHEN RUNNER Body Mass Index 36.96 11/30/2023 2:29 PM KITCHEN RUNNER Procedures * TN NASAL ENDOSCOPY,DX(Performed 11/30/2023) Performed for Nasal polyps, Chronic pansinusitis * TN REMOVE CERUMEN IMPACTED W INSTR RT EAR(Performed 11/03/2022) Performed for Acute foreign body of right ear, initial encounter * TN NASAL ENDOSCOPY,DX(Performed 11/03/2022) Performed for Chronic pansinusitis, Nasal polyps * TN NASAL ENDOSCOPY,DX(Performed 07/28/2022) Performed for Non-seasonal allergic rhinitis due to pollen, Nasal polyps, Chronic pansinusitis * TN ENDO NASAL SINUS BX POLYP DEBRID DEBRA(Performed [...] CONTRAST(Performed 04/14/2022) Performed for Chronic pansinusitis * TN ENDO NASAL SINUS BX POLYP DEBRID DEBRA(Performed [...] 2VW PNEUMONIA PROTCL(Performed 12/01/2015) * CYTOLOGY PAP DB2 DEVELOPER(Performed 03/29/1996) Results * TN NASAL ENDOSCOPY,DX (11/30/2023 3:12 PM KITCHEN RUNNER) Narrative Harrison Phelan MD - 11/30/2023 3:12 PM KITCHEN RUNNER Harrison Phelan MD 11/30/2023 3:12 PM Procedure: [...] Phelan MD PROCEDURE/MINOR ALMA GICAL ORDERABLES * TN REMOVE CERUMEN IMPACTED W INSTR RT EAR (11/03/2022 2:54 PM KITCHEN RUNNER) Harrison Ba MD - 11/03/2022 2:54 PM KITCHEN RUNNER Harrison Phelan MD 11/03/2022 2:55 PM Procedure: Microscopic Ear Exam Details: Informed consent was obtained. The patient was placed in the supine position. The operative microscope used to visualize right ear canal. Hair removed from TM. A normaltympanic membrane was then appreciated. The patient tolerated the procedure without complication. Harrison Phelan MD PROCEDURE/MINOR ALMA GICAL ORDERABLES * TN NASAL ENDOSCOPY,DX (11/03/2022 2:49 PM KITCHEN RUNNER) Harrison Ba MD - 11/03/2022 2:49 PM KITCHEN RUNNER Harrison Phelan MD 11/03/2022 2:50 PM Procedure: [...] Phelan MD PROCEDURE/MINOR ALMA GICAL ORDERABLES * TN NASAL ENDOSCOPY,DX (07/28/2022 1:49 PM CDT) Harrison [...] Phelan MD PROCEDURE/MINOR ALMA GICAL ORDERABLES * TN ENDO NASAL SINUS BX POLYP DEBRID DEBRA [...] CDT) Case Report Surgical Pathology Report Case: [id number] Authorizing Provider: Harrison Phelan MD Collected: 05/31/2022 02:16 PM Ordering Location: [facility] SACHA OP Received: 05/31/2022 02:59 PM Pathologist: [...] LAB Clinical History 06/02/2022 4:[address] [facility] PATHOLOG[facility] LAB Gross Description The requisition and specimen label(s) are identified with the patient's name, Jeniffer Dimas. Received in formalin, specimen A , is 5.1 x 3.9 x 0.9 cm aggregate of red-venegas soft tissue with blood clot. [employer] Consultant specimen is submitted in cassette A1. AU. 06/02/2022 4:[address] [facility] PATH[facility] Disclaimer The performance characteristics of all immunohistochemical and indirect immunofluorescence stains (if any) cited in this report were determined by the Histopathology Laboratory of [facility]. Some of these tests were developed by [...] attending (teaching) pathologist. 06/02/2022 4:[address] [facility] Embedded Images 06/02/2022 4:[address] [facility] Resection without Tumor SINUS / Unknown 05/31/2022 2:16 PM CDT 05/31/2022 2:59 PM CDT Comment:Pre-op diagnosis: CHRONIC PANSINUSITIS NASAL POLYPS Harrison Phelan MD LAB - PATHOLOGY/CYT OLOGY ORDERABLES [facility] PATHOLOG[facility] LAB [address] [phone] * CULTURE FUNGUS OTHER+FUNGUS SMEAR (05/31/2022 1:48 PM CDT) Culture No fungus isolated YISSEL 06/28/2022 8:[address] [facility]CRO[facility]OLOG[facility] Fungus Stain No yeast or hyphae seen 06/28/2022 8:[address] [facility]CRO[facility] Microbiology SPECIMEN FROM WOUND / Unknown Collection / Unknown 05/31/2022 1:48 PM CDT 05/31/2022 1:52 PM CDT Harrison Phelan MD LAB - MICROBIOLOGY ORDERABLES [facility]CRO[facility] [address] [place] [address], [facility] [phone] * (ABNORMAL) CULTURE WOUND+GRAM STAIN (05/31/2022 1:48 PM CDT) Culture Heavy Staphylococcus aureus(A) YISSEL 06/02/2022 9:[address] [facility] Comment:Staphylococcus aureu s methicillin-susceptible (MSSA) detected by penicillin binding protein immunoassay. Gram Stain Heavy Gram-positive cocci 06/02/2022 9:[address] [facility]CRO[facility] Gram Stain Moderate Polymorphonuclear cells 06/02/2022 9:[address] [facility]CRO[facility]OLOG[facility] Microbiology SPECIMEN FROM WOUND / Unknown [...] Harrison Phelan MD LAB - MICROBIOLOGY ORDERABLES [facility]CROBIOLOG[facility] [address] [place] [address], [facility] [phone] * CULTURE ANAEROBE (05/31/2022 1:48 PM CDT) Culture No anaerobic organisms isolated YISSEL 06/06/2022 11:[address] [facility] MICROBIOLOG[facility] Microbiology SPECIMEN FROM WOUND / Unknown Collection / Unknown 05/31/2022 1:48 PM CDT 05/31/2022 1:52 PM CDT Harrison Phelan MD LAB - MICROBIOLOGY ORDERABLES [facility]CROBIOLOG[facility] [address] [place] [address], [facility] [phone] * ETT LINE PERFORMABLE (05/31/2022 1:02 PM CDT) Narrative Joan Orr Anes Asst - 05/31/2022 1:02 PM CDT Joan Orr Anes Asst 05/31/2022 1:04 PM Endotracheal Tube Placement: Patient Location: OR. Intubation Event Date/Time: 05/31/2022 12:59 PM Procedure: intubation ([id number]). Procedure Section: Sedation: under general anesthesia. Indications [...] - 115 mg/dL 05/31/2022 11:50 AM CDT [facility] Specimen Type Cap Fingerstick 2021 11:50 AM CDT [facility] Blood BLOOD SPECIMEN / Unknown 05/31/2022 11:45 AM CDT 05/31/2022 11:50 AM CDT Harrison Phelan MD LAB - POINT OF CARE ORDERABLES Performing Organization Address City/[facility]/ZIP Co de Phone Number [address] [phone], [facility] [phone] * HCG URINE QUAL POCT NOTIFICATION (05/31/2022 11:09 AM CDT) Comment Notification Label Only - See Separate Report 05/31/2022 12:32 PM CDT [facility] Urine URINE / Unknown 05/31/2022 1 1:09 AM CDT 05/31/2022 11:09 AM CDT Alice Garcia APRN-DOUBLING MACHINE OPERATOR LAB - URI NALYSIS ORDERABLES [address] [address], [facility] [phone] * (ABNORMAL) BASIC METABOLIC PANEL (CALCIUM TOTAL) (05/19/2022 9:58 AM CDT) BUN 11 7 - 26 mg/dL 05/19/2022 10:37 AM [facility] Creatinine 0.85 0.56 - 0.96 mg/dL 05/19/2022 10:37 AM [facility] Sodium 136 136 - 145 mmol/L 05/19/2022 10:37 AM [facility] Potassium 3.9 3.5 - 4.5 mmol/L 05/19/2022 10:37 AM [facility] Chloride 99 98 - 107 mmol/L 05/19/2022 10:37 AM [facility] CO2 27 22 - 29 mmol/L 05/19/2022 10:37 AM [facility] Glucose 129(H) 70 - 115 mg/dL 05/19/2022 10:37 AM [facility] Calcium 10.5(H) 8.4 - 10.2 mg/dL 05/19/2022 10:37 AM CDT [facility] Anion Gap 14 8 - 18 05/19/2022 10:37 AM CDT [facility] BUN/Creatinine Ratio 13 7 - 23 05/19/2022 10:37 AM CDT [facility] Osmolality Calculated 283 270 - 300 mOsm/kg 05/19/2022 10:37 AM CDT [facility] eGFR by CKD-EPI 83(L) >=90 mL/min/1.7 3 m2 05/19/2022 10:37 AM CDT [facility] Blood BLOOD SPECIMEN / Unknown Lab Venipuncture / Unknown 05/19/2022 9:58 AM CDT 05/19/2022 10:13 AM CDT Alice Loyd Radha MIXER WHIPPED TOPPING-DOUBLING MACHINE OPERATOR LAB - [place] ORDERABLES Performing Organization Address City/State/[facility] Co de Phone Number [facility] [address] [place] [phone], [facility] [phone] * CT SINUS WO CONTRAST (04/14/2022 12:09 [...] . Harrison Phelan MD CT ORDERABLES * TN ENDO NASAL SINUS BX POLYP DEBRID DEBRA [...] nt (MRSA)(A) YISSEL 01/15/2022 9:[address] [facility] Comment:Staphylococcus aureu s methicillin-resistant (MRSA) detected by penicillin binding protein immunoassay. Contact precautions required. Conventional antibiotic susceptibility testing to follow. Gram Stain No polymorphonuclear cells 01/15/2022 9:07 AM CDT [facility]CRO[facility] Gram Stain Light Gram-positive cocci 01/15/2022 9:[address] [facility]CRO[facility] Microbiology SINUS / Unknown Collection / Unknown 01/13/2022 2:04 PM CDT 01/13/2022 4:[address] [facility] - 01/15/2022 9:07 AM CDT Methicillin-resistant [...] Harrison Phelan MD LAB - MICROBIOLOGY ORDERABLES [facility] [address] [place] [address], [facility] [phone] * MRI IAC WWO CONTRAST (07/13/2019 1:51 [...] ORDERABLES * CREATININE BLOOD - POCT () [facility] (07/13/2019 1:05 PM CDT) Only the most recent of2 resultswithin the time period is included. Creatinine POCT 0.76 0.3 - 1.3 mg/dL [facility] POCT TESTING eGFR POCT 60 60 ml/min [facility] Blood BLOOD SPECIMEN / Unknown 07/13/2019 1:05 PM CDT Paras Jacome MD LAB - POINT OF [place] RE ORDERABLES [facility] POCT TESTING [address] [phone] * CT TEMPORAL BONES WO CONTRAST (04/28/2018 [...] testing to [facility] 02/16/2018 7:33 PM CDT [facility] Test Result See Scanned Report 02/16/2018 7:33 PM CDT [facility] Blood BLOOD SPECIMEN / Unknown Lab Venipuncture / Unknown 02/01/2018 12:03 PM CDT 02/01/2018 12:18 PM CDT Dianna Angel MD LAB SEND OUT Performing Organization Address City/State/[facility] Co de Phone Number [facility] [place] [address] * (ABNORMAL) CULTURE AEROBIC (12/14/2017 1:08 PM KITCHEN RUNNER) Culture Aerobic STREPTOCOCCUS PNEUMONIAE(A) [facility] Comment:Moderate Growth Stre ptococcus Pneumoniae Culture Aerobic PSEUDOMONAS AERUGINOSA(A) [facility] Comment:Moderate Growth Pseu domonas Aeruginosa Culture Aerobic STAPHYLOCOCCUS EPIDERMIDIS() [facility] Comment:Light Growth Staphyl ococcus Epidermidis Gram Stain Moderate Gram Positive cocci [facility] Comment:Only 1 swab Fluid specimen (specimen) 12/14/2017 1:08 PM KITCHEN RUNNER 12/15/2017 1:30 PM KITCHEN RUNNER Narrative [facility] - 12/17/2017 8:41 AM KITCHEN RUNNER Right nasal cavity Specimen Type->Body Fluid Resulting Lab: [facility] [address] [place] [address] PH: [phone] Organism Antibiotic Method Susceptibility Streptococcus pneumoniae Penicillin-meningitis [...] LAB - MICROBIOLOGY ORDERABLES Performing Organization Address [facility] Co de Phone Number [facility] [address] [phone] * IMAGING/RADIOLOGY/XRAY RESULTS ORDER (11/24/2017) Only the most recent of2 resultswithin the time period is included. Anatomical Region Laterality Modality Other Dev Strange Jr., MD IMAGING * PATHOLOGY/GENETICS HISTORICAL-ONBASE (12/25/2015) 12/25/2015 Narrative [facility] - 12/29/2015 3:51 PM CDT Historical Provider LAB - CHEMISTRY O RDERABLES Performing Organization Address [facility] Co de Phone Number [facility] [address] * XR CHEST 2VW PNEUMONIA PROTCL (12/01/2015 5:08 PM KITCHEN RUNNER) Anatomical Region Laterality Modality Other Impressions 12/02/2015 9:03 AM KITCHEN RUNNER Impression: No acute pulmonary process. Dictated by Joshua Yoo MD I, Dr. KLAUDIA TRAMMELL M.D. have personally reviewed and interpreted this examination/study. This report was electronically signed by KLAUDIA TRAMMELL M.D. on 12/02/2015 9:03 AM . Narrative 12/02/2015 9:03 AM KITCHEN RUNNER Exam: XR CHEST PA AND LATERAL PNEU [...] DIAGNOSTIC IMAGING O RDERABLES * CYTOLOGY PAP DB2 DEVELOPER (03/29/1996 9:50 AM CDT) Result CASE NUMBER [id number] Comment: ORDERING PHYSICIAN MARTINEZ [facility] SPECIMEN TYPE PAP Smear Date 04/02/1996 Physician Rico Procedure Pap Cervical/Endocervical Specimen Adequacy Satisfactory for Evaluation Categorization Epithelial Cell Abnormality Atypical sq. cells of undetermined significance (ASCUS) Pathologist Kai Vanegas M.D. MISCELLANEOUS SAMPLES / Unknown 03/29/1996 9:50 AM CDT 03/30/1996 9:51 AM CDT Historical Provider LAB - PATHOLOGY/C YTOLOGY ORDERABLES Care Teams Nursing Services Manager Relationship Specialty Start Date End Date Navid Kelly MD [address] [place] [address] [address] [place] [phone] PCP - General Family Medicine 12/07/17
--- OUTSIDE RECORDS SUMMARY | 2024-11-25 17:40 | XMS_ITS | Encounter Summary ---
Author Organization [facility] Address [address] [place] [address] Care Team Providers Care Leverman Name Role Phone Navid Kelly MD Primary Care Provider [phone] Encounter Details Date Type Department Care Team (Late st Contact Info) Description 11/26/2008 Outpatient Historical [facility] [place], Authorized P NO ADDRESS ON FILE Jasper Garza MD [address] [place] [id number] Social History Tobacco Use Types Packs/Day Years Used Date Smoking Tobacco: Never Assessed Comments Unknown Sex and Gender Information Value Date Recorded Sex Assigned at Not on file Legal Sex Female 5:41 AM AUTHOR'S AGENT Gender Identity Not on file Sexual Orientation Not on file documented as of this encounter Plan of Treatment Not on file documented as of this encounter Visit Diagnoses Not on filedocumented in this encounter Care Teams Leverman Relationship Specialty Start Date End Date Navid Kelly MD PCP - General Family Practice 06/30/17 documented as of this encounter
--- OUTSIDE RECORDS SUMMARY | 2024-11-25 17:40 | XMS_ITS | Encounter Summary ---
Author Organization [facility] Address [address] [place] [address] Care Team Providers Care Inspector Golf Ball Name Role Phone Navid Kelly MD Primary Care Provider [phone] Encounter Details Date Type Department Care Team (Late st Contact Info) Description 07/19/2000 Outpatient Historical [facility] Best Olivas MD [address] [place] [phone] Social History Tobacco Use Types Packs/Day Years Used Date Smoking Tobacco: Never Assessed Comments Unknown Sex and Gender Information Value Date Recorded Sex Assigned at Not on file Legal Sex Female 5:41 AM PRODUCT ASSEMBLER Gender Identity Not on file Sexual Orientation Not on file documented as of this encounter Plan of Treatment Not on file documented as of this encounter Visit Diagnoses Not on filedocumented in this encounter Care Teams Inspector Golf Ball Relationship Specialty Start Date End Date Navid Kelly MD PCP - General Family Practice 06/30/17 documented as of this encounter
--- OUTSIDE RECORDS SUMMARY | 2024-11-25 17:40 | XMS_ITS | Referral Summary ---
Author Organization [facility] Address [address] [place] [address] Care Team Providers Care Selector Packer Name Role Phone Navid Kelly MD Primary Care Provider [phone] Source Comments [facility],non-owned Affiliates and Associated Physician Practices is amultiple site organization consisting of ambulatory clinics and hospital sitesin [place], [place], [place] and [place]. This disclosure is being madepursuant to the Care Everywhere program and may not contain all information available regarding this patient. Last updated 18.[facility] Allergies Active Allergy Reactions Criticality Noted Date [...] once daily 05/02/2022 Active allergy injection Per [facility] Otolaryngology protocol Active prazosin (Minipress) 2 MG [...] daily as needed 01/02/2023 Active nystatin (Mycostatin) [id number] UNIT/ML suspension Take 5 mL by mouth [...] Comments Blood Pressure 146/122 11/30/2023 2:29 PM CLINICAL DATA MANAGEMENT MANAGER Pulse 96 11/30/2023 2:29 PM CLINICAL DATA MANAGEMENT MANAGER Temperature 37 C (98.6 F) 05/31/2022 3:39 PM CDT Respiratory Rate 10 06/09/2022 2:35 PM CDT Oxygen Saturation 95% 05/31/2022 4:00 PM CDT Inhaled Oxygen Concentration 21% 05/31/2022 2 :55 PM CDT Weight 103.9 kg (229 lb) 11/30/2023 2:29 PM CLINICAL DATA MANAGEMENT MANAGER Height 167.6 cm (5' 6 ) 11/30/2023 2:29 PM CLINICAL DATA MANAGEMENT MANAGER Body Mass Index 36.96 11/30/2023 2:29 PM CLINICAL DATA MANAGEMENT MANAGER Functional Status Functional Status Response Date of [...] st Contact Info) Description 12/05/2024 2:00 PM CLINICAL DATA MANAGEMENT MANAGER Office Visit [facility] - ENT [address] [place] [phone] Harrison Phelan MD [address] [place] [address] [place] [address] Goals Goal Patient Goal Type Associated Problems [...] Routine 05/31/2022 11:45 AM CDT CYTOLOGY PAP PROGRAM RESEARCH SPECIALIST HERBERT 03/29/1996 9:50 AM CDT from Last 3 Months or Most Recently Relevant to Health Maintenance Results * (ABNORMAL) GLUCOSE - POINT OF CARE (05/31/2022 11:45 AM CDT) Glucose WB/POC 135(H) 70 - 115 mg/dL 05/31/2022 11:50 AM CDT [facility] Specimen Type Cap Fingerstick 2021 11:50 AM CDT [facility] Blood BLOOD SPECIMEN / Unknown 05/31/2022 11:45 AM CDT 05/31/2022 11:50 AM CDT Harrison Phelan MD LAB - POINT OF CARE ORDERABLES [facility] [address] [place] [phone], [facility] [phone] * CYTOLOGY PAP PROGRAM RESEARCH SPECIALIST (03/29/1996 9:50 AM CDT) Result CASE NUMBER [id number] Comment: ORDERING PHYSICIAN MARTINEZ [facility] SPECIMEN TYPE PAP Smear Date 04/02/1996 [...] Last Indicated MRSA 01/13/2022 01/13/2022 Care Teams Selector Packer Relationship Specialty Start Date End Date Navid Kelly MD [facility] [address] [place] [address] PCP - General Family Medicine 12/07/17
--- OUTSIDE RECORDS SUMMARY | 2024-11-25 17:40 | XMS_ITS | Clinical Summary ---
Author Organization [facility] Address [facility] [place] [address] Care Team Providers Care Clinical Psychology Professor Name Role Phone None, Provider MD Primary [...] Department Care Team Description 11/25/2024 7:53 AM [facility] - 11/25/2024 11:15 AM [facility] Emergency [facility] Emergency Room [address] [place] [address] Dev Askew DO Urinary Symptoms Discharge Disposition: [...] Comments Blood Pressure 120/66 11/25/2024 11:15 AM CLOTH WEIGHER Pulse 78 11/25/2024 11:15 AM CLOTH WEIGHER Temperature 36.7 C (98 F) 11/25/2024 11:15 AM CLOTH WEIGHER Respiratory Rate 18 11/25/2024 11:15 AM CLOTH WEIGHER Oxygen Saturation 98% 11/25/2024 11:15 AM CLOTH WEIGHER Inhaled Oxygen Concentration - - Weight 91.2 kg (201 lb 1 oz) 11/25/2024 8:00 AM CLOTH WEIGHER Height 165.1 cm (5' 5 ) 11/25/2024 8:00 AM CLOTH WEIGHER Body Mass Index 33.46 11/25/2024 8:00 AM CLOTH WEIGHER Plan of Treatment Health Maintenance Due Date [...] COMPREHENSIVE METABOLIC PANEL STAT 11/25/2024 8:25 AM CLOTH WEIGHER CBC W/DIFF AUTOMATED STAT 11/25/2024 8:25 AM CLOTH WEIGHER URINALYSIS, AUTO, COMPLETE STAT 11/25/2024 8:00 AM CLOTH WEIGHER from Last 3 Months Results * (ABNORMAL) COMPREHENSIVE METABOLIC PANEL (11/25/2024 8:25 AM CLOTH WEIGHER) GLUCOSE 156(H) 70 - 99 MG/DL 11/25/2024 8:49 AM [facility] BUN 10 7 - 18 MG/DL 11/25/2024 8:49 AM [facility] CREATININE S/P/B 0.79 0.55 - 1.02 MG/DL 11/25/2024 8:49 AM [facility] SODIUM S/P/B 137 136 - 145 MMOL/L 11/25/2024 8:49 AM [facility] POTASSIUM S/P/B 3.3(L) 3.5 - 5.1 MMOL/L 11/25/2024 8:49 AM [facility] CHLORIDE S/P/B 101 100 - 108 MMOL/L 11/25/2024 8:49 AM [facility] CO2 23.3 21 - 32 MMOL/L 11/25/2024 8:49 AM [facility] CALCIUM S/P/B 9.0 8.5 - 10.1 MG/DL 11/25/2024 8:49 AM [facility] BILIRUBIN TOTAL S/P/B 0.4 0.2 - 1.2 MG/DL 11/25/2024 8:49 AM [facility] TOTAL PROTEIN S/P/B 7.1 6.4 - 8.2 G/DL 11/25/2024 8:49 AM [facility] ALBUMIN S/P/B 3.3(L) 3.4 - 5.0 G/DL 11/25/2024 8:49 AM [facility] AST 51(H) 15 - 37 U/L 11/25/2024 8:49 AM [facility] ALT 54 14 - 55 U/L 11/25/2024 8:49 AM [facility] ALKALINE PHOSPHATASE S/P/B 82 50 - 136 U/L 11/25/2024 8:49 AM [facility] ANION GAP 12.7 5 - 15 MMOL/L 11/25/2024 8:49 AM [facility] BUN CREATININE RATIO 12.7 6 - 26 11/25/2024 8:49 AM [facility] A/G RATIO 0.9(L) 1.0 - 2.0 RATIO 11/25/2024 8:49 AM [facility] GFR ESTIMATE 89(L) >90 ML/MIN/1.7 3 M2 11/25/2024 8:49 AM [facility] Comment: NOTE: eGFR is not calculated for patients <18 years of age. This is an estimated GFR calculation using the new CKD EPI creatinine equation without race and so does not require a correction factor for race. This estimated GFR should not be used for calculating drug doses. 11/25/2024 8:25 AM [facility] WE[facility]HER eDv Askew DO LABORATORY Final Result [facility] [address] [place] [address], * (ABNORMAL) CBC W/DIFF AUTOMATED (11/25/2024 8:25 AM CL[facility] WEIGHER) WBC 4.53 4.4 - 11.0 x10'3/uL 11/25/2024 8:47 AM [facility] RBC 5.16(H) 4.50 - 5.10 x10'6/uL 11/25/2024 8:47 AM [facility] HGB 15.8(H) 12.3 - 15.3 G/DL 11/25/2024 8:47 AM [facility] HCT 46.0(H) 35.9 - 44.6 % 11/25/2024 8:47 AM [facility] MCV 89.1 80.0 - 96.0 FL 11/25/2024 8:47 AM [facility] MCH 30.6 25.3 - 30.9 PG 11/25/2024 8:47 AM [facility] MCHC 34.3(H) 31.0 - 34.1 G/DL 11/25/2024 8:47 AM [facility] RDW 13.5 12.4 - 15.1 % 11/25/2024 8:47 AM [facility] PLT 195 151 - 353 x10'3/uL 11/25/2024 8:47 AM [facility] MPV 9.8 9.6 - 12.0 FL 11/25/2024 8:47 AM [facility] SEG NEUTROPHILS 73(H) 42 - 72 % 8:48 AM [facility] LYMPHOCYTES 13(L) 15.8 - 45.0 % 11/25/2024 8:48 AM [facility] MONOCYTES 11 5.7 - 12.5 % 11/25/2024 8:48 AM [facility] ATYP. LYMPHS 3 % 11/25/2024 8:48 AM [facility] ABS. NEUTROPHILS 3.31 1.40 - 6.00 x10'3/uL 11/25/2024 8:48 AM [facility] ABS. LYMPHOCYTES 0.72(L) 0.80 - 4.70 x10'3/uL 11/25/2024 8:48 AM [facility] WEIGHER [facility] PLT MORPH. NORMAL 11/25/2024 8:48 AM [facility] RBC MORPHOLOGY NORMAL 11/25/2024 8:48 AM [facility] WBC MORPHOLOGY NORMAL 11/25/2024 8:48 AM [facility] 11/25/2024 8:25 AM [facility] Dev Askew DO LABORATORY Final Result [facility] [address] [place] [address], [place] [phone] * (ABNORMAL) URINALYSIS, AUTO, COMPLETE (11/25/2024 8:00 AM [facility]HER) COLOR (U) DARK YELLOW 11/25/2024 10:07 AM [facility] TRANSPARENCY HAZY 11/25/2024 10:07 AM [facility] SPECIFIC GRAVITY (U) >1.030(H) 1.000 - 1.030 11/25/2024 10:07 AM [facility] U PH 6.0 5.0 - 9.0 11/25/2024 10:07 AM [facility] LEUKOCYTES (U) 1+(A) NEGATIVE 11/25/2024 10:07 AM [facility] NITRITES POSITIVE(A) NEGATIVE 11/25/2024 10:07 AM [facility] PROTEIN RANDOM (U) 2+(A) NEGATIVE 11/25/2024 10:07 AM [facility] GLUCOSE (U) NEGATIVE NEGATIVE 11/25/2024 10:07 AM [facility] KETONES MG/DL (U) TRACE(A) NEGATIVE 11/25/2024 10:07 AM [facility] BILIRUBIN (U) 1+(A) NEGATIVE 11/25/2024 10:07 AM [facility] BLOOD (U) 1+(A) NEGATIVE 11/25/2024 10:07 AM [facility] WBC/HPF 5-10 0 - 5 /HPF 11/25/2024 10:07 AM [facility] RBC/HPF 5-10 0 - 5 /HPF 11/25/2024 10:07 AM [facility] EPI/HPF FEW /HPF 11/25/2024 10:07 AM [facility] OTHER CASTS (U) FEW /LPF 10:07 AM [facility] Comment:HYALINE BACTERIA (U) FEW /HPF 11/25/2024 10:07 AM [facility] URINE ROMERO MODERATE 11/25/2024 10:07 AM [facility] Comment:MUCOUS URINE SPECIMEN OBTAINED BY CLEAN CATCH PROCEDURE / Unknown 11/25/2024 8:00 AM [facility] Dev Askew DO URINE ORDERABLES Final Result [facility] [address] [place] [address], from Last 3 Months Additional Health Concerns Infection Onset Date Last Indicated MRSA Comment:03/23/23 left breast (JK) 05/26/2017 03/23/2023 Insurance MEDICAID [facility] Care Teams Clinical Psychology Professor Relationship Specialty Start Date End Date None, Provider, PCP - General UNKNOWN PHYSICIAN SPECIALTY 11/25/24
--- OUTSIDE RECORDS SUMMARY | 2024-11-25 17:40 | XMS_ITS | Encounter Summary ---
Author Organization [facility] Address 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
--- OUTSIDE RECORDS SUMMARY | 2024-11-25 17:40 | XMS_ITS | CONTINUITY OF CARE DOCUMENT ---
Author Name douglas cole Address Unknown Organization [facility] Address [address] [place] [address] Phone [phone] Care Team Providers Care [facility] Products Assembler Name Role Phone Xiomara LAGUERRE, Ru Unavailable [phone] Ru Solano MD Unavailable [phone] PROBLEMS Condition Status Date Provider Notes [...] In-person encounter Office Visit Ru Solano MD [facility] Cardiology examinationC O P DHyperlipidemiaHypertensionChest pain-type to be determinedCHF, acute, systolic VITAL SIGNS Date Observation Value Provider Body Mass Index (Ratio) 33.83 kg/m2 Ming Solano MD blood pressure, diastolic 110 mm[Hg] Carmel nkLogic blood pressure, systolic 151 mm[Hg] Eilzabeth kLogic blood pressure, cuff size regular Ja rret blood pressure, diastolic 110 mm[Hg] Ja rret blood pressure, systolic 151 mm[Hg] Jar ret pulse rate 90 /min Monty y oxygen saturation, oximetry 95 % [facility] height E&M 67 [in_i] [facility] y respiratory rate E&M 16 /min [facility] weight E&M 216 [lb_av] Monty y [...] HOURS NEEDED DIRECTED FOR SHORTNESS OF BREATH [facility] alprazolam 1 mg tablet active Take as needed [facility] amlodipine 5 mg tablet completed TAKE 1 TABLET BY MOUTH EVERY DAY - 4 Ru Solano MD fluoxetine 20 mg capsule active Take 1 capsule by mouth once a day Monty nifedipine 30 mg tablet extended release 24hr active TAKE 1 TABLET BY MOUTH EVERY DAY [facility] prednisone 20 mg tablet active Take [...] Payer name Policy type / Coverage type Epps red libertarian ID [employer] PPO HMO [id number] ADVANCE DIRECTIVES Name Date DISCUSSED - NO DECISION MADE TREATMENT PLAN Date Name Performer Cardiology:PFTs Ru Solano MD Cardiology:Recently in hospital with respiratory failure. N eeds stress, can't walk on treadmill so will schedule regadenoson. Ru Solano MD Date Name DLCO - [id number] FRC - 04169 FVC - 97595 Stress Regadenoson Complete Echo HISTORY OF PROCEDURES Procedure Date Procedure Name Provider Procedure Notes S tatus EKG Ru Solano MD complete d
--- OUTSIDE RECORDS SUMMARY | 2024-11-25 17:40 | XMS_ITS | Clinical Summary ---
Author Organization [facility] Address [address] [place] [address] Care Team Providers Care Impression Printer Name Role Phone Navid Kelly MD Primary Care Provider [phone] Source Comments [facility],non-owned Affiliates and Associated Physician Practices is amultiple site organization consisting of ambulatory clinics and hospital sitesin [place], [place], [place] and [place]. This disclosure is being madepursuant to the Care Everywhere program and may not contain all information available regarding this patient. Last updated 18.[facility] Allergies Active Allergy Reactions Criticality Noted Date [...] once daily 05/02/2022 Active allergy injection Per [facility] Otolaryngology protocol Active prazosin (Minipress) 2 MG [...] daily as needed 01/02/2023 Active nystatin (Mycostatin) 762781 UNIT/ML suspension Take 5 mL by mouth [...] Comments Blood Pressure 146/122 11/30/2023 2:29 PM SETTLEMENT TECHNICIAN Pulse 96 11/30/2023 2:29 PM SETTLEMENT TECHNICIAN Temperature 37 C (98.6 F) 05/31/2022 3:39 PM CDT Respiratory Rate 10 06/09/2022 2:35 PM CDT Oxygen Saturation 95% 05/31/2022 4:00 PM CDT Inhaled Oxygen Concentration 21% 05/31/2022 2 :55 PM CDT Weight 103.9 kg (229 lb) 11/30/2023 2:29 PM SETTLEMENT TECHNICIAN Height 167.6 cm (5' 6 ) 11/30/2023 2:29 PM SETTLEMENT TECHNICIAN Body Mass Index 36.96 11/30/2023 2:29 PM SETTLEMENT TECHNICIAN Plan of Treatment Upcoming Encounters Date Type Department Care Team (Late st Contact Info) Description 12/05/2024 2:00 PM SETTLEMENT TECHNICIAN Office Visit [facility] - [facility] [address] [place] [address], [place] [address] Harrison Phelan MD [address] [place] [address] [place] [address] Health Maintenance Due Date Last Done Comments [...] Routine 05/31/2022 11:45 AM CDT CYTOLOGY PAP BRICK TENDER HERBERT 03/29/1996 9:50 AM CDT from Last 3 Months or Most Recently Relevant to Health Maintenance Results * (ABNORMAL) GLUCOSE - POINT OF CARE (05/31/2022 11:45 AM CDT) Glucose WB/POC 135(H) 70 - 115 mg/dL 05/31/2022 11:50 AM CDT [facility] Specimen Type Cap Fingerstick 2021 11:50 AM CDT [facility] Blood BLOOD SPECIMEN / Unknown 05/31/2022 11:45 AM CDT 05/31/2022 11:50 AM CDT Harrison Phelan MD LAB - POINT OF CARE ORDERABLES [facility] [address] [place] [address], [facility] [phone] * CYTOLOGY PAP BRICK TENDER (03/29/1996 9:50 AM CDT) Result CASE NUMBER [id number] Comment: ORDERING PHYSICIAN MARTINEZ DEAN [facility] SPECIMEN TYPE PAP Smear Date 04/02/1996 [...] Last Indicated MRSA 01/13/2022 01/13/2022 Care Teams Impression Printer Relationship Specialty Start Date End Date Navid Kelly MD [facility] [place] [address] PCP - General Family Medicine 12/07/17
--- OUTSIDE RECORDS SUMMARY | 2024-11-25 17:41 | XMS_ITS | Encounter Summary ---
Author Organization [facility] Address [facility] [place] [address] Care Team Providers Care Striping Machine Operator Name Role Phone Joe Covarrubias MD Primary Care Provider Unavailable Navid Parks MD Primary Care Provider None, Provider Primary Care Provider Unavaila ble Encounter Details Date Type Department Care Team (Late st Contact Info) Description 12/28/2016 Abstract [facility] CONVERSION [address] [place] [address] Joe Covarrubias MD Social History [...] documented as of this encounter Care Teams Striping Machine Operator Relationship Specialty Start Date End Date Joe Covarrubias MD PCP - General 03/06/15 Navid Parks MD [address] [address] PCP - General FAMILY PRACTICE 03/23/23 11/24/24 None, ProviderMD PCP - General UNKNOWN PHYSICIAN SPECIALTY 11/25/24 documented as of this encounter
--- OUTSIDE RECORDS SUMMARY | 2024-11-25 17:41 | XMS_ITS | Encounter Summary ---
Author Organization [facility] Address 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
--- OUTSIDE RECORDS SUMMARY | 2024-11-25 17:41 | XMS_ITS | Encounter Summary ---
Author Organization [facility] Address [address] [place] [address] Care Team Providers Care Second Time Worker Name Role Phone None, Provider MD Primary Care Provider Unavaila ble Reason for Visit * Reason Comments Urinary Symptoms Encounter Details Date Type Department Care Team (Late st Contact Info) Description 11/25/2024 7:53 AM EARLY YEARS TEACHER - 11/25/2024 11:15 AM EARLY YEARS TEACHER Emergency [facility] Emergency Room [id number] [place] [address] Dev Aksew DO [address] [place] [address] [phone] Urinary Symptoms Discharge Disposition: Home or Self [...] Comments Blood Pressure 120/66 11/25/2024 11:15 AM EARLY YEARS TEACHER Pulse 78 11/25/2024 11:15 AM EARLY YEARS TEACHER Temperature 36.7 C (98 F) 11/25/2024 11:15 AM EARLY YEARS TEACHER Respiratory Rate 18 11/25/2024 11:15 AM EARLY YEARS TEACHER Oxygen Saturation 98% 11/25/2024 11:15 AM EARLY YEARS TEACHER Inhaled Oxygen Concentration - - Weight 91.2 kg (201 lb 1 oz) 11/25/2024 8:00 AM EARLY YEARS TEACHER Height 165.1 cm (5' 5 ) 11/25/2024 8:00 AM EARLY YEARS TEACHER Body Mass Index 33.46 11/25/2024 8:00 AM EARLY YEARS TEACHER documented in this encounter Discharge Instructions * Attachments The following attachments cannot be sent through Care Everywhere. * Urinary Tract Infection, Adult ED (Congolese) documented in this encounter Medications at Time [...] and urgency and fever for 1 week Y YEARS TEACHER documented in this encounter Plan of Treatment Scheduled Orders Name Type Priority Associated Diagnoses Orde r Schedule URINE BACTERIA CULTURE Microbiology Routine STAT for 1 Occur rences starting 11/25/2024 until 11/25/2024 documented as of this encounter Procedures Procedure Name Priority Date/Time Associated Diagnosis Comments COMPREHENSIVE METABOLIC PANEL STAT 11/25/2024 8:25 AM EARLY YEARS TEACHER CBC W/DIFF AUTOMATED STAT 11/25/2024 8:25 AM EARLY YEARS TEACHER URINALYSIS, AUTO, COMPLETE STAT 11/25/2024 8:00 AM EARLY YEARS TEACHER documented in this encounter Results * (ABNORMAL) COMPREHENSIVE METABOLIC PANEL (11/25/2024 8:25 AM EARLY YEARS TEACHER) GLUCOSE 156(H) 70 - 99 MG/DL 11/25/2024 8:49 AM EARLY YEARS TEACHER [facility] BUN 10 7 - 18 MG/DL 11/25/2024 8:49 AM [facility] CREATININE S/P/B 0.79 0.55 - 1.02 MG/DL 11/25/2024 8:49 AM [facility] SODIUM S/P/B 137 136 - 145 MMOL/L 11/25/2024 8:49 AM [facility] POTASSIUM S/P/B 3.3(L) 3.5 - 5.1 MMOL/L 11/25/2024 8:49 AM [facility] CHLORIDE S/P/B 101 100 - 108 MMOL/L 11/25/2024 8:49 AM [facility] CO2 23.3 21 - 32 MMOL/L 11/25/2024 8:49 AM [facility] CALCIUM S/P/B 9.0 8.5 - 10.1 MG/DL 11/25/2024 8:49 AM [facility] BILIRUBIN TOTAL S/P/B 0.4 0.2 - 1.2 MG/DL 11/25/2024 8:49 AM [facility] TOTAL PROTEIN S/P/B 7.1 6.4 - 8.2 G/DL 11/25/2024 8:49 AM [facility] ALBUMIN S/P/B 3.3(L) 3.4 - 5.0 G/DL 11/25/2024 8:49 AM [facility] AST 51(H) 15 - 37 U/L 11/25/2024 8:49 AM [facility] ALT 54 14 - 55 U/L 11/25/2024 8:49 AM [facility] ALKALINE PHOSPHATASE S/P/B 82 50 - 136 U/L 11/25/2024 8:49 AM [facility] ANION GAP 12.7 5 - 15 MMOL/L 11/25/2024 8:49 AM [facility] BUN CREATININE RATIO 12.7 6 - 26 11/25/2024 8:49 AM [facility] A/G RATIO 0.9(L) 1.0 - 2.0 RATIO 11/25/2024 8:49 AM [facility] GFR ESTIMATE 89(L) >90 ML/MIN/1.7 3 M2 11/25/2024 8:49 AM [facility] Comment: NOTE: eGFR is not calculated for patients <18 years of age. This is an estimated GFR calculation using the new CKD EPI creatinine equation without race and so does not require a correction factor for race. This estimated GFR should not be used for calculating drug doses. 11/25/2024 8:25 AM EARLY YEARS TEACHER Dev Askew DO LABORATORY Final Result [facility] [address] [place] [address], * (ABNORMAL) CBC W/DIFF AUTOMATED (11/25/2024 8:25 AM [facility]) WBC 4.53 4.4 - 11.0 x10'3/uL 11/25/2024 8:47 AM [facility] RBC 5.16(H) 4.50 - 5.10 x10'6/uL 11/25/2024 8:47 AM [facility] HGB 15.8(H) 12.3 - 15.3 G/DL 11/25/2024 8:47 AM [facility] HCT 46.0(H) 35.9 - 44.6 % 11/25/2024 8:47 AM [facility] MCV 89.1 80.0 - 96.0 FL 11/25/2024 8:47 AM [facility] MCH 30.6 25.3 - 30.9 PG 11/25/2024 8:47 AM [facility] MCHC 34.3(H) 31.0 - 34.1 G/DL 11/25/2024 8:47 AM [facility] RDW 13.5 12.4 - 15.1 % 11/25/2024 8:47 AM [facility] PLT 195 151 - 353 x10'3/uL 11/25/2024 8:47 AM [facility] MPV 9.8 9.6 - 12.0 FL 11/25/2024 8:47 AM [facility] SEG NEUTROPHILS 73(H) 42 - 72 % 8:48 AM [facility] LYMPHOCYTES 13(L) 15.8 - 45.0 % 11/25/2024 8:48 AM [facility] MONOCYTES 11 5.7 - 12.5 % 11/25/2024 8:48 AM [facility] ATYP. LYMPHS 3 % 11/25/2024 8:48 AM [facility] ABS. NEUTROPHILS 3.31 1.40 - 6.00 x10'3/uL 11/25/2024 8:48 AM [facility] ABS. LYMPHOCYTES 0.72(L) 0.80 - 4.70 x10'3/uL 11/25/2024 8:48 AM [facility] PLT MORPH. NORMAL 11/25/2024 8:48 AM [facility] RBC MORPHOLOGY NORMAL 11/25/2024 8:48 AM [facility] WBC MORPHOLOGY NORMAL 11/25/2024 8:48 AM [facility] 11/25/2024 8:25 AM EARLY YEARS TEACHER Dev Askew DO LABORATORY Final Result [facility] [address] [place] [address], [place] [phone] * (ABNORMAL) URINALYSIS, AUTO, COMPLETE (11/25/2024 8:00 AM EARLY YEARS TEACHER) COLOR (U) DARK YELLOW 11/25/2024 10:07 AM [facility] TRANSPARENCY HAZY 11/25/2024 10:07 AM [facility] SPECIFIC GRAVITY (U) >1.030(H) 1.000 - 1.030 11/25/2024 10:07 AM [facility] U PH 6.0 5.0 - 9.0 11/25/2024 10:07 AM [facility] LEUKOCYTES (U) 1+(A) NEGATIVE 11/25/2024 10:07 AM [facility] NITRITES POSITIVE(A) NEGATIVE 11/25/2024 10:07 AM [facility] PROTEIN RANDOM (U) 2+(A) NEGATIVE 11/25/2024 10:07 AM [facility] GLUCOSE (U) NEGATIVE NEGATIVE 11/25/2024 10:07 AM [facility] KETONES MG/DL (U) TRACE(A) NEGATIVE 11/25/2024 10:07 AM [facility] BILIRUBIN (U) 1+(A) NEGATIVE 11/25/2024 10:07 AM [facility] BLOOD (U) 1+(A) NEGATIVE 11/25/2024 10:07 AM [facility] WBC/HPF 5-10 0 - 5 /HPF 11/25/2024 10:07 AM [facility] RBC/HPF 5-10 0 - 5 /HPF 11/25/2024 10:07 AM [facility] EPI/HPF FEW /HPF 11/25/2024 10:07 AM [facility] OTHER CASTS (U) FEW /LPF 10:07 AM [facility] Comment:HYALINE BACTERIA (U) FEW /HPF 11/25/2024 10:07 AM [facility] URINE ROMERO MODERATE 11/25/2024 10:07 AM [facility] Comment:MUCOUS URINE SPECIMEN OBTAINED BY CLEAN CATCH PROCEDURE / Unknown 11/25/2024 8:00 AM EARLY YEARS TEACHER Dev Askew DO URINE ORDERABLES Final Result [facility] [address] [place] [address], documented in this encounter Visit Diagnoses Diagnosis UTI (urinary tract infection)- Primary Urinary tract infection, site not specified documented in this encounter Administered Medications Inactive Administered Medications - up to 3 most recent administrations Medication Order MAR Action Action Date Dose Rate Site ondansetron (ZOFRAN-ODT) disintegrating tablet 4 mg 4 mg, Oral, Once, 1 dose, On 11/25/24 at 0815 Given 11/25/2024 8:13 AM EARLY YEARS TEACHER 4 mg documented in this encounter Active and Recently Administered Medications Times are shown in EARLY YEARS TEACHER. Scheduled Medication Order 11/23/2024 11/24/2024 11/25/2024 acetaminophen [...] documented as of this encounter Care Teams Second Time Worker Relationship Specialty Start Date End Date None, Provider, PCP - General UNKNOWN PHYSICIAN SPECIALTY 11/25/24 documented as of this encounter
--- OUTSIDE RECORDS SUMMARY | 2024-11-25 17:41 | XMS_ITS | Clinical Summary ---
Author Organization [facility] Address [address] [place] [address] Phone Care Team Providers Care Storage Battery Inspector And Tester Name Role Phone Navid Kelly MD Primary Care Provider [phone] Allergies Active Allergy Reactions Criticality Noted Date [...] on file Legal Sex Female 5:41 AM LICENSED PESTICIDE APPLICATOR Gender Identity Not on file Sexual Orientation [...] 2024 07/30/2015 Medical Devices Explanted Type Area Director Product Device Identifier Shelf Expiration Date Model / Serial / Lot Lap Band-08/31/2016 Implanted:2015 (Quantity not on file) Explanted:Qty: 1 on 07/04/2017 by Walker Bates MD at [facility] [employer] MEDICARE PART A AND B [facility] BLUE ACCESS CHOICE Advance Directives For more information, please contact: [phone] * Full Code (Latest Code Status on File) Date Activated Date Inactivated Comments 07/04/2017 2:01 PM 07/05/2017 3:02 PM * Full Code Date Activated Date Inactivated Comments 07/04/2017 10:04 AM 07/04/2017 2:01 PM * Full Code Date Activated Date Inactivated Comments 07/04/2017 9:23 AM 07/04/2017 10:04 AM * Full Code Date Activated Date Inactivated Comments 07/02/2016 5:38 AM 07/02/2016 10:39 AM Care Teams Storage Battery Inspector And Tester Relationship Specialty Start Date End Date Navid Kelly MD PCP - General Family Practice 06/30/17
--- OUTSIDE RECORDS SUMMARY | 2024-11-25 17:41 | XMS_ITS | Encounter Summary ---
Author Organization [facility] Address [address] [place] [address] Care Team Providers Care Machine Clerical Verifier Name Role Phone None, Provider Primary Care [...] documented as of this encounter Care Teams Machine Clerical Verifier Relationship Specialty Start Date End Date None, Provider, PCP - General UNKNOWN PHYSICIAN SPECIALTY 11/25/24 documented as of this encounter
[2024-11-25 17:49] LABS: Alanine Aminotransferase 54 U/L (6-35); Albumin Level 3.9 g/dL (3.5-5.1); Alkaline Phosphatase 96 U/L (38-126); Anion Gap 11 mmol/L (4-12); Aspartate Amino Transferase 54 U/L (14-36); Bilirubin,Total 0.6 mg/dL (0.2-1.3); Blood Urea Nitrogen 9 mg/dL (7-17); Carbon Dioxide 21 mmol/L (22-30); Chloride 103 mmol/L (98-107); Estimated CRCL calculation 97 ml/min; Estimated Glomerular Filt Rate > 60; Glucose 94 mg/dL (65-110); Lipase 58 U/L (23-300); Potassium 3.6 mmol/L (3.4-5.0); Sodium 135 mmol/L (137-145)
[2024-11-25] MEDS: FAMOTIDINE 20 MG/2 ML VIAL IV PUSH (17:50)
[2024-11-25] MEDS: methylPREDNISolone SOD SUCC 40 MG VIAL IV PUSH (17:50)
[2024-11-25 17:52] LABS: INR 0.9
[2024-11-25 17:53] LABS: Partial Thromboplastin Time 35.4 Seconds (22.3-36.8)
[2024-11-25] MEDS: MAGNESIUM SULF 2 GM/WATER 50ML 2 GM/50 ML BAG IVPB (17:53)
[2024-11-25] MEDS: LACTATED RINGERS 1,000 ML 999 ML IV CONT (17:56)
[2024-11-25 18:00] LABS: Troponin I < 0.012 ng/mL (0.000-0.034)
[2024-11-25 18:13] LABS: Influenza A QL RT-PCR Positive (Negative); Influenza B QL RT-PCR Negative (Negative); RSV RNA, RT-PCR Negative (Negative); SARS-CoV-2 RNA PCR Negative (Negative)
[2024-11-25] MEDS: ASPIRIN 81 MG CHEWABLE TABLET 324 MG PO (18:50)
[2024-11-25] MEDS: HYDROmorphone HCL INJ (*CRX) 1 MG/ML SYR 0.5 MG IV PUSH (18:57)
[2024-11-25] MEDS: ONDANSETRON INJ 4 MG/2 ML VIAL IV PUSH (18:58)
[2024-11-25 20:37] LABS: Add Urine Microscopic? YES; Appearance Urine Clear (Clear); Bacteria Urine 4+ /hpf; Bilirubin Urine Negative (Negative); Blood Urine Negative (Negative); Color Urine Yellow (Yellow); Glucose Urine UA Negative (Negative); Ketones Urine Negative (Negative); Leukocyte Esterase Ur Negative LEU/UL (Negative); Need Manual Microscopic Reviewed; Nitrate Urine Positive (Negative); Non Pathogenic Casts 0-2; Protein Urine Trace mg/dL (Negative); Specific Grav Ur > 1.045 (1.001-1.035); Squamous Epithelial Cell Urine Few /hpf (Few); pH Urine 5.5 (5.0-9.0)
[2024-11-25] MEDS: SULFAMETHOXAZOLE/TRIMETHOPRIM 800/160 MG DS TABLET 1 TAB PO (20:53)
== END 2024-11-25 21:10 | disposition home or self-care (01) ==
PROVIDERS: Emergency Medicine; Emergency Provider Student in an Organized Health Care Education/Training Program
DX: J10.1 Influenza due to other identified influenza virus with other respiratory manifestations (principal); J45.901 Unspecified asthma with (acute) exacerbation; N39.0 Urinary tract infection, site not specified; R10.13 Epigastric pain; Z20.822 Contact with and (suspected) exposure to COVID-19; I11.9 Hypertensive heart disease without heart failure; J43.9 Emphysema, unspecified; D83.9 Common variable immunodeficiency, unspecified; D64.9 Anemia, unspecified; G47.33 Obstructive sleep apnea (adult) (pediatric); G62.9 Polyneuropathy, unspecified; M19.90 Unspecified osteoarthritis, unspecified site; K50.90 Crohn's disease, unspecified, without complications; K21.9 Gastro-esophageal reflux disease without esophagitis; Q85.02 Neurofibromatosis, type 2; F41.9 Anxiety disorder, unspecified; F32.A Depression, unspecified; Z98.84 Bariatric surgery status; Z87.891 Personal history of nicotine dependence; Z87.01 Personal history of pneumonia (recurrent); Z90.710 Acquired absence of both cervix and uterus; Z90.49 Acquired absence of other specified parts of digestive tract; Z79.85 Long-term (current) use of injectable non-insulin antidiabetic drugs; Z79.899 Other long term (current) drug therapy; Z79.4 Long term (current) use of insulin; R94.31 Abnormal electrocardiogram [ECG] [EKG]; R00.0 Tachycardia, unspecified
CPT/HCPCS: 36415; 71045; 74177; 80053; 81001; 83690; 84484; 85025; 85610; 85730; 87077; 87086; 87186; 87637; 93005; 94640; 96365; 96366; 96375; 99284; A9270; J1171; J2405; J2919; J3475; J7120; Q9967

== ENCOUNTER 2025-06-22 06:51 | Emergency (ER) | payer OTHER, MEDICARE, MEDICAID, SELFPAY ==
--- OUTSIDE RECORDS SUMMARY | 2025-06-22 06:53 | XMS_ITS | Encounter Summary ---
Author Organization [facility] Address 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
--- OUTSIDE RECORDS SUMMARY | 2025-06-22 06:53 | XMS_ITS | Encounter Summary ---
Author Organization [facility] Address [facility] [place] [address] Care Team Providers Care Kindergarten Tutor Name Role Phone Joe Covarrubias MD Primary Care Provider Unavailable Navid Parks MD Primary Care Provider [phone] None, Provider Primary Care Provider Unavaila ble Encounter Details Date Type Department Care Team (Late st Contact Info) Description 12/28/2016 Abstract [facility] CONVERSION [address] [place] [address] Joe Covarrubias MD Social History [...] documented as of this encounter Care Teams Kindergarten Tutor Relationship Specialty Start Date End Date Joe Covarrubias MD PCP - General 03/06/15 Navid Parks MD [address] [address] PCP - General FAMILY PRACTICE 03/23/23 11/24/24 None, ProviderMD PCP - General UNKNOWN PHYSICIAN SPECIALTY 11/25/24 documented as of this encounter
--- OUTSIDE RECORDS SUMMARY | 2025-06-22 06:53 | XMS_ITS | Clinical Summary ---
Author Organization [facility] Address [address] [place] [address] Care Team Providers Care Clinical Veterinarian Name Role Phone Unknown, Provider Primary Care Provider Unavaila ble Source Comments [facility] Affiliates and Associated Physician Practices is amultiple site organization consisting of ambulatory clinics and hospital sitesin [place], [place], [place] and [place]. This disclosure is being madepursuant to the Care Everywhere program and may not contain all information available regarding this patient. Last updated 18.[facility] Submittable Allergies Active Allergy Reactions Criticality Noted Date Comments Adhesive Sensitivity Rash Medium 06/30/2016 Latex Itching 03/24/2022 Morphine Rash Medium 09/24/2024 Pollen Extract Shortness of Breath High 03/14/2018 Medications * Be aware that medications may not be up to date on this document. Alwaysverify current medications with the patient. VENTOLIN HFA 108 (90 BASE) MCG/ACT inhaler Inhale 2 (two) puffs by mouth as needed 8 Active diphenhydrAMIN E (BENADRYL) 25 MG tablet Take 2 (two) tablets by mouth 2 times daily Active albuterol (PROVENTIL;KINSEY TOLIN) (2.5 MG/3ML) 0.083% nebulizer solution Inhale 2.5 (two and one-half) mg by mouth as needed 8 Active albuterol-ipra tropium (DUO-NEB) 0.5-2.5 (3) MG/3ML nebulizer solution 3 mL as needed 0 9 Active SYMBICORT 160-4.5 MCG/ACT inhaler INL 2 PFS PO Q 12 H 0 03/14/201 9 Active metFORMIN (GLUCOPHAGE) 500 MG tablet Take 1 (one) tablet by mouth 2 times daily with morning and evening meal Active ibuprofen (Motrin) 400 MG tablet Take 1 (one) tablet by mouth every 6 hours as needed for Pain 30 tablet 1 2 Active Additional Information Patient not taking.Reason: Patient adjusted, Reported on 05/01/2025 losartan-hydro CHLOROthiazide (Hyzaar) 100-12.5 MG tablet Take 1 (one) tablet by mouth once daily 2 Active allergy injection Per [facility] Otolaryngology protocol Active prazosin (Minipress) 2 MG capsule Take 1 (one) capsule by mouth once daily Active FLUoxetine (PROzac) 20 MG capsule Take 1 (one) capsule by mouth once daily Active SYRINGE-NEEDLE , DISP, 3 ML 25G X 5/8 3 ML MISC Dispense 30 syringes for 1 month supply 30 Each 2 2 Active Additional Information Patient not taking.Reason: Patient adjusted, Reported on 05/01/2025 ALPRAZolam (Xanax) 1 MG tablet Take 1 (one) tablet by mouth 3 times daily as needed 2 Active clomiPRAMINE (Anafranil) 25 MG capsule Take 1 (one) capsule by mouth 2 times daily 2 Active pantoprazole EC (Protonix) 40 MG tablet Take 1 (one) tablet by mouth as directed 3 Active BD Eclipse Syringe 25G X 1 3 ML MISC Use 1 (one) Each as directed 2 Active SYRINGE/NEEDLE , DISP, 1 ML (BD Eclipse Syringe) 25G X 5/8 1 ML MISC Use 1 Each as directed Active amLODIPine (Norvasc) 5 MG tablet Take 1 (one) tablet by mouth once daily 3 Active benzonatate (Tessalon) 200 MG capsule Take 1 (one) capsule by mouth 3 times daily as needed 3 Active nystatin (Mycostatin) 968996 UNIT/ML suspension Take 5 mL by mouth 4 times daily 3 Active predniSONE (Deltasone) 20 MG tablet Take 2 (two) tablets by mouth as needed 3 Active EPINEPHrine (Epipen) 0.3 MG/0.3ML auto-injector pen Inject 0.3 mL into muscle as needed for Anaphylaxis 1 Each 4 Active Additional Information Patient not taking.Reason: Patient adjusted, Reported on 05/01/2025 acetaminophen (Tylenol) 325 MG tablet Take 2 (two) tablets by mouth every 6 hours as needed 4 Active Mometasone Furoate Use 1 mg 2 times daily Compound 1 mg capsules. Mix contents of 1 capsule in 240 ml saline, and irrigate half in each nostril twice daily. 60 g 11 5 Active Additional Information Patient not taking.Reason: Patient adjusted, Reported on 05/01/2025 losartan (Cozaar) 100 MG tablet Take 1 (one) tablet by mouth once daily 5 Active insulin glargine (Lantus/Semgle e) 100 units/mL pen Inject 15 (fifteen) Units subcutaneously at bedtime 4 Active Active Problems Problem Noted Date Diagnosed Date Common variable immunodeficiency 06/12/2025 Hyperglycemia 06/12/2025 Obstructive sleep apnea 06/12/2025 Chronic obstructive pulmonary disease, unspecifi ed 02/28/2024 Essential hypertension 02/28/2024 Hyperlipidemia 02/28/2024 Bronchospasm 07/13/2019 Hemolytic anemia 07/13/2019 Non-seasonal allergic [...] 07/28/2022 Post-operative nausea and vomiting 07/05/2017 07/28/2022 Encounters Date Type Department Care Team Description 06/12/2025 1:15 PM CDT Office Visit [facility] - ENT [address] [place] [address] Harrison Phelan MD Chronic pansinusitis (Primary Dx); Nasal polyps 06/12/2025 Travel 06/07/2025 12:10 PM CDT - 06/07/2025 11:59 PM CDT Hospital Encounter [facility] CAT SCAN [address] [place] [address] Harrison Phelan MD Discharge Disposition: Home or Self Care 06/07/2025 Travel 06/05/2025 Travel 05/01/2025 3:27 PM CDT - 05/01/2025 11:59 PM CDT Hospital Encounter [facility] LAB OP DRAW STATION [address] [place] [address] Discharge Disposition: Home or Self Care 05/01/2025 1:30 PM CDT Office Visit [facility] - ENT [address] [place] [phone] Harrison Phelan MD Chronic pansinusitis (Primary Dx); Seasonal allergic rhinitis due to pollen; Nasal obstruction; Nasal congestion 05/01/2025 Travel from Last 3 Months Immunizations Immunization Administration Dates Next Due INFLUENZA VACCINE, TRIV. (AF LURIA, FLUZONE TRIVALENT; 6MO+) (IIV3) 07/30/2015 Covid Moderna primary monova lent 12+ yr 0.5mL 04/23/2021,03/21/2021 FLU VACCINE QUAD IIV4 SPLIT 0.25 ML IM 08/31/2016 INFLUENZA VACCINE 08/03/2018, 5,07/30/2015,2013 INFLUENZA VACCINE, QUADR. (F LUZONE; FLULAVAL; FLUARIX; AFLURIA QUADRIVALENT; 6MO+), 0.5 ML (IIV4) 10/17/2017,07/08/2015 INFLUENZA VACCINE, TRIV. (FL UZONE; FLULAVAL; FLUARIX; AFLURIA TRIVALENT; 6MO+), 0.5 ML (IIV3) 07/30/2015 PNEUMOCOCCAL PPV VACCINE 12/26/2014,03/30/2013 Family History Medical History Relation Name Comments Other Father Hypertension Mother Other Mother Tension Headach es Other Paternal Grandfather Hypertension Sister Relation Name Status Comments Brother 1 Alive Brother 2 Alive Brother 3 Alive Father Mother Alive Paternal Grandfather Sister Alive Social History Tobacco Use Types Packs/Day Years Used Date Smoking Tobacco: Some Days Cigarettes 0.3 39.7 Started: 1985 Smokeless Tobacco: Never Tobacco Cessation:Ready to Q uit: Not Asked; Counseling Given: Not Answered Comments:1 pack cigarettes per week (05/19/22) Alcohol Use Standard Drinks/Week Comments Yes 0 (1 standard drink = 0.6 oz pur e alcohol) Comments No Sex and Gender Information Value Date Recorded Sex Assigned at Not on file Legal Sex Female 6:16 AM TRANSLATOR Gender Identity Not on file Sexual Orientation Not on file Occupation Industry Job Start Date Job End Date disabled Not on file Not on file Not on file Last Filed Vital Signs Vital Sign Reading Time Taken Comments Blood Pressure 196/123 06/12/2025 1:07 PM CDT Pulse 91 06/12/2025 1:02 PM CDT Temperature 37 C (98.6 F) 05/31/2022 3:39 PM CDT Respiratory Rate 10 06/09/2022 2:35 PM CDT Oxygen Saturation 95% 05/31/2022 4:00 PM CDT Inhaled Oxygen Concentration 21% 05/31/2022 2 :55 PM CDT Weight 98.4 kg (217 lb) 06/12/2025 1:02 PM CDT Height 170.2 cm (5' 7) 06/12/2025 1:02 PM CDT Body Mass Index 33.99 06/12/2025 1:02 PM CDT Plan of Treatment Upcoming Encounters Date Type Department Care Team (Latest Contact Info) Description 07/26/2025 7:20 AM CDT Hospital Encounter [facility] OP [address] [place] [phone] Harrison Phelan MD [address] [place] [address] Surgery General 07/26/2025 7:20 AM CDT - 07/26/2025 9:40 AM CDT Surgery [facility] [address] [place] [address] Harrison Phelan MD [address] [facility] [address] [place] [address] MAXILLARY ANTROSTOMY, FRONTAL SINUSOTOMY, TOTAL ETHMOIDECTOMY, SPHENOIDOTOMY Scheduled Procedures Name Priority Associated Diagnoses Date/Ti me ENDOSCOPIC SINUS WITH NAVIGATION Chronic pansinusitis Nasal polyps 07/26/2025 7:20 AM CDT Health Maintenance Due Date Last Done Comments [...] of 3 - 19+ 3-dose series) 1989 ZOSTER VACCINE (1 of 2) 1989 PNEUMOCOCCAL VACCINE 50+ (3 of 3 - PCV) 12/27/2015 12/26/2014, 03/30/2013 COVID-19 VACCINE (3 - Moderna risk series) 05/21/2021 04/23/2021, 03/21/2021 DEPRESSION SCREENING 10/17/2024 MEDICARE AWV CALENDAR YEAR 2024 SCREENING FOR DIABETES 05/31/2025 05/31/2022, 2021 INFLUENZA VACCINE (#1) 2025 8, 10/17/2017, 08/31/2016, Additional history exists HEPATITIS C SCREENING Completed 02/02/2017 HIB VACCINE Aged Out No longer eligi ble based on patient's age to complete this topic HPV VACCINE Aged Out No longer eligi ble based on patient's age to complete this topic MENINGOCOCCAL (Group B) VACCINE SHARED DECISION-MAKING Aged Out No longer eligible based on patient's age to complete this topic MENINGOCOCCAL GROUPS A/C/Y/W VACCINE Aged Out No longer eligible based on patient's age to complete this topic Goals Goal Patient Goal Type Associated Problems Recent Progress Patient-Stated? Author Safety General On track( 3:45 PM CDT) Lucinda Contreras, RN Note: Expected end date: Ongoing Interventions: Your nurse will assess your risk for falls/injury each visit Use appropriate and safe transfer methods Medication Management General On track( 3:45 PM CDT) Lucinda Contreras, RN Note: Expected end date: Ongoing Interventions: Take all medications as prescribed Let your doctor know right away about any changes in your medications Procedures Procedure Name Priority Date/Time Associated Diagnosis Comments CT SINUS WO CONTRAST Routine 06/07/2025 12:19 PM CDT Chronic pansinusitis Seasonal allergic rhinitis due to pollen Nasal obstruction Nasal congestion CULTURE RESPIRATORY+GRAM STAIN (STL) Routine 05/01/2025 2:44 PM CDT Chronic pansinusitis Nasal congestion [place] NASAL ENDOSCOPY,DX Routine 05/01/2025 2:29 PM CDT Chronic pansinusitis Seasonal allergic rhinitis due to pollen Nasal obstruction Nasal congestion GLUCOSE - POINT OF CARE Routine 05/31/2022 11:45 AM CDT from Last 3 Months or Most Recently Relevant to Health Maintenance Results * CT Sinus Wo Contrast (06/07/2025 12:19 PM CDT) Anatomical Region Laterality Modality Head Computed Tomogra phy 06/07/2025 12:2 2 PM CDT Impressions 06/07/2025 12:26 PM CDT IMPRESSION: 1. Redemonstration of changes of bilateral maxillary antrostomies and ethmoidectomies. 2. Moderate diffuse mucosal thickening of the paranasal sinuses and opacification of some remaining ethmoid air cells associated with mild sclerotic wall thickening consistent with moderate chronic pansinusitis. > Interpreting Provider: Sophie Rutledge MD on 06/07/2025 12:26 PM Narrative 06/07/2025 12:26 PM CDT PROCEDURE: CT SINUS WO CONTRAST, DATE/TIME OF EXAM: 06/07/2025 12:19 PM, LOCATION [facility] INDICATION: J32.4: Chronic pansinusitis J30.1: Seasonal allergic rhinitis due to pollen J34.89: Nasal obstruction R09.81: Nasal congestion ADDITIONAL CLINICAL INFORMATION: Ordering Provider Reason For Exam: Technologist Note: Additional: EXAMINATION: Computed tomography (CT) of the paranasal sinuses without contrast TECHNIQUE: CT of the paranasal sinuses was performed without contrast according to standard protocol. COMPARISON: 04/14/2022. FINDINGS: Redemonstration of changes of bilateral maxillary antrostomies and ethmoidectomies. There is moderate diffuse mucosal thickening of the paranasal sinuses and opacification of some remaining ethmoid air cells associated with mild sclerotic wall thickening consistent with moderate chronic pansinusitis. No soft tissue invasion is identified. No bone erosions. The frontal recesses are occluded by mucosal thickening. The sphenoethmoidal recesses are patent. The nasal septum is at midline. Other than right lens replacement, the orbits including the globes, optic nerves, retrobulbar fat and extraocular muscles appear normal. The hard palate, mandible, and temporomandibular joints appear normal. The mastoid air cells are clear. Procedure Note Sophie Rutledge MD - 06/07/2025 PROCEDURE: CT SINUS WO CONTRAST, DATE/TIME OF EXAM: 06/07/2025 12:19PM, LOCATION [facility] INDICATION: J32.4: Chronic pansinusitis J30.1: Seasonal allergic rhinitis due to pollen J34.89: Nasal obstruction R09.81: Nasal congestion ADDITIONAL CLINICAL INFORMATION: Ordering Provider Reason For Exam: Technologist Note: Additional: EXAMINATION: Computed tomography (CT) of the paranasal sinuses without contrast TECHNIQUE: CT of the paranasal sinuses was performed without contrast according to standard protocol. COMPARISON: 04/14/2022. FINDINGS: Redemonstration of changes of bilateral maxillary antrostomies and ethmoidectomies. There is moderate diffuse mucosal thickening of the paranasal sinusesand opacification of some remaining ethmoid air cells associated with mild sclerotic wall thickening consistent with moderate chronic pansinusitis.No soft tissue invasion is identified. No bone erosions. The frontalrecesses are occluded by mucosal thickening. The sphenoethmoidal recesses are patent. The nasal septum is at midline. Other than right lens replacement, the orbits including the globes,optic nerves, retrobulbar fat and extraocular muscles appear normal. The hard palate, mandible, and temporomandibular joints appear normal. Themastoid air cells are clear. IMPRESSION: 1. Redemonstration of changes of bilateral maxillary antrostomies and ethmoidectomies. 2. Moderate diffuse mucosal thickening of the paranasal sinuses and opacification of some remaining ethmoid air cells associated with mild sclerotic wall thickening consistent with moderate chronic pansinusitis. > Interpreting Provider: Sophie Rutledge MD on 06/07/2025 12:26 PM Harrison Phelan MD CT ORDERABLES Final Resul t * (ABNORMAL) CULTURE RESPIRATORY+GRAM STAIN (05/01/2025 2:44 PM CDT) Pathologist [facility] Culture Moderate Staphylococcus aureus(A) YISSEL 05/04/2025 7:09 AM [facility] Comment:Staphylococcus aureu s methicillin-susceptible (MSSA) detected by penicillin binding protein immunoassay. Gram Stain Rare Polymorphonuclear cells 05/04/2025 7:09 AM T [facility] Gram Stain Heavy Gram-positive cocci 05/04/2025 7:09 AM [facility] Microbiology SINUS / Unknown Collection / Unknown 05/01/2025 2:44 PM CDT 05/01/2025 3:45 PM CDT Narrative Organism Antibiotic Method Susceptibility Staphylococcus aureus Cefazolin YISSEL Susceptible Staphylococcus aureus Clindamycin YISSEL <=0.12 ug/mL: Resistant Staphylococcus aureus Doxycycline YISSEL <=0.5 ug/mL: Susceptible Staphylococcus aureus Inducible Clindamy torrey Resistance YISSEL POS ug/mL: Pos Staphylococcus aureus Oxacillin YISSEL 0.5 ug/mL: Susceptible Staphylococcus aureus Trimethoprim-sulfa methox azole YISSEL <=10 ug/mL: Susceptible Comment: This isolate is presumed to be resistant to clindamycin on the basis of detection of inducible clindamycin resistance. Staphylococcus sensitivity to oxacillin predicts susceptibility for nafcillin, ampicillin/sulbactam, amoxicillin/clavulanate, piperacillin/tazobactam, all cephalosporins (except ceftazidime, ceftazidime/avibactam, ceftolozane/tazobactam), and all carbapenems. Harrison Phelan MD LAB - MICROBIOLOGY ORDERABL ES Final Result [facility] [address] [place], [place] [address], [facility] [phone] * [place] NASAL ENDOSCOPY,DX (05/01/2025 2:29 PM CDT) Narrative Harrison Phelan MD - 05/01/2025 2:29 PM CDT Harrison Phelan MD 05/01/2025 5:00 PM Procedure: Rigid Nasal Endoscopy Anesthesia: Bilateral Nasal Cavities sprayed with lidocaine and Neosynephrine Detail: Rigid nasal endoscopy performed bilaterally. We visualized the entire septum as well as the inferior turbinate, middle turbinate, superior turbinate and sphenoethmoid recess. We also visualized the nasopharynx. Unless mentioned below these structures were normal. Septum was essentially midline. On the right she has some crust today as well as a small amount of mucus. Superiorly within the posterior ethmoids she has some increased mucosal edema. On the left there is some small dry crust on the middle turbinate. I mobilized this and then took a culture superiorly of some thick mucus coming out of the frontal sinus. Only some very mild mucosal edema on this side. Patient tolerated well. EBL: none The attending was present for the entire procedure. Harrison Phelan MD PROCEDURE/MINOR SURGICAL OR DERABLES Final Result * (ABNORMAL) GLUCOSE - POINT OF CARE (05/31/2022 11:45 AM CDT) Glucose WB/POC 135(H) 70 - 115 mg/dL 05/31/2022 11:50 AM CDT [facility] Specimen Type Cap Fingerstick 2021 11:50 AM CDT [facility] Blood BLOOD SPECIMEN / Unknown 05/31/2022 11:45 AM CDT 05/31/2022 11:50 AM CDT Harrison Phelan MD LAB - POINT OF CARE ORDERAB LES Final Result [facility] [address] [place] [address], [facility] [phone] from Last 3 Months or Most Recently Relevant to Health Maintenance Additional Health Concerns Infection Onset Date Last 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 Source: [facility]. +01/13/22 sinus 05/26/2017 Insurance MEDICAID - [place] [facility] CARE MEDICAID - OUT OF STATE [facility] Care Teams Clinical Veterinarian Relationship Specialty Start Date End Date Unknown, Provider PCP - General 01/30/25
--- OUTSIDE RECORDS SUMMARY | 2025-06-22 06:53 | XMS_ITS | Encounter Summary ---
Author Organization [facility] Address [address] [place] [address] Care Team Providers Care Stuffer Name Role Phone Navid Kelly MD Primary Care Provider [phone] Encounter Details Date Type Department Care Team (Late st Contact Info) Description 07/21/2000 Outpatient Historical HIS [facility] Best Olivas MD [address] [place] [phone] Social History Tobacco Use Types Packs/Day Years Used Date Smoking Tobacco: Never Assessed Comments Unknown Sex and Gender Information Value Date Recorded Sex Assigned at Not on file Legal Sex Female 5:41 AM DEAN OF STUDENT SERVICES Gender Identity Not on file Sexual Orientation Not on file documented as of this encounter Plan of Treatment Not on file documented as of this encounter Visit Diagnoses Not on filedocumented in this encounter Care Teams Stuffer Relationship Specialty Start Date End Date Navid Kelly MD PCP - General Family Practice 06/30/17 documented as of this encounter
--- OUTSIDE RECORDS SUMMARY | 2025-06-22 06:53 | XMS_ITS | Encounter Summary ---
Author Organization [facility] Address 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 Gender Identity Not on file Sexual Orientation Not on file documented as of this encounter Plan of Treatment Not on file documented as of this encounter Procedures Procedure Name Priority Date/Time Associated Diagnosis Comments MRI TEMPROMANDIBULAR JOINTS Timed Study 12/16/2008 7:00 AM SPINNING FRAME CHANGER documented in this encounter Results * MRI TEMPROMANDIBULAR JOINTS (12/16/2008 7:00 AM SPINNING FRAME CHANGER) Anatomical Region Laterality Modality Head Other 12/16/2008 7:00 AM SPINNING FRAME CHANGER Narrative 12/16/2008 11:17 AM SPINNING FRAME CHANGER [address] [address] Admit Date: 12/16/2008 RUMA CALVO Sex: F Admit Prov: ELVIRA GERARD Date: 1970 Primary Care Prov: PCP, UNKNOWN CMRN: [id number] Room: [facility] N: [id number] IMAGING SERVICES Ordering Prov: N/A Accession Number: [id number] Interpretation MR IMAGING OF TEMPOROMANDIBULAR JOINTS 12/16/2008 [...] Procedure Note Jani Dunbar MD - 12/16/2008 [facility] [address] [place], [place] [address] Admit Date: 12/16/2008 RUMA CALVO Sex: F Admit Prov: ELVIRA GERARD Date: 1970 Primary Care Prov: PCP, UNKNOWN CMRN: [id number] Room: [facility] SSN: [id number] IMAGING SERVICES Ordering Prov: N/A Interpretation MR IMAGING OF TEMPOROMANDIBULAR JOINTS 12/16/2008 History: Atypical face pain, right TMJ arthralgia for 6 months Scan protocol: Patient was scanned with 2 mm sagittal oblique T1, FSE T2 and T0avhkcewy images, gradient echo T2-weighted images with mouth [...] pain documented in this encounter Care Teams Fast Food Services Manager Relationship Specialty Start Date End Date Navid Kelly MD PCP - General Family Practice 06/30/17 documented as of this encounter
--- OUTSIDE RECORDS SUMMARY | 2025-06-22 06:53 | XMS_ITS | Encounter Summary ---
Author Organization [facility] Address 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
--- OUTSIDE RECORDS SUMMARY | 2025-06-22 06:53 | XMS_ITS | Clinical Summary ---
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 Gender Identity Not on file Sexual [...] 6:00 AM CDT Height 170.2 cm (5' 7) 07/04/2017 2:30 PM CDT Body Mass Index 32.11 07/04/2017 2:30 PM CDT Plan of Treatment Health Maintenance Due Date Last Done Comments DTAP/TDAP/TD VACCINES (1 - Tdap) 1989 HEPATITIS B VACCINES (1 of 3 - 19+ 3-dose series) 02/1990 HPV/Cotest (21-29) 1991 CERVICAL CANCER SCREENING 2000 HPV/Cotest (30-65) 2000 PAP SMEAR 2000 BREAST CANCER SCREENING 2010 COLORECTAL SCREENING 2015 Colorectal Cancer Screening 2015 FIT-DNA Q 3 years 2015 FIT/FOBT Q 1 year 2015 Flex Sig/CT Colonography Q 5 years 2015 ZOSTER VACCINE (1 of 2) 2020 INFLUENZA VACCINE (#1) 2025 07/30/2015 Medical Devices Explanted Type Area Gasser Machine Operator Device Identifier Shelf Expiration Date Model / Serial / Lot Lap Band-08/31/2016 Implanted:2015 (Quantity not on file) Explanted:Qty: 1 on 07/04/2017 by Walker Bates MD at [facility] [employer] Express MEDICARE PART A AND B [facility] BLUE ACCESS CHOICE Advance Directives For more information, please contact: [phone] * Full Code (Latest Code Status on File) Date Activated Date Inactivated Comments 07/04/2017 2:01 PM 07/05/2017 3:02 PM * Full Code Date Activated Date Inactivated Comments 07/04/2017 10:04 AM 07/04/2017 2:01 PM * Full Code Date Activated Date Inactivated Comments 07/04/2017 9:23 AM 07/04/2017 10:04 AM * Full Code Date Activated Date Inactivated Comments 07/02/2016 5:38 AM 07/02/2016 10:39 AM Care Teams Rvda Master Certified Rv Technician Relationship Specialty Start Date End Date Navid Kelly MD PCP - General Family Practice 06/30/17
--- OUTSIDE RECORDS SUMMARY | 2025-06-22 06:53 | XMS_ITS | Clinical Summary ---
Author Organization [facility] Address [address] [place] [address] Care Team Providers Care Energy Auditor Name Role Phone None, Provider MD Primary Care Provider Unavaila ble Allergies Active Allergy Reactions Criticality Noted Date Comments Acetaminophen Rash Low 11/25/2024 Medications HYDROcodone-acet aminophen (NORCO) 5-325 MG tabletIndication s:Acute Pain < 3 Day Supply Take 1 tablet by mouth every 6 (six) hours as needed for Pain. Indications : Acute Pain < 3 Day Supply 6 tablet 03/23/2023 Active Social History Tobacco Use Types Packs/Day Years [...] Comments Blood Pressure 120/66 11/25/2024 11:15 AM PUNCHER Pulse 78 11/25/2024 11:15 AM PUNCHER Temperature 36.7 C (98 F) 11/25/2024 11:15 AM PUNCHER Respiratory Rate 18 11/25/2024 11:15 AM PUNCHER Oxygen Saturation 98% 11/25/2024 11:15 AM PUNCHER Inhaled Oxygen Concentration - - Weight 91.2 kg (201 lb 1 oz) 11/25/2024 8:00 AM PUNCHER Height 165.1 cm (5' 5) 11/25/2024 8:00 AM PUNCHER Body Mass Index 33.46 11/25/2024 8:00 AM PUNCHER Plan of Treatment Health Maintenance Due Date Last Done Comments Colorectal Cancer Screening Colonoscopy (10 Years) 1970 Annual Physical 1973 Hepatitis C 1988 DTaP, Tdap and Td Vaccines ( 1 - Tdap) 1989 Hepatitis B Vaccines (1 of 3 - 19+ 3-dose series) 1989 Mammogram Screening 2010 Pneumococcal Vaccine: 50+ Years (2 of 2 - PCV) 12/27/2015 12/26/2014, 03/30/2013 Zoster Vaccines (1 of 2) 2020 COVID-19 Vaccine (3 - 2024-2 6 season) 2025 04/23/2021, 03/21/2021 Meningococcal B Vaccine Aged Out No l onger eligible based on patient's age to complete this topic Meningococcal Vaccine Aged Out No jocelyne keisha eligible based on patient's age to complete this topic RSV Immunizations Under 20 Months Aged Out No longer eligible b ased on patient's age to complete this topic Additional Health Concerns Infection Onset Date Last 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
--- OUTSIDE RECORDS SUMMARY | 2025-06-22 06:53 | XMS_ITS | Encounter Summary ---
Author Organization [facility] Address [address] [place] [address] Care Team Providers Care Home Care Assistant Name Role Phone Navid Kelly MD Primary Care Provider [phone] Encounter Details Date Type Department Care Team (Late st Contact Info) Description 11/26/2008 Emergency [facility], Authorized P NO ADDRESS ON FILE Jasper Garza MD [address] [place] [id number] Social History Tobacco Use Types Packs/Day Years Used Date Smoking Tobacco: Never Assessed Comments Unknown Sex and Gender Information Value Date Recorded Sex Assigned at Not on file Legal Sex Female 5:41 AM FRONT COUNTER ATTENDANT Gender Identity Not on file Sexual Orientation Not on file documented as of this encounter Plan of Treatment Not on file documented as of this encounter Visit Diagnoses Not on filedocumented in this encounter Care Teams Home Care Assistant Relationship Specialty Start Date End Date Navid Kelly MD PCP - General Family Practice 06/30/17 documented as of this encounter
[2025-06-22 07:03] VITALS: BP 156/81; PULSE 100; RESP 18; TEMP 36.6; O2SAT 98
[2025-06-22 07:32] VITALS: BP 123/88; PULSE 82; RESP 16; TEMP 36.6; O2SAT 94
--- OUTSIDE RECORDS SUMMARY | 2025-06-22 07:35 | XMS_ITS | Clinical Summary ---
Author Organization [facility] Address [address] [place] [address] Care Team Providers Care Manager Cargo Name Role Phone Unknown, Provider Primary Care Provider Unavaila ble Source Comments [facility] Affiliates and Associated Physician Practices is amultiple site organization consisting of ambulatory clinics and hospital sitesin [place], [place], [place] and [place]. This disclosure is being madepursuant to the Care Everywhere program and may not contain all information available regarding this patient. Last updated 18.[facility] [employer] Allergies Active Allergy Reactions Criticality Noted Date [...] once daily 2 Active allergy injection Per [facility] Otolaryngology protocol Active prazosin (Minipress) 2 [...] daily as needed 3 Active nystatin (Mycostatin) 546363 UNIT/ML suspension Take 5 mL by mouth [...] Visit [facility] [address] [place] [address] Harrison Phelan MD Chronic pansinusitis (Primary Dx); Nasal polyps 06/12/2025 Travel 06/07/2025 12:10 PM CDT - 06/07/2025 11:59 PM CDT Hospital Encounter [facility] CAT SCAN [address] [place] [address] Harrison Phelan MD Discharge Disposition: Home or Self Care 06/07/2025 Travel 06/05/2025 Travel 05/01/2025 3:27 PM CDT - 05/01/2025 11:59 PM CDT Hospital Encounter [facility] LAB OP DRAW STATION [address] [place] [address] Discharge Disposition: Home or Self Care 05/01/2025 1:30 PM CDT Office Visit [facility] - ENT [address] [place] [phone] Harrison Phelan MD Chronic pansinusitis (Primary Dx); [...] on file Legal Sex Female 6:16 AM ACID PATROLLER Gender Identity Not on file Sexual Orientation [...] Description 07/26/2025 7:20 AM CDT Hospital Encounter [facility] SACHA OP [address] [place] [phone] Harrison Phelan MD [address] [place] [address] Surgery General 07/26/2025 7:20 AM CDT - 07/26/2025 9:40 AM CDT Surgery [facility] OP [address] [place] [address] Harrison Phelan MD [address] [facility] 2[address] [place] [address] MAXILLARY ANTROSTOMY, FRONTAL SINUSOTOMY, TOTAL ETHMOIDECTOMY, SPHENOIDOTOMY [...] 2:44 PM CDT Chronic pansinusitis Nasal congestion WA NASAL ENDOSCOPY,DX Routine 05/01/2025 2:29 PM CDT [...] DATE/TIME OF EXAM: 06/07/2025 12:19 PM, LOCATION [facility] INDICATION: J32.4: Chronic pansinusitis J30.1: Seasonal allergic [...] CONTRAST, DATE/TIME OF EXAM: 06/07/2025 12:19PM, LOCATION [facility] INDICATION: J32.4: Chronic pansinusitis J30.1: Seasonal allergic [...] RESPIRATORY+GRAM STAIN (05/01/2025 2:44 PM CDT) Pathologist [facility] Culture Moderate Staphylococcus aureus(A) YISSEL 05/04/2025 7:09 AM [facility] MICROBIOLOGY Comment:Staphylococcus aureu s methicillin-susceptible (MSSA) detected by penicillin binding protein immunoassay. Gram Stain Rare Polymorphonuclear cells 05/04/2025 7:09 AM T [facility] MICROBIOLOG[facility] Gram Stain Heavy Gram-positive cocci 05/04/2025 7:09 AM [facility] MICROBIOLOGY Microbiology SINUS / Unknown Collection / [...] LAB - MICROBIOLOGY ORDERABL ES Final Result [facility]CROBIOLOG[facility] [address] [place], [place] [address], [facility] [phone] * WA NASAL ENDOSCOPY,DX (05/01/2025 2:29 PM CDT) Narrative [...] - 115 mg/dL 05/31/2022 11:50 AM CDT [facility] Specimen Type Cap Fingerstick 2021 11:50 AM CDT [facility] Blood BLOOD SPECIMEN / Unknown 05/31/2022 11:45 AM CDT 05/31/2022 11:50 AM CDT Harrison Phelan MD LAB - POINT OF CARE ORDERAB LES Final Result [facility] [address] [place] [address], [facility] [phone] from Last 3 Months or Most Recently Relevant to Health Maintenance Additional Health Concerns Infection Onset Date Last 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 Source: [facility]. +01/13/22 sinus 05/26/2017 Insurance MEDICAID - [place] [facility] CARE MEDICAID - OUT OF STATE [facility] [place] [address] Care Teams Manager Cargo Relationship Specialty Start Date End Date Unknown, Provider PCP - General 01/30/25
--- OUTSIDE RECORDS SUMMARY | 2025-06-22 07:36 | XMS_ITS | Encounter Summary ---
Author Organization [facility] Address [facility] [place] [address] Care Team Providers Care Brine Plant Operator Name Role Phone Joe Covarrubias MD Primary Care Provider Unavailable Navid Parks MD Primary Care Provider [phone] None, Provider Primary Care Provider Unavaila ble Encounter Details Date Type Department Care Team (Late st Contact Info) Description 12/28/2016 Abstract [facility] CONVERSION [address] [place] [address] Joe Covarrubias MD Social History [...] documented as of this encounter Care Teams Brine Plant Operator Relationship Specialty Start Date End Date Joe Covarrubias MD PCP - General 03/06/15 Navid Parks MD [address] [address] PCP - General FAMILY PRACTICE 03/23/23 11/24/24 None, ProviderMD PCP - General UNKNOWN PHYSICIAN SPECIALTY 11/25/24 documented as of this encounter
--- OUTSIDE RECORDS SUMMARY | 2025-06-22 07:36 | XMS_ITS | Encounter Summary ---
Author Organization [facility] Address [address] [place] [address] Care Team Providers Care Guide Rail Cleaner Name Role Phone Navid Kelly MD Primary Care Provider [phone] Encounter Details Date Type Department Care Team (Late st Contact Info) Description 12/16/2008 Outpatient Historical [facility] MRI DEPT Elvira Gerard, NAHID [address] [place] [address] Atypical Face Pain Social History Tobacco Use Types Packs/Day Years Used Date Smoking Tobacco: Never Assessed Comments Unknown Sex and Gender Information Value Date Recorded Sex Assigned at Not on file Legal Sex Female 5:41 AM CASEWORKER PROTECTIVE SERVICES Gender Identity Not on file Sexual Orientation Not on file documented as of this encounter Plan of Treatment Not on file documented as of this encounter Procedures Procedure Name Priority Date/Time Associated Diagnosis Comments MRI TEMPROMANDIBULAR JOINTS Timed Study 12/16/2008 7:00 AM CASEWORKER PROTECTIVE SERVICES documented in this encounter Results * MRI TEMPROMANDIBULAR JOINTS (12/16/2008 7:00 AM CASEWORKER PROTECTIVE SERVICES) Anatomical Region Laterality Modality Head Other 12/16/2008 7:00 AM CASEWORKER PROTECTIVE SERVICES Narrative 12/16/2008 11:17 AM CASEWORKER PROTECTIVE SERVICES [address] [address] Admit Date: 12/16/2008 RUMA CALVO Sex: F Admit Prov: ELVIRA GERARD Date: 1970 Primary Care Prov: PCP, UNKNOWN CMRN: [id number] Room: [facility] N: [id number] IMAGING SERVICES Ordering Prov: N/A Accession Number: [id number] Interpretation MR IMAGING OF TEMPOROMANDIBULAR JOINTS 12/16/2008 [...] Procedure Note Jani Dunbar MD - 12/16/[facility] [address] [place], [place] [address] Admit Date: 12/16/2008 RUMA CALVO Sex: F Admit Prov: ELVIRA GERARD Date: 1970 Primary Care Prov: PCP, UNKNOWN CMRN: [id number] Room: [facility] SSN: [id number] IMAGING SERVICES Ordering Prov: N/A Interpretation MR IMAGING OF TEMPOROMANDIBULAR JOINTS 12/16/2008 History: Atypical face pain, right TMJ arthralgia for 6 months Scan protocol: Patient was scanned with 2 mm sagittal oblique T1, FSE T2 and [id number] images, gradient echo T2-weighted images with mouth [...] pain documented in this encounter Care Teams Guide Rail Cleaner Relationship Specialty Start Date End Date Navid Kelly MD PCP - General Family Practice 06/30/17 documented as of this encounter
--- OUTSIDE RECORDS SUMMARY | 2025-06-22 07:36 | XMS_ITS | Encounter Summary ---
Author Organization [facility] Address [address] [place] [address] Care Team Providers Care Body Mechanic Apprentice Name Role Phone Navid Kelly MD Primary Care Provider [phone] Encounter Details Date Type Department Care Team (Late st Contact Info) Description 11/26/2008 Emergency [facility] Er, Authorized P NO ADDRESS ON FILE Jasper Garza MD [address] [place] [address] Social History Tobacco Use Types Packs/Day Years Used Date Smoking Tobacco: Never Assessed Comments Unknown Sex and Gender Information Value Date Recorded Sex Assigned at Not on file Legal Sex Female 5:41 AM HOSPITAL CODER Gender Identity Not on file Sexual Orientation Not on file documented as of this encounter Plan of Treatment Not on file documented as of this encounter Visit Diagnoses Not on filedocumented in this encounter Care Teams Body Mechanic Apprentice Relationship Specialty Start Date End Date Navid Kelly MD PCP - General Family Practice 06/30/17 documented as of this encounter
--- OUTSIDE RECORDS SUMMARY | 2025-06-22 07:36 | XMS_ITS | Clinical Summary ---
Author Organization [facility] Address [address] [place] [address] Phone Care Team Providers Care Chucking Machine Operator Name Role Phone Navid Kelly MD Primary Care Provider [phone] Allergies Active Allergy Reactions Criticality Noted Date [...] on file Legal Sex Female 5:41 AM SAND CONTROL WORKER Gender Identity Not on file Sexual Orientation [...] 2025 07/30/2015 Medical Devices Explanted Type Area Roving Changer Device Identifier Shelf Expiration Date Model / Serial / Lot Lap Band-08/31/2016 Implanted:2015 (Quantity not on file) Explanted:Qty: 1 on 07/04/2017 by Walker Bates MD at [facility] [employer] Express MEDICARE PART A AND B [facility] BLUE ACCESS CHOICE Advance Directives For more information, please contact: [phone] * Full Code (Latest Code Status on File) Date Activated Date Inactivated Comments 07/04/2017 2:01 PM 07/05/2017 3:02 PM * Full Code Date Activated Date Inactivated Comments 07/04/2017 10:04 AM 07/04/2017 2:01 PM * Full Code Date Activated Date Inactivated Comments 07/04/2017 9:23 AM 07/04/2017 10:04 AM * Full Code Date Activated Date Inactivated Comments 07/02/2016 5:38 AM 07/02/2016 10:39 AM Care Teams Chucking Machine Operator Relationship Specialty Start Date End Date Navid Kelly MD PCP - General Family Practice 06/30/17
--- OUTSIDE RECORDS SUMMARY | 2025-06-22 07:36 | XMS_ITS | Encounter Summary ---
Author Organization [facility] Address [address] [place] [address] Care Team Providers Care Skilled Helper Name Role Phone Navid Kelly MD Primary Care Provider [phone] Encounter Details Date Type Department Care Team (Late st Contact Info) Description 07/21/2000 Outpatient Historical HIS [facility] Best Olivas MD [address] [place] [phone] Social History Tobacco Use Types Packs/Day Years Used Date Smoking Tobacco: Never Assessed Comments Unknown Sex and Gender Information Value Date Recorded Sex Assigned at Not on file Legal Sex Female 5:41 AM ATTENDING PATHOLOGIST Gender Identity Not on file Sexual Orientation Not on file documented as of this encounter Plan of Treatment Not on file documented as of this encounter Visit Diagnoses Not on filedocumented in this encounter Care Teams Skilled Helper Relationship Specialty Start Date End Date Navid Kelly MD PCP - General Family Practice 06/30/17 documented as of this encounter
--- OUTSIDE RECORDS SUMMARY | 2025-06-22 07:36 | XMS_ITS | Encounter Summary ---
Author Organization [facility] Address [address] [place] [address] Care Team Providers Care Director Of Dementia Operations Name Role Phone Navid Kelly MD Primary Care Provider [phone] Encounter Details Date Type Department Care Team (Late st Contact Info) Description 07/19/2000 Outpatient Historical [facility] Best Olivas MD [address] [place] [phone] Social History Tobacco Use Types Packs/Day Years Used Date Smoking Tobacco: Never Assessed Comments Unknown Sex and Gender Information Value Date Recorded Sex Assigned at Not on file Legal Sex Female 5:41 AM ASSISTANT TODDLER TEACHER Gender Identity Not on file Sexual Orientation Not on file documented as of this encounter Plan of Treatment Not on file documented as of this encounter Visit Diagnoses Not on filedocumented in this encounter Care Teams Director Of Dementia Operations Relationship Specialty Start Date End Date Navid Kelly MD PCP - General Family Practice 06/30/17 documented as of this encounter
--- OUTSIDE RECORDS SUMMARY | 2025-06-22 07:36 | XMS_ITS | Clinical Summary ---
Author Organization [facility] Address [address] [place] [address] Care Team Providers Care Supervisor Keymodule Assembly Name Role Phone None, Provider MD Primary [...] Comments Blood Pressure 120/66 11/25/2024 11:15 AM OVERHEAD WORKER Pulse 78 11/25/2024 11:15 AM OVERHEAD WORKER Temperature 36.7 C (98 F) 11/25/2024 11:15 AM OVERHEAD WORKER Respiratory Rate 18 11/25/2024 11:15 AM OVERHEAD WORKER Oxygen Saturation 98% 11/25/2024 11:15 AM OVERHEAD WORKER Inhaled Oxygen Concentration - - Weight 91.2 kg (201 lb 1 oz) 11/25/2024 8:00 AM OVERHEAD WORKER Height 165.1 cm (5' 5) 11/25/2024 8:00 AM OVERHEAD WORKER Body Mass Index 33.46 11/25/2024 8:00 AM OVERHEAD WORKER Plan of Treatment Health Maintenance Due Date [...] 03/23/2023 Insurance MEDICAID [employer] Care Teams Supervisor Keymodule Assembly Relationship Specialty Start Date End Date None, Provider, MD PCP - General UNKNOWN PHYSICIAN SPECIALTY 11/25/24
--- OUTSIDE RECORDS SUMMARY | 2025-06-22 07:36 | XMS_ITS | Encounter Summary ---
Author Organization [facility] Address [address] [place] [address] Care Team Providers Care Sales Technician Name Role Phone Navid Kelly MD Primary Care Provider [phone] Encounter Details Date Type Department Care Team (Late st Contact Info) Description 07/20/2000 Outpatient Historical HIS [facility] Best Olivas MD [address] [place] [phone] Social History Tobacco Use Types Packs/Day Years Used Date Smoking Tobacco: Never Assessed Comments Unknown Sex and Gender Information Value Date Recorded Sex Assigned at Not on file Legal Sex Female 5:41 AM MALT LIQUORS SALES REPRESENTATIVE Gender Identity Not on file Sexual Orientation Not on file documented as of this encounter Plan of Treatment Not on file documented as of this encounter Visit Diagnoses Not on filedocumented in this encounter Care Teams Sales Technician Relationship Specialty Start Date End Date Navid Kelly MD PCP - General Family Practice 06/30/17 documented as of this encounter
[2025-06-22 08:30] VITALS: BP 120/80; PULSE 76; RESP 16; TEMP 36.6; O2SAT 97
[2025-06-22 09:30] VITALS: BP 126/84; PULSE 78; RESP 16; TEMP 36.5; O2SAT 97
[2025-06-22 09:37] LABS: Hematocrit 43.1 % (37.0-47.0); Hemoglobin 14.4 g/dL (12.0-15.0); Immature Granulocyte Percent A 0.4 % (0-0.5); Lymphocytes Absolute Auto 2.49 K/mm3 (0.9-3.2); Mean Corpuscular HGB Conc 33.4 g/dl (32-36); Mean Corpuscular Hemoglobin 30.6 pg (26-34); Mean Corpuscular Volume 91.7 fl (80-100); Nucleated Red Blood Cells Absolute Auto 0.000 K/mm3 (0.0-0.012); Nucleated Red Blood Cells Perc 0.0 % (0.0-0.2); Platelet Count Result 318 k/mm3 (150-375); Red Blood Count 4.70 M/mm3 (4.2-5.4); White Blood Count 8.0 K/mm3 (4.5-10.0)
[2025-06-22 09:48] LABS: Alanine Aminotransferase 38 U/L (6-35); Albumin Level 3.9 g/dL (3.5-5.1); Alkaline Phosphatase 89 U/L (38-126); Anion Gap 7 mmol/L (4-12); Aspartate Amino Transferase 34 U/L (14-36); Bilirubin,Total 0.9 mg/dL (0.2-1.3); Blood Urea Nitrogen 16 mg/dL (7-17); Calcium 9.3 mg/dL (8.4-10.2); Carbon Dioxide 23 mmol/L (22-30); Chloride 108 mmol/L (98-107); Estimated CRCL calculation 77 ml/min; Estimated Glomerular Filt Rate > 60; Glucose 102 mg/dL (65-110); Potassium 4.0 mmol/L (3.4-5.0); Sodium 138 mmol/L (137-145); Total Protein 7.1 g/dL (6.3-8.2)
--- NOTE | 2025-06-22 10:02 | ED.GENADULT ---
HPI - General Adult General Chief complaint: Skin/Abscess/Foreign Body Stated complaint: blisters to legs Time Seen by Provider: 06/22/25 07:11 History of Present Illness HPI narrative: Recovery old female presents emergency department chief complaint of rash to her feet. Patient reports she has had a reaction before to various things and notes that she started having red patches on her feet the patient states they will blister at times and reports that they get very itchy. The patient denies angioedema the mouth denies shortness of breath denies chest pain. Related Data Home Medications ?Medication ?Instructions ?Recorded ?Confirmed ?Last Taken ?Type amlodipine 5 mg tablet 5 mg PO DAILY 09/16/23 03/31/24 Unknown History fluoxetine 20 mg capsule 20 mg PO DAILY 09/16/23 03/31/24 Unknown History alprazolam 0.5 mg tablet (Xanax) 0.5 mg PO Q8H 03/31/24 03/31/24 Unknown History docusate sodium 100 mg capsule 100 mg PO BID 03/31/24 03/31/24 Unknown History (Colace) semaglutide 2 mg/dose (8 mg/3 mL) 2 mg subcut WEEKLY 03/31/24 03/31/24 Unknown History subcutaneous pen injector (Ozempic) Allergies Allergy/AdvReac Type Severity Reaction Status Date / Time adhesive Allergy Unknown Unknown Verified 06/22/25 07:08 latex Allergy Unknown Rash Verified 06/22/25 07:08 acetaminophen (From Tylenol) Allergy Hives Verified 06/22/25 07:08 morphine AdvReac Intermediate hives Verified 06/22/25 07:08 adhesive tape AdvReac Mild RASH Verified 06/22/25 07:08 Review of Systems Review of Systems: A 10 system review of systems was completed on the patient and is negative except for what is stated in the HPI. Nursing and ancillary documentation was reviewed. [facility] Past Medical History Medical History Rhinitis Hypertension Former smoker MRSA colonization Hemolytic anemia Common variable immunodeficiency Irritable bowel syndrome Gastroesophageal reflux disease Obstructive sleep apnea Does not use CPAP. Asthma Anemia Anxiety Depression Arthritis Crohn disease Pneumonia Emphysema of lung Peripheral neuropathy Neurofibromatosis 2 Surgical History Surgical History History of laparoscopic adjustable gastric banding History of sinus surgery History of hysterectomy History of cholecystectomy History of appendectomy History of tonsillectomy Family History Family History Grandparent Family history of lung cancer Other Family history of malignant neoplasm Social History Social History Social History: Surrogate medical decision maker: Orlando Dimas, spouse. Code status: Full code. Smoking packs per day: 1 Smoking cigarettes per day: 20.0 Years smoked: 20 Smoking pack-years: 20.00 Smoking status: Former smoker Tobacco type: cigarettes Smoking end date: 10/17/11 Alcohol intake: current Alcohol use details: Social alcohol use in moderation. Substance use: never Do You Feel Safe in your Home?: Yes Lack of Transportation: No Lack of Food: Never True Current Housing: I Have Housing Concerned About Future Housing: No Difficulty Paying Gas/Electric Bills: No Difficulty Paying for Meds: No Currently Unemployed: No Education: High School Diploma/GED Difficulty w/ Childcare or Family Care: No Additional living arrangements comments: Lives with spouse in [place]. Gender identity (if verbalized by the patient): Female Spiritual care concerns: No Exam Narrative: GENERAL: Well-appearing, well-nourished, and in no acute distress. HEAD: Normocephalic, atraumatic. EYES: PERRLA and EOMI. ENT: Nares clear, no rhinorrhea or epistaxis. Mucous membranes moist. NECK: Supple. CHEST: Clear to auscultation. No respiratory distress. HEART: Regular rate and rhythm. No murmur heard. Normal peripheral pulses. ABDOMEN: Soft, nontender, nondistended, normal active bowel sounds. EXTREMITIES: Normal range of motion. No edema. SKIN: Warm, dry, contact type dermatitis rash present to the feet NEURO: No focal deficits. Alert and oriented x3. PSYCH: Normal mood and affect. Course Vital Signs Vital signs: Vital Signs Temperature 36.6 C 06/22/25 07:03 Pulse Rate 100 06/22/25 07:03 Respiratory Rate 18 06/22/25 07:03 Blood Pressure 156/81 H 06/22/25 07:03 Pulse Oximetry 98 06/22/25 07:03 Oxygen Delivery Room Air 06/22/25 07:03 Temperature 36.6 C 06/22/25 07:03 Pulse Rate 100 06/22/25 07:03 Respiratory Rate 18 06/22/25 07:03 Blood Pressure 156/81 H 06/22/25 07:03 Pulse Oximetry 98 06/22/25 07:03 Oxygen Delivery Room Air 06/22/25 07:03 Medical Decision Making MDM Narrative Medical decision making narrative: Laboratory studies were obtained showed normal CBC the platelet count was 3 1 8 electrolytes showed no acute abnormality The patient was started on prednisone and will be discharged home to follow-up primary care Vital Signs Vital Signs: Vital Signs Temperature 36.6 C 06/22/25 07:03 Pulse Rate 100 06/22/25 07:03 Respiratory Rate 18 06/22/25 07:03 Blood Pressure 156/81 H 06/22/25 07:03 Pulse Oximetry 98 06/22/25 07:03 Oxygen Delivery Room Air 06/22/25 07:03 Temperature 36.6 C 06/22/25 07:03 Pulse Rate 100 06/22/25 07:03 Respiratory Rate 18 06/22/25 07:03 Blood Pressure 156/81 H 06/22/25 07:03 Pulse Oximetry 98 06/22/25 07:03 Oxygen Delivery Room Air 06/22/25 07:03 Lab Data 06/22/25 09:31 06/22/25 09:31 Labs: Lab Results 06/22/25 Range/Units 09:31 WBC 8.0 (4.5-10.0) K/mm3 RBC 4.70 (4.2-5.4) M/mm3 Hgb 14.4 (12.0-15.0) g/dL Hct 43.1 (37.0-47.0) % MCV 91.7 (80-100) fl MCH 30.6 (26-34) pg MCHC 33.4 (32-36) g/dl RDW 13.9 (11.5-14.5) % Plt Count 318 D (150-375) k/mm3 MPV 9.5 (7.4-10.4) fl Immature Gran % (Auto) 0.4 (0-0.5) % Neut % (Auto) 49.4 (45.5-73.1) % Lymph % (Auto) 31.1 (18.3-44.2) % Whitley % (Auto) 13.4 H (2.6-8.5) % Eos % (Auto) 4.1 (0-4.4) % Baso % (Auto) 1.6 H (0.2-1.2) % Lymph # (Auto) 2.49 (0.9-3.2) K/mm3 Whitley # (Auto) 1.1 H (0.1-0.6) K/mm3 Eos # (Auto) 0.3 (0-0.3) K/mm3 Baso # (Auto) 0.1 (0.0-0.1) K/mm3 Abs Immat Gran (auto) 0.03 (0.00-0.031) K/mm3 Absolute Neuts (auto) 4.0 (1.3-6.7) K/mm3 Absolute Nucleated RBC 0.000 (0.0-0.012) K/mm3 Nucleated RBC % 0.0 (0.0-0.2) % Sodium 138 (137-145) mmol/L Potassium 4.0 (3.4-5.0) mmol/L Chloride 108 H (98-107) mmol/L Carbon Dioxide 23 (22-30) mmol/L Anion Gap 7 (4-12) mmol/L BUN 16 (7-17) mg/dL Creatinine 0.86 (0.7-1.0) mg/dL Estim Creat Clear Calc 77 ml/min Estimated GFR > 60 (59 - ) Glucose 102 (65-110) mg/dL Calcium 9.3 (8.4-10.2) mg/dL Total Bilirubin 0.9 (0.2-1.3) mg/dL AST 34 (14-36) U/L ALT 38 H (6-35) U/L Alkaline Phosphatase 89 (38-126) U/L Total Protein 7.1 (6.3-8.2) g/dL Albumin 3.9 (3.5-5.1) g/dL Discharge Plan Discharge Clinical Impression: Dermatitis Patient Disposition: Home Condition: Stable Instructions: Antibiotic Form, Contact Dermatitis (ED), Dermatitis (ED) Patient Language: [place] Citizen Prescriptions: New prednisone 20 mg tablet 40 mg PO DAILY 5 Days Qty: 10 0RF No Action dicyclomine 20 mg tablet 20 mg PO TID PRN (Reason: abdominal pain) Qty: 20 0RF prednisone 50 mg tablet 50 mg PO DAILY 5 Days Qty: 5 0RF ondansetron 4 mg tablet,disintegrating 4 mg PO Q8H PRN (Reason: nausea and vomiting) Qty: 10 0RF guaifenesin [Mucinex] 1,200 mg tablet extended release 12hr 1,200 mg PO Q12H Qty: 20 0RF sulfamethoxazole-trimethoprim [Bactrim DS] 800-160 mg tablet 1 tablet PO Q12H Qty: 14 0RF amlodipine 5 mg Tablet 5 mg PO DAILY fluoxetine 20 mg Capsule 20 mg PO DAILY alprazolam [Xanax] 0.5 mg Tablet 0.5 mg PO Q8H docusate sodium [Colace] 100 mg Capsule 100 mg PO BID Ozempic 2 mg/dose (8 mg/3 mL) Pen Injector 2 mg SUBCUT WEEKLY Rx Instructions: TAKES EVERY TUESDAY EVENING Claritin-D 24 Hour 10-240 mg Tablet Extended Release 24 Hr 1 tablet PO QAM Qty: 30 0RF montelukast [Singulair] 10 mg Tablet 10 mg PO HS Qty: 30 0RF guaifenesin [Mucus Relief ER] 600 mg Tablet Extended Release 12hr 1,200 mg PO Q12HR Qty: 60 0RF ipratropium-albuterol 0.5 mg-3 mg(2.5 mg base)/3 mL Solution For Nebulization 3 ml inhalation Q4HRT Qty: 120 0RF trazodone 50 mg Tablet 50 mg PO HS PRN (Reason: Insomnia) Qty: 30 0RF Spiriva Respimat 1.25 mcg/actuation mist 2 puff inhalation DAILY Qty: 4 2RF albuterol sulfate 90 mcg/actuation HFA aerosol inhaler 3 inh inhalation Q4H PRN (Reason: shortness of breath or wheezing) Qty: 6.7 2RF Rx Instructions: until breathing returns to target peak flow/parameters doxycycline hyclate 100 mg capsule 100 mg PO Q12H Qty: 10 0RF prednisone 10 mg tablet See Taper PO DIRECTED Qty: 44 0RF Taper: Prednisone Taper from 60 mg;12 days 40 mg DAILY for 3 Days and 0 Hour 30 mg DAILY for 4 Days and 0 Hour 20 mg DAILY for 4 Days and 0 Hour 15 mg DAILY for 4 Days and 0 Hour 10 mg DAILY for 4 Days and 0 Hour 5 mg DAILY for 4 Days and 0 Hour Rx Instructions: see taper instructions budesonide-formoterol [Symbicort] 160-4.5 mcg/actuation Hfa Aerosol Inhaler 2 inh INHALATION BID Qty: 10.2 2RF (DME) blood-glucose meter [OneTouch Verio Flex meter] Misc Qty: 1 0RF Rx Instructions: May substitute to in-stock meter and/or covered by insurance. Use As Directed (DME) OneTouch Verio test strips Strip Qty: 1 0RF Rx Instructions: May substitute to in-stock and/or covered by insurance strips. Use As Directed (DME) pen needle, diabetic [BD Ultra-Fine Candice Pen Needle] 32 gauge x 5/32 needle Qty: 1 0RF Rx Instructions: May substitute to meet patient needs. Use As Directed (DME) lancets [SMITH (formerly Ascentium)Touch Delica Plus Lancet] 30 gauge misc Qty: 1 0RF Rx Instructions: May substitute to in-stock and/or covered by insurance lancets. Use As Directed insulin glargine [Lantus Solostar U-100 Insulin] 100 unit/mL (3 mL) insulin pen 15 unit subcut QAM Qty: 3 0RF insulin aspart U-100 [Novolog FlexPen U-100 Insulin] 100 unit/mL (3 mL) insulin pen 1 sliding scale dose subcut USEASDIRECTD Qty: 15 0RF Rx Instructions: 200-250=4units 251-300=5units 301-350=6units 351-400=8units >400=10units and call No correction dose at Bedtime losartan 100 mg Tablet 100 mg PO DAILY Qty: 0 0RF furosemide 40 mg tablet 40 mg PO DAILY Qty: 30 0RF potassium chloride 20 mEq tablet,ER particles/crystals 20 meq PO DAILY Qty: 30 0RF methylprednisolone [Medrol (Merlin)] 4 mg tablets,dose pack See Rx Instructions .ROUTE .COMPLEX Qty: 21 0RF Rx Instructions: for 6 days Follow-up/Referrals: Wes Squires MD [Physician, Family Practice] PHYSICIAN,COVER MACHINE OPERATOR [Primary Care Provider, Internal Medicine] Time of Disposition: 10:07
[2025-06-22 10:36] VITALS: BP 126/84; PULSE 80; RESP 16; TEMP 36.6; O2SAT 98
== END 2025-06-22 10:36 | disposition home or self-care (01) ==
PROVIDERS: Emergency Provider Emergency Medicine
DX: L30.9 Dermatitis, unspecified (principal); I10 Essential (primary) hypertension; J43.9 Emphysema, unspecified; J45.909 Unspecified asthma, uncomplicated; D83.9 Common variable immunodeficiency, unspecified; K21.9 Gastro-esophageal reflux disease without esophagitis; K50.90 Crohn's disease, unspecified, without complications; M19.90 Unspecified osteoarthritis, unspecified site; G47.33 Obstructive sleep apnea (adult) (pediatric); G62.9 Polyneuropathy, unspecified; Q85.02 Neurofibromatosis, type 2; Z87.01 Personal history of pneumonia (recurrent); Z87.891 Personal history of nicotine dependence; Z90.710 Acquired absence of both cervix and uterus; Z90.49 Acquired absence of other specified parts of digestive tract; Z79.85 Long-term (current) use of injectable non-insulin antidiabetic drugs; Z79.899 Other long term (current) drug therapy; Z79.4 Long term (current) use of insulin
CPT/HCPCS: 36415; 80053; 85025; 96374; 99284; J2919